=== PATIENT | female | born 1960 | race Caucasian/White ===

== ENCOUNTER → 2021-03-03 13:43 | Outpatient (CLI) | payer BC, SELFPAY ==
--- NOTE | ~2021-03-03 | MM_ITS ---
EXAMINATION: MM screening [facility] BI w saad HISTORY: Screening mammogram TECHNIQUE: Craniocaudal and mediolateral oblique 3-D tomosynthesis images were obtained and synthetic 2-D images were generated. CAD analysis was submitted and interpreted. COMPARISON: 07/05/2019, 06/05/2018, 10/20/2015 BREAST PARENCHYMAL COMPOSITION: The breasts are heterogeneously dense, which may obscure small masses . FINDINGS: There is no evidence of suspicious mass, calcification, or architectural distortion to sugg est malignancy in either breast. There has been no suspicious interval change. IMPRESSION: 1. No mammographic evidence of malignancy. 2. Recommend routine screening mammography in one year. BI-RADS Category 1: Negative Reviewed, dictated and finalized at location A.
== END ==
PROVIDERS: Visit Provider Obstetrics & Gynecology
DX: Z12.31 Encounter for screening mammogram for malignant neoplasm of breast (principal)
CPT/HCPCS: 77063; 77067

== ENCOUNTER → 2022-08-10 11:46 | Outpatient (CLI) | payer BC, SELFPAY ==
--- NOTE | ~2022-08-10 | MM_ITS ---
EXAMINATION: MM screening [facility] BI w saad HISTORY: Screening mammogram TECHNIQUE: Craniocaudal and mediolateral oblique 3-D tomosynthesis images were obtained and synthetic 2-D images were generated. CAD analysis was submitted and interpreted. COMPARISON: 03/03/2021, 07/05/2019, 06/01/2018 bilateral screening mammogram examinations BREAST PARENCHYMAL COMPOSITION: There are scattered areas of fibroglandular density. FINDINGS: Is focal asymmetry in the central medial left breast on MLO view (MLO Tomosynthesis image 4 ). Diagnostic left mammogram and ultrasound examination are recommended. Otherwise there is no evidence of suspicious mass, calcification, or architectural distortion to sugg est malignancy in either breast. There has been no other suspicious interval change. IMPRESSION: 1. Focal left breast asymmetry on MLO view 2. Diagnostic left mammogram and left breast ultrasound examination are recommended BI-RADS Category 0: Incomplete: Needs additional imaging evaluation. Reviewed, dictated and finalized at location A. IMPRESSION: 1. Focal left breast asymmetry on MLO view 2. Diagnostic left mammogram and left breast ultrasound examination are recomme nded BI-RADS Category 0: Incomplete: Needs additional imaging evaluation.
== END ==
PROVIDERS: PCP Internal Medicine; Visit Provider Obstetrics & Gynecology Gynecology
DX: Z12.31 Encounter for screening mammogram for malignant neoplasm of breast (principal); R92.8 Other abnormal and inconclusive findings on diagnostic imaging of breast
CPT/HCPCS: 77063; 77067

== ENCOUNTER → 2022-08-17 08:43 | Outpatient (CLI) | payer BC, SELFPAY ==
--- NOTE | ~2022-08-17 | MMUS_ITS ---
EXAMINATION: MM diagnostic [facility] LT w saad, US breast LT limited HISTORY: Focal asymmetry of the left breast on screening mammogram TECHNIQUE: Additional 3-D tomosynthesis images of the left breast were performed and synthetic 2-D im ages were generated. CAD analysis was submitted and interpreted. High resolution limited left breast ultrasound was performed. COMPARISON: 08/10/2022, 03/03/2021, 07/05/2019 FINDINGS: MAMMOGRAPHIC FINDINGS: A persistent asymmetry is seen in the middle third of the inner breast on the mediolateral oblique vi ew with spot compression. No suspicious correlate is identified on the craniocaudal or mediolateral v iews. ULTRASOUND: There is a 7 mm x 3 mm mass at the 9:00 location 4.5 cm from the nipple on the breast with sonographi c features consistent with an intramammary lymph node. No suspicious cystic or solid mass is identifi ed. IMPRESSION: 1. No mammographic or sonographic evidence of malignancy. 2. Recommend routine screening mammography in one year. BI-RADS Category 2: Benign finding(s). Reviewed, dictated and finalized at location A. IMPRESSION: 1. No mammographic or sonographic evidence of malignancy. 2. Recommend routine screening mammography in one year. BI-RADS Category 2: Benign finding(s).
== END ==
PROVIDERS: PCP Internal Medicine; Visit Provider Obstetrics & Gynecology Gynecology
DX: R92.8 Other abnormal and inconclusive findings on diagnostic imaging of breast (principal)
CPT/HCPCS: 76642; 77061; 77065; G0279

== ENCOUNTER 2022-11-16 12:20 | Outpatient (CLI) | payer BC, SELFPAY ==
--- NOTE | 2022-11-16 | ECHO_ITS ---
Patient Info Name: Ivett Hemphill Age: 62 years : 1960 Gender: Female Ht: 67 in Wt: 250 lbs BSA: 2.37 m2 HR: 67 bpm BP: 122 / 83 mmHg Heart Rhythm: Sinus Rhythm Technical Quality: Fair Exam Date: 11/16/2022 1:51 PM Exam Location: [facility] Patient Status: Outpatient Admit Date: 11/16/2022 Staff Ordering Physician: Tristen Medina MD Senior Lead Software Engineer: Iris Galloway RDCS Attending Provider: Tristen Medina MD Referring Physician: Kennedy UP; Exam Type: CA echo doppler color flow Study Info Indications - dyspnea Complete two-dimensional, color flow and Doppler transthoracic echocardiogram is performed. Summary 1. Complete two-dimensional, color flow and Doppler transthoracic echocardiogram is performed. 2. Left ventricular systolic function is normal, estimated at 60-65%. 3. The left ventricular diastolic function is grade I diastolic dysfunction. 4. Right ventricular systolic function is normal. 5. There is trace mitral valve regurgitation. 6. There is mild tricuspid valve regurgitation. Left Ventricle Left ventricular chamber dimension is normal. Left ventricular systolic function is normal, estimated at 60-65%. There is no increased left ventricular wall thickness. The left ventricular diastolic function is grade I diastolic dysfunction. Right Ventricle Right ventricular chamber dimension is normal. Right ventricular systolic function is normal. Left Atria Left atrial chamber dimension is normal. Right Atria Right atrial chamber dimension is normal. Atrial Septum Intact interatrial septum visualized by color flow imaging. Aortic Valve The aortic valve is probable trileaflet. There is no aortic valve stenosis. There is no aortic valve regurgitation. Pulmonic Valve The pulmonic valve is not well visualized. Mitral Valve The mitral valve has thickened leaflets. There is no mitral valve stenosis. There is trace mitral valve regurgitation. Tricuspid Valve There is mild tricuspid valve regurgitation. Pericardium/Pleural There is no pericardial effusion. Inferior Vena Cava Normal inferior vena cava with >50% collapse upon inspiration consistent with normal right atrial pressure. Aorta The aortic root size at the sinus of Valsalva is normal. Left Ventricular Outflow Tract Name Value Normal LVOT 2D LVOT Diameter 2.2 cm LVOT Doppler LVOT Peak Gradient 5 mmHg LVOT Mean Gradient 2 mmHg LVOT VTI 18 cm LVOT VTI/AV VTI Ratio 0.8 LVOT Stroke Volume 68 ml LVOT CO 5.4 l/min LVOT CI 2.3 l/min/m2 Pulmonic Valve Name Value Normal RVOT Doppler RVOT Peak Gradient
--- NOTE | ~2022-11-16 | CT_ITS ---
EXAMINATION:CT lung screening DATE: 11/16/2022 14:43 INDICATION: Nicotine dependence. Current smoker with 20 pack year history. TECHNIQUE: Computed tomography (CT) of the chest was performed without intravenous contrast. Automate d exposure control and iterative reconstruction technique were employed. The dose-length product (DLP ) was 233.58 mGy-cm. COMPARISON: None. FINDINGS: There is mild emphysema. There is mild scarring at the lung apices. There is mild atelectas is bilaterally. There is a 5 mm nodule in right lower lobe. There is a 3 mm nodule at minor fissure. Calcified left lung nodules and calcified left hilar and mediastinal lymph nodes are consistent with old granulomatous disease. No pleural effusion. There is an aberrant right subclavian artery. The hea rt size is normal. No pericardial effusion. Calcifications in the spleen are consistent with old gran ulomatous disease. There is mild thoracic spondylosis. IMPRESSION: 1. Lung-RADS category 2: Benign appearance or behavior. Continue annual screening with noncontrast lo w-dose chest CT in 12 months. Reviewed, dictated and finalized at location A. AL CERAMIST ASSISTANT IMPRESSION: 1. Lung-RADS category 2: Benign appearance or behavior. Continue annual screeni ng with noncontrast low-dose chest CT in 12 months.
--- NOTE | 2022-11-17 09:38 | WPDPFTINT ---
PFT Procedure Performed PFT Procedure Performed Plethysmography (Lung Vol) Diffusing Cap (DLCO) Flow Vol Loop Spirometry w/o Bronchodil PFT Interpretation Spirometry showed normal FVC, normal FEV1, borderline diminished mid expiratory flow rates and a diminished FEV1 to FVC ratio 65%, indicative of mild obstructive airway disease, in the form of small airway disease. No post bronchodilator study was carried out. The elevated FRC and RV could indicate air trapping but this is not supported by the near normal spirometry. Alternatively, error in measurement of lung volumes could explain the increased lung volume measurements. Lung diffusion capacity is mildly reduced at 68% predicted. The flow-volume loop is consistent with a small airway disease. Consider repeating spirometry with post bronchodilator study to confirm the mild obstructive airway defect. Impression: Probable mild obstructive airway disease in the form of small airway disease. Consider repeat spirometry with bronchodilator study.
== END 2022-11-16 12:21 | disposition home or self-care (01) ==
PROVIDERS: PCP Internal Medicine; Visit Provider Internal Medicine
DX: Z12.2 Encounter for screening for malignant neoplasm of respiratory organs (principal); F17.210 Nicotine dependence, cigarettes, uncomplicated; R06.00 Dyspnea, unspecified; R94.2 Abnormal results of pulmonary function studies; I07.1 Rheumatic tricuspid insufficiency
CPT/HCPCS: 71271; 93306; 94375; 94726; 94729

== ENCOUNTER 2022-12-02 12:17 | Outpatient (CLI) | payer BC, SELFPAY ==
--- NOTE | 2022-12-02 15:46 | P.PCNPFT_ITS ---
PFT Procedure Performed PFT Procedure Performed Spirometry with Pre/Post Bronchodilator Flow Vol Loop PFT Interpretation This is a pulmonary function test with pre and post-bronchodilator spirometry. The test was performed and results interpreted in accordance with the 2019 and 2005 ATS/ERS Task Force guidelines respectively using the Global Lung Function Initiative-2012 reference equations. Patient demonstrated good effort and cooperation. Reproducibility criteria were met. The quality of the pre bron chodilator spirometry maneuver was Grade A and post bronchodilator spirometry maneuver was Grade A. Findings: Spirometry: The contour the inspiratory and expiratory flow tracing are normal. The pre bronchodilator FVC is 3.65 L, 104% predicted. The pre bronchodilator FEV1 is 2.56 L, 93% predicted. The pre bronchodilator FEV1: FVC ratio 70%. The post bronchodilator FVC is 4.29 L, representing an 18% increase. The post bronchodilator FEV1 is 3.21 L, representing a 26% increase. The post bronchodilator FEV1: FVC ratio 75%. In comparison to previous pulmonary function testing on 11/16/2022 in which only pre bronchodilator spirometry was performed, the pre bronchodilator FVC has decreased from 4.56 L to 3.65 L. The pre bronchodilator FEV1 is unchanged from 2.95 L to 2.56 L. Impression: The spirometry is normal without evidence of an obstructive abnormality. There is a significant improvement after inhaling a single dose of albuterol. In comparison to previous pulmonary function testing on 11/16/2022 there has been a greater than anticipated time dependent decrease in the pre bronchodilator FVC with no significant change in the pre bronchodilator FEV1. Clinical correlation is recommended.
== END 2022-12-02 12:18 | disposition home or self-care (01) ==
LOC: ANHPFT 12:20
PROVIDERS: PCP Internal Medicine; Visit Provider Internal Medicine
DX: J44.0 Chronic obstructive pulmonary disease with (acute) lower respiratory infection (principal)
CPT/HCPCS: 94060

== ENCOUNTER → 2023-08-10 10:17 | Outpatient (CLI) | payer BC, SELFPAY ==
--- NOTE | ~2023-08-10 | DEXA_ITS ---
Bone Density Report Name: ARMOND DEL ROSARIO Age: 62 Sex: Female Ethnicity: White Date of : 1960 Indication: osteopenia; hysterectomy; Referring Provider: AMRITA JEAN Study: Bone densitometry was performed. Exam Date: August 10, 2023 Accession number: [id number] Bone Density: Region BMD T-score Z-score Classification AP Spine (L1-L4) 0.925 -1.1 0.4 Osteopenia Femoral Neck (Left) 0.799 -0.4 0.9 Normal Total Hip (Left) 0.913 -0.2 0.8 Normal Femoral Neck (Right) 0.759 -0.8 0.5 Normal Total Hip (Right) 0.862 -0.7 0.3 Normal Total Hip Mean 0.888 -0.5 0.6 Normal World Health Organization criteria for BMD impression classify patients as: Normal (T-score at or above -1.0), Osteopenia (T-score between -1.0 and -2.5), or Osteoporosis (T-score at or below -2.5). 10-year Fracture Risk(1): Major Osteoporotic Fracture 6.0% Hip Fracture 0.5% Reported Risk Factors: [place] (), Neck BMD=0.759, BMI=42.0, smoking (1) FRAX(R) Version 3.08. Fracture probability calculated for an untreated patient. Fracture probability may be lower if the patient has received treatment. Previous Exams: Region Exam Age BMD T-score BMD Change BMD Change Date g/cm2 vs Baseline vs Previous AP Spine(L1-L4) 08/10/2023 62 0.925 -1.1 0.017 0.063* 06/05/2018 57 0.862 -1.7 -0.046 -0.046 10/20/2015 55 0.908 -1.3 Total Hip(Left) 08/10/2023 62 0.913 -0.2 0.078 0.052* 06/05/2018 57 0.861 -0.7 0.027 0.027 10/20/2015 55 0.835 -0.9 Total Hip(Right) 08/10/2023 62 0.862 -0.7 0.003 0.022 06/05/2018 57 0.839 -0.8 -0.019 -0.019 10/20/2015 55 0.858 -0.7 *Denotes significance at 95% confidence level, LSC for AP Spine = 0.022 g/cm2, LSC for Total Hip = 0.027 g/cm2 Clinical Information Provided by Patient: Smokes Has used the following medications: Vitamin D Has the following medical conditions: Hysterectomy Patient maximum height was 67 Menopause Age: 32 No regular weight bearing exercise Onset of menses at age 15 Number of children 1 Impression: The patient has low bone mass, based on the Total Spine T-score. The patient has an estimated ten-year risk of hip fracture of 0.5% and an estimated ten-year risk of major fracture of 6%, based on the WHO FRAX algorithm. The patient has risk factors, including: smoking. No s
== END ==
PROVIDERS: PCP Obstetrics & Gynecology Gynecology; Visit Provider Obstetrics & Gynecology Gynecology
DX: Z78.0 Asymptomatic menopausal state (principal); M85.88 Other specified disorders of bone density and structure, other site
CPT/HCPCS: 77080

== ENCOUNTER → 2023-09-29 12:27 | Outpatient (CLI) | payer BC, SELFPAY ==
--- NOTE | ~2023-09-29 | MM_ITS ---
EXAMINATION: MM screening [facility] BI w saad HISTORY: Screening mammogram TECHNIQUE: Craniocaudal and mediolateral oblique 3-D tomosynthesis images were obtained and synthetic 2-D images were generated. CAD analysis was submitted and interpreted. COMPARISON: 08/17/2022, 08/10/2022, 03/03/2021, 07/05/2019 BREAST PARENCHYMAL COMPOSITION: The breasts are heterogeneously dense, which may obscure small masses . FINDINGS: No suspicious mass, calcification, or architectural distortion are identified in either vicky ast to suggest malignancy. There has been no suspicious interval change. IMPRESSION: 1. No mammographic evidence of malignancy. 2. Recommend routine screening mammography in one year. BI-RADS Category 1: Negative Reviewed, dictated and finalized at location A. NING PROGRAM ASSISTANT
== END ==
PROVIDERS: PCP Obstetrics & Gynecology Gynecology; Visit Provider Obstetrics & Gynecology Gynecology
DX: Z12.31 Encounter for screening mammogram for malignant neoplasm of breast (principal)
CPT/HCPCS: 77063; 77067

== ENCOUNTER 2023-10-11 01:03 | Day surgery (SDC) | payer BC, SELFPAY ==
[2023-10-03 14:46] VITALS: BMI 40.7
--- NOTE | 2023-10-09 10:16 | SUR.PREOP ---
Patient called regarding upcoming procedure. Reviewed preop instructions, appointment times, and procedure prep.
[2023-10-11 10:39] VITALS: BP 118/72; PULSE 97; RESP 20; TEMP 36.1; O2SAT 94
[2023-10-11] MEDS: LACTATED RINGERS 1,000 ML 150 ML IV CONT (10:42)
--- NOTE | 2023-10-11 10:57 | P.HP_ITS ---
History of Present Illness History of Present Illness Consent: Risks, benefits, and alternatives have been discussed and questions answered. Patient agrees to proceed with procedure. Chief complaint: + cologuard Narrative: Ivett Hemphill is a 63 year old female Referred for colon cancer screening. She had performed a Cologuard test which was positive Review of Systems Review of Systems: All systems reviewed & are unremarkable except as noted in HPI and below PMFSH Social History Social History Smoking packs per day: 1.25 Smoking cigarettes per day: 25.0 Years smoked: 40 Smoking pack-years: 50.00 Smoking status: Former smoker Tobacco type: cigarettes and e-cigarettes/vaping Additional smoking assessment comments: CURRENTLY VAPES Alcohol intake: never Substance use: never Substance use type: does not use Living arrangements: with family Spiritual care concerns: No Meds Home Medications and Allergies Home Medications Medication Instructions Recorded Confirmed Type Calcium 600 + D(3) 1 caplet PO BID 10/03/23 10/11/23 History ergocalciferol (vitamin D2) 1,250 50,000 unit PO WEEKLY 10/03/23 10/11/23 Histor y mcg (50,000 unit) capsule furosemide 40 mg tablet 40 mg PO DAILY 10/03/23 10/11/23 History magnesium oxide 500 mg tablet 500 mg PO HS 10/03/23 10/11/23 History metolazone 5 mg tablet 5 mg PO DAILY 10/03/23 10/11/23 History potassium chloride 20 mEq 20 meq PO TID 10/03/23 10/11/23 History tablet,extended release rivaroxaban 20 mg tablet (Xarelto) 20 mg PO DAILY 10/03/23 10/11/23 History venlafaxine 37.5 mg 37.5 mg PO DAILY 10/03/23 10/11/23 History capsule,extended release 24 hr acetaminophen 325 mg tablet 650 mg PO Q4H PRN Pain 10/11/23 10/11/23 History Allergies Allergy/AdvReac Type Severity Reaction Status Date / Time No Known Allergies Allergy Verified 10/11/23 10:37 Vital Signs Vital Signs - 24 hr 10/11/23 10:39 Temperature 36.1 C L Pulse Rate 97 Respiratory Rate 20 Blood Pressure 118/72 Pulse Oximetry 94 Oxygen Delivery Room Air Exam Const: General: alert Orientation/consciousness: patient oriented x3 Resp: Auscultation: clear to auscultation bilaterally Cardio: Rhythm: regular rhythm GI: GI Palp: Yes Soft to palpation and No Tenderness to palpation present (GI) Neuro: General: patient oriented x3 Assessment and Plan Assessment and plan (1) Positive colorectal cancer screening using Cologuard test: Code(s): R19.5 - Other fecal abnormalities Status: Acute Assessment and Plan: Colonoscopy with possible biopsy or polypectomy or cautery or injection of substances.
--- NOTE | 2023-10-11 11:16 | P.PNAN_ITS ---
Anes - Initial Pre Proc Eval Procedure: Operation Date: 10/11/23 12:30 Proposed Procedures p Colonoscopy - Philip Torres MD Date/Time: 10/11/23 11:16 Surgeon: Philip Torres MD Pre Op Diagnosis: + cologuard Patient Data Age: 63 Gender: F Height: 1.7 m Weight: 117.9 kg Last Vital Signs Temp 96.9 F L 10/11/23 10:39 Pulse 97 10/11/23 10:39 Resp 20 10/11/23 10:39 BP 118/72 10/11/23 10:39 Pulse Ox 94 10/11/23 10:39 O2 Del Method Room Air 10/11/23 10:39 Allergies Allergy/AdvReac Type Severity Reaction Status Date / Time No Known Allergies Allergy Verified 10/11/23 10:37 Home Medications Medication Instructions Recorded Confirmed Type Calcium 600 + D(3) 1 caplet PO BID 10/03/23 10/11/23 History ergocalciferol (vitamin D2) 1,250 50,000 unit PO WEEKLY 10/03/23 10/11/23 History mcg (50,000 unit) capsule furosemide 40 mg tablet 40 mg PO DAILY 10/03/23 10/11/23 History magnesium oxide 500 mg tablet 500 mg PO HS 10/03/23 10/11/23 History metolazone 5 mg tablet 5 mg PO DAILY 10/03/23 10/11/23 History potassium chloride 20 mEq 20 meq PO TID 10/03/23 10/11/23 History tablet,extended release rivaroxaban 20 mg tablet (Xarelto) 20 mg PO DAILY 10/03/23 10/11/23 History venlafaxine 37.5 mg 37.5 mg PO DAILY 10/03/23 10/11/23 History capsule,extended release 24 hr acetaminophen 325 mg tablet 650 mg PO Q4H PRN Pain 10/11/23 10/11/23 History Patient hx anesthesia problems: none Family hx anesthesia problems: none Results Review: All pre-operative results and documents have been reviewed as part of the pre- operative evaluation. [facility] Social History Social History Smoking packs per day: 1.25 Smoking cigarettes per day: 25.0 Years smoked: 40 Smoking pack-years: 50.00 Smoking status: Former smoker Tobacco type: cigarettes and e-cigarettes/vaping Additional smoking assessment comments: CURRENTLY VAPES Alcohol intake: never Substance use: never Substance use type: does not use Living arrangements: with family Spiritual care concerns: No Anes - Eval Final PreProcedure Day of Procedure 10/11/23 11:16 Patient weight: morbidly obese Heart: regular rate and rhythm Lungs: clear to auscultation Airway: Mallampati scale class III Neurological: alert and oriented Last oral intake: >/= 8 hours ASA classification: III Emergent: no Anesthetic plan: proceed Anesthesia type and monitoring: general GIVS and standard monitoring Results Review: All pre-operative results and documents have been reviewed as part of the pre- operative evaluation. Informed Consent: The patient's anesthetic plan and its attendant risks and benefits were discussed with the patient/family/POA. Questions were solicited and answers provided to the satisfaction of the patient/family/POA.
[2023-10-11 11:55] VITALS: BP 100/64; PULSE 84; RESP 18; O2SAT 96
[2023-10-11 12:05] VITALS: BP 115/74; PULSE 78; RESP 20; O2SAT 98
[2023-10-11 12:15] VITALS: BP 125/78; PULSE 77; RESP 18; O2SAT 98
== END 2023-10-11 12:22 | disposition home or self-care (01) ==
PROVIDERS: PCP Internal Medicine; Visit Provider Internal Medicine Gastroenterology
PROC: 0DJD8ZZ Inspection of Lower Intestinal Tract, Via Natural or Artificial Opening Endoscopic (ICD-10-PCS; CPT 45378; principal; 2023-10-11 12:30)
DX: R19.5 Other fecal abnormalities (principal); D37.4 Neoplasm of uncertain behavior of colon; F17.209 Nicotine dependence, unspecified, with unspecified nicotine-induced disorders; E66.01 Morbid (severe) obesity due to excess calories; Z68.41 Body mass index [BMI] 40.0-44.9, adult; Z79.01 Long term (current) use of anticoagulants
CPT/HCPCS: 45380; 45381; 88305; J2704; J7120

== ENCOUNTER 2024-10-30 01:22 | Day surgery (SDC) | payer OTHER, SELFPAY ==
[2024-10-29 13:21] VITALS: BMI 40.6
[2024-10-30 08:56] VITALS: BP 134/74; PULSE 88; RESP 20; TEMP 36.3; O2SAT 99
[2024-10-30] MEDS: LACTATED RINGERS 1,000 ML 150 ML IV CONT (09:12)
--- NOTE | 2024-10-30 09:22 | WPDANESEPPF ---
Anes - Initial Pre Proc Eval Procedure: Operation Date: 10/30/24 10:00 Proposed Procedures p Colonoscopy - Milton mSith MD Date/Time: 10/30/24 09:22 Surgeon: Milton Smith MD Pre Op Diagnosis: Malignant neoplasm of colon Patient Data Age: 64 Gender: F Height: 1.7 m Weight: 114.1 kg Last Vital Signs Temp 36.3 C L 10/30/24 08:56 Pulse 88 10/30/24 08:56 Resp 20 10/30/24 08:56 BP 134/74 10/30/24 08:56 Pulse Ox 99 10/30/24 08:56 O2 Del Method Room Air 10/30/24 08:56 Allergies Allergy/AdvReac Type Severity Reaction Status Date / Time No Known Allergies Allergy Verified 10/29/24 13:41 Home Medications ?Medication ?Instructions ?Recorded ?Confirmed ?Type Calcium 600 + D(3) 1 caplet PO BID 10/03/23 10/30/24 History ergocalciferol (vitamin D2) 1,250 50,000 unit PO WEEKLY 10/03/23 10/30/24 History mcg (50,000 unit) capsule furosemide 40 mg tablet 40 mg PO DAILY 10/03/23 10/30/24 History magnesium oxide 500 mg PO HS 10/03/23 10/30/24 History metolazone 5 mg tablet 5 mg PO DAILY 10/03/23 10/30/24 History potassium chloride 20 mEq 20 meq PO TID 10/03/23 10/30/24 History tablet,extended release rivaroxaban 20 mg tablet (Xarelto) 20 mg PO DAILY 10/03/23 10/30/24 History venlafaxine 37.5 mg 37.5 mg PO DAILY 10/03/23 10/30/24 History capsule,extended release 24 hr acetaminophen 325 mg tablet 650 mg PO Q4H PRN Pain 10/11/23 10/29/24 History metoprolol succinate 25 mg 25 mg PO HS 10/29/24 10/30/24 History tablet,extended release 24 hr Patient hx anesthesia problems: none Family hx anesthesia problems: none Results Review: All pre-operative results and documents have been reviewed as part of the pre-operative evaluation. [facility] Past Medical History Medical History Colon cancer Social History Social History Smoking packs per day: 1 Smoking cigarettes per day: 20.0 Years smoked: 20 Smoking pack-years: 20.00 Smoking status: Former smoker Tobacco type: cigarettes Additional smoking assessment comments: CURRENTLY VAPES Alcohol intake: current Substance use: never Substance use type: does not use Living arrangements: with family Spiritual care concerns: No Anes - Eval Final PreProcedure Day of Procedure 10/30/24 09:22 Patient weight: morbidly obese Heart: regular rate and rhythm Lungs: clear to auscultation Airway: Mallampati scale class II Neurological: alert and oriented Last oral intake: >/= 8 hours ASA classification: III Emergent: no Anesthetic plan: proceed Anesthesia type and monitoring: general GIVS and standard monitoring Results Review: All pre-operative results and documents have been reviewed as part of the pre-operative evaluation. Informed Consent: The patient's anesthetic plan and its attendant risks and benefits were discussed with the patient/family/POA. Questions were solicited and answers provided to the satisfaction of the patient/family/POA.
--- NOTE | 2024-10-30 09:54 | PM.HPGS ---
History of Present Illness History of Present Illness Consent: Risks, benefits, and alternatives have been discussed and questions answered. Patient agrees to proceed with procedure. Chief complaint: Malignant neoplasm of colon Narrative: Ivett Hemphill is a 64 year old female with ascending colon s/p rt hemicolectomy last year, negative LN, dMMR + and is seeing oncology. Review of Systems Review of Systems: All systems reviewed & are unremarkable except as noted in HPI and below PMFSH Past Medical History Medical History Colon cancer Social History Social History Smoking packs per day: 1 Smoking cigarettes per day: 20.0 Years smoked: 20 Smoking pack-years: 20.00 Smoking status: Former smoker Tobacco type: cigarettes Additional smoking assessment comments: CURRENTLY VAPES Alcohol intake: current Substance use: never Substance use type: does not use Living arrangements: with family Spiritual care concerns: No Meds Home Medications and Allergies Home Medications ?Medication ?Instructions ?Recorded ?Confirmed ?Type Calcium 600 + D(3) 1 caplet PO BID 10/03/23 10/30/24 History ergocalciferol (vitamin D2) 1,250 50,000 unit PO WEEKLY 10/03/23 10/30/24 History mcg (50,000 unit) capsule furosemide 40 mg tablet 40 mg PO DAILY 10/03/23 10/30/24 History magnesium oxide 500 mg PO HS 10/03/23 10/30/24 History metolazone 5 mg tablet 5 mg PO DAILY 10/03/23 10/30/24 History potassium chloride 20 mEq 20 meq PO TID 10/03/23 10/30/24 History tablet,extended release rivaroxaban 20 mg tablet (Xarelto) 20 mg PO DAILY 10/03/23 10/30/24 History venlafaxine 37.5 mg 37.5 mg PO DAILY 10/03/23 10/30/24 History capsule,extended release 24 hr acetaminophen 325 mg tablet 650 mg PO Q4H PRN Pain 10/11/23 10/29/24 History metoprolol succinate 25 mg 25 mg PO HS 10/29/24 10/30/24 History tablet,extended release 24 hr Allergies Allergy/AdvReac Type Severity Reaction Status Date / Time No Known Allergies Allergy Verified 10/29/24 13:41 Vital Signs Vital Signs - 24 hr 10/30/24 08:56 Temperature 97.4 F L Pulse Rate 88 Respiratory Rate 20 Blood Pressure 134/74 Pulse Oximetry 99 Oxygen Delivery Room Air Exam Const: General: comfortable and no acute distress HENMT: Face/Nose/Sinus: Normal nares present Eyes: General: appearance normal, both eyes and all related structures Neck: Neck: no JVD Resp: Auscultation: clear to auscultation bilaterally Cardio: Rate: regular rate Rhythm: regular rhythm GI: Inspection: non-distended GI Palp: Yes Soft to palpation Skin: General skin exam: normal color Neuro: General: gait normal Speech: normal speech Extrem: General: normal to inspection Psych: Mental Status: mental status grossly normal Assessment and Plan Assessment and plan (1) Colon cancer: Code(s): C18.9 - Malignant neoplasm of colon, unspecified Status: Acute Assessment and Plan: colonoscopy
[2024-10-30 10:11] VITALS: BP 99/47; PULSE 71; RESP 23; O2SAT 95
[2024-10-30 10:21] VITALS: BP 115/71; PULSE 75; RESP 20; O2SAT 95
[2024-10-30 10:31] VITALS: BP 121/67; PULSE 67; RESP 23; O2SAT 94
== END 2024-10-30 10:40 | disposition home or self-care (01) ==
PROVIDERS: PCP Internal Medicine; Referring Provider Nurse Practitioner Family; Visit Provider Internal Medicine Gastroenterology
PROC: 0DJD8ZZ Inspection of Lower Intestinal Tract, Via Natural or Artificial Opening Endoscopic (ICD-10-PCS; CPT 45378; principal; 2024-10-30 10:00)
DX: Z08 Encounter for follow-up examination after completed treatment for malignant neoplasm (principal); D12.3 Benign neoplasm of transverse colon; K62.1 Rectal polyp; K64.8 Other hemorrhoids; Z85.038 Personal history of other malignant neoplasm of large intestine; Z98.0 Intestinal bypass and anastomosis status; Z90.49 Acquired absence of other specified parts of digestive tract; F17.290 Nicotine dependence, other tobacco product, uncomplicated; E66.01 Morbid (severe) obesity due to excess calories; Z68.39 Body mass index [BMI] 39.0-39.9, adult
CPT/HCPCS: 45385; 45380; 88305; J2003; J2704; J7120

== ENCOUNTER 2025-05-15 11:35 | Outpatient (CLI) | payer OTHER, SELFPAY ==
--- NOTE | ~2025-05-15 | US_ITS ---
EXAMINATION: US venous doppler [facility] DATE: 05/15/2025 12:40 INDICATION: Right lower extremity erythema and swelling TECHNIQUE: Grayscale ultrasound images without and with compression and Doppler ultrasound images of the bilateral lower extremity veins were obtained. COMPARISON: None. FINDINGS: The visualized portions of right common femoral vein, profunda (deep) femoral vein and greater saphen ous vein outflow are patent and compressible. Noncompressibility and absence of flow is identified within the femoral vein, popliteal vein, peronea l veins and posterior tibial veins consistent with extensive right lower extremity deep venous thromb osis. The visualized portions of left common femoral vein, profunda femoral vein, femoral vein, popliteal v ein, peroneal veins, posterior tibial veins, and greater saphenous vein outflow are patent. IMPRESSION: Deep venous thrombosis within the right femoral vein, popliteal vein, peroneal veins and posterior ti bial veins, as detailed above. These findings were discussed directly with Dr. Benavides (patient's house furnishings supervisor) at 1:00 PM on 05/15/2025. Reviewed, dictated and finalized at location A. IMPRESSION: Deep venous thrombosis within the right femoral vein, popliteal vein, peroneal veins and posterior tibial veins, as detailed above. These findings were discussed directly with Dr. Benavides (patient's primary clini inder) at 1:00 PM on 05/15/2025.
--- OUTSIDE RECORDS SUMMARY | 2025-05-15 11:42 | XMS_ITS | Data Portability ---
Author Organization [facility], Main Office Address [address] [place] [address] Assessment No assessment recorded. Plan of Treatment Reminders Order Date Submit Date Provider Last Modified By Organization Details Last Modified Time Details Appointments Any 10 2024 10:20A Radha Benavides MD Not available Not available Not available Lab BMP, serum or plasma 2024 025 [email or web address] [facility], [address] [place], [address], 05/15/2025 11:42:00 HbA1c (hemoglo bin A1c), blood 2024 025 [facility], [address] [place], [address], 12/27/2024 14:00:29 lipid panel, serum 2024 025 [email or web address] [facility], [address] [place], [address], 12/27/2024 14:00:29 CMP, serum or plasma 2024 025 [facility], [address] [place], [address], 12/27/2024 14:00:29 T4, free, serum 2024 025 [email or web address] [facility], [address] [place], [address], 12/27/2024 14:00:29 TSH, serum or plasma 2024 025 [id number] [facility], [address] [place], [address], 12/27/2024 14:00:30 CBC w/ auto diff 2024 025 [email or web address] [facility], [address] [place], [address], 12/27/2024 14:00:30 TSH, serum or plasma 2023 024 [id number] [facility], [address] [place], [address], 06/12/2024 16:58:32 T4, free, serum 2023 024 [email or web address] [facility], [address] [place], [address], 06/12/2024 16:58:32 vitamin D, 25-hydro xy, total, serum 2023 024 [email or web address] [facility], [address] [place], [address], 06/12/2024 16:58:33 lipid panel, serum 2023 024 [email or web address] [facility], [address] [place], [address], 06/03/2024 14:58:38 CMP, serum or plasma 2023 024 [id number] L [facility], [address] [place], [address], 06/13/2024 14:22:32 CBC w/ auto diff 2023 024 [id number] [facility], [address] [place], [address], 06/12/2024 16:58:32 Referral None recorded . Procedures None recorded . Surgeries None recorded . Imaging None recorded . Medication Orders None recorded . Patient TargetsNo targets recorded. Patient Instructions Encounter Date Encounter Id Patient Instructions Last Modified By Organization Details Last Modified Time 02/05/2024 [id number] Medically stable follow-up for primary adenocarcinoma of colon, depression as well as history of DVT all clinically stable. No need for any blood work at this time. Will continue on current Rx follow-up in approximately four months. Next Appt: 4 Months Approximate Date: 06/04/2024 Portions of the record may have been created with voice recognition software. Occasional wrong-word or s ound-a-like substitutions may have occurred due to the inherent limitations of voice recognition software. Read the chart carefully and recognize, using context, where substitutions have occurred. [email or web address] Not available 02/05/2024 12:41:54 06/03/2024 [id number] Follow-up for pr imary adenocarcinoma of colon, ventral hernia as well as obesity all clinically stable. Check blood work in the form of CBC, CMP, lipid, thyroid and vitamin-D level. Will try to get records on the most recent mammogram as well as CT scan of chest abdomen and pelvis. Follow-up in six months Additional Orders and/or Directives: 1. See if there was a screening mammogram done back in July at the [facility]. 2. Check on a CT scan of the chest abdomen and pelvis that was performed [facility] several months ago by Oncology. Next Appointment: 6 Months Approximate Date: 11/30/2024 Portions of the record may have been created with voice recognition software. Occasional wrong-word or s ound-a-like substitutions may have occurred due to the inherent limitations of voice recognition software. Read the chart carefully and recognize, using context, where substitutions have occurred. [email or web address] Not available 06/03/2024 14:57:24 12/10/2024 [id number] Ventral hernia, depression, history of deep vein thrombosis and morbid obesity. The patient can not have surgery for abdominal wall hernia without losing 30-40 lb.. Suggested that we try when the GLP-1. Inhibitors. Will check some baseline blood work and check for hemoglobin A1c. Check CBC, CMP, lipid, thyroid, hemoglobin A1c. Consider starting on semaglutide or Mounjaro . Follow-up in four months Additional Orders - Directives - Recommendations 1. like to try to start the patient on either Wegovy or Follow Up: 4 Months Approximate Date: 04/09/2025 Portions of record are template driven. When necessary additional context will be provided. Additionally some portions have been created with voice recognition software. Occasional wrong-word or s ound-a-like substitutions may have occurred due to the inherent limitations of voice recognition software. Read the chart carefully and recognize, using context, where substitutions may have occurred. Created: Tristen Benavides M.D. 12.10.2024 03:09 PM [email or web address] Not available 12/10/2024 16:09:48 04/17/2025 [id number] While patient evaluation risk assessment stable. Follow-up for ventral hernia, carcinoma of the colon, depression, morbid obesity and history of DVT in the past. Is clinically stable scheduled for surgery on May 08. See no contraindications to surgery based upon recent blood work and CT scan reports from [facility]. Will follow-up in four months Follow Up: 4 Months Approximate Date: 2025 Portions of record are template driven. When necessary additional context will be provided. Additionally some portions have been created with voice recognition software. Occasional wrong-word or s ound-a-like substitutions may have occurred due to the inherent limitations of voice recognition software. Read the chart carefully and recognize, using context, where substitutions may have occurred. Created: Tristen Benavides M.D. 04.17.2025 11:29 AM [email or web address] Not available 04/17/2025 12:30:22 05/15/2025 [id number] Hypokalemia, his tory of DVT, primary carcinoma of the colon by history clinically doing well and morbid obesity. Will check a repeat potassium and two weeks. Will set up for venous Doppler. Needs a resume her Xarelto. Needs to watch closely for any increased swelling and any shortness of breath or hemoptysis. Let us know immediately. Additional Orders - Directives - Recommendations 1. Bilateral venous Doppler of lower extremities possible DVT Keep Appointment: [facility] 08 14 2025 10:20 AM [place] Portions of record are template driven. When necessary additional context will be provided. Additionally some portions have been created with voice recognition software. Occasional wrong-word or s ound-a-like substitutions may have occurred due to the inherent limitations of voice recognition software. Read the chart carefully and recognize, using context, where substitutions may have occurred. Created: Tristen Benavides M.D. 05.15.2025 10:35 AM [email or web address] Not available 05/15/2025 11:36:02 Reason for Referral None Reported. Results Created Date Observation Date Name Description Value Unit Range Abnormal Flag Note LastModifiedBy Organization Detail LastModifiedTime 01/10/20 24 01/10/2024 CBC/C OMPLE TE BLD COUNT W/DIF F white blood cells 7.7 x10'3 /uL 4.2-10 .8 Not Available [facility] (Lab) [address] [place], [address], 01/10/2024 15:05:44 01/10/20 24 01/10/2024 CBC/C OMPLE TE BLD COUNT W/DIF F red blood cells 4.93 x10'6 /uL 3.80-5 .20 Not Available [facility] (Lab) [address] [place], [address], 01/10/2024 15:05:44 01/10/20 24 01/10/2024 CBC/C OMPLE TE BLD COUNT W/DIF F hemoglobin 11.0 g/dL 12.0-1 5.6 low Not Available [facility] (Lab) [address] [place], [address], 01/10/2024 15:05:44 01/10/20 24 01/10/2024 CBC/C OMPLE TE BLD COUNT W/DIF F hematocrit 37.0 % 35.7-4 5.7 Not Available [facility] (Lab) [address] [place], [address], 01/10/2024 15:05:44 01/10/20 24 01/10/2024 CBC/C OMPLE TE BLD COUNT W/DIF F mean red cell volume 75.1 fL 82.0-9 9.0 low Not Available [facility] (Lab) [address] [place], [address], 01/10/2024 15:05:44 01/10/20 24 01/10/2024 CBC/C OMPLE TE BLD COUNT W/DIF F mean red cell hemoglobin 22.3 pg 27.0-3 3.0 low Not Available [facility] (Lab) [address] [place], [address], 01/10/2024 15:05:44 01/10/20 24 01/10/2024 CBC/C OMPLE TE BLD COUNT W/DIF F mean RBC HGB concentratio n 29.7 g/dL 31.0-3 6.0 low Not Available [facility] (Lab) [address] [place], [address], 01/10/2024 15:05:44 01/10/20 24 01/10/2024 CBC/C OMPLE TE BLD COUNT W/DIF F red cell distribution width 19.4 % 11.8-1 5.5 high Not Available [facility] (Lab) [address] [place], [address], 01/10/2024 15:05:44 01/10/20 24 01/10/2024 CBC/C OMPLE TE BLD COUNT W/DIF F platelets 655 x10'3 /uL 150-40 0 high Not Available [facility] (Lab) [address] [place], [address], 01/10/2024 15:05:44 01/10/20 24 01/10/2024 CBC/C OMPLE TE BLD COUNT W/DIF F mean platelet volume 10.1 fL 9.0-12 .4 Not Available [facility] (Lab) [address] [place], [address], 01/10/2024 15:05:44 01/10/20 24 01/10/2024 CBC/C OMPLE TE BLD COUNT W/DIF F neutrophils 64.0 % 39.0-7 2.0 Not Available [facility] (Lab) [address] [place], [address], 01/10/2024 15:05:44 01/10/20 24 01/10/2024 CBC/C OMPLE TE BLD COUNT W/DIF F lymphocytes 20.4 % 16.0-4 7.0 Not Available [facility] (Lab) [address] [place], [address], 01/10/2024 15:05:44 01/10/20 24 01/10/2024 CBC/C OMPLE TE BLD COUNT W/DIF F monocytes 14.5 % 5.0-12 .0 high Not Available [facility] (Lab) [address] [place], [address], 01/10/2024 15:05:44 01/10/20 24 01/10/2024 CBC/C OMPLE TE BLD COUNT W/DIF F eosinophils 0.3 % 1.0-7. 0 low Not Available [facility] (Lab) [address] [place], [address], 01/10/2024 15:05:44 01/10/20 24 01/10/2024 CBC/C OMPLE TE BLD COUNT W/DIF F basophils 0.4 % 0.0-2. 0 Not Available [facility] (Lab) [address] [place], [address], 01/10/2024 15:05:44 01/10/20 24 01/10/2024 CBC/C OMPLE TE BLD COUNT W/DIF F immature granulocytes 0.4 % 0.00-0 .50 Not Available [facility] (Lab) [address] [place], [address], 01/10/2024 15:05:44 01/10/20 24 01/10/2024 CBC/C OMPLE TE BLD COUNT W/DIF F neutrophils, absolute count 4.96 x10'3 /uL 1.5-8. 0 Not Available [facility] (Lab) [address] [place], [address], 01/10/2024 15:05:44 01/10/20 24 01/10/2024 CBC/C OMPLE TE BLD COUNT W/DIF F lymphocytes, absolute count 1.58 x10'3 /uL 1.07-3 .43 Not Available [facility] (Lab) [address] [place], [address], 01/10/2024 15:05:44 01/10/20 24 01/10/2024 CBC/C OMPLE TE BLD COUNT W/DIF F monocytes, absolute count 1.12 x10'3 /uL 0.29-0 .99 high Not Available [facility] (Lab) [address] [place], [address], 01/10/2024 15:05:44 01/10/20 24 01/10/2024 CBC/C OMPLE TE BLD COUNT W/DIF F eosinophils, absolute count 0.02 x10'3 /uL 0.02-0 .53 Not Available [facility] (Lab) [address] [place], [address], 01/10/2024 15:05:44 01/10/20 24 01/10/2024 CBC/C OMPLE TE BLD COUNT W/DIF F basophils, absolute count 0.03 x10'3 /uL 0.01-0 .08 Not Available [facility] (Lab) [address] [place], [address], 01/10/2024 15:05:44 01/10/20 24 01/10/2024 CBC/C OMPLE TE BLD COUNT W/DIF F immature granulocytes ,absolute 0.03 x10'3 /uL 0.00-0 .05 Not Available [facility] (Lab) [address] [place], [address], 01/10/2024 15:05:44 01/10/20 24 01/10/2024 CBC/C OMPLE TE BLD COUNT W/DIF F nucleated red blood cells 0.0 % -0 Not Available [facility] (Lab) [address] [place], [address], 01/10/2024 15:05:44 01/10/20 24 01/10/2024 CBC/C OMPLE TE BLD COUNT W/DIF F NRBC# 0.00 x10'3 /uL Not Available [facility] (Lab) [address] [place], [address], 01/10/2024 15:05:44 01/10/20 24 01/10/2024 CBC/C OMPLE TE BLD COUNT W/DIF F anisocytosis OCCASI ONAL Not Available [facility] (Lab) [address] [place], [address], 01/10/2024 15:05:44 01/10/20 24 01/10/2024 CBC/C OMPLE TE BLD COUNT W/DIF F hypochromia OCCASI ONAL Not Available [facility] (Lab) [address] [place], [address], 01/10/2024 15:05:44 01/10/20 24 01/10/2024 CBC/C OMPLE TE BLD COUNT W/DIF F polychromato philic RBCs OCCASI ONAL Not Available [facility] (Lab) [address] [place], [address], 01/10/2024 15:05:44 01/10/20 24 01/10/2024 IRON/ TIBC PANEL total iron binding capacity 358 mcg/d L 265-47 5 Not Available [facility] (Lab) [address] [place], [address], 01/10/2024 15:58:36 01/10/20 24 01/10/2024 IRON/ TIBC PANEL % transferrin saturation 10 % 20-55 low Not Available [facility] (Lab) [address] [place], [address], 01/10/2024 15:58:36 01/10/20 24 01/10/2024 IRON/ TIBC PANEL unsaturated iron bind capacity 321 mcg/d L 126-38 2 Not Available [facility] (Lab) [address] [place], [address], 01/10/2024 15:58:36 01/10/20 24 01/10/2024 IRON/ TIBC PANEL iron 37 mcg/d L 42-175 low Not Available [facility] (Lab) [address] [place], [address], 01/10/2024 15:58:36 01/10/20 24 01/10/2024 BASIC METAB OLIC PANEL sodium 134 mmol/ L 137-14 5 low Not Available [facility] (Lab) [address] [place], [address], 01/10/2024 15:56:37 01/10/20 24 01/10/2024 BASIC METAB OLIC PANEL potassium 3.1 mmol/ L 3.5-5. 1 low Not Available [facility] (Lab) [address] [place], [address], 01/10/2024 15:56:37 01/10/20 24 01/10/2024 BASIC METAB OLIC PANEL chloride 87 mmol/ L 98-107 low Not Available [facility] (Lab) [address] [place], [address], 01/10/2024 15:56:37 01/10/20 24 01/10/2024 BASIC METAB OLIC PANEL carbon dioxide 38 mmol/ L 22-30 high Not Available [facility] (Lab) [address] [place], [address], 01/10/2024 15:56:37 01/10/20 24 01/10/2024 BASIC METAB OLIC PANEL anion gap 12.1 mmol/ L 14-22 low Not Available [facility] (Lab) [address] [place], [address], 01/10/2024 15:56:37 01/10/20 24 01/10/2024 BASIC METAB OLIC PANEL glucose 108 mg/dL 70-99 high Not Available [facility] (Lab) [address] [place], [address], 01/10/2024 15:56:37 01/10/20 24 01/10/2024 BASIC METAB OLIC PANEL BUN 32 mg/dL 8-19 high Not Available [facility] (Lab) [address] [place], [address], 01/10/2024 15:56:37 01/10/20 24 01/10/2024 BASIC METAB OLIC PANEL creatinine 0.90 mg/dL 0.66-1 .25 Not Available [facility] (Lab) [address] [place], [address], 01/10/2024 15:56:37 01/10/20 24 01/10/2024 BASIC METAB OLIC PANEL GFR >60 Refer ence Range : Bath ge GFR Healt hy Adult : >60 mL/mi n/1.7 3 m2 Chron ic Kidne y Disea se: 15-60 mL/mi n/1.7 3 m2 Kidne y Failu re: <15/m L/min /1.73 m2 www.n iddk. nih.g ov The MDRD study equat ion has not been valid ated in child angelita <18 years of age; pregn ant women ; the elder ly >85 years of age; or in some racia l or ethni c subgr oups, such as Hispa nics. Outsi de the valid ated jace eters , estim ated GFR is less accur ate, requi ring clini alan judgm ent on a case- by-ca se basis . Clini alan inter preta tion for other races and ages must be made by the clini inder. The MDRD study equat ion has not been valid ated for the evalu ation of serum creat inine relat ed to nutri gaby l statu s or medic ation usage . For perso ns <18 years of age, a pedia tric GFR calcu lator is avail able on the [facility] websi te: https ://lawrence fernandes.o steven/pr ofess ional s/kdo qi/gf r_cal culat or Not Available [facility] (Lab) [address] [place], [address], 01/10/2024 15:56:37 01/10/20 24 01/10/2024 BASIC METAB OLIC PANEL calcium 10.5 mg/dL 8.4-10 .2 high Not Available [facility] (Lab) [address] [place], [address], 01/10/2024 15:56:37 01/10/20 24 01/10/2024 NICOLETTE TIN ferritin 10 NG/mL 11.1-2 64 low Not Available [facility] (Lab) [address] [place], [address], 01/10/2024 16:25:03 01/10/20 24 01/10/2024 VITAM IN B12 (TRUNG JUSTICE ) vb12 790 pg/mL 239-93 1 Not Available [facility] (Lab) [address] [place], [address], 01/10/2024 17:04:54 01/10/20 24 01/10/2024 FOLAT E, SERUM /PLAS MA folate 15.8 NG/mL 2.76-2 0.0 Not Available [facility] (Lab) [address] [place], [address], 01/10/2024 17:04:56 01/31/20 24 01/31/2024 BASIC METAB OLIC PANEL sodium 141 mmol/ L 137-14 5 Not Available [facility] (Lab) [address] [place], [address], 01/31/2024 14:40:08 01/31/20 24 01/31/2024 BASIC METAB OLIC PANEL potassium 4.0 mmol/ L 3.5-5. 1 Not Available [facility] (Lab) [address] [place], [address], 01/31/2024 14:40:08 01/31/20 24 01/31/2024 BASIC METAB OLIC PANEL chloride 103 mmol/ L 98-107 Not Available [facility] (Lab) [address] [place], [address], 01/31/2024 14:40:08 01/31/20 24 01/31/2024 BASIC METAB OLIC PANEL carbon dioxide 34 mmol/ L 22-30 high Not Available [facility] (Lab) [address] [place], [address], 01/31/2024 14:40:08 01/31/20 24 01/31/2024 BASIC METAB OLIC PANEL anion gap 8.0 mmol/ L 14-22 low Not Available [facility] (Lab) [address] [place], [address], 01/31/2024 14:40:08 01/31/20 24 01/31/2024 BASIC METAB OLIC PANEL glucose 99 mg/dL 70-99 Not Available [facility] (Lab) [address] [place], [address], 01/31/2024 14:40:08 01/31/20 24 01/31/2024 BASIC METAB OLIC PANEL BUN 12 mg/dL 8-19 Not Available [facility] (Lab) [address] [place], [address], 01/31/2024 14:40:08 01/31/20 24 01/31/2024 BASIC METAB OLIC PANEL creatinine 0.74 mg/dL 0.66-1 .25 Not Available [facility] (Lab) [address] [place], [address], 01/31/2024 14:40:08 01/31/20 24 01/31/2024 BASIC METAB OLIC PANEL GFR >60 Refer ence Range : Bath ge GFR Healt hy Adult : >60 mL/mi n/1.7 3 m2 Chron ic Kidne y Disea se: 15-60 mL/mi n/1.7 3 m2 Kidne y Failu re: <15/m L/min /1.73 m2 www.n iddk. [facility].g ov The MDRD study equat ion has not been valid ated in child angelita <18 years of age; pregn ant women ; the elder ly >85 years of age; or in some racia l or ethni c subgr oups, such as Hispa nics. Outsi de the valid ated jace eters , estim ated GFR is less accur ate, requi ring clini alan judgm ent on a case- by-ca se basis . Clini alan inter preta tion for other races and ages must be made by the clini inder. The MDRD study equat ion has not been valid ated for the evalu ation of serum creat inine relat ed to nutri gaby l statu s or medic ation usage . For perso ns <18 years of age, a pedia tric GFR calcu lator is avail able on the [facility] websi te: https ://lawrence morton.marshall fernandes.o steven/pr nancyess ional s/kdo qi/gf r_cal culat or Not Available [facility] (Lab) [address] [place], [address], 01/31/2024 14:40:08 01/31/20 24 01/31/2024 BASIC METAB OLIC PANEL calcium 9.9 mg/dL 8.4-10 .2 Not Available [facility] (Lab) [address] [place], [address], 01/31/2024 14:40:08 07/10/20 24 07/10/2024 MAGNE SIUM magnesium 1.9 mg/dL 1.6-2. 3 Not Available [facility] (Lab) [address] [place], [address], 07/10/2024 12:24:40 07/10/20 24 07/10/2024 BASIC METAB OLIC PANEL sodium 139 mmol/ L 137-14 5 Not Available [facility] (Lab) [address] [place], [address], 07/10/2024 12:24:47 07/10/20 24 07/10/2024 BASIC METAB OLIC PANEL potassium 3.5 mmol/ L 3.5-5. 1 Not Available [facility] (Lab) [address] [place], [address], 07/10/2024 12:24:47 07/10/20 24 07/10/2024 BASIC METAB OLIC PANEL chloride 103 mmol/ L 98-107 Not Available [facility] (Lab) [address] [place], [address], 07/10/2024 12:24:47 07/10/20 24 07/10/2024 BASIC METAB OLIC PANEL carbon dioxide 32 mmol/ L 22-30 high Not Available [facility] (Lab) [address] [place], [address], 07/10/2024 12:24:47 07/10/20 24 07/10/2024 BASIC METAB OLIC PANEL anion gap 7.5 mmol/ L 14-22 low Not Available [facility] (Lab) [address] [place], [address], 07/10/2024 12:24:47 07/10/20 24 07/10/2024 BASIC METAB OLIC PANEL glucose 97 mg/dL 70-99 Not Available [facility] (Lab) [address] [place], [address], 07/10/2024 12:24:47 07/10/20 24 07/10/2024 BASIC METAB OLIC PANEL BUN 19 mg/dL 8-19 Not Available [facility] (Lab) [address] [place], [address], 07/10/2024 12:24:47 07/10/2007/10/2024 BASIC METAB OLIC PANEL creatinine 0.73 mg/dL 0.66-1 .25 Not Available [facility] (Lab[facility] [address] [facility] [place], [address], 07/10/2024 12:24:47 07/10/20 24 07/10/2024 BASIC METAB OLIC PANEL GFR >60 Refer ence Range : Bath ge GFR Healt hy Adult : >60 mL/mi n/1.7 3 m2 Chron ic Kidne y Disea se: 15-60 mL/mi n/1.7 3 m2 Kidne y Failu re: <15/m L/min /1.73 m2 www.n iddk. nih.g ov The MDRD study equat ion has not been valid ated in child angelita <18 years of age; pregn ant women ; the elder ly >85 years of age; or in some racia l or ethni c subgr oups, such as Hisma nics. Outsi de the valid ated jace eters , estim ated GFR is less accur ate, requi ring clini alan judgm ent on a case- by-ca se basis . Clini alan inter preta tion for other races and ages must be made by the clini inder. The MDRD study equat ion has not been valid ated for the evalu ation of serum creat inine relat ed to nutri gaby l statu s or medic ation usage . For perso ns <18 years of age, a pedia tric GFR calcu lator is avail able on the F websi te: https ://lawrence w.marshall fernandes.o rg/pr ofess ional s/kdo qi/gf r_cal culat or Not Available [facility] (Lab) [address] [place], [address], 07/10/2024 12:24:47 07/10/2007/10/2024 BASIC METAB OLIC PANEL calcium 9.3 mg/dL 8.4-10 .2 Not Available [facility] (Lab) [address], [place], [address], 07/10/2024 12:24:47 05/13/2005/14/2025 BASIC METAB OLIC PANEL glucose 109 mg/dL 65-99 high Fasti ng refer ence inter georgina For someo ne witho ut known diabe daryn, a gluco se value betwe en 100 and 125 mg/dL is consi stent with predi abete s and shoul d be confi rmed with a follo w-up test. Not Available [facility] [address] [address] [place], [address], 05/14/2025 03:27:32 05/13/2005/14/2025 BASIC METAB OLIC PANEL urea nitrogen (BUN) 13 mg/dL 7-25 normal Not Available [facility] [place] [address] [place], [address], 05/14/2025 03:27:32 05/13/20 25 05/14/2025 BASIC METAB OLIC PANEL creatinine 0.77 mg/dL 0.50-1 .05 normal Not Available [facility] [address] [place], [address], 05/14/2025 03:27:32 05/13/20 25 05/14/2025 BASIC METAB OLIC PANEL eGFR 87 mL/mi n/1.7 3m2 > or = 60 normal Not Available [facility] [address] [address] [place], [address], 05/14/2025 03:27:32 05/13/2005/14/2025 BASIC METAB OLIC PANEL BUN/creatini ne ratio SEE NOTE: (calc ) 6-22 Not Repor jefe: BUN and Creat inine are withi n refer ence range . Not Available [facility] [address] [address] [place], [address], 05/14/2025 03:27:32 05/13/20 25 05/14/2025 BASIC METAB OLIC PANEL sodium 142 mmol/ L 135-14 6 normal Not Available [address], [address], 05/14/2025 03:27:32 05/13/20 25 05/14/2025 BASIC METAB OLIC PANEL potassium 5.0 mmol/ L 3.5-5. 3 normal Not Available [address], [address], 05/14/2025 03:27:32 05/13/20 25 05/14/2025 BASIC METAB OLIC PANEL chloride 104 mmol/ L 98-110 normal Not Available [address], [address], 05/14/2025 03:27:32 05/13/20 25 05/14/2025 BASIC METAB OLIC PANEL carbon dioxide 31 mmol/ L 20-32 normal Not Available [address], [address], 05/14/2025 03:27:32 05/13/20 25 05/14/2025 BASIC METAB OLIC PANEL calcium 9.2 mg/dL 8.6-10 .4 normal Not Available [address], [address], 05/14/2025 03:27:32 01/15/20 24 elect rocar diogr am No observ ation record ed. [email or web address] Not Available 2023 16:34:27 01/31/20 24 01/31/2024 US, carot id arter y No observ ation record ed. [email or web address] [facility] [address], [place], [address], 02/01/2024 06:40:38 02/01/20 24 01/31/2024 US, echoc ardio gram No observ ation record ed. [facility] [address], [place], [address], 02/01/2024 15:49:11 02/20/20 24 02/19/2024 pharm acolo gic nucle ar stres s test No observ ation record ed. [email or web address] [facility] [address], [place], [address], 02/20/2024 12:08:20 06/25/20 24 06/13/2024 lab* No observ ation record ed. [email or web address] Not Available 2023 12:50:01 06/25/20 24 06/15/2024 lab* No observ ation record ed. [email or web address] Not Available 2023 12:50:36 Result Notes None recorded. Problems Name Problem SNOMED Code Status Onset Date Resolution Date Notes Provider Name and Address Organization Details Recorded Time Deep venous thrombosis 115744562 Active Not Available [facility] 3 18:24:25 Morbid obesity 362234640 Active 2021 Not Available [facility] 3 18:24:25 Dyspnea 957816978 Active 2021 Not Available [facility] 3 18:24:25 Edema 114255739 Active Not Available [facility] 3 18:24:25 Screening for cardiovasc ular system disease Active 2021 Not Available [facility] 3 18:24:25 Current tear of medial cartilage AND/OR meniscus of knee Active Not Available [facility] 3 18:24:25 Enthesopat hy of hip region 07715400 Active Not Available [facility] 3 18:24:25 Screening for disorder Active 2021 Not Available [facility] 3 18:24:25 Depressive disorder 33462343 Active 2020 Not Available [facility] 3 18:24:25 Osteoarthr itis 104134614 Active Not Available [facility] 3 18:24:25 Obesity 406870197 Active 2021 Not Available [facility] 3 18:24:25 Periodic limb movement disorder 501708165 Active 2021 Not Available [facility] 3 18:24:25 Hypokalemi a 29359126 Active 2021 NARENDRA Galvez, [place] [facility] 5 13:04:33 Dyspnea on exertion 67646961 Active 2021 Not Available [facility] 3 18:24:25 Derangemen t of knee 53992295 Active Not Available [facility] 3 18:24:25 Hyperglyce jimmie 02539127 Active 2021 Not Available [facility] 3 18:24:25 Serous otitis media 06103125 Active 2022 Not Available [facility] 3 18:24:25 Vitamin D deficiency 60075657 Active 2022 Not Available [facility] 3 18:24:25 Colorectal cancer detected by DNA-based stool screening 068672651 Active 2022 NARENDRA Galvez[place] [facility] 3 12:26:29 Primary adenocarci noma of colon 4437510147830 Active 2022 Tristen Benavides MD [address], [place], [address] , [place] [facility] 3 15:32:31 Aphthous ulcer of mouth 585784763 Active 2023 Tristen Benavides MD [address], [place], [address] , [place] [facility] 4 12:09:24 Low back pain 785457018 Active 2023 Tristen Benavides MD [address], [place], [address] , [place] [facility] 4 15:27:00 Syncope 531802927 Active 2023 NARENDRA Galvez[place] [facility] 4 10:34:39 Anemia 953455020 Active 2023 NARENDRA Galvez[place] - [facility] 4 10:35:45 History of deep vein thrombosis 982469068 Active 2023 Tristen Benavides MD [address], [facility] [address], [place], [address] , [facility] 4 12:39:04 Hernia of anterior abdominal wall 889059295 Active 2023 Tristen Benavides MD [address], [facility] [address], [place], [address] , [facility] 4 14:51:53 Hypomagnes emia 216503097 Active 2023 Maura gr, [facility] 4 11:03:49 Vertigo 649773048 Active 2023 Tristen Benavides MD [address], [facility] [address], [place], [address] , [facility] [email or web address] [facility] 4 12:04:27 Edema of lower extremity 302969663 Active 2024 Bell Joseph gr, [facility] 5 11:50:20 Problem Notes None recorded. Medical Equipment None Reported. Medications Name Sig Start Date Stop Date Status Note LastModified by Organization Details LastModified Time cyclobenz aprine 10 mg tablet TAKE 1 TABLET BY MOUTH EVERY 8 HOURS FOR 12 DOSES active Not Available Not Available No t Available amoxicill in 500 mg capsule TAKE 1 CAPSULE BY MOUTH THREE TIMES A DAY FOR 10 DAYS 02/04 completed Not Available Not Available Not Available furosemid e 40 mg tablet TAKE 1 TABLET BY MOUTH EVERY DAY active Not Available Not Available No t Available clotrimaz ole 10 mg francisca TAKE 1 TABLET 5 TIMES A DAY BY ORAL ROUTE. 12/10 completed Not Available Not Available Not Available venlafaxi ne ER 37.5 mg capsule,e xtended release 24 hr TAKE 1 CAPSULE BY MOUTH EVERY DAY active Not Available Not Available No t Available ropinirol e 1 mg tablet Take 1 tablet every day by oral route at bedtime. 02/06 completed Not Available Not Available Not Available trazodone 50 mg tablet TAKE 1 TABLET BY MOUTH EVERYDAY AT BEDTIME 04/17 completed Not Available Not Available Not Available benzonata te 200 mg capsule Take 1 capsule 3 times a day by oral route. 01/10 completed Not Available Not Available Not Available metolazon e 5 mg tablet TAKE 1 TABLET BY MOUTH EVERY DAY active Not Available Not Available No t Available Zithromax Z-Shahriar 250 mg tablet Take 2 TABLET EVERY DAY by oral route for 1 day then one daily 01/10 completed Not Available Not Available Not Available metronida zole 500 mg tablet TAKE 1 TABLET BY MOUTH EVERY 8 HOURS FOR 14 DAYS. 12/10 completed Not Available Not Available Not Available ciproflox acin 500 mg tablet TAKE 1 TABLET BY MOUTH EVERY 12 HOURS FOR 14 DAYS. 12/10 completed Not Available Not Available Not Available ondansetr on 8 mg disintegr ating tablet PLEASE SEE ATTACHED FOR DETAILED DIRECTIO NS 02/04 completed Not Available Not Available Not Available Voltaren 75 mg tablet,de layed release Take 1 tablet twice a day by oral route. 05/18 completed Not Available Not Available Not Available Celexa 20 mg tablet Take 1 tablet every day by oral route. active Not Available Not Available No t Available meclizine 25 mg tablet TAKE 1 TABLET 3 TIMES A DAY BY ORAL ROUTE. FOR VERTIGO 12/10 completed Not Available Not Available Not Available baclofen 10 mg tablet TAKE 1 TABLET BY MOUTH FOUR TIMES A DAY 02/04 completed Not Available Not Available Not Available Valtrex 1 gram tablet Two tabs BID for one day 03/29 completed Not Available Not Available Not Available docusate sodium 100 mg capsule TAKE 1 CAPSULE BY MOUTH TWICE A DAY active Not Available Not Available No t Available lidocaine HCl 2 % mucosal solution TAKE 15 ML EVERY 2 HOURS BY ORAL ROUTE. 02/04 completed Not Available Not Available Not Available bisacodyl 5 mg tablet,de layed release PLEASE SEE ATTACHED FOR DETAILED DIRECTIO NS 06/03 completed Not Available Not Available Not Available metoprolo l succinate ER 25 mg tablet,ex tended release 24 hr TAKE 1 TABLET BY MOUTH EVERY DAY AT NIGHT active Not Available Not Available No t Available ergocalci ferol (vitamin D2) 1,250 mcg (50,000 unit) capsule TAKE 1 CAPSULE BY MOUTH ONCE WEEKLY 04/17 completed Not Available Not Available Not Available polyethyl lidia glycol 3350 17 gram/dose oral powder PLEASE SEE ATTACHED FOR DETAILED DIRECTIO NS 04/17 completed Not Available Not Available Not Available methylpre dnisolone 4 mg tablets in a dose pack Take by oral route as per package insert 10/16 completed Not Available Not Available Not Available neomycin 500 mg tablet TAKE TWO TABLETS BY MOUTH AT 1PM, 2PM, AND 10PM THE DAY BEFORE SURGERY 02/04 completed Not Available Not Available Not Available Paxil 10 mg tablet Take 1 tablet every day by oral route. 10/16 completed Started by CLERICAL ASSISTANT Not Available Not Available Not Available naproxen 500 mg tablet Take 1 tablet twice a day by oral route. active Not Available Not Available No t Available Estrace 1 mg tablet Take 1 tablet every day by oral route. 2014 active Not Available Not Available Not Avai lable oxycodone 5 mg tablet TAKE 1 TABLET BY MOUTH EVERY 4 HOURS NEEDED FOR PAIN active Not Available Not Available No t Available Vitamin D3 25 mcg (1,000 unit) tablet Take 1 tablet every day by oral route. 2015 active Not Available Not Available Not Avai lable Klor-Con M20 mEq tablet,ex tended release TAKE 1 TABLET BY MOUTH EVERY DAY 06/13 completed Not Available Not Available Not Available Vitamin D 03/29 completed Not Available Not Available Not Available methyltes tosterone 05/18 completed Not Available Not Available Not Available magnesium oxide 500 mg capsule Take 1 capsule every day by oral route. active Not Available Not Available No t Available Xarelto 20 mg tablet TAKE 1 TABLET BY MOUTH EVERY DAY active Not Available Not Available No t Available Os-Alan 500 + D3 500 mg-15 mcg (600 unit) tablet Take 1 tablet twice a day by oral route. active Not Available Not Available No t Available potassium chloride ER 20 mEq tablet,ex tended release TAKE 1 TABLET BY MOUTH THREE TIMES A DAY active Not Available Not Available No t Available Wegovy 0.25 mg/0.5 mL subcutane ous pen injector INJECT THE CONTENTS OF 1 PEN UNDER THE SKIN ONCE WEEKLY 04/17 completed Not Available Not Available Not Available Vitals Date Recorded Body height Body mass index (BMI) Body weight Heart rate Body temperature Oxygen saturation Oxygen saturation in Arterial blood by Pulse oximetry Systolic And Diastolic Provider Name and Address Organization Details Last Updated DateTime 5 170.18 cm 42.3 kg/m2 817747. 94 g 88 /min 97 [degF] 92 % 92 % 128/80 mm[Hg] Maura [employer] 5 15:48:26 Date Recorded Body height Body mass index (BMI) Body weight Heart rate Body temperature Oxygen saturation Oxygen saturation in Arterial blood by Pulse oximetry Systolic And Diastolic Provider Name and Address Organization Details Last Updated DateTime 4 170.18 cm 40.1 kg/m2 841912. 65 g 117 /min 97 [degF] 96 % 96 % 132/78 mm[Hg] Maura [employer] 4 12:16:31 Date Recorded Body height Body mass index (BMI) Body weight Heart rate Body temperature Oxygen saturation Oxygen saturation in Arterial blood by Pulse oximetry Systolic And Diastolic Provider Name and Address Organization Details Last Updated DateTime 5 170.18 cm 41.8 kg/m2 487193. 16 g 90 /min 97 [degF] 95 % 95 % 138/70 mm[Hg] Maura [employer] 5 12:04:34 Date Recorded Body height Body mass index (BMI) Body weight Heart rate Body temperature Oxygen saturation Oxygen saturation in Arterial blood by Pulse oximetry Systolic And Diastolic Provider Name and Address Organization Details Last Updated DateTime 5 170.18 cm 41.8 kg/m2 381116. 16 g 118 /min 97 [degF] 95 % 95 % 118/70 mm[Hg] Maura [employer] 5 11:19:12 Date Recorded Body height Body mass index (BMI) Body weight Heart rate Body temperature Oxygen saturation Oxygen saturation in Arterial blood by Pulse oximetry Systolic And Diastolic Provider Name and Address Organization Details Last Updated DateTime 4 170.18 cm 41 kg/m2 982800. 2 g 100 /min 97.2 [degF] 95 % 95 % 122/76 mm[Hg] [place] [employer] [facility] [employer] [facility] 4 14:31:31 Social History None recorded. Functional Status None recorded. Mental Status None recorded. Family History Nothing Reported Notes:Mother living 70 with hypertension Father 50 in auto accident Two sisters living and in good health one does have Type II DM Medical History Condition Response NERVE DISEASE N BLINDNESS N RHEUMATIC FEVER N KIDNEY STONES N BLADDER PROBLEMS N MRSA N OTHER # 1 N POLIO N LUNG DISEASE/DISORDER N HISTORY OF DRUG ABUSE N RADIATION / CHEMOTHERAPY N COPD N Other # 2 N BLOOD DISEASES N EAR OR HEARING PROBLEMS N MUMPS N SHINGLES N DEPRESSION (INCLUDING POST ) Y BOWEL PROBLEMS N STROKE/TIA N ULCERS N BENIGN PROSTATIC HYPERPLASIA N MEASLES N HYPOTENSION N MYOCARDIAL INFARCTION N OBESITY N GERD/NAUSEA N ANEURYSM N URINARY/BLADDER/KIDNEY PROBLEMS N CORONARY ARTERY DISEASE (CAD) N ADDICTION CONCERNS N Impotence N ENDOMETRIOSIS N USE OF BLOOD THINNERS N SKIN PROBLEMS N GASTROINTESTINAL DISORDER N PERIPHERAL VASCULAR DISEASE N MUSCLE,JOINT OR BONE PROBLEMS N GASTROINTESTINAL BLEEDING N BLOOD CLOTS N ASTHMA N CATARACTS N ERECTILE DYSFUNCTION N VARICOSITIES N GI PROBLEMS N Low Testosterone N INFERTILITY N AIDS/HIV N CHEMOTHERAPY / RADIATION N LIVER DISEASE N MALE HYPOGONADISM N HYPERTENSION N Deficiency N TOURETTE'S N ANXIETY DISORDER N BLOOD TRANSFUSION N ANEMIA/BLOOD DISORDER N CHRONIC EAR INFECTIONS N BRONCHITIS N TUBERCULOSIS N GLAUCOMA N FOOT PROBLEM N DIVERTICULITIS N SLEEP APNEA N CHICKENPOX N INFECTIOUS DISEASE N PROSTATE N HEART ARRHYTHMIA N INSOMNIA N HIGH CHOLESTEROL / HYPERLIPIDEMIA N HYPERTHYROIDISM N EYE PROBLEMS N EDEMA Y CHRONIC PAIN SYNDROME N HYPOTHYROIDISM N CONSTIPATION N CAROTID BLOCKAGE N BACK / NECK PROBLEMS N HAVE YOU BEEN HOSPITALIZED OR SEEN IN [facility] IN THE PAST YEAR ? N ATHEROSCLEROSIS N BREAST PROBLEMS N DIALYSIS N ECZEMA N OSTEOPOROSIS N ARTHRITIS N NO SIGNIFICANT PAST MEDICAL HISTORY N APPENDICITIS N DIABETES, TYPE N BAD TEETH N ENT N HEARTBURN / REFLUX N AUTISM SPECTRUM DISORDER (ASD) N HEPATITIS / LIVER DISEASE N GOUT N SLEEP DISORDER N ALZHEIMER'S DISEASE N Brain Problems N HERPES N DEMENTIA N SEIZURES/EPILEPSY N HEADACHES/MIGRAINES N VASCULAR DISEASE N PACEMAKER N Blood Disorder N DIZZINESS N KIDNEY DISEASE N HEART DISEASE/HEART PROBLEMS N MULTIPLE SCLEROSIS N CARDIAC ARRHYTHMIA N CANCER: SPECIFY N Gall Stones N ATRIAL FIBRILLATION N PULMONARY EMBOLISM N AUTOIMMUNE DISEASE N Gynecological HistoryNo gynecological history recorded. Obstetrics History GPAL:G 0 P 0 0 0 0 Immunizations Vaccine Type Date Status Note Provider Nam e and Address Organization Details Recorded Time influenza, unspecified formulation 09/01/2023 completed Nayeli Mathews CMA null, [place] [facility] 09/06/2023 15:39:37 Past Encounters Encounter ID Performer Location Encounter Start Date Encounter Closed Date Diagnosis/Indication Diagnosis SNOMED-CT Code Diagnosis ICD10 Code Diagnosis Note [id number] Tristen Benavides MD [facility] Internal Med [address] [address] 05/31/2021 00:00:00 05/31/2021 16:55:29 [id number] Tristen Benavides MD [facility] Internal Med [address] [address] 12/13/2021 00:00:00 12/13/2021 16:35:37 [id number] Tristen Benavides MD [facility] Internal Med [address] [address] 06/13/2022 00:00:00 06/13/2022 16:13:09 [id number] Tristen Benavides MD [facility] Internal Med [address] [address] 10/10/2022 00:00:00 10/10/2022 11:37:28 [id number] Tristen Benavides MD [facility] Internal Med [address] [address] 02/06/2023 11:46:33 02/06/2023 12:22:58 Edema 058001653 R60.9 Deep venou s thrombosis 771155183 I82.409 Depressive disorder 3548 9007 F32.9 Morbid obesity 995999948 E66.01 [id number] Tristen Benavides MD [facility] Internal Med [address] [address] 08/07/2023 11:41:46 08/07/2023 12:38:24 Deep venous thrombosis 598446832 I82.409 Depressive disorder 3548 9007 F32.9 Hyperglycemia 56235300 R 73.9 Obesity 703824318 E66.9 Vitamin D deficiency 347 44870 E55.9 [id number] Tristen Benavides MD [facility] Internal Med [address] [address] 01/11/2024 10:15:10 01/11/2024 10:46:48 Primary adenocarcinoma of colon 0026662606 104 C18.9 Hypokalemia 37046330 E87 .6 Dyspnea on exertion 6084 5006 R06.09 Obese class II 786643719 1 40889 E66.9 [id number] Tristen Benavides MD [facility] Internal Med [address] [address] 02/05/2024 11:47:10 02/05/2024 12:46:01 Primary adenocarcinoma of colon 7234414687 104 C18.9 Depressive disorder 3548 9007 F32.9 History of deep vein thrombosis 926401705 Z86.809 [id number] Tristen Benavides MD [facility] Internal Med [facility] [address] [address] 06/03/2024 14:26:24 06/03/2024 15:15:14 Primary adenocarcinoma of colon 2646468184 104 C18.9 Obesity 646720096 E66.9 Hernia of anterior abdominal wall 582961248 K43.9 Screening for cardiovascular system disease 186942327 Z13.6 Vitamin D deficiency 347 08937 E55.9 [id number] Tristen Benavides MD [facility] Primary Care [address] [place] [address] 12/10/2024 15:05:10 12/10/2024 16:24:33 Morbid obesity 268047494 E66.01 Hernia of anterior abdominal wall 231194753 K43.9 Depressive disorder 3548 9007 F32.9 History of deep vein thrombosis 588581319 Z86.529 [id number] Tristen Benavides MD [facility] Internal Med [facility] [address] [address] 04/17/2025 11:43:36 04/17/2025 12:33:58 Adult health examination 949793032 Z00.00 Depressive disorder 3548 9007 F32.9 Hernia of anterior abdominal wall 862937358 K43.9 Primary adenocarcinoma of colon 6879676065 104 C18.9 Morbid obesity 713637959 E66.01 Deep venou s thrombosis 530083179 I82.542 [id number] Tristen Benavides MD [facility] Internal Med [address] [place] [address] 05/15/2025 11:09:20 05/15/2025 12:00:01 Deep venous thrombosis 191687072 I82.409 Morbid obesity 824352615 E66.01 Primary adenocarcinoma of colon 5127730129 104 C18.9 Hypokalemia 36715112 E87 .6 Health Concerns Section Related Observation LastModified by Organization Detai ls LastModified Time None Recorded Concern Status LastModified by Organization Details LastModified Time None Recorded Advance Directives Directive None Recorded Payers Insurance Date Sequence Insurance Name Policy Number Policy Smith Covered Member ID Smith Member ID Guarantor Name 05/15/2025 1 [facility] [id number] Ivett Hemphill [id number] Ivett Hemphill 12/10/2024 1 [facility] [id number] Ivett Hemphill [id number] Ivett Hemphill Notes Date Note Type Note Provider Name and Address Organization Details Recorded Time 02/05/20 24 text/htm l Patient Name: Ivett Montgomery Of Service: Monday ( 02.05.2024 ): 1960 Age: 63 There has been approximately a 2 lb weight gain since 01/11/2024. This represents approximately a .8% change in weight. Weight change attributable to lifestyle changes. Vital Signs:Blood Pressure: Sitting Rt. Arm 132/78Pulse: Sitting 100 /min and RegularRespiratory Rate: 12Height 67 in or 1.7 mWeight 256 lb or 116.1 kgBMI 40.1Temperature: 97 F or 36.1 CPulse Oximetry: 96 % at rest on no oxygen Chief Complaint: Addressed in HPI Problems or conditions discussed in the HPI were the only ones reviewed during the encounter.Only social and family history addressed in the HPI were reviewed during this encounter. Attendant(s): NoneConstitutional and Systemic Symptoms:none Medication Reconciliation: from medication list. Xfsretlurkm87/04/2023: Echocardiogram demonstrated a normal ejection fraction of 60%. No other significant abnormalities were noted.11/16/2022: Low-dose CT scan of the chest demonstrated no evidence any suggestion of malignancy. Repeat in one year.11/16/2022: PFTs demonstrated very mild obstructive pulmonary disease in the form of small airway disease. No significant abnormalities are noted. Suggestion for possible bronchodilator study made 09-07-2023: Positive Cologuard needs a colonoscopy for further evaluation. 01-31-2024: Carotid Doppler shows less than 50% stenosis of both internal carotid arteries and normal antegrade flow in the vertebral arteries. 01-31-2024: echocardiogram demonstrated an estimated ejection fraction of 55%. Mild annular calcification. Moderate mitral valve regurgitation. Losses are normal across the aortic valve with no evidence of aortic insufficiency. There is moderate tricuspid regurgitation. Peak estimated pulmonary artery pressure estimated at 33 mmHg History of Present Illness #1. History of carcinoma colon status post colectomy clinically doing well no signs of findings suggestive any metastatic disease. Postoperatively several months doing well.: #2. Hx of depression currently stable. Pharmacological treatment : Venlafaxine Hydrochloride . Suicidal thoughts or ideas: None Loss of appetite: No Sleep Disturbance: No Hallucinations: No Is currently seeing no one. Discussed possibility of decreasing and weaning off medication. Feels that current regimen is working fine and wishes not to change the current treatment regimen. No contraindication to continue current therapy. #3. History of DVT in the past currently taking Xarelto tolerating well. Has been no pain, swelling, calf tenderness or any shortness a breath suggestive any recurrent DVT or pulmonary embolic phenomena.: Active Medication ListVenlafaxine Hydrochloride 37.5 MG (CAPSULE, EXTENDED RELEASE - ORAL) One DailyLasix 40 MG One Daily For EdemaTrazodone 50 MG TABLET Once Daily At BedtimeXarelto 20 MG (TABLET - ORAL) One DailyVitamin D 63279 IU WeeklyPotassium Chloride 20 MEQ (TABLET, EXTENDED RELEASE - ORAL) Three Times A Day Vaccination and Jlipzpljdolt2835-58 Influenza Surgical Npmordl2391-07 Colon Fcfzpsjpw8490-30 [facility] IBR0811-37 Rt. 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 This represents approximately a 2.3% change in weight. Weight change attributable to lifestyle changes. Vital Signs:Blood Pressure: Sitting Rt. Arm 122/76Pulse: Sitting 100 /min and RegularRespiratory Rate: 14Height 67 in or 1.7 mWeight 262 lb or 118.8 kgBMI 41.0Temperature: 97.2 F or 36.2 CPulse Oximetry: 95 % at rest on no oxygen Chief Complaint: Addressed in HPI Problems or conditions discussed in the HPI were the only ones reviewed during the encounter.Only social and family history addressed in the HPI were reviewed during this encounter. Attendant(s): NoneConstitutional and Systemic Symptoms:none Medication Reconciliation: from medication list. Ifpyzyugddo47/04/2023: Echocardiogram demonstrated a normal ejection fraction of 60%. No other significant abnormalities were noted.11/16/2022: Low-dose CT scan of the chest demonstrated no evidence any suggestion of malignancy. Repeat in one year.11/16/2022: PFTs demonstrated very mild obstructive pulmonary disease in the form of small airway disease. No significant abnormalities are noted. Suggestion for possible bronchodilator study made 09-07-2023: Positive Cologuard needs a colonoscopy for further evaluation. 01-31-2024: Carotid Doppler shows less than 50% stenosis of both internal carotid arteries and normal antegrade flow in the vertebral arteries. 01-31-2024: echocardiogram demonstrated an estimated ejection fraction of 55%. Mild annular calcification. Moderate mitral valve regurgitation. Losses are normal across the aortic valve with no evidence of aortic insufficiency. There is moderate tricuspid regurgitation. Peak estimated pulmonary artery pressure estimated at 33 mmHg 02-19-2024: Nuclear stress test showed a normal sinus rhythm with no ischemic ST or T-wave changes noted following vasodilators stress. Left ventricular ejection fraction measured at 60%. Some abnormal perfusion imaging in the basal inferior region with mild perfusion defect which is small in size and appears fixed. History of Present Illness #1. Primary adenocarcinoma of the colon, hernia of the abdominal wall as well as obesity all clinically stable. Did apparently have a CT scan of chest abdomen and pelvis recently by her oncologist. No evidence of any metastases.: #2. Hx of the ventral hernia doing well. No interval c/o of any abdominal pain or symptoms related to obstruction. Fully reducible and no signs of strangulation or incarceration. #3. Hx of obesity. Currently Class 3 Obesity [place] > 40. Has tried numerous dietary support and supplements with no benefit. Instructed on the health consequences of the obese status particularly cancer - diabetes and heart disease. Discussed other modalities of weight loss no. Potential candidate for bariatric surgery: No. Wishes to be evaluated by Dietary: No and was offered to be evaluated and instructed by optician apprentice dispensing on weight loss diet. Active Medication ListVenlafaxine Hydrochloride 37.5 MG (CAPSULE, EXTENDED RELEASE - ORAL) One DailyLasix 40 MG One Daily For EdemaTrazodone 50 MG TABLET Once Daily At BedtimeXarelto 20 MG (TABLET - ORAL) One DailyVitamin D 56820 IU WeeklyPotassium Chloride 20 MEQ (TABLET, EXTENDED RELEASE - ORAL) Three Times A Day Vaccination and Acyuyeolkzxr3052-24 Influenza Surgical [id number] Colon [id number] [facility] [id number] Rt. Inguinal [id number] Tonsillectomy Preventative Pueblak7510/11/2023 COLONOSCOPY / COLOGUARD 601/02/2023 LDCT / MAMMOGRAM /12/2021 HAIC 5.4 % OF TOTAL HGB N006/10/2022 ALBUMIN 4.4 G/DL N Social HistorySmokes one pack daily for over 20 yearsDrinks sociallyWorks as a community youth secretary Family HistoryMother living 70 with hypertensionFather 50 in auto accidentTwo sisters living and in good health one does have Type II DM Tristen Benavides MD [address] [facility], [address], [place], [address], [place] [facility] [email or web address] [facility] 06/03/2024 14:57:54 12/10/19 25 text/htm l Patient Name: Ivett Montgomery Of Service: Monday ( 12.10.2024 ): 1960 Age: 64 There has been approximately a 8 lb weight gain since 06/03/2024. This represents approximately a 3.1% change in weight. Weight change attributable to lifestyle changes. Vital Signs:Blood Pressure: Sitting Rt. Arm 128/80Pulse: Sitting 88 /min and RegularRespiratory Rate: 16Height 67 in or 1.7 mWeight 270 lb or 122.5 kgBMI 42.3Temperature: 97 F or 36.1 CPulse Oximetry: 92 % at rest on no oxygen Chief Complaint: Addressed in HPI Problems or conditions discussed in the HPI were the only ones reviewed during the encounter.Only social and family history addressed in the HPI were reviewed during this encounter. Attendant(s): NoneConstitutional and Systemic Symptoms:none Medication Reconciliation: from medication list. [id number]: Positive Cologuard needs a colonoscopy for further evaluation. 01-31-2024: Carotid Doppler shows less than 50% stenosis of both internal carotid arteries and normal antegrade flow in the vertebral arteries. 01-31-2024: echocardiogram demonstrated an estimated ejection fraction of 55%. Mild annular calcification. Moderate mitral valve regurgitation. Losses are normal across the aortic valve with no evidence of aortic insufficiency. There is moderate tricuspid regurgitation. Peak estimated pulmonary artery pressure estimated at 33 mmHg 02-19-2024: Nuclear stress test showed a normal sinus rhythm with no ischemic ST or T-wave changes noted following vasodilators stress. Left ventricular ejection fraction measured at 60%. Some abnormal perfusion imaging in the basal inferior region with mild perfusion defect which is small in size and appears fixed. History of Present Illness #1. Hx of the ventral hernia doing well. No interval c/o of any abdominal pain or symptoms related to obstruction. Fully reducible and no signs of strangulation or incarceration. #2. Hx of depression currently stable. Pharmacological treatment : Trazodone and Venlafaxine Hydrochloride . Suicidal thoughts or ideas: None Loss of appetite: No Sleep Disturbance: No Hallucinations: No Is currently seeing no one. Discussed possibility of decreasing and weaning off medication. Feels that current regimen is working fine and wishes not to change the current treatment regimen. No contraindication to continue current therapy. #3. History of deep vein thrombosis clinically stable currently taking Xarelto. No interval complaints any new problems. No history of any pain or swelling in the lower extremities. No shortness a breath or pleuritic chest pain.: #4. Hx of obesity. Currently Class 3 Obesity [place] > 40. Has tried numerous dietary support and supplements with no benefit. Instructed on the health consequences of the obese status particularly cancer - diabetes and heart disease. Discussed other modalities of weight loss GLP-1 medications that are used to treat diabetes . Potential candidate for bariatric surgery: Yes but does no wish to pursue. Wishes to be evaluated by Dietary: Yes. Active Medication ListVenlafaxine Hydrochloride 37.5 MG (CAPSULE, EXTENDED RELEASE - ORAL) One DailyLasix 40 MG One Daily For EdemaTrazodone 50 MG TABLET Once Daily At BedtimeXarelto 20 MG (TABLET - ORAL) One DailyVitamin D 93943 IU WeeklyPotassium Chloride 20 MEQ (TABLET, EXTENDED RELEASE - ORAL) 60 Meq Am , 20 Meq At Lunch , And 60 Meq At BedtimeMetoprolol Succinate 25 MG TABLET, EXTENDED RELEASE Once Daily Vaccination and Immunization(X) 2022- INFLUENZA Surgical [id number] Colon [id number] [facility] [id number] Rt. 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 This represents approximately a 1.1% change in weight. Weight change attributable to lifestyle changes. Vital Signs:Blood Pressure: Sitting Rt. Arm 138/70Pulse: Sitting 90 /min and RegularRespiratory Rate: 16Height 67 in or 1.7 mWeight 267 lb or 121.1 kgBMI 41.8Temperature: 976 F or 524.4 CPulse Oximetry: 95 % at rest on no oxygen Chief Complaint: Addressed in HPI Problems or conditions discussed in the HPI were the only ones reviewed during the encounter.Only social and family history addressed in the HPI were reviewed during this encounter. Attendant(s): NoneConstitutional and Systemic Symptoms:none Medication Reconciliation: from medication list. [id number]: Positive Cologuard needs a colonoscopy for further evaluation. 01-31-2024: Carotid Doppler shows less than 50% stenosis of both internal carotid arteries and normal antegrade flow in the vertebral arteries. 01-31-2024: echocardiogram demonstrated an estimated ejection fraction of 55%. Mild annular calcification. Moderate mitral valve regurgitation. Losses are normal across the aortic valve with no evidence of aortic insufficiency. There is moderate tricuspid regurgitation. Peak estimated pulmonary artery pressure estimated at 33 mmHg 02-19-2024: Nuclear stress test showed a normal sinus rhythm with no ischemic ST or T-wave changes noted following vasodilators stress. Left ventricular ejection fraction measured at 60%. Some abnormal perfusion imaging in the basal inferior region with mild perfusion defect which is small in size and appears fixed. History of Present Illness In for a well patient check up. Last well patient evaluation was approximately one year. No interval complaints of any major medical problems. No hx of any chest pain, shortness of breath, nausea, vomiting, diarrhea or constitutional symptoms. Also being followed for other chronically monitored problems.Has Had A Mammogram dueHas Had A Pap Smear NAImmunizations Up To Date or refuses to takeNo Significant Change In Family HxColonoscopy or Cologuard: not dueFall Risk normalHearing normalVision normalReviewed Smoking and Drug HistoryReviewed Immunization HistoryInstructed on importance of weight on diabetes, heart and other diseases aggravated by obesity. #1. Surgical Clearance: The patient presents to day for evaluation for preoperative clearance for surgery as requested by [facility] at [facility] ert name. Is scheduled to have Robotic repair of large abdominal wall hernia at [facility] [place] 05/08/2025. The surgery is intermediate risk. The patient has history of no cardiac or pulmonary problems risk for surgery. #2. History of carcinoma of the colon clinically stable. Has had a recent CT scan of the chest abdomen and pelvis negative for any metastatic disease. Rest showed the large abdominal wall hernia: #3. Hx of Ca of the colon. No hx of any change in bowel habits or bleeding. No interval complaints of any signs or symptoms of metastatic disease,, or constitutional symptoms. Last Colonoscopy: one years ago. Due for repeat colonoscopy: no #4. Hx of depression currently stable. Pharmacological treatment : Venlafaxine Hydrochloride . Suicidal thoughts or ideas: None Loss of appetite: No Sleep Disturbance: No Hallucinations: No Is currently seeing no one. Discussed possibility of decreasing and weaning off medication. Feels that current regimen is working fine and wishes not to change the current treatment regimen. No contraindication to continue current therapy. #5. Hx of obesity. Currently Class 3 Obesity [place] > 40. Has tried numerous dietary support and supplements with no benefit. Instructed on the health consequences of the obese status particularly cancer - diabetes and heart disease. Discussed other modalities of weight loss no . Potential candidate for bariatric surgery: No. Wishes to be evaluated by Dietary: No and was offered to be evaluated and instructed by optician apprentice dispensing on weight loss diet.#6. History of DVT in the past currently taking Xarelto. Has been instructed to hold this several days prior to surgery based upon the surgeon's recommendations. Currently has no symptoms of any pain, discomfort or increased swelling of lower extremities or other findings suggestive any new or ongoing deep vein thrombosis. Wellness Evaluation PHQ-2 Score Last Two Weeks Last Two Weeks: 0: Not at all 1: Several Days 2: More than half 3: Almost Every day #1. Little interest or pleasure in doing things: Not At All :Score 0#2. Feeling down, depressed, or hopeless: Not At All :Score 0Score 0FAST Stage: 1 No functional decline Basic ADLS Ambulation Normal YesEating YesBed Transfer YesWalker NoCane NoFalls NoMultiple Falls NoBathing and Showering YesDressing YesFeeding YesFunctional Mobility YesPersonal Hygiene YesToilet Hygiene YesHome Safety Yes Instrumental ADLS House Work YesTaking Medications YesShopping YesTelephone YesUsing Technology YesTransportation YesPreparing Meals Yes Additional Topics Advanced Directives Not DiscussedLiving Will Not Discussed Social and Physical Activities Drinking History: NoneExercise 20 Minutes per Week: No, do not exercise muchDifficulty Driving Car: NoOther Problems: None,Falling,Orthostatic,Trou ble Eating,Teeth Denture Problems,Problems using Telephone,Tiredness or fatigue Smoking History Quit SmokingCannabis History Does Not UseNo Living Will on File! Active Medication ListVenlafaxine Hydrochloride 37.5 MG (CAPSULE, EXTENDED RELEASE - ORAL) One DailyLasix 40 MG One Daily For EdemaXarelto 20 MG (TABLET - ORAL) One DailyVitamin D 19782 IU WeeklyPotassium Chloride 20 MEQ (TABLET, EXTENDED RELEASE - ORAL) 60 Meq Am , 20 Meq At Lunch , And 60 Meq At BedtimeMetoprolol Succinate 25 MG TABLET, EXTENDED RELEASE Once DailyOs-alan D One Twice A DayMagnesium Oxide 500 MG Once Daily Vaccination and ImmunizationImmunizations and Vaccinations Discussed and Implemented if feasible In the Office. Else referred to pharmacies. (X) 2023-08 INFLUENZA Surgical [id number] Colon [id number] GABRIEL [id number] Rt. Inguinal [id number] Tonsillectomy Preventative TestingPreventative Testing Discussed and Scheduled if Acceptable to Patient ( ) 10/30/2024 Colonoscopy ( 3 Years ) 10/30/2027(X) 11/16/2022 LDCT 11/16/2023(X) 08/10/2022 Mammogram 08/10/2023( ) 07/15/2022 HAIC 5.4 % OF TOTAL HGB N( ) 06/10/2022 Albumin 4.4 G/DL N Social HistorySmokes one pack daily for over 20 yearsDrinks sociallyWorks as a community youth secretary Family HistoryMother living 70 with hypertensionFather 50 in auto accidentTwo sisters living and in good health one does have Type II DM Tristen Benavides MD [address] [facility], [facility] [address], [place], [address], [facility] 04/17/2025 12:30:39 05/15/20 25 text/htm l Patient Name: Ivett Montgomery Of Service: May ( 05.15.2025 ): 1960 Age: 64 Vital Signs:Blood Pressure: Sitting Rt. Arm 118/70Pulse: Sitting 100 /min and RegularRespiratory Rate: 16Height 67 in or 1.7 mWeight 267 lb or 121.1 kgBMI 41.8Temperature: 97 F or 36.1 CPulse Oximetry: 95 % at rest on no oxygen Chief Complaint: Addressed in HPI Problems or conditions discussed in the HPI were the only ones reviewed during the encounter.Only social and family history addressed in the HPI were reviewed during this encounter. Attendants(s) + NoneConstitutional and Systemic Symptoms:none Medication Reconciliation: from medication list. [id number]: Positive Cologuard needs a colonoscopy for further evaluation. 01-31-2024: Carotid Doppler shows less than 50% stenosis of both internal carotid arteries and normal antegrade flow in the vertebral arteries. 01-31-2024: echocardiogram demonstrated an estimated ejection fraction of 55%. Mild annular calcification. Moderate mitral valve regurgitation. Losses are normal across the aortic valve with no evidence of aortic insufficiency. There is moderate tricuspid regurgitation. Peak estimated pulmonary artery pressure estimated at 33 mmHg 02-19-2024: Nuclear stress test showed a normal sinus rhythm with no ischemic ST or T-wave changes noted following vasodilators stress. Left ventricular ejection fraction measured at 60%. Some abnormal perfusion imaging in the basal inferior region with mild perfusion defect which is small in size and appears fixed. History of Present Illness #1. History of hypokalemia postoperatively. Apparently had a potassium in the 2+ range. Etiology most likely from diuretics. Apparently did not do a potassium on prior to surgery. No interval complaints of any problems regarding any type of potential potassium deficiency. Has had no evidence of any cardiac dysrhythmias or generalized muscular weakness. Had a spasm performed just on 05/13/2025 and was 5.0. Will reduce her potassium from 80 mEq twice daily to 40 mEq t.i.d.. Check the potassium and one week.: #2. History of deep vein thrombosis in the past. Has noticed increased swelling since the surgery. Denies any history of any shortness of breath more so than usual. Has had some pain and discomfort in the calf muscles. Negative Homans' signs are noted. Will check a venous Doppler for further evaluation postoperatively. He is scheduled to be back on her Xarelto starting today with a concern as she was off it for a week. If she has development of DVT may need further evaluation and consideration for possible the caval umbrella.: #3. Hx of Ca of the colon. No hx of any change in bowel habits or bleeding. No interval complaints of any signs or symptoms of metastatic disease,, or constitutional symptoms. Last Colonoscopy: one years ago. Due for repeat colonoscopy: no #4. Hx of obesity. Currently Class 3 Obesity [place] > 40. Has tried numerous dietary support and supplements with no benefit. Instructed on the health consequences of the obese status particularly cancer - diabetes and heart disease. Discussed other modalities of weight loss no . Potential candidate for bariatric surgery: Yes but does no wish to pursue. Wishes to be evaluated by Dietary: No and was offered to be evaluated and instructed by optician apprentice dispensing on weight loss diet. Active Medication ListVenlafaxine Hydrochloride 37.5 MG (CAPSULE, EXTENDED RELEASE - ORAL) One DailyLasix 40 MG One Daily For EdemaXarelto 20 MG (TABLET - ORAL) One DailyVitamin D 56285 IU WeeklyPotassium Chloride 20 MEQ (TABLET, EXTENDED RELEASE - ORAL) 40 Meq Am, 40 Meq Lunch, 40 Meq DinnerMetoprolol Succinate 25 MG TABLET, EXTENDED RELEASE Once DailyOs-alan D One Twice A DayMagnesium Oxide 500 MG Once Daily Adverse Drug Reactions ReviewedNo Known Adverse Drug Reactions! Vaccination and Immunization (X) 2022- INFLUENZAImmunizations and Vaccinations Discussed and Implemented if feasible In the Office. Else referred to pharmacies. Surgical History 2025-04 Ventral [id number] Colon [id number] [facility] [id number] Rt. Inguinal [id number] Tonsillectomy Preventative Testing ( ) 10/30/2024 Colonoscopy ( 3 Years ) 10/30/2027(X) 11/16/2022 LDCT 11/16/2023(X) 08/10/2022 Mammogram 08/10/2023( ) 07/15/2022 HAIC 5.4 % OF TOTAL HGB N( ) 06/10/2022 Albumin 4.4 G/DL NPreventative Testing Discussed and Scheduled if Acceptable to Patient Social HistorySmokes one pack daily for over 20 yearsDrinks sociallyWorks as a community youth secretary Family HistoryMother living 70 with hypertensionFather 50 in auto accidentTwo sisters living and in good health one does have Type II DM TEST RESULT RANGE UNITSBASIC METABOLIC PANEL Date: 05/13/2025GLUCOSE 109 65-99 MG/DLUREA NITROGEN (BUN) 13 7-25 MG/DLCREATININE 0.77 0.50-1.05 MG/DLEGFR 87 > OR = 60 ML/MIN/1.41V3KEAJDM 142 135-146 MMOL/LPOTASSIUM 5.0 3.5-5.3 MMOL/LCALCIUM 9.2 8.6-10.4 MG/DL Tristen Benavides MD [address] [facility], [facility] [address], [place], [address], [place] [facility] [employer] [facility] 05/15/2025 11:36:19 OBGyn Episode No OBEpisode recorded.
--- OUTSIDE RECORDS SUMMARY | 2025-05-15 11:42 | XMS_ITS | Encounter Summary ---
Author Organization [facility] Address [address] [place] [address] Phone Care Team Providers Care Asbestos Cloth Inspector Name Role Phone Tristen Benavides MD Primary Care Provider Philip Torres MD Unavailable [phone] Tru Sanchez MD Unavailable [phone] Nolan Ch MD PhD Unavailable [phone] Luba Rodgers MD Unavailable [phone] Encounter Details Date Type Department Care Team (Latest Contact Info) Description 10/16/2024 Orders Only [facility] Scanning, Provider Social History Tobacco Use Types Packs/Day Years Used Date Smoking Tobacco: Former Cigarettes 1 40 1 976 - 2016 Passive Smoke Exposure: Past Smokeless Tobacco: Never AUDIT-C Answer Date Recorded Q1: How often do you have a drink containing alcohol? Never 12/12/2023 Q2: How many drinks containi ng alcohol do you have on a typical day when you are drinking? Patient does not drink Q3: How often do you have si x or more drinks on one occasion? Never 12/12/2023 Personal Safety Answer Date Recorded Have you ever been in or are you currently in a harmful physical or emotional relationship or is someone making you feel afraid or unsafe? Denies 12/12/2023 Comments No Sex and Gender Information Value Date Recorded Sex Assigned at Not on file Legal Sex Female 8:54 AM CDT Gender Identity Not on file Sexual Orientation Not on file documented as of this encounter Plan of Treatment Scheduled Procedures Name Priority Associated Diagnoses Date/Ti me COLONOSCOPY Open Access Colon cancer, ascending (HCC) documented as of this encounter Procedures Procedure Name Priority Date/Time Associated Diagnosis Comments SCAN - PATHOLOGY 10/16/2024 documented in this encounter Results * SCAN - PATHOLOGY (10/16/2024) Provider Scanning Final Result documented in this encounter Visit Diagnoses Not on filedocumented in this encounter Care Teams Asbestos Cloth Inspector Relationship Specialty Start Date End Date Tristen Benavides MD PCP - General 02/14/17 Philip Torres MD [address] [place] [address] Mold Sprayer Gastroenterology 10/24/23 Tru Sanchez MD [address] [facility] [id number] [place] [address] Surgeon Colon and Rectal Surgery 10/26/23 Nolan Ch MD PhD [address] [place] [address] Medical Oncologist Medical Oncology 12/27/23 03/26/25 Luba Rodgers MD [address] [facility] IM MEDICAL ONCOLOGY, [facility] [address] [place] [address] Consulting Physician Medical Oncology 03/27/25 documented as of this encounter
--- OUTSIDE RECORDS SUMMARY | 2025-05-15 11:42 | XMS_ITS | Clinical Summary ---
Author Organization [facility] [employer] Address [address] [place] [address] Care Team Providers Care Regional Wildlife Agent Name Role Phone Tristen Benavides MD Primary Care Provider [phone] Source Comments [facility] [employer],non-owned Affiliates and Associated Physician Practices is amultiple site organization consisting of ambulatory clinics and hospital sitesin [place], [place], [place] and [place]. This disclosure is being madepursuant to the Care Everywhere program and may not contain all information available regarding this patient. Last updated 18.[facility] [employer] Allergies No known active allergies Medications * Be aware that medications may not be up to date on this document. Alwaysverify current medications with the patient. rivaroxaban (XARELTO) 20 MG tablet Take 20 mg by mouth daily with food Active vitamin D, ergocalciferol, (DRISDOL) 60550 UNITS capsule Take 50,000 Units by mouth every 7 days Active furosemide (LASIX) 40 MG tablet Take 40 mg by mouth once daily Active Social History Tobacco Use Types Packs/Day Years Used Date Smoking Tobacco: Former Smokeless Tobacco: Former Quit: 10/23/2016 Tobacco Cessation:Counseling Given: Yes Comments Unknown Sex and Gender Information Value Date Recorded Sex Assigned at Not on file Legal Sex Female 8:31 AM CDT Gender Identity Not on file Sexual Orientation Not on file Last Filed Vital Signs Vital Sign Reading Time Taken Comments Blood Pressure 99/60 02/22/2017 7:42 AM CDT Pulse 75 02/22/2017 7:42 AM CDT Temperature 36.7 C (98 F) 02/22/2017 7:42 AM CDT Respiratory Rate 18 02/22/2017 7:42 AM CDT Oxygen Saturation 95% 02/22/2017 7:42 AM CDT Inhaled Oxygen Concentration - - Weight 97.5 kg (215 lb) 02/21/2017 11:42 AM CDT Height 170.2 cm (5' 7) 02/21/2017 11:42 AM CDT Body Mass Index 33.67 02/21/2017 11:42 AM CDT Plan of Treatment Health Maintenance Due Date Last Done Comments COLOGUARD (AGES 45-75) - COL ON CA SCREENING 1962 COLON MONITORING 1962 COLONOSCOPY - COLON CA SCREENING 1962 CT COLONOGRAPHY - COLON CA SCREENING 1962 Colorectal Cancer Screening 1962 FIT - COLON CA SCREENING 1962 FLEX SIG - COLON CA SCREENING 1962 LIPID TESTING 1962 MAMMOGRAM 1962 HIV SCREENING 1977 HEPATITIS C SCREENING 08/10/1980 DTAP/TDAP/TD VACCINES (1 - Tdap) 1981 PAP SMEAR 1983 PNEUMOCOCCAL VACCINE 50+ (1 of 1 - PCV) 2012 ZOSTER VACCINE (1 of 2) 2012 COVID-19 VACCINE (1 - 2023-2 5 season) 2024 DEPRESSION SCREENING 11/13/2024 INFLUENZA VACCINE (Season Ended) 2025 Respiratory Syncytial Virus (RSV) Vaccine Pt: or over 60 yrs (1 - 1-dose 75+ series) 2037 HEPATITIS B VACCINE Aged Out No longe r eligible based on patient's age to complete this topic HIB VACCINE Aged Out No longer eligi ble based on patient's age to complete this topic HPV VACCINE Aged Out No longer eligi ble based on patient's age to complete this topic MENINGOCOCCAL (Group B) VACC INE SHARED DECISION-MAKING Aged Out No longer eligibl e based on patient's age to complete this topic MENINGOCOCCAL GROUPS A/C/Y/W VACCINE Aged Out No longer eligible b ased on patient's age to complete this topic Insurance [facility] SELF PAY NO INSURANCE Member Subscriber Plan / Payer (Ef fective for All Dates) Name:Ivett Del Rosario Member ID:Not on file Relation to Subscriber:Not on file Name:IVETT DEL ROSARIO Subscriber ID:Not on file (Home) Address: [address] [place] [address] Payer ID:Not on file Group ID:Not on file Type:Self Pay Address: [place], [place] SELF PAY NO INSURANCE Member Subscriber Plan / Payer (Ef fective for All Dates) Name:Ivett Del Rosario Member ID:Not on file Relation to Subscriber:Not on file Name:IVETT DEL ROSARIO Subscriber ID:Not on file (Home) Address: [address] [address] Payer ID:Not on file Group ID:Not on file Type:Self Pay Address: [place], [place] * Guarantor: CARINIVETT Account Type Relation to Patient Date of Phone Billing Address Personal/Family Spouse Advance Directives Documents on File Type Date Recorded Patient Master Dyer Expl anation Adv Directive/Living Will/POA 02/14/2017 * Full Code (Latest Code Status on File) Date Activated Date Inactivated Comments 02/21/2017 5:31 PM 02/22/2017 1:39 PM Care Teams Regional Wildlife Agent Relationship Specialty Start Date End Date Tristen Benavides MD [address] [place] [address] PCP - General Internal Medicine 02/21/17
--- OUTSIDE RECORDS SUMMARY | 2025-05-15 11:42 | XMS_ITS | Encounter Summary ---
Author Organization [facility] Address [address] [place] [address] Phone Care Team Providers Care Warehouse Forklift Operator Name Role Phone Tristen Benavides MD Primary Care Provider Philip Torres MD Unavailable [phone] Tru Sanchez MD Unavailable [phone] Nolan Ch MD PhD Unavailable [phone] Luba Rodgers MD Unavailable [phone] Encounter Details Date Type Department Care Team (Latest Contact Info) Description 09/29/2017 Orders Only [facility] CONVERSION Scanning, Provider Social History Tobacco Use Types Packs/Day Years Used Date Smoking Tobacco: Never Assessed Comments Unknown Sex and Gender Information Value [...] Procedure Name Priority Date/Time Associated Diagnosis Comments VASCULAR LABORATORY REPORT 09/29/2017 1:01 PM DIRECTIONAL DRILL OPERATOR documented in this encounter Results * VASCULAR LABORATORY REPORT (09/29/2017 1:01 PM DIRECTIONAL DRILL OPERATOR) Anatomical Region Laterality Modality Ultrasound us Provider Scanning CV VASCULAR PROCEDURES Final R esult documented in this encounter Visit Diagnoses Not on filedocumented in this encounter Care Teams Warehouse Forklift Operator Relationship Specialty Start Date End Date Tristen Benavides MD PCP - General 02/14/17 Philip Torres MD [address] [place] [address] Coil Tester Gastroenterology 10/24/23 Tru Sanchez MD [address] [facility] [phone] [place] [address] Surgeon Colon and Rectal Surgery 10/26/23 Nolan Ch MD PhD [address] [place] [address] Medical Oncologist Medical Oncology 12/27/23 03/26/25 Luba Rodgers MD [address] [facility] MEDICAL ONCOLOGY, [facility] [address] [place] [address] Consulting Physician Medical Oncology 03/27/25 documented as of this encounter
--- OUTSIDE RECORDS SUMMARY | 2025-05-15 11:42 | XMS_ITS ---
Author Organization [facility] Address [address] [place] [address] Care Team Providers Care Home Day Care Provider Name Role Phone Tristen Benavides MD Primary Care Provider Philip Torres MD Unavailable [phone] Tru Sanchez MD Unavailable [phone] Luba Rodgers Unavailable [phone] Active Problems Problem Noted Date Diagnosed Date Incarcerated incisional hernia 03/25/2025 Ventral incisional hernia 09/13/2024 Morbid obesity 09/13/2024 History of colectomy 12/10/2023 History of colon cancer 12/07/2023 Colonic mass 11/08/2023 Acute postoperative abdominal pain 11/08/2023 Malignant neoplasm of ascending colon 10/26/2023 Colon cancer, ascending 10/26/2023 Current Treatment and Therapy Plans No current plan information found. Past Treatment and Therapy Plans No past plan information found. Lifetime Dose Tracking * Chemical Lifetime Dose Automatic Entry Manual Entr y Fluoro Time 1.2 minutes 1.2 minutes 0 minutes Air kerma at the reference point (Ka,r) 10 mGy 1 0 mGy 0 mGy DLP 8,909 mGycm 8,909 mGycm 0 mGycm
--- OUTSIDE RECORDS SUMMARY | 2025-05-15 11:42 | XMS_ITS | Encounter Summary ---
Author Organization [facility] Address [address] [place] [address] Phone Care Team Providers Care Cardiopulmonary Technologist Chief Name Role Phone Tristen Benavides MD Primary Care Provider Philip Torres MD Unavailable [phone] Tru Sanchez MD Unavailable [phone] Nolan Ch MD PhD Unavailable [phone] Luba Rodgers MD Unavailable [phone] Encounter Details Date Type Department Care Team (Latest Contact Info) Description 07/18/2024 Orders Only [facility] Scanning, Provider [...] Date/Time Associated Diagnosis Comments SCAN - PATHOLOGY 07/18/2024 12:00 AM CDT documented in this encounter Results * SCAN - PATHOLOGY (07/18/2024 12:00 AM CDT) us Provider Scanning Edited Result - Final documented in this encounter Visit Diagnoses Not on filedocumented in this encounter Care Teams Cardiopulmonary Technologist Chief Relationship Specialty Start Date End Date Tristen Benavides MD PCP - General 02/14/17 Philip Torres MD [address] [place] [address] Threshing Department Supervisor Gastroenterology 10/24/23 Tru Sanchez MD [address] [facility] [phone] [place] [address] Surgeon Colon and Rectal Surgery 10/26/23 Nolan Ch MD PhD [address] [place] [address] Medical Oncologist Medical Oncology 12/27/23 03/26/25 Luba Rodgers MD [address] [facility], [facility] [address] [place] [address] Consulting Physician Medical Oncology 03/27/25 documented as of this encounter
--- OUTSIDE RECORDS SUMMARY | 2025-05-15 11:42 | XMS_ITS | Continuity of Care Document ---
Author Organization [place] [facility], [facility] Internal Med [facility] [address] Address [address] [facility] [address] [place] [address] Assessment No assessment recorded. Plan of Treatment Reminders Order Date Submit Date Provider Last Modified By Organization Details Last Modified Time Details Appointments Any 10 2024 10:20A Radha Benavides MD Not available Not available Not available Lab BMP, serum or plasma 2024 025 [email or web address] [facility], [address] [place], [address], 05/15/2025 11:42:00 Referral None recorded . Procedures None recorded . Surgeries None recorded . Imaging None recorded . Medication Orders None recorded . Patient TargetsNo targets recorded. Patient Instructions Encounter Date Encounter Id Patient Instructions Last Modified By Organization Details Last Modified Time 05/15/2025 [id number] Hypokalemia, history of DVT, primary carcinoma of the colon [...] of lower extremities possible DVT Keep Appointment: Chetna 08 14 2025 10:20 AM Kyra Portions of record are template driven. When necessary additional context will be provided. Additionally some portions have been created with voice recognition software. Occasional wrong-word or [id number] substitutions may have occurred due to the inherent limitations of voice recognition software. Read the chart carefully and recognize, using context, where substitutions may have occurred. Created: Tristen Benavides M.D. 05.15.2025 10:35 AM [email or web address] Not available 05/15/2025 11:36:02 Reason for Referral None Reported. Problems Name Problem SNOMED Code Status Onset Date Resolution Date Notes Provider Name and Address Organization Details Recorded Time Deep venous thrombosis 278356183 Active Not Available [facility] 3 18:24:25 Morbid obesity 159652973 Active 2021 Not Available [facility] 3 18:24:25 Dyspnea 630148555 Active 2021 Not Available [facility] 3 18:24:25 Edema 449337990 Active Not Available [facility] 3 18:24:25 Screening for cardiovasc ular system disease Active 2021 Not Available [facility] 3 18:24:25 Current tear of medial cartilage AND/OR meniscus of knee Active Not Available [facility] 3 18:24:25 Enthesopat hy of hip region 40721684 Active Not Available [facility] 3 18:24:25 Screening for disorder Active 2021 Not Available [facility] 3 18:24:25 Depressive disorder 05912268 Active 2020 Not Available [facility] 3 18:24:25 Osteoarthr itis 653517683 Active Not Available [facility] 3 18:24:25 Obesity 284306155 Active 2021 Not Available [facility] 3 18:24:25 Periodic limb movement disorder 736450103 Active 2021 Not Available [facility] 3 18:24:25 Hypokalemi a 02440467 Active 2021 Nayeli Mathews CMA null, [place] [facility] 5 13:04:33 Dyspnea on exertion 59242554 Active 2021 Not Available [facility] 3 18:24:25 Derangemen t of knee 57814456 Active Not Available [facility] 3 18:24:25 Hyperglyce jimmie 83496165 Active 2021 Not Available [facility] 3 18:24:25 Serous otitis media 82894978 Active 2022 Not Available [facility] 3 18:24:25 Vitamin D deficiency 84632279 Active 2022 Not Available [facility] 3 18:24:25 Colorectal cancer detected by DNA-based stool screening 273996875 Active 2022 NARENDRA Galvez, [place] [facility] [place] [facility] 3 12:26:29 Primary adenocarci noma of colon 9899839982719 Active 2022 Tristen Benavides MD [address], [place], [address] , [place] [facility] 3 15:32:31 Aphthous ulcer of mouth 564036744 Active 2023 Tristen Benavides MD [address], [address], [place], [address] , [place] [facility] 4 12:09:24 Low back pain 950518386 Active 2023 Tristen Benavides MD [address], [place], [address] , [place] [facility] 4 15:27:00 Syncope 560695637 Active 2023 NARENDRA Galvez[place] [facility] [place] [facility] 4 10:34:39 Anemia 001102707 Active 2023 Nayeli Mathews CMA null, [place] [facility] 4 10:35:45 History of deep vein thrombosis 447479625 Active 2023 Tristen Benavides MD [address], [place], [address] , [place] [facility] 4 12:39:04 Hernia of anterior abdominal wall 514221524 Active 2023 Tristen Benavides MD [address], [place], [address] , [place] [facility] [place] [facility] 4 14:51:53 Hypomagnes emia 693278503 Active 2023 Maura Razo null, [facility] 4 11:03:49 Vertigo 035260869 Active 2023 Tristen Benavides MD [address] [facility], [facility] [address], [place], [address] , [facility] 4 12:04:27 Edema of lower extremity 681306014 Active 2024 Bell Baileypaulino gr, [facility] 5 11:50:20 Problem Notes None recorded. Medical [...] by oral route. 10/16 completed Started by SEWING MACHINE REPAIRER HELPER Not Available Not Available Not Available naproxen [...] Updated DateTime 5 170.18 cm 41.8 kg/m2 378281. 16 g 118 /min 97 [degF] 95 % 95 % 118/70 mm[Hg] Maura WARREN [facility] 5 11:19:12 Social History None recorded. Functional Status None [...] INSOMNIA N HIGH CHOLESTEROL / HYPERLIPIDEMIA N EYE PROBLEMS N HYPERTHYROIDISM N EDEMA Y CHRONIC PAIN SYNDROME N HYPOTHYROIDISM N CAROTID BLOCKAGE N CONSTIPATION N BACK / NECK PROBLEMS N HAVE YOU BEEN HOSPITALIZED OR SEEN IN [facility] ER IN THE PAST YEAR ? N ATHEROSCLEROSIS N BREAST PROBLEMS N DIALYSIS N ECZEMA N OSTEOPOROSIS N ARTHRITIS N NO SIGNIFICANT PAST MEDICAL HISTORY N APPENDICITIS N DIABETES, TYPE N BAD TEETH N ENT N HEARTBURN / REFLUX N AUTISM SPECTRUM DISORDER (ASD) N HEPATITIS / LIVER DISEASE N GOUT N SLEEP DISORDER N ALZHEIMER'S DISEASE N Brain Problems N DEMENTIA N HERPES N SEIZURES/EPILEPSY N HEADACHES/MIGRAINES N VASCULAR DISEASE N PACEMAKER N Blood Disorder N DIZZINESS N HEART DISEASE/HEART PROBLEMS N KIDNEY DISEASE N MULTIPLE SCLEROSIS N CANCER: SPECIFY N CARDIAC ARRHYTHMIA N ATRIAL FIBRILLATION N Gall Stones N PULMONARY EMBOLISM N AUTOIMMUNE DISEASE N Gynecological HistoryNo gynecological history recorded. Obstetrics History GPAL:G 0 P 0 0 0 0 Immunizations Vaccine Type Date Status Note Provider Nam e and Address Organization Details Recorded Time influenza, unspecified formulation 09/01/2023 NARENDRA Burnette [place] [facility] [place] [email or web address] [facility] 09/06/2023 15:39:37 Past Encounters Encounter ID Performer Location Encounter Start Date Encounter Closed Date Diagnosis/Indication Diagnosis SNOMED-CT Code Diagnosis ICD10 Code Diagnosis Note [id number] Tristen Benavides MD [facility] Internal Med [address] [facility] [place] [address] 04/17/2025 11:43:36 04/17/2025 12:33:58 Adult health examination 797663264 Z00.00 Depressive disorder 3548 9007 F32.9 Hernia of anterior abdominal wall 608190648 K43.9 Primary adenocarcinoma of colon 2410376112 104 C18.9 Morbid obesity 168934977 E66.01 Deep venou s thrombosis 629769568 I82.638 [id number] Tristen Benavides MD [facility] Internal Med [facility] [address] [facility], [facility] [address] [place] [address] 05/15/2025 11:09:20 05/15/2025 12:00:01 Deep venous thrombosis 843969292 I82.409 Morbid obesity 841129366 E66.01 Primary adenocarcinoma of colon 3745458131 104 C18.9 Hypokalemia 61046434 E87 .6 Health Concerns Section Related Observation LastModified by Organization Detai ls LastModified Time None Recorded Concern Status LastModified by Organization Details LastModified Time None Recorded Payers Encounter Date Sequence Insurance Name Policy Number Policy Smith Covered Member ID Smith Member ID Guarantor Name 05/15/2025 1 [facility] [id number] Ivett Hemphill [id number] Ivett M Elliotbenjamin Notes Date Note Type Note Provider Name and Address Organization Details Recorded Time text/html Patient Name: Ivett Montgomery Of Service: May [...] Systemic Symptoms:none Medication Reconciliation: from medication list. [id number]: Positive Cologuard needs a colonoscopy for further [...] Hx of obesity. Currently Class 3 Obesity [place] > 40. Has tried numerous dietary support [...] offered to be evaluated and instructed by cert occupational therapy asst on weight loss diet. Active Medication ListVenlafaxine Hydrochloride 37.5 MG (CAPSULE, EXTENDED RELEASE - ORAL) One DailyLasix 40 MG One Daily For EdemaXarelto 20 MG (TABLET - ORAL) One DailyVitamin D 01248 IU WeeklyPotassium Chloride 20 MEQ (TABLET, EXTENDED [...] referred to pharmacies. Surgical History 2025-04 Ventral [id number] Colon [id number] [facility] [id number] Rt. 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 Family HistoryMother living 70 with hypertensionFather 50 in auto accidentTwo sisters living and in good health one does have Type II DM TEST RESULT RANGE UNITSBASIC METABOLIC PANEL Date: 05/13/2025GLUCOSE 109 65-99 MG/DLUREA NITROGEN (BUN) 13 7-25 MG/DLCREATININE 0.77 0.50-1.05 MG/DLEGFR 87 > OR = 60 ML/MIN/1.22B7LWLHLN 142 135-146 MMOL/LPOTASSIUM 5.0 3.5-5.3 MMOL/LCALCIUM 9.2 8.6-10.4 MG/DL Tristen Benavides MD [address] [facility], [facility] [address], [place], [address], [place] [facility] [employer] 05/15/2025 11:36:19 OBGyn Episode No OBEpisode recorded.
--- OUTSIDE RECORDS SUMMARY | 2025-05-15 11:42 | XMS_ITS | Clinical Summary ---
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 Name Role Phone Tristen Benavides MD Primary Care Provider Philip Torres MD Unavailable [phone] Tru Sanchez MD Unavailable [phone] Luba Rodgers [facility] Unavailable [phone] Allergies No known active allergies Medications furosemide (LASIX) 40 mg tabletIndicati ons:Edema Take 1 tablet (40 mg total) by mouth label folder before breakfast Active potassium chloride ER 20 mEq CR tabletIndicati ons:supplement Take 1 tablet (20 mEq total) by mouth 3 (three) times a day 3 Active Xarelto 20 mg tabletIndicati ons:Venous Thrombosis Take 1 tablet (20 mg total) by mouth label folder before breakfast Active venlafaxine XR (EFFEXOR-XR) 37.5 mg 24 hr capsuleIndicat ions:Anxiety with Depression Take 1 capsule (37.5 mg total) by mouth label folder before breakfast 3 Active calcium carbonate (CALCIUM 500 ORAL)Indicatio ns:supplement Take 600 mg by mouth 2 (two) times a day With Vitamin D3 Active magnesium oxide 500 mg capsuleIndicat ions:supplemen t Take 1 tablet by mouth nightly Active metoprolol XL (TOPROL-XL) 25 mg extended release tabletIndicati ons:hypertensi on Take 1 tablet (25 mg total) by mouth nightly 4 Active Wegovy 0.25 mg/0.5 mL auto-injectorI ndications:Francisco ght Loss Management for Obese Patient (BMI >= 30) Inject 0.25 mg under the skin every 7 days Fridays 5 Active calcium carbonate-sharon min D3 (Os-Nay 500 + D3) 1,250 mg (500 mg elemental)-600 unit tablet Take 1 tablet twice a day by oral route. Active acetaminophen 500 mg capsuleIndicat ions:Pain Take 2 capsules (1,000 mg total) by mouth every 6 (six) hours as needed for pain Use first for management of pain 5 Active cyclobenzaprin e (FLEXERIL) 10 mg tablet Take 1 tablet (10 mg total) by mouth every 8 (eight) hours for 12 doses 12 tablet 5 Active docusate sodium (COLACE) 100 mg capsuleIndicat ions:constipat ion Take 1 capsule (100 mg total) by mouth 2 (two) times a day 30 capsule 5 Active oxyCODONE (ROXICODONE) 5 mg immediate release tabletIndicati ons:Pain Take 1 tablet (5 mg total) by mouth every 4 (four) hours as needed for pain 10 tablet 5 Active acetaminophen (TYLENOL) 500 mg tabletIndicati ons:Pain Take 3 tablets (1,500 mg total) by mouth as needed for pain 05/09/20 25 Discontinu ed(Stop Taking at Discharge) Active Problems Problem Noted Date Diagnosed Date Incarcerated incisional hernia 03/25/2025 Ventral incisional hernia 09/13/2024 Morbid obesity 09/13/2024 History of colectomy 12/10/2023 History of colon cancer 12/07/2023 Colonic mass 11/08/2023 Acute postoperative abdominal pain 11/08/2023 Malignant neoplasm of ascending colon 10/26/2023 Colon cancer, ascending 10/26/2023 Encounters Date Type Department Care Team Description 05/08/2025 7:30 AM CDT - 05/08/2025 11:40 AM CDT Surgery [facility] Operating Room [address] [place] [address] Mazin Esposito MD XI REPAIR INCISIONAL HERNIA - LAPAROSCOPIC ROBOTIC ASSISTED RETRO-RECTUS APPROACH 05/08/2025 7:27 AM CDT Anesthesia Event [facility] Operating Room [address] [place] [address] Luca Mohr MD Petranek, Jennifer T., EMT 05/08/2025 5:17 AM CDT - 05/09/2025 3:34 PM CDT Hospital Encounter [facility] 1 [place] [address] Mazin Esposito MD Incarcerated incisional hernia (Primary Dx) Discharge Disposition: Discharge to home or self care 05/05/2025 Telephone [facility] [address] [facility] [address] [place] [phone] Marivel Cifuentes CMA Xarelto/Form 04/29/2025 9:00 AM CDT Office Visit [facility] Floor 5 [place] [address] Luba Rodgers MD Colon cancer, ascending (HCC) (Primary Dx); Malignant neoplasm of ascending colon (HCC) 04/29/2025 8:30 AM CDT Lab [facility] - Lab Collection [address] [facility] [address] 5 [place] [address] Colon cancer, ascending (HCC) 04/29/2025 8:15 AM CDT Lab [facility] Lab [facility] Floor 5 [place] [address] Malignant neoplasm of ascending colon (HCC) 04/29/2025 Orders Only [facility] Scanning, Provider 04/29/2025 Telephone [facility] Specialty Services [address] [place] [address] Nilda Posada RN GI Preprocedure 04/15/2025 10:16 AM CDT - 04/15/2025 11:59 PM CDT Hospital Encounter [facility] - [place] [address] [facility] [address] 8 [place] [address] Malignant neoplasm of ascending colon (HCC) Discharge Disposition: Discharge to home or self care 04/15/2025 8:30 AM CDT Pre-Admission Testing [facility] for [facility]operative [facility] ([facility]) [address] [place] [phone] Preoperative testing (Primary Dx) 03/27/2025 Telephone [facility] [address] [facility] Floor 6 [place] [address] Sofía Glez RN 03/27/2025 Telephone [facility] [address] [place] [address] [address] [place] [phone] Sofía Glez, KELLY 03/18/2025 Telephone [facility] ([facility]) [facility] Minimally Invasive Surgery [address] [place] [address] [facility] 12th Floor, [place] [phone] Genet Villalba RN surgery scheduling 03/14/2025 10:53 AM CDT - 03/14/2025 11:59 PM CDT Hospital Encounter [facility] Radiology [facility] ([facility]) [address] [place] [address] Mazin Esposito MD Ventral incisional hernia Discharge Disposition: Discharge to home or self care 03/14/2025 9:45 AM CDT Office Visit [facility] ([facility]) [facility] Minimally Invasive Surgery [address] [place] [address] [facility] 12th Floor, [place] [address] Mazin Esposito MD Incarcerated incisional hernia (Primary Dx) 03/06/2025 Telephone [facility] [address] [place] [address] [address] [place] [address] Sofía Glez, KELLY from Last 3 Months Immunizations Immunization Administration Dates Next Due Influenza, Quadrivalent, Cristy l Culture-based MDCK, Preservative Free, Antibiotic Free, Intramuscular 09/01/2023 Influenza, Trivalent, IM (MDV) 11/22/2015 Influenza, Unspecified 09/01/2023,08/13/2023 Tdap 11/22/2015 Surgical History Surgery Date Site/Laterality Comments HERNIA REPAIR 11/13/1971 - 11/12/1972 HYSTERECTOMY 11/13/1992 - 11/12/1993 LAPAROSCOPIC RIGHT COLON RESECTION 11/08/2023 ASPIRATION OF ABSCESS HEMATOMA CYST 12/12/2023 N/A COLONOSCOPY KNEE SURGERY Right INCISIONAL HERNIA REPAIR 05/08/2025 Robotic eTEP with open fascial closure Medical History Medical History Date Comments Colon cancer (HCC) Family History Medical History Relation Name Comments Cancer Mother's Brother Anesthesia problems Neg Hx Relation Name Status Comments Mother's Brother Social History Tobacco Use Types Packs/Day Years Used Date Smoking Tobacco: Former Cigarettes 1 40 1 976 - 2016 Passive Smoke Exposure: Past Smokeless Tobacco: Never Tobacco Cessation:Counseling Given: Not Answered AUDIT-C Answer Date Recorded Q1: How often do you have a drink containing alcohol? Never 05/08/2025 Q2: How many drinks containi ng alcohol do you have on a typical day when you are drinking? Patient does not drink Q3: How often do you have si x or more drinks on one occasion? Never 05/08/2025 Personal Safety Answer Date Recorded Have you ever been in or are you currently in a harmful physical or emotional relationship or is someone making you feel afraid or unsafe? Denies 05/08/2025 Comments No Sex and Gender Information Value Date Recorded Sex Assigned at Not on file Legal Sex Female 8:54 AM CDT Gender Identity Not on file Sexual Orientation Not on file Obstetrics History Last Filed Vital Signs Vital Sign Reading Time Taken Comments Blood Pressure 117/76 05/09/2025 3:00 PM CDT Pulse 87 05/09/2025 3:00 PM CDT Temperature 36.7 C (98.1 F) 05/09/2025 3:00 PM CDT Respiratory Rate 15 05/09/2025 3:00 PM CDT Oxygen Saturation 93% 05/09/2025 3:00 PM CDT Inhaled Oxygen Concentration - - Weight 117.9 kg (260 lb) 05/08/2025 2:25 PM CDT Height 170.2 cm (5' 7) 05/08/2025 2:25 PM CDT Body Mass Index 40.72 05/08/2025 2:25 PM CDT Plan of Treatment Scheduled Procedures Name Priority Associated Diagnoses Date/Ti me COLONOSCOPY Open Access Colon cancer, ascending (HCC) Health Maintenance Due Date Last Done Comments Breast Cancer Screening-Mammogram 1962 Colon Cancer Screening-Colonoscopy 1962 Depression Screening 1962 Hepatitis C Screening 1962 Hepatitis B Screening 1980 Regular Well Visit/Exam 18-64 1980 Lung Cancer Screening 2012 Zoster Vaccine (1 of 2) 2012 Influenza Vaccine (#1) 2025 3, 09/01/2023, 08/13/2023, Additional history exists DTaP/Tdap/Td Vaccine (2 - Td or Tdap) 11/22/2025 11/22/2015 Pneumococcal vaccine <65 Aged Out No longer eligible based on patient's age to complete this topic Medical Devices Implanted Type Area Sign Installer Device Identifier Shelf Expiration Date Model / Serial / Lot [employer]/C R Bard Mesh Surgical Hernia Synthetic Patch [id number] Polypropylene [id number] - Sn/A - [id number] Implanted:Qty: 1 on 05/08/2025 by Mazin Esposito MD at [facility] Mesh N/A: Abdomen [employer] Bard [id number] 02/07/2029 [id number] / N/A / [id number] Procedures Procedure Name Priority Date/Time Associated Diagnosis Comments EGFR Timed 05/09/2025 1:08 PM CDT BASIC METABOLIC PANEL Timed 05/09/2025 1:08 PM CDT PHOSPHORUS Routine 05/08/2025 9:38 PM CDT EGFR Routine 05/08/2025 9:38 PM CDT MAGNESIUM Routine 05/08/2025 9:38 PM CDT BASIC METABOLIC PANEL Routine 05/08/2025 9:38 PM CDT CBC WITHOUT DIFFERENTIAL Routine 05/08/2025 9:38 PM CDT ANESTHESIA INTUBATION Routine 05/08/2025 7:57 AM CDT XI REPAIR INCISIONAL HERNIA - LAPAROSCOPIC ROBOTIC ASSISTED RETRO-RECTUS APPROACH 05/08/2025 7:26 AM CDT Incarcerated incisional hernia Special Needs Mesh EGFR Routine 04/29/2025 8:20 AM CDT Colon cancer, ascending (HCC) DIFFERENTIAL AUTO Routine 04/29/2025 8:2 0 AM CDT Colon cancer, ascending (HCC) CBC WITH AUTO DIFFERENTIAL Routine 04/29/2025 8:20 AM CDT Colon cancer, ascending (HCC) CEA Routine 04/29/2025 8:20 AM CDT Colon cancer, ascending (HCC) COMPREHENSIVE METABOLIC PANEL Routine 04/29/2025 8:20 AM CDT Colon cancer, ascending (HCC) SIGNATERA ONLY Routine 04/29/2025 7:56 AM CDT Colon cancer, ascending (HCC) SCAN - PATHOLOGY 04/29/2025 CT CHEST ABDOMEN PELVIS W CONTRAST Schedule Routine, Read Routine (OP Routine) 04/15/2025 10:37 AM CDT Malignant neoplasm of ascending colon (HCC) EGFR Routine 04/15/2025 9:58 AM CDT Preoperative testing DIFFERENTIAL AUTO Routine 04/15/2025 9:5 8 AM CDT Preoperative testing COMPREHENSIVE METABOLIC PANEL Routine 04/15/2025 9:58 AM CDT Preoperative testing CBC WITH AUTO DIFFERENTIAL Routine 04/15/2025 9:58 AM CDT Preoperative testing CT ABDOMEN PELVIS WO CONTRAST Schedule Routine, Read Routine (OP Routine) 03/14/2025 11:19 AM CDT Ventral incisional hernia from Last 3 Months Results * eGFR (05/09/2025 1:08 PM CDT) eGFR 90 >=60 mL/min/1. 73 m2 Comment: Interpretive Data Reference Interval Normal >/= 90 mL/min/1.73m2 Mildly decreased* 60 - 89 mL/min/1.73m2 Mildly to moderately decreased 45 - 59 mL/min/1.73m2 Moderately to severely decreased 30 - 44 mL/min/1.73m2 Severely decreased 15 - 29 mL/min/1.73m2 Kidney Failure < 15 mL/min/1.73m2 *Relative to young adult level Estimated glomerular filtration rate is determined by the 2020 CKD-EPI equation recommended by the National Kidney Foundation (A Unifying Approach to GFR Estimation: Recommendations of the NKF-ASK Task Force on Reassessing the Inclusion of Race in Diagnosing Kidney Disease, JASN 2020). The CKD-EPI equation should not be used for patients with unstable renal function and has not been validated in children and those over 70. Current interpretive data was last reviewed 2021. Blood 05/09/2025 1:08 PM CDT 05/09/2025 2:01 PM CDT Therese Oconnor DOWEL STICKER OPERATOR LAB BLOOD ORDERABLES Fin al Result [facility] Department [place] [address] * Basic metabolic panel (05/09/2025 1:08 PM CDT) Sodium 140 135 - 145 mmol/L Potassium, pl 3.4 3.3 - 4.9 mmol/L [facility] Chloride 99 97 - 110 mmol/L [facility] CO2 32 22 - 32 mmol/L [facility] Anion gap 9 2 - 15 mmol/L [facility] BUN 15 6 - 25 mg/dL [facility] Creatinine 0.75 0.60 - 1.10 mg/dL [facility] Glucose 153 70 - 199 mg/dL [facility] Comment: Interpretive Data Fasting glucose >/= 126 mg/dl is diagnostic for diabetes. Fasting is defined as no caloric intake for at least 8 hours. Fasting glucose between 100 mg/dl to 125 mg/dl is diagnostic of prediabetes. In a patient with classic symptoms of hyperglycemia or hyperglycemic crisis, a random glucose >/= 200 mg/dl is diagnostic for diabetes. In the absence of unequivocal hyperglycemia, results should be confirmed by repeat testing. The classification and Diagnosis of Diabetes Diabetes Care 202; 46: S19-S40. Current interpretive data was last revised 2022. Calcium 8.6 8.5 - 10.3 mg/dL [facility] Blood 05/09/2025 1:08 PM CDT 05/09/2025 2:01 PM CDT Therese Oconnor NP LAB BLOOD ORDERABLES Fin al Result Performing Organization Address City/Va Hospital/ZIP Co de Phone Number [facility] Department [place] [address] * eGFR (05/08/2025 9:38 PM CDT) eGFR >90 >=60 mL/min/1. 73 m2 Comment: Interpretive Data Reference Interval Normal >/= 90 mL/min/1.73m2 Mildly decreased* 60 - 89 mL/min/1.73m2 Mildly to moderately decreased 45 - 59 mL/min/1.73m2 Moderately to severely decreased 30 - 44 mL/min/1.73m2 Severely decreased 15 - 29 mL/min/1.73m2 Kidney Failure < 15 mL/min/1.73m2 *Relative to young adult level Estimated glomerular filtration rate is determined by the 2020 CKD-EPI equation recommended by the National Kidney Foundation (A Unifying Approach to GFR Estimation: Recommendations of the NKF-ASK Task Force on Reassessing the Inclusion of Race in Diagnosing Kidney Disease, JASN 2020). The CKD-EPI equation should not be used for patients with unstable renal function and has not been validated in children and those over 70. Current interpretive data was last reviewed 2021. Blood 05/08/2025 9:38 PM CDT 05/08/2025 10:49 PM CDT Karlo Akins MD LAB BLOOD ORDERABLES Fin al Result [facility] Department [place] [address] * CBC without differential (05/08/2025 9:38 PM CDT) [facility] WBC 8.86 3.80 - 9.90 K/cumm Hgb 14.4 11.9 - 15.5 g/dL [facility] Hct 42.9 35.6 - 45.5 % [facility] Plt 254 150 - 400 K/cumm [facility] MPV 11.0 9.1 - 12.3 fL [facility] RBC 4.82 3.90 - 5.20 M/cumm [facility] MCV 89.0 81.3 - 96.4 fL [facility] MCH 29.9 27.1 - 33.3 pg [facility] MCHC 33.6 32.3 - 35.7 g/dL [facility] RDW CV 13.9 11.1 - 14.9 % [facility] RDW SD 45.4 35.7 - 48.1 fL [facility] NRBC abs 0.00 0.00 - 0.01 K/cumm [facility] Blood 05/08/2025 9:38 PM CDT 05/08/2025 10:47 PM CDT us Karlo Akins MD LAB BLOOD ORDERABLES Fin al Result [facility] Department [place] [address] * Phosphorus (05/08/2025 9:38 PM CDT) [facility] Phosphorus, pl 3.3 2.3 - 4.5 mg/dL Blood 05/08/2025 9:38 PM CDT 05/08/2025 10:49 PM CDT Therese Oconnor NP LAB BLOOD ORDERABLES Fin al [facility] [place] [address] * Magnesium (05/08/2025 9:38 PM CDT) [facility] Magnesium 2.4 1.4 - 2.5 mg/dL Blood 05/08/2025 9:38 PM CDT 05/08/2025 10:49 PM CDT Karlo Akins MD LAB BLOOD ORDERABLES Fin al Result [facility] [place] [address] * (ABNORMAL) Basic metabolic panel (05/08/2025 9:38 PM CDT) [facility] Sodium 141 135 - 145 mmol/L Potassium, pl 2.7(L) 3.3 - 4.9 mmol/L [facility] Chloride 99 97 - 110 mmol/L [facility] CO2 33(H) 22 - 32 mmol/L [facility] Anion gap 9 2 - 15 mmol/L [facility] BUN 12 6 - 25 mg/dL [facility] Creatinine 0.72 0.60 - 1.10 mg/dL [facility] Glucose 103 70 - 199 mg/dL [facility] Comment: Interpretive Data Fasting glucose >/= 126 mg/dl is diagnostic for diabetes. Fasting is defined as no caloric intake for at least 8 hours. Fasting glucose between 100 mg/dl to 125 mg/dl is diagnostic of prediabetes. In a patient with classic symptoms of hyperglycemia or hyperglycemic crisis, a random glucose >/= 200 mg/dl is diagnostic for diabetes. In the absence of unequivocal hyperglycemia, results should be confirmed by repeat testing. The classification and Diagnosis of Diabetes Diabetes Care 2021; 46: S19-S40. Current interpretive data was last revised 2022. Calcium 8.6 8.5 - 10.3 mg/dL [facility] Comment:Repeated and Verifie d Blood 05/08/2025 9:38 PM CDT 05/08/2025 10:49 PM CDT us Karlo Akins MD LAB BLOOD ORDERABLES Fin al Result [facility] Department [place] [address] * Airway (05/08/2025 7:57 AM CDT) Narrative Tamia Amor MD - 05/08/2025 7:57 AM CDT Tamia Amor MD 05/08/2025 7:58 AM Airway Patient location: OR Urgency: elective Date/time: 05/08/2025 7:38 AM Indications for airway management: airway protection and anesthesia Difficult airway: no Staff: Supervising provider: Luca Mohr MD Placed by: Resident: Tamia Amor MD Emergent airway documentation: Risks and benefits discussed: yes Consent obtained: yes Consent given by: patient Airway prep: Preoxygenated: yes Patient position: sniffing Mask difficulty assessment: 2 - vent by mask + OA or adjuvant Spontaneous ventilation during airway: absent Sedation level during airway: GA Final airway details: Final airway type: endotracheal airway Tube type: ETT ETT size: 7.0 mm Technique used for successful ETT placement: video laryngoscopy Devices/Methods used in placement: stylet Insertion site: oral Blade type: Aquilino Video blade type: Meredith Blade size: 3 Cormack-Lehane (video): grade I - full view of glottis ETT to teeth: 22 cm Placement verified by: auscultation and CO2 detection Airway secured with: silk tape Number of attempts: 1 us Luca Mohr MD ANESTHESIA ORDERABLES Margaret l Result * eGFR (04/29/2025 8:20 AM CDT) eGFR 72 >=60 mL/min/1. 73 m2 Comment: Interpretive Data Reference Interval Normal >/= 90 mL/min/1.73m2 Mildly decreased* 60 - 89 mL/min/1.73m2 Mildly to moderately decreased 45 - 59 mL/min/1.73m2 Moderately to severely decreased 30 - 44 mL/min/1.73m2 Severely decreased 15 - 29 mL/min/1.73m2 Kidney Failure < 15 mL/min/1.73m2 *Relative to young adult level Estimated glomerular filtration rate is determined by the 2020 CKD-EPI equation recommended by the National Kidney Foundation (A Unifying Approach to GFR Estimation: Recommendations of the NKF-ASK Task Force on Reassessing the Inclusion of Race in Diagnosing Kidney Disease, JASN 2020). The CKD-EPI equation should not be used for patients with unstable renal function and has not been validated in children and those over 70. Current interpretive data was last reviewed 2021. Blood 04/29/2025 8:20 AM CDT 04/29/2025 8:25 AM CDT [facility] MD LAB BLOOD ORDERABLES Margaret gil Result [facility] Department [place] [address] * Differential, auto (04/29/2025 8:20 AM CDT) Neutrophil abs 6.22 1.50 - 6.50 K/cumm Comment:Testing performed by : [facility], [address] [place] [address] Lymphocyte abs 1.15 0.80 - 3.30 K/cumm [facility] Comment:Testing performed by : [facility], [address] [place] [phone] Monocyte abs 0.72 0.20 - 0.80 K/cumm [facility] Comment:Testing performed by : [facility], [address] [place] [phone] Eosinophil abs 0.11 0.00 - 0.50 K/cumm [facility] Comment:Testing performed by : [facility], [address] [place] [phone] Basophil abs 0.06 0.00 - 0.10 K/cumm [facility] Comment:Testing performed by : [facility], [address] [place] [phone] Neutrophil pct 75.3 % [facility] Comment: Interpretive Data Percent cell count reference ranges are not reported, since discordance with absolute values may lead to misinterpretation of CBC data. Current Interpretive Data was last revised on 2018. Testing performed by: [facility], [address] [place] [phone] Lymphocyte pct 13.9 % [facility] Comment: Interpretive Data Percent cell count reference ranges are not reported, since discordance with absolute values may lead to misinterpretation of CBC data. Current Interpretive Data was last revised on 2018. Testing performed by: [facility], [address] [place] [phone] Monocyte pct 8.7 % [facility] Comment: Interpretive Data Percent cell count reference ranges are not reported, since discordance with absolute values may lead to misinterpretation of CBC data. Current Interpretive Data was last revised on 2018. Testing performed by: [facility], [address] [place] [phone] Eosinophil pct 1.3 % [facility] Comment: Interpretive Data Percent cell count reference ranges are not reported, since discordance with absolute values may lead to misinterpretation of CBC data. Current Interpretive Data was last revised on 2018. Testing performed by: [facility], [address] [place] [phone] Basophil pct 0.8 % [facility] Comment: Interpretive Data Percent cell count reference ranges are not reported, since discordance with absolute values may lead to misinterpretation of CBC data. Current Interpretive Data was last revised on 2018. Testing performed by: [facility], [address] [place] [phone] Blood 04/29/2025 8:20 AM CDT 04/29/2025 8:28 AM CDT us Moh'D M Th Ana Maria LE LAB BLOOD ORDERABLES Margaret l Result [facility] Department [place] [address] * (ABNORMAL) CBC with auto differential (04/29/2025 8:20 AM CDT) WBC 8.26 3.80 - 9.90 K/cumm Comment:Testing performed by : [facility], [address] [place] [address] Hgb 16.6(H) 11.9 - 15.5 g/dL [facility] Comment:Testing performed by : [facility], [address] [place] [address] Hct 48.6(H) 35.6 - 45.5 % [facility] Comment:Testing performed by : [facility], [address] [place] [address] Plt 343 150 - 400 K/cumm [facility] Comment:Testing performed by : [facility], [address] [place] [address] MPV 8.5 6.8 - 10.4 fL [facility] Comment:Testing performed by : [facility], [address] [place] [address] RBC 5.49(H) 3.90 - 5.20 M/cumm [facility] Comment:Testing performed by : [facility], [address] [place] [address] MCV 88.5 81.3 - 96.4 fL CERNER BJ Comment:Testing performed by : [facility], [address] [place] [address] MCH 30.2 27.1 - 33.3 pg CERNER BJ Comment:Testing performed by : [facility], [address] [place] [address] MCHC 34.1 32.3 - 35.7 g/dL CERNER BJ Comment:Testing performed by : [facility], [address] [place] [address] RDW CV 14.9 11.1 - 14.9 % CERNER BJ Comment:Testing performed by : [facility], [address] [place] [phone] NRBC abs 0.00 0.00 - 0.01 K/cumm [facility] Comment:Testing performed by : [facility], [address] [place] [phone] Blood 04/29/2025 8:20 AM CDT 04/29/2025 8:28 AM CDT [facility] LAB BLOOD ORDERABLES Margaret l Result Performing Organization Address [facility] de Phone Number [facility] [place] [address] * CEA (04/29/2025 8:20 AM CDT) [facility] CEA 2.9 <=5.0 ng/mL Comment: Interpretive Data: Reference Range: Non-Smokers: 0.0 5.0 ng/mL Smokers: 0.0 6.5 ng/mL The Genie CEA assay procedure was used. Results from different manufacturers or methods may not be comparable. Serial testing should be performed using the same method. Current interpretive data was last revised 2022. Blood 04/29/2025 8:20 AM CDT 04/29/2025 9:28 AM CDT [facility] MD LAB BLOOD ORDERABLES Margaret l Result Performing Organization Address [facility] Co de Phone Number [facility] Department [place] [address] * (ABNORMAL) Comprehensive metabolic panel (04/29/2025 8:20 AM CDT) Pathologist [facility] Sodium 140 135 - 145 mmol/L Potassium, pl 3.4 3.3 - 4.9 mmol/L [facility] Chloride 97 97 - 110 mmol/L [facility] CO2 27 22 - 32 mmol/L [facility] Anion gap 16(H) 2 - 15 mmol/L [facility] BUN 16 6 - 25 mg/dL [facility] Creatinine 0.90 0.60 - 1.10 mg/dL [facility] Glucose 122 70 - 199 mg/dL [facility] Comment: Interpretive Data Fasting glucose >/= 126 mg/dl is diagnostic for diabetes. Fasting is defined as no caloric intake for at least 8 hours. Fasting glucose between 100 mg/dl to 125 mg/dl is diagnostic of prediabetes. In a patient with classic symptoms of hyperglycemia or hyperglycemic crisis, a random glucose >/= 200 mg/dl is diagnostic for diabetes. In the absence of unequivocal hyperglycemia, results should be confirmed by repeat testing. The classification and Diagnosis of Diabetes Diabetes Care 2021; 46: S19-S40. Current interpretive data was last revised 2022. Calcium 10.3 8.5 - 10.3 mg/dL [facility] Bilirubin, total 0.4 0.1 - 1.2 mg/dL [facility] Protein, pl 8.2 6.5 - 8.5 g/dL [facility] Albumin 4.7 3.5 - 5.0 g/dL [facility] Alk phos 120 40 - 130 Units/L [facility] ALT 15 7 - 45 Units/L [facility] AST 22 10 - 45 Units/L [facility] Blood 04/29/2025 8:20 AM CDT 04/29/2025 8:25 AM CDT Moh'Harry M Brian Rodgers MD LAB BLOOD ORDERABLES Margaret l Result [facility] Department [place] [address] * Signatera Only Initial Draw (04/29/2025 7:56 AM CDT) SIGNATERA TEST RESULT NEGATIVE 9:55 AM CDT [facility] SIGNATERA MTM READOUT 0 MTM/ml 9:55 AM CDT [facility] Comment: Limitations Signatera is a personalized, tumor-informed test for the longitudinal detection of circulating tumor DNA (ctDNA). Interval testing is recommended for all patients. Studies have demonstrated that when ctDNA is detected (Signatera Positive) following surgery or definitive treatment, the risk for disease relapse is high without further treatment. Conversely, when ctDNA is not detected, the patient may be considered at lower risk for relapse. For those with multiple timepoints, upward trending ctDNA levels are suggestive of increasing tumor burden (1,2). For a single time point in isolation, the absolute MTM/mL value has no known clinical significance and should not be compared across patients. Test results should be interpreted in context of other clinicopathological features. ctDNA detection sensitivity may be limited due to blood collection within two weeks of surgery and while the patient is on therapy. Signatera is a quantitative test and reports in units of mean tumor molecules per ml (MTM/mL), which is comprised of three measured components (plasma volume, cell free DNA (cfDNA) concentration, and Variant Allele Frequency (VAF)). The MTM/mL number will be qualified if any measured component falls outside the analytical measurement range for that component. The analytical sensitivity is 95% at the limit of detection (0.3 MTM/mL). Results obtained are specific to the assessed time point. A negative test result does not definitively indicate the absence of cancer. This test is not designed to detect or report germline variation, nor does it infer hereditary cancer risk for the patient. Each Signatera assay is designed to a single tumor for a given patient. At this time, multiple personalized Signatera assays cannot be developed for the same patient. This test is designed to detect ctDNA from the assayed tumor only; new primary tumors will not be detected. There is a low risk that a new primary may share a variant that could interfere with the Signatera test. Testing cannot be performed in patients who are , have a history of bone marrow transplant, or history of blood transfusion within three months. This test is expected to have limited sensitivity in cancer types such as GIST, renal cell carcinomas, primary brain tumors, and lymphoma due to limited ctDNA shed. 1 Arash RIVERA, Kushal LLANOSC, Vickie HONEYCUTT, et al. Personalized circulating tumor DNA analysis as a predictive biomarker in solid tumor patients treated with pembrolizumab. Nature Cancer. 2020;1(9):873-881. 2 Anastasia WALTON, Renetta Moreno, et al., Circulating Tumor DNA in Stage III Colorectal Cancer, beyond Minimal Residual Disease Detection, toward Assessment of Adjuvant Therapy Efficacy and Clinical Behavior of Recurrences. Clin Cancer Res. 202; 28(3):507-517. Methodology FFPE samples are reviewed by a pathologist to assess tumor content and percent tumor nuclei. Tumor DNA is extracted using [employer] Mag-Bind FFPE DNA/RNA kit. Whole genomic DNA is isolated from peripheral blood using Q[employer]amp DNA Blood MiniKit to provide DNA for germline sequencing. Circulating tumor DNA (ctDNA) is extracted from plasma derived from whole blood samples collected in cell-free DNA blood tubes ([employer]) using the [employer] automated or manual extraction method (Qiagen). Whole-exome sequencing is performed on tumor and peripheral blood DNA using the [employer] whole-exome sequencing assay. Using a proprietary algorithm, putative, clonal variants present in the tumor but absent in the germline DNA are identified to design the customized multiplex PCR assay. The customized PCR assays are run to detect presence or absence of these variants within circulating plasma. A patient's plasma sample is considered ctDNA positive when at least two individual-specific tumor variants are detected. When fewer than two individual-specific tumor variants are observed, a negative result is issued. Pathology services and whole exome sequencing is performed at [facility] (CLIA ID# [id number]), [facility] [employer]. [address] [place] [address]. Disclaimer The extraction, library preparation, and sequencing for this test were performed by [facility] [address] [place] [address] (CLIA ID [id number]). The data analysis and reporting for this test were performed by [facility] [address], [place] [address] (CLIA ID [id number]). This test was developed and its performance characteristics determined by [facility]. The test has not been cleared or approved by the U.S. Food and Drug Administration (FDA). CAP accredited, ISO 76728 certified, and CLIA certified. Pathology services and whole exome sequencing for this test were performed by [facility] [address], [place] [address] (CLIA ID [id number]). 2020 [employer]. All Rights Reserved. Blood specimen (specimen) Venous blood specimen / Unknown 04/29/2025 7:56 AM CDT 05/07/2025 9:54 AM CDT Luba Rodgers MD LAB GENETIC TESTING Final Result [facility] [address] [place] [address], [facility] * SCAN - PATHOLOGY (04/29/2025) Provider Scanning Final Result * CT chest abdomen pelvis with contrast (04/15/2025 10:37 AM CDT) Anatomical Region Laterality Modality Body N/A Computed Tomogra phy 04/15/2025 10:5 0 AM CDT Impressions 04/15/2025 10:50 AM CDT No evidence of metastatic disease in the chest, abdomen, or pelvis Electronically signed by: Edgar Thomas M.D. Narrative 04/15/2025 10:50 AM CDT EXAMINATION: Computed tomography of the chest, abdomen and pelvis with intravenous contrast HISTORY: Recurrent colon cancer TECHNIQUE: Transaxial computed tomographic images of the chest, abdomen and pelvis were obtained with intravenous contrast according to the standard protocol after the uneventful administration of 94 mL Opti-Ray 350 intravenous contrast. COMPARISON: 03/14/2025 FINDINGS: Chest: Normal thyroid. Aberrant right subclavian artery coursing posterior to the esophagus. Calcified lower left paratracheal lymph nodes, likely sequela of prior granulomatous infection. No pathologically enlarged axillary, supraclavicular, mediastinal, or hilar lymph nodes. Small hiatal hernia. No pericardial effusion. Mild apical predominant centrilobular emphysema. Calcifications in the medial left upper lobe, likely sequela of prior granulomatous infection. No pleural effusion or pneumothorax. Abdomen/Pelvis: Evidence of prior granulomatous disease is seen in the liver and spleen. Gallbladder is normal. Portal vein is patent. Pancreas is normal. The bilateral adrenal glands are normal. No hydronephrosis. Subcentimeter left renal cyst. There is a fat-containing ventral abdominal wall hernia. Urinary bladder is normal. There are no dilated loops of large or small bowel. Colonic diverticulosis without evidence of acute diverticulitis. Status post partial right colectomy. There are no pathologically enlarged abdominal or pelvic lymph nodes. No aggressive bone lesion. Procedure Note Edgar Thomas MD - 04/15/2025 EXAMINATION: Computed tomography of the chest, abdomen and pelvis with intravenous contrast HISTORY: Recurrent colon cancer TECHNIQUE: Transaxial computed tomographic images of the chest, abdomen and pelvis were obtained with intravenous contrast according to the standard protocol after the uneventful administration of 94 mL Opti-Ray 350 intravenous contrast. COMPARISON: 03/14/2025 FINDINGS: Chest: Normal thyroid. Aberrant right subclavian artery coursing posterior to the esophagus. Calcified lower left paratracheal lymph nodes, likely sequela of prior granulomatous infection. No pathologically enlarged axillary, supraclavicular, mediastinal, or hilar lymph nodes. Small hiatal hernia. No pericardial effusion. Mild apical predominant centrilobular emphysema. Calcifications in the medial left upper lobe, likely sequela of prior granulomatous infection. No pleural effusion or pneumothorax. Abdomen/Pelvis: Evidence of prior granulomatous disease is seen in the liver and spleen. Gallbladder is normal. Portal vein is patent. Pancreas is normal. The bilateral adrenal glands are normal. No hydronephrosis. Subcentimeter left renal cyst. There is a fat-containing ventral abdominal wall hernia. Urinary bladder is normal. There are no dilated loops of large or small bowel. Colonic diverticulosis without evidence of acute diverticulitis. Status post partial right colectomy. There are no pathologically enlarged abdominal or pelvic lymph nodes. No aggressive bone lesion. IMPRESSION: No evidence of metastatic disease in the chest, abdomen, or pelvis Electronically signed by: Edgar Thomas M.D. Nolan Martin MD PhD IMG CT PROCEDURES Fi nal Result * eGFR (04/15/2025 9:58 AM CDT) eGFR 61 >=60 mL/min/1. 73 m2 Comment: Interpretive Data Reference Interval Normal >/= 90 mL/min/1.73m2 Mildly decreased* 60 - 89 mL/min/1.73m2 Mildly to moderately decreased 45 - 59 mL/min/1.73m2 Moderately to severely decreased 30 - 44 mL/min/1.73m2 Severely decreased 15 - 29 mL/min/1.73m2 Kidney Failure < 15 mL/min/1.73m2 *Relative to young adult level Estimated glomerular filtration rate is determined by the 2020 CKD-EPI equation recommended by the National Kidney Foundation (A Unifying Approach to GFR Estimation: Recommendations of the NKF-ASK Task Force on Reassessing the Inclusion of Race in Diagnosing Kidney Disease, JASN 202). The CKD-EPI equation should not be used for patients with unstable renal function and has not been validated in children and those over 70. Current interpretive data was last reviewed 2021. Blood 04/15/2025 9:58 AM CDT 04/15/2025 10:18 AM CDT us Claire Kaye DOWEL STICKER OPERATOR LAB BLOOD ORDERABLES Fi nal Result [facility] Department [place] [address] * (ABNORMAL) Differential, auto (04/15/2025 9:58 AM CDT) Pathologist [facility] Neutrophil abs 5.71 1.50 - 6.50 K/cumm Imm gran abs 0.03 0.00 - 0.10 K/cumm [facility] Lymphocyte abs 1.58 0.80 - 3.30 K/cumm [facility] Monocyte abs 0.95(H) 0.20 - 0.80 K/cumm [facility] Eosinophil abs 0.12 0.00 - 0.50 K/cumm [facility] Basophil abs 0.07 0.00 - 0.10 K/cumm [facility] Neutrophil pct 67.5 % [facility] Comment: Interpretive Data Percent cell count reference ranges are not reported, since discordance with absolute values may lead to misinterpretation of CBC data. Current Interpretive Data was last revised on 2018. Imm gran pct 0.4 % [facility] Comment: Interpretive Data Percent cell count reference ranges are not reported, since discordance with absolute values may lead to misinterpretation of CBC data. Current Interpretive Data was last revised on 2018. Lymphocyte pct 18.7 % [facility] Comment: Interpretive Data Percent cell count reference ranges are not reported, since discordance with absolute values may lead to misinterpretation of CBC data. Current Interpretive Data was last revised on 2018. Monocyte pct 11.2 % [facility] Comment: Interpretive Data Percent cell count reference ranges are not reported, since discordance with absolute values may lead to misinterpretation of CBC data. Current Interpretive Data was last revised on 2018. Eosinophil pct 1.4 % [facility] Comment: Interpretive Data Percent cell count reference ranges are not reported, since discordance with absolute values may lead to misinterpretation of CBC data. Current Interpretive Data was last revised on 2018. Basophil pct 0.8 % [facility] Comment: Interpretive Data Percent cell count reference ranges are not reported, since discordance with absolute values may lead to misinterpretation of CBC data. Current Interpretive Data was last revised on 2018. Blood 04/15/2025 9:58 AM CDT 04/15/2025 10:18 AM CDT us Claire Kaye DOWEL STICKER OPERATOR LAB BLOOD ORDERABLES Fi nal Result [facility] Department [place] [address] * (ABNORMAL) CBC with auto differential (04/15/2025 9:58 AM CDT) WBC 8.46 3.80 - 9.90 K/cumm Hgb 16.7(H) 11.9 - 15.5 g/dL [facility] Hct 50.1(H) 35.6 - 45.5 % [facility] Plt 333 150 - 400 K/cumm [facility] MPV 10.6 9.1 - 12.3 fL [facility] RBC 5.67(H) 3.90 - 5.20 M/cumm [facility] MCV 88.4 81.3 - 96.4 fL [facility] MCH 29.5 27.1 - 33.3 pg [facility] MCHC 33.3 32.3 - 35.7 g/dL [facility] RDW CV 14.4 11.1 - 14.9 % [facility] RDW SD 46.2 35.7 - 48.1 fL [facility] NRBC abs 0.00 0.00 - 0.01 K/cumm [facility] Blood 04/15/2025 9:58 AM CDT 04/15/2025 10:18 AM CDT us Claire Kaye NP LAB BLOOD ORDERABLES Fi nal Result [facility] Department [place] [address] * (ABNORMAL) Comprehensive metabolic panel (04/15/2025 9:58 AM CDT) Sodium 135 135 - 145 mmol/L Potassium, pl 4.2 3.3 - 4.9 mmol/L [facility] Comment:Hemolyzed; Potassium value may be falsely elevated by as much as 0.6-1.0 mmol/L. Suggest redraw and reanalysis. Chloride 94(L) 97 - 110 mmol/L [facility] CO2 30 22 - 32 mmol/L [facility] Anion gap 11 2 - 15 mmol/L [facility] BUN 21 6 - 25 mg/dL [facility] Creatinine 1.04 0.60 - 1.10 mg/dL [facility] Glucose 113 70 - 199 mg/dL [facility] Comment: Interpretive Data Fasting glucose >/= 126 mg/dl is diagnostic for diabetes. Fasting is defined as no caloric intake for at least 8 hours. Fasting glucose between 100 mg/dl to 125 mg/dl is diagnostic of prediabetes. In a patient with classic symptoms of hyperglycemia or hyperglycemic crisis, a random glucose >/= 200 mg/dl is diagnostic for diabetes. In the absence of unequivocal hyperglycemia, results should be confirmed by repeat testing. The classification and Diagnosis of Diabetes Diabetes Care 2021; 46: S19-S40. Current interpretive data was last revised 2022. Calcium 10.8(H) 8.5 - 10.3 mg/dL [facility] Bilirubin, total 0.5 0.1 - 1.2 mg/dL [facility] Protein, pl 8.0 6.5 - 8.5 g/dL [facility] Albumin 4.3 3.5 - 5.0 g/dL [facility] Alk phos 121 40 - 130 Units/L [facility] ALT 18 7 - 45 Units/L [facility] AST 36 10 - 45 Units/L [facility] Comment:Hemolyzed; result ma y be falsely elevated Blood 04/15/2025 9:58 AM CDT 04/15/2025 10:18 AM CDT us Claire Kaye DOWEL STICKER OPERATOR LAB BLOOD ORDERABLES Fi nal Result [facility] Department [place] [address] * CT Abdomen Pelvis WO Contrast (03/14/2025 11:19 AM CDT) Anatomical Region Laterality Modality Body N/A Computed Tomogra phy 03/14/2025 11:2 6 AM CDT Impressions 03/14/2025 11:26 AM CDT 1. Broad-based ventral hernia with measurements as described above that is predominantly fat containing and partially contains a loop of transverse colon without evidence of bowel obstruction. 2. No evidence of metastatic disease in the abdomen and pelvis. Electronically signed by: Radha Crisostomo M.D. Narrative 03/14/2025 11:26 AM CDT EXAMINATION: CT ABDOMEN PELVIS WO CONTRAST HISTORY: Ventral hernia. History of right hemicolectomy for colon adenocarcinoma on 11/08/2023. TECHNIQUE: Transaxial computed tomographic images of the abdomen and pelvis were obtained without intravenous contrast according to the standard protocol. COMPARISON: CT 06/11/2024 FINDINGS: Clear lung bases. Heart size normal without pericardial effusion. Mitral annular calcifications. Small hiatal hernia. No suspicious liver lesion noncontrast examination. Calcified hepatic granulomas. Gallbladder normal. No biliary duct dilation. Pancreas normal. Calcified splenic granulomas. Normal adrenals. Normal kidneys without hydronephrosis or nephrolithiasis. No mesenteric or retroperitoneal lymphadenopathy. The abdominal aorta is normal caliber. Urinary bladder partially decompressed. Patient status post hysterectomy. No pelvic lymphadenopathy free fluid. The colon is normal caliber. Postsurgical changes of right hemicolectomy. The small bowel is normal in caliber. The stomach and duodenal sweep are unremarkable. No peritoneal or omental nodularity. There is a broad-based ventral hernia which partially contains a loop of transverse colon. The hernia neck measures approximately 8.6 cm. The hernia sac measures a maximum of 11.6 x 5.6 cm in the transaxial dimension and 6.1 cm in the craniocaudal dimension. There is no evidence of bowel obstruction. No acute fracture or suspicious osseous lesion. Procedure Note Radha Crisostomo MD - 03/14/2025 EXAMINATION: CT ABDOMEN PELVIS WO CONTRAST HISTORY: Ventral hernia. History of right hemicolectomy for colon adenocarcinoma on 11/08/2023. TECHNIQUE: Transaxial computed tomographic images of the abdomen and pelvis were obtained without intravenous contrast according to the standard protocol. COMPARISON: CT 06/11/2024 FINDINGS: Clear lung bases. Heart size normal without pericardial effusion. Mitral annular calcifications. Small hiatal hernia. No suspicious liver lesion noncontrast examination. Calcified hepatic granulomas. Gallbladder normal. No biliary duct dilation. Pancreas normal. Calcified splenic granulomas. Normal adrenals. Normal kidneys without hydronephrosis or nephrolithiasis. No mesenteric or retroperitoneal lymphadenopathy. The abdominal aorta is normal caliber. Urinary bladder partially decompressed. Patient status post hysterectomy. No pelvic lymphadenopathy free fluid. The colon is normal caliber. Postsurgical changes of right hemicolectomy. The small bowel is normal in caliber. The stomach and duodenal sweep are unremarkable. No peritoneal or omental nodularity. There is a broad-based ventral hernia which partially contains a loop of transverse colon. The hernia neck measures approximately 8.6 cm. The hernia sac measures a maximum of 11.6 x 5.6 cm in the transaxial dimension and 6.1 cm in the craniocaudal dimension. There is no evidence of bowel obstruction. No acute fracture or suspicious osseous lesion. IMPRESSION: 1. Broad-based ventral hernia with measurements as described above that is predominantly fat containing and partially contains a loop of transverse colon without evidence of bowel obstruction. 2. No evidence of metastatic disease in the abdomen and pelvis. Electronically signed by: Radha Crisostomo M.D. 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 DIRECTIVE 11/07/2023 2:36 PM Renita r of Director Of Nursing-Medical * Full Code (Latest Code Status on File) Date Activated Date Inactivated Comments 05/08/2025 1:46 PM 05/09/2025 7:34 PM * Full Code Date Activated Date Inactivated Comments 12/10/2023 4:16 PM 12/12/2023 8:51 PM * Full Code Date Activated Date Inactivated Comments 11/08/2023 6:26 PM 11/15/2023 10:11 PM 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
--- OUTSIDE RECORDS SUMMARY | 2025-05-15 11:42 | XMS_ITS | Referral Summary ---
Author Organization [facility] Address [address] [place] [address] Care Team Providers Care Marketing Administrative Assistant Name Role Phone Tristen Benavides MD Primary Care Provider Pihlip Torres MD Unavailable [phone] Tru Sanchez MD Unavailable [phone] Luba Rodgers MD Unavailable [phone] Encounters Date Type Department Care Team Description 05/08/2025 5:17 AM CDT - 05/09/2025 3:34 PM CDT Hospital Encounter [address] [phone] Mazin Esposito MD Incarcerated incisional hernia (Primary Dx) Discharge Disposition: Discharge to home or self care 05/08/2025 7:30 AM CDT - 05/08/2025 11:40 AM CDT Surgery [facility] Operating Room [address] [place] [address] Mazin Esposito MD XI REPAIR INCISIONAL HERNIA - LAPAROSCOPIC ROBOTIC ASSISTED RETRO-RECTUS APPROACH 05/08/2025 7:27 AM CDT Anesthesia Event [facility] Operating Room [address] [place] [address] Luca Mohr MD Petranek, Jennifer T., EMT 05/05/2025 Telephone [facility] Oncology [address] [place] [phone] Marivel Cifuentes CMA Xarelto/Form 04/29/2025 Orders Only [facility] Scanning, Provider 04/29/2025 Telephone [facility] Services [address] [place] [address] Nilda Posada RN GI Preprocedure 04/29/2025 8:30 AM CDT Lab [facility] - Lab Collection [address] [facility] Floor [address] [place] [address] Colon cancer, ascending (HCC) 04/29/2025 8:15 AM CDT Lab [facility] Oncology Lab [facility] Floor 5 [place] [address] Malignant neoplasm of ascending colon (HCC) 04/29/2025 9:00 AM CDT Office Visit [facility] Oncology [facility] Floor 5 [place] [phone] Luba Rodgers MD Colon cancer, ascending (HCC) (Primary Dx); Malignant neoplasm of ascending colon (HCC) 04/15/2025 8:30 AM CDT Pre-Admission Testing [facility]) [address] [place] [address] Preoperative testing (Primary Dx) 04/15/2025 10:16 AM CDT - 04/15/2025 11:59 PM CDT Hospital Encounter [facility] - [place] [address] [facility] Floor 8 [place] [address] Malignant neoplasm of ascending colon (HCC) Discharge Disposition: Discharge to home or self care 03/27/2025 Telephone [facility] Oncology [facility] Floor 6 [place] [phone] Sofía Glez RN 03/27/2025 Telephone [facility] Oncology [address] CAR[place] Garcia [phone] Sofía Glez, KELLY 03/18/2025 Telephone [facility] Advanced Medicine ([facility]) - [facility] Minimally Invasive Surgery [address] [place] [address] Advanced Medicine 12th Floor, [place] [address] Genet Villalba RN surgery scheduling 03/14/2025 10:53 AM CDT - 03/14/2025 11:59 PM CDT Hospital Encounter [facility] [address] [place] [address] Mazin Esposito MD Ventral incisional hernia Discharge Disposition: Discharge to home or self care 03/14/2025 9:45 AM CDT Office [facility] [address] [facility] 12th Floor, [place] [address] Mazin Esposito MD Incarcerated incisional hernia (Primary Dx) 03/06/2025 Telephone [facility] Oncology [address] [place] [phone] Sofía Glez RN from Last 3 Months Allergies No known active allergies Medications furosemide (LASIX) 40 mg tabletIndicati ons:Edema Take 1 tablet (40 mg total) by mouth network intelligence analyst before breakfast Active potassium chloride ER 20 mEq CR tabletIndicati ons:supplement Take 1 tablet (20 mEq total) by mouth 3 (three) times a day 3 Active Xarelto 20 mg tabletIndicati ons:Venous Thrombosis Take 1 tablet (20 mg total) by mouth network intelligence analyst before breakfast Active venlafaxine XR (EFFEXOR-XR) 37.5 mg 24 hr capsuleIndicat ions:Anxiety with Depression Take 1 capsule (37.5 mg total) by mouth network intelligence analyst before breakfast 3 Active calcium carbonate (CALCIUM [...] ascending colon 10/26/2023 Colon cancer, ascending 10/26/2023 Immunizations Immunization Administration Dates Next Due Influenza, Quadrivalent, Cristy l Culture-based MDCK, Preservative Free, Antibiotic Free, Intramuscular 09/01/2023 Influenza, Trivalent, IM (MDV) 11/22/2015 Influenza, Unspecified 09/01/2023,08/13/2023 Tdap 11/22/2015 Social History Tobacco Use Types Packs/Day Years [...] Scheduled Procedures Name Priority Associated Diagnoses Date/Ti mn COLONOSCOPY Open Access Colon cancer, ascending (HCC) Medical Devices Implanted Type Area Statistical Developer Device Identifier Shelf Expiration Date Model / Serial / Lot [employer]/C R Bard Mesh Surgical Hernia Synthetic Patch [id number] Polypropylene [id number] - Sn/A - [id number] Implanted:Qty: 1 on 05/08/2025 by Mazin Esposito MD at [facility] Mesh N/A: Abdomen [employer]/C R Bard [id number] 02/07/2029 [id number] / N/A / [id number] Procedures Procedure Name Priority Date/Time Associated Diagnosis [...] 1:08 PM CDT 05/09/2025 2:01 PM CDT us Therese Oconnor NP LAB BLOOD ORDERABLES Fin al Result [facility] One [facility] [place] [address] * Basic metabolic panel (05/09/2025 1:08 PM CDT) Pathologist [facility] Sodium 140 135 - 145 mmol/L Potassium, pl 3.4 3.3 - 4.9 mmol/L [facility] Chloride 99 97 - 110 mmol/L [facility] CO2 32 22 - 32 mmol/L [facility] Anion gap 9 2 - 15 mmol/L [facility] BUN 15 6 - 25 mg/dL [facility] Creatinine 0.75 0.60 - 1.10 mg/dL [facility] Glucose 153 70 - 199 mg/dL [facility] Comment: Interpretive Data Fasting glucose >/= [...] 2022. Calcium 8.6 8.5 - 10.3 mg/dL [facility] Blood 05/09/2025 1:08 PM CDT 05/09/2025 2:01 PM CDT Therese Oconnor NP LAB BLOOD ORDERABLES Fin al Result [facility] One [facility] [place] [address] * eGFR (05/08/2025 9:38 PM CDT) [facility] eGFR >90 >=60 mL/min/1. 73 m2 Comment: [...] MD LAB BLOOD ORDERABLES Fin al Result [facility] [place] [address] * CBC without differential (05/08/2025 9:38 PM CDT) WBC 8.86 3.80 - 9.90 K/cumm Hgb 14.4 11.9 - 15.5 g/dL [facility] Hct 42.9 35.6 - 45.5 % [facility] Plt 254 150 - 400 K/cumm [facility] MPV 11.0 9.1 - 12.3 fL [facility] RBC 4.82 3.90 - 5.20 M/cumm [facility] MCV 89.0 81.3 - 96.4 fL [facility] MCH 29.9 27.1 - 33.3 pg [facility] MCHC 33.6 32.3 - 35.7 g/dL [facility] RDW CV 13.9 11.1 - 14.9 % [facility] RDW SD 45.4 35.7 - 48.1 fL [facility] NRBC abs 0.00 0.00 - 0.01 K/cumm [facility] Blood 05/08/2025 9:38 PM CDT 05/08/2025 10:47 PM CDT Karlo Akins MD LAB BLOOD ORDERABLES Fin al Result Performing Organization Address [facility] de Phone Number [facility] [place] [address] * Phosphorus (05/08/2025 9:38 PM CDT) Pathologist [facility] Phosphorus, pl 3.3 2.3 - 4.5 mg/dL Blood 05/08/2025 9:38 PM CDT 05/08/2025 10:49 PM CDT Therese Oconnor NP LAB BLOOD ORDERABLES Fin al Result Performing Organization Address [facility] de Phone Number [facility] [place] [address] * Magnesium (05/08/2025 9:38 PM CDT) [facility] Magnesium 2.4 1.4 - 2.5 mg/dL Blood 05/08/2025 9:38 PM CDT 05/08/2025 10:49 PM CDT Karlo Akins MD LAB BLOOD ORDERABLES Fin al Result Performing Organization Address [facility] de Phone Number [facility] [place] [address] * (ABNORMAL) Basic metabolic panel (05/08/2025 9:38 PM CDT) Pathologist [facility] Sodium 141 135 - 145 mmol/L Potassium, pl 2.7(L) 3.3 - 4.9 mmol/L [facility] Chloride 99 97 - 110 mmol/L [facility] CO2 33(H) 22 - 32 mmol/L [facility] Anion gap 9 2 - 15 mmol/L [facility] BUN 12 6 - 25 mg/dL [facility] Creatinine 0.72 0.60 - 1.10 mg/dL [facility] Glucose 103 70 - 199 mg/dL [facility] Comment: Interpretive Data Fasting glucose >/= [...] 2022. Calcium 8.6 8.5 - 10.3 mg/dL [facility] Comment:Repeated and Verifie d Blood 05/08/2025 9:38 PM CDT 05/08/2025 10:49 PM CDT Karlo Akins MD LAB BLOOD ORDERABLES Fin al Result [facility] [place] [address] * Airway (05/08/2025 7:57 AM CDT) Narrative [...] 8:20 AM CDT 04/29/2025 8:25 AM CDT us Luba Rodgers MD LAB BLOOD ORDERABLES Margaret l Result [facility] Department [place] [address] * Differential, auto (04/29/2025 8:20 AM CDT) Neutrophil abs 6.22 1.50 - 6.50 K/cumm Comment:Testing performed by : [facility], [address] [place] [phone] Lymphocyte abs 1.15 0.80 - 3.30 K/cumm [facility] Comment:Testing performed by : [facility], [address] [place] [phone] Monocyte abs 0.72 0.20 - 0.80 K/cumm [facility] Comment:Testing performed by : [facility], [address] [place] [phone] Eosinophil abs 0.11 0.00 - 0.50 K/cumm [facility] Comment:Testing performed by : [facility], [address] [place] [phone] Basophil abs 0.06 0.00 - 0.10 K/cumm [facility] Comment:Testing performed by : [facility], [address] [place] [phone] Neutrophil pct 75.3 % [facility] Comment: Interpretive Data Percent cell count reference ranges are not reported, since discordance with absolute values may lead to misinterpretation of CBC data. Current Interpretive Data was last revised on 2018. Testing performed by: [facility], [address] [place] [phone] Lymphocyte pct 13.9 % [facility] Comment: Interpretive Data Percent cell count reference ranges are not reported, since discordance with absolute values may lead to misinterpretation of CBC data. Current Interpretive Data was last revised on 2018. Testing performed by: [facility], [address] [place] [phone] Monocyte pct 8.7 % [facility] Comment: Interpretive Data Percent cell count reference ranges are not reported, since discordance with absolute values may lead to misinterpretation of CBC data. Current Interpretive Data was last revised on 2018. Testing performed by: [facility], [address] [place] [phone] Eosinophil pct 1.3 % [facility] Comment: Interpretive Data Percent cell count reference ranges are not reported, since discordance with absolute values may lead to misinterpretation of CBC data. Current Interpretive Data was last revised on 2018. Testing performed by: [facility], [address] [place] [address] Basophil pct 0.8 % [facility] Comment: Interpretive Data Percent cell count reference ranges are not reported, since discordance with absolute values may lead to misinterpretation of CBC data. Current Interpretive Data was last revised on 2018. Testing performed by: [facility], [address] [place] [address] Blood 04/29/2025 8:20 AM CDT 04/29/2025 8:[address] [facility] MD LAB BLOOD ORDERABLES Margaret louise Result [facility] Department [place] [address] * (ABNORMAL) CBC with auto differential (04/29/2025 8:20 AM CDT) WBC 8.26 3.80 - 9.90 K/cumm Comment:Testing performed by : [facility], [address] [place] [address] Hgb 16.6(H) 11.9 - 15.5 g/dL [facility] Comment:Testing performed by : [facility], [address] [place] [address] Hct 48.6(H) 35.6 - 45.5 % [facility] Comment:Testing performed by : [facility], [address] [place] [address] Plt 343 150 - 400 K/cumm [facility] Comment:Testing performed by : [facility], [address] [place] [address] MPV 8.5 6.8 - 10.4 fL [facility] Comment:Testing performed by : [facility], [address] [place] [address] RBC 5.49(H) 3.90 - 5.20 M/cumm [facility] Comment:Testing performed by : [facility], [address] [place], [place] [phone] MCV 88.5 81.3 - 96.4 fL [facility] Comment:Testing performed by : [facility], [address] [place], [place] [phone] MCH 30.2 27.1 - 33.3 pg [facility] Comment:Testing performed by : [facility], [address] [place], [place] [phone] MCHC 34.1 32.3 - 35.7 g/dL [facility] Comment:Testing performed by : [facility], [address] [place], [place] [phone] RDW CV 14.9 11.1 - 14.9 % [facility] Comment:Testing performed by : [facility], [address] [place], [place] [phone] NRBC abs 0.00 0.00 - 0.01 K/cumm [facility] Comment:Testing performed by : [facility], [address] [place], [place] [phone] Blood 04/29/2025 8:20 AM CDT 04/29/2025 8:[address] [facility] Rodgers MD LAB BLOOD ORDERABLES Margaret l Result [facility] [place] [address] * CEA (04/29/2025 8:20 AM CDT) CEA 2.9 <=5.0 ng/mL Comment: Interpretive Data: Reference Range: Non-Smokers: 0.0 5.0 ng/mL Smokers: 0.0 6.5 ng/mL The Genie CEA assay procedure was used. Results from different manufacturers or methods may not be comparable. Serial testing should be performed using the same method. Current interpretive data was last revised 2022. Blood 04/29/2025 8:20 AM CDT 04/29/2025 9:28 AM CDT Luba Rodgers MD LAB BLOOD ORDERABLES Margaret gil Result [facility] [place] [address] * (ABNORMAL) Comprehensive metabolic panel (04/29/2025 8:20 AM CDT) Sodium 140 135 - 145 mmol/L Potassium, pl 3.4 3.3 - 4.9 mmol/L [facility] Chloride 97 97 - 110 mmol/L [facility] CO2 27 22 - 32 mmol/L [facility] Anion gap 16(H) 2 - 15 mmol/L [facility] BUN 16 6 - 25 mg/dL [facility] Creatinine 0.90 0.60 - 1.10 mg/dL [facility] Glucose 122 70 - 199 mg/dL [facility] Comment: Interpretive Data Fasting glucose >/= [...] 2022. Calcium 10.3 8.5 - 10.3 mg/dL [facility] Bilirubin, total 0.4 0.1 - 1.2 mg/dL [facility] Protein, pl 8.2 6.5 - 8.5 g/dL [facility] Albumin 4.7 3.5 - 5.0 g/dL [facility] Alk phos 120 40 - 130 Units/L [facility] ALT 15 7 - 45 Units/L [facility] AST 22 10 - 45 Units/L [facility] Blood 04/29/2025 8:20 AM CDT 04/29/2025 8:[address] [facility] MD LAB BLOOD ORDERABLES Margaret gil Result [facility] [place] [address] * Signatera Only Initial Draw (04/29/2025 7:56 [...] due to limited ctDNA shed. 1 Arash SV, Kushal LLANOSC, Vickie HONEYCUTT, et al. Personalized circulating tumor DNA analysis as a predictive biomarker in solid tumor patients treated with pembrolizumab. Nature Cancer. 2020;1(9):873-881. 2 Anastasia WALTON, Renetta Moreno, et al., Circulating Tumor DNA in Stage III Colorectal Cancer, beyond Minimal Residual Disease Detection, toward Assessment of Adjuvant Therapy Efficacy and Clinical Behavior of Recurrences. Clin Cancer Res. 2020; 28(3):507-517. Methodology FFPE samples are reviewed by a pathologist to assess tumor content and percent tumor nuclei. Tumor DNA is extracted using [place] [employer] Mag-Bind FFPE DNA/RNA kit. Whole genomic DNA is isolated from peripheral blood using QIAamp DNA Blood MiniKit to provide DNA for germline sequencing. Circulating tumor DNA (ctDNA) is extracted from plasma derived from whole blood samples collected in cell-free DNA blood tubes (OMG) using the QIAsymphony automated or manual extraction method (Qiagen). Whole-exome sequencing is performed on tumor and peripheral blood DNA using the exsulin whole-exome sequencing assay. Using a proprietary algorithm, [...] and whole exome sequencing is performed at [facility]. (CLIA ID# [id number]), [address] [place] [id number] [place] [address]. Disclaimer The extraction, library preparation, and sequencing for this test were performed by [employer] [address] [facility] [address], [place] [address] (CLIA ID [id number]). The data analysis and reporting for this test were performed by [facility] [address], [place] [address] (CLIA ID [id number]). This test was developed and its performance characteristics determined by [facility]. The test has not been cleared or approved by the U.S. Food and Drug Administration (FDA). CAP accredited, ISO 23224 certified, and CLIA certified. Pathology services and whole exome sequencing for this test were performed by [facility] [address], [place] [address] (CLIA ID [id number]). 2020 [employer]. All Rights Reserved. Blood specimen (specimen) Venous blood specimen / Unknown 04/29/2025 7:56 AM CDT 05/07/2025 9:54 AM CDT Luba Rodgers MD LAB GENETIC TESTING Final Result Performing Organization Address City/State/[facility] Co de Phone Number [facility] [address] [place] [address], [place] * SCAN - PATHOLOGY (04/29/2025) Provider Scanning [...] nodes. No aggressive bone lesion. Procedure Note Short, Edgar Carter MD - 04/15/2025 EXAMINATION: Computed tomography of [...] pelvis Electronically signed by: Edgar Thomas M.D. us Nolan Martin MD PhD IMG CT PROCEDURES [...] 04/15/2025 10:18 AM CDT us Claire Kaye ENVIRONMENTAL SERVICES ASSOCIATE LAB BLOOD ORDERABLES Fi nal Result [facility] Department [place] [address] * (ABNORMAL) Differential, auto (04/15/2025 9:58 AM CDT) Neutrophil abs 5.71 1.50 - 6.50 K/cumm Imm gran abs 0.03 0.00 - 0.10 K/cumm [facility] Lymphocyte abs 1.58 0.80 - 3.30 K/cumm [facility] Monocyte abs 0.95(H) 0.20 - 0.80 K/cumm [facility] Eosinophil abs 0.12 0.00 - 0.50 K/cumm [facility] Basophil abs 0.07 0.00 - 0.10 K/cumm [facility] Neutrophil pct 67.5 % [facility] Comment: Interpretive Data Percent cell count reference ranges are not reported, since discordance with absolute values may lead to misinterpretation of CBC data. Current Interpretive Data was last revised on 2018. Imm gran pct 0.4 % [facility] Comment: Interpretive Data Percent cell count reference ranges are not reported, since discordance with absolute values may lead to misinterpretation of CBC data. Current Interpretive Data was last revised on 2018. Lymphocyte pct 18.7 % [facility] Comment: Interpretive Data Percent cell count reference ranges are not reported, since discordance with absolute values may lead to misinterpretation of CBC data. Current Interpretive Data was last revised on 2018. Monocyte pct 11.2 % [facility] Comment: Interpretive Data Percent cell count reference ranges are not reported, since discordance with absolute values may lead to misinterpretation of CBC data. Current Interpretive Data was last revised on 2018. Eosinophil pct 1.4 % [facility] Comment: Interpretive Data Percent cell count reference ranges are not reported, since discordance with absolute values may lead to misinterpretation of CBC data. Current Interpretive Data was last revised on 2018. Basophil pct 0.8 % [facility] Comment: Interpretive Data Percent cell count reference ranges are not reported, since discordance with absolute values may lead to misinterpretation of CBC data. Current Interpretive Data was last revised on 2018. Blood 04/15/2025 9:58 AM CDT 04/15/2025 10:18 AM CDT us Claire Kaye ENVIRONMENTAL SERVICES ASSOCIATE LAB BLOOD ORDERABLES Fi nal Result [facility] [place] [address] * (ABNORMAL) CBC with auto differential (04/15/2025 9:58 AM CDT) [facility] WBC 8.46 3.80 - 9.90 K/cumm Hgb 16.7(H) 11.9 - 15.5 g/dL [facility] Hct 50.1(H) 35.6 - 45.5 % [facility] Plt 333 150 - 400 K/cumm [facility] MPV 10.6 9.1 - 12.3 fL [facility] RBC 5.67(H) 3.90 - 5.20 M/cumm [facility] MCV 88.4 81.3 - 96.4 fL [facility] MCH 29.5 27.1 - 33.3 pg [facility] MCHC 33.3 32.3 - 35.7 g/dL [facility] RDW CV 14.4 11.1 - 14.9 % [facility] RDW SD 46.2 35.7 - 48.1 fL [facility] NRBC abs 0.00 0.00 - 0.01 K/cumm [facility] Blood 04/15/2025 9:58 AM CDT 04/15/2025 10:18 AM CDT Claire Kaye ENVIRONMENTAL SERVICES ASSOCIATE LAB BLOOD ORDERABLES Fi nal Result Performing Organization Address [facility] Co de Phone Number [facility] Department [place] [address] * (ABNORMAL) Comprehensive metabolic panel (04/15/2025 9:58 AM CDT) [facility] Sodium 135 135 - 145 mmol/L Potassium, pl 4.2 3.3 - 4.9 mmol/L [facility] Comment:Hemolyzed; Potassium value may be falsely elevated by as much as 0.6-1.0 mmol/L. Suggest redraw and reanalysis. Chloride 94(L) 97 - 110 mmol/L [facility] CO2 30 22 - 32 mmol/L [facility] Anion gap 11 2 - 15 mmol/L [facility] [facility] BUN 21 6 - 25 mg/dL [facility] Creatinine 1.04 0.60 - 1.10 mg/dL [facility] Glucose 113 70 - 199 mg/dL [facility] Comment: Interpretive Data Fasting glucose >/= [...] 2022. Calcium 10.8(H) 8.5 - 10.3 mg/dL [facility] Bilirubin, total 0.5 0.1 - 1.2 mg/dL [facility] Protein, pl 8.0 6.5 - 8.5 g/dL [facility] Albumin 4.3 3.5 - 5.0 g/dL [facility] Alk phos 121 40 - 130 Units/L [facility] ALT 18 7 - 45 Units/L [facility] AST 36 10 - 45 Units/L [facility] Comment:Hemolyzed; result ma y be falsely elevated Blood 04/15/2025 9:58 AM CDT 04/15/2025 10:18 AM CDT us Claire Kaye [employer] LAB BLOOD ORDERABLES Fi nal Result [facility] Department [place] [address] * CT Abdomen Pelvis WO Contrast (03/14/2025 [...] the abdomen and pelvis. Electronically signed by: Tonny Abad 03/14/2025 11:26 AM CDT EXAMINATION: CT ABDOMEN [...] Final Result from Last 3 Months Insurance [place] [employer] [facility] Advance Directives For more information, please contact: [phone] Documents on File Type Date Recorded Patient Mental Health Worker Expl anation ADVANCE DIRECTIVE 11/07/2023 2:36 PM Renita r of Agent Based Modeler-Medical * Full Code (Latest Code Status on File) Date Activated Date Inactivated Comments 05/08/2025 1:46 PM 05/09/2025 7:34 PM * Full Code Date Activated Date Inactivated Comments 12/10/2023 4:16 PM 12/12/2023 8:51 PM * Full Code Date Activated Date Inactivated Comments 11/08/2023 6:26 PM 11/15/2023 10:11 PM Care Teams Marketing Administrative Assistant Relationship Specialty Start Date End Date Tristen Benavides MD PCP - General 02/14/17 Philip Torres MD [address] [place] [address] Leather Grainer Gastroenterology 10/24/23 Tru Sanchez MD [address] [phone] [place] [address] Surgeon Colon and Rectal Surgery 10/26/23 [place] [address] [place] [address] MEDICAL ONCOLOGY, [address], [address] [place] [address] Consulting Physician Medical Oncology 03/27/25
--- OUTSIDE RECORDS SUMMARY | 2025-05-15 11:42 | XMS_ITS | Encounter Summary ---
Author Organization [facility] Address [address] [place] [address] Phone Care Team Providers Care Bonbon Cream Warmer Name Role Phone Tristen Benavides MD Primary Care Provider Philip Torres MD Unavailable [phone] Tru Sanchez MD Unavailable [phone] Nolan Ch MD PhD Unavailable [phone] Luba Rodgers MD Unavailable [phone] Encounter Details Date Type Department Care Team (Latest Contact Info) Description 06/26/2017 Orders Only [facility] CONVERSION Scanning, Provider Social [...] Date/Time Associated Diagnosis Comments VASCULAR LABORATORY REPORT 06/26/2017 11:54 AM CDT documented in this encounter Results * VASCULAR LABORATORY REPORT (06/26/2017 11:54 AM CDT) Anatomical Region Laterality Modality Ultrasound us Provider Scanning CV VASCULAR PROCEDURES Final R esult documented in this encounter Visit Diagnoses Not on filedocumented in this encounter Care Teams Bonbon Cream Warmer Relationship Specialty Start Date End Date Tristen Benavides MD PCP - General 02/14/17 Philip Torres MD [address] [place] [address] Insurance Writer Gastroenterology 10/24/23 Tru Sanchez MD [address] [facility] [phone] [place] [address] Surgeon Colon and Rectal Surgery 10/26/23 Nolan Ch MD PhD [address] [place] [address] Medical Oncologist Medical Oncology 12/27/23 03/26/25 Luba Rodgers MD [address] [facility] MEDICAL ONCOLOGY, [facility] [address]A, [address]B, [address] [place] [address] Consulting Physician Medical Oncology 03/27/25 documented as of this encounter
[2025-05-15 13:25] LABS: Anion Gap 7 mmol/L (4-12); Blood Urea Nitrogen 12 mg/dL (7-17); Calcium 9.6 mg/dL (8.4-10.2); Carbon Dioxide 29 mmol/L (22-30); Chloride 102 mmol/L (98-107); Estimated Glomerular Filt Rate > 60; Glucose 101 mg/dL (65-110); Potassium 4.3 mmol/L (3.4-5.0); Sodium 138 mmol/L (137-145)
== END 2025-05-15 11:36 | disposition home or self-care (01) ==
PROVIDERS: PCP Internal Medicine; Visit Provider Internal Medicine
DX: I82.411 Acute embolism and thrombosis of right femoral vein (principal); I82.431 Acute embolism and thrombosis of right popliteal vein; I82.451 Acute embolism and thrombosis of right peroneal vein; I82.441 Acute embolism and thrombosis of right tibial vein; E87.6 Hypokalemia
CPT/HCPCS: 36415; 80048; 93970

== ENCOUNTER 2025-05-15 13:55 | Inpatient (IN) | payer OTHER, SELFPAY ==
[2025-05-15] VITALS (10 sets, daily range): BP systolic 123–141; BP diastolic 65–92; PULSE 90–119; RESP 16–24; TEMP 36.6–36.9; O2SAT 91–96; BMI 44.7
--- NOTE | ~2025-05-15 | CT_ITS ---
CTA chest PE protocol Ordering provider: Rosa Isela Ford History: 64 years Female with . R/O PE . Comparison: November 16, 2022 Technique: CT angiogram chest was performed following timed intravenous injection of contrast. Thin s lice axial images and reformatted coronal images were obtained. Three dimensional reformatted images of the chest were also obtained using a [employer] workstation. . Automated exposure control and iterati ve reconstruction technique were employed. The dose-length product was 768.45 mGy-cm. 100 mL Omnipaqu e 350 was given IV. Findings: PULMONARY ARTERIES: Pulmonary embolism is seen bilaterally with thrombi seen in the main, segmental a nd subsegmental branches. Right ventricular strain is noted. VISUALIZED THORACIC INLET: Normal. MEDIASTINUM: Aorta/coronary arteries: The thoracic aorta is normal. Aberrant right subclavian artery is noted. Heart/other: The heart is slightly enlarged. Lymph nodes: No mediastinal or hilar adenopathy. LUNGS: No pulmonary nodules or masses. No infiltrates or effusions. No pneumothorax. Dependent atelectatic c hanges. VISUALIZED UPPER ABDOMEN: Tiny cyst in the left kidney. Slightly prominent left adrenal gland medial limb. Otherwise, the visualized upper abdomen is normal. MUSCULOSKELETAL: Soft tissues: The superficial soft tissues are normal. Bones: Age appropriate degenerative changes of the spine. IMPRESSION: 1. Pulmonary embolism involving both main arteries, segmental and subsegmental branches. Right ventr icular strain is noted. 2. Aberrant right subclavian artery. 3. No acute lung lesion seen. Dr. Ford was notified with the result of the patient's 5:55 PM on May 15, 2025. Reviewed, dictated and finalized at location A. IMPRESSION: 1. Pulmonary embolism involving both main arteries, segmental and subsegmental branches. Right ventricular strain is noted. 2. Aberrant right subclavian artery. 3. No acute lung lesion seen. Dr. Ford was notified with the result of the patient's 5:55 PM on May 15, 2025 .
--- OUTSIDE RECORDS SUMMARY | 2025-05-15 13:58 | XMS_ITS | Encounter Summary ---
Author Organization [facility] Address [address] [place] [address] Phone Care Team Providers Care Snath Handle Assembler Name Role Phone Tristen Benavides MD Primary Care Provider Philip Torres MD Unavailable [phone] Tru Sanchez MD Unavailable [phone] Nolan Ch MD PhD Unavailable [phone] Luba Rodgers MD Unavailable [phone] Encounter Details Date Type Department Care Team [...] on filedocumented in this encounter Care Teams Snath Handle Assembler Relationship Specialty Start Date End Date Tristen Benavides MD PCP - General 02/14/17 Philip Torres MD [address] [place] [address] Chemical Research Engineer Gastroenterology 10/24/23 Tru Sanchez MD [address] [facility] [phone] [place] [address] Surgeon Colon and Rectal Surgery 10/26/23 Nolan Ch MD PhD [address] [place] [address] Medical Oncologist Medical Oncology 12/27/23 03/26/25 Luba Rodgers MD [address] [facility] MEDICAL ONCOLOGY, [facility] [address]A, [address]B, [address] [place] [address] Consulting Physician Medical Oncology 03/27/25 documented as of this encounter
--- OUTSIDE RECORDS SUMMARY | 2025-05-15 13:58 | XMS_ITS | Clinical Summary ---
Author Organization [facility] Address [address] [place] [address] Care Team Providers Care Solid Waste Technician Name Role Phone Tristen Benavides MD Primary Care Provider [phone] Source Comments [facility],non-owned Affiliates and Associated Physician Practices is amultiple site organization consisting of ambulatory clinics and hospital sitesin [place], [place], [place]. This disclosure is being madepursuant to the Care Everywhere program and may not contain all information available regarding this patient. Last updated 18.[facility] Allergies No known active allergies Medications * Be aware that medications may not be up to date on this document. Alwaysverify current medications with the patient. rivaroxaban (XARELTO) 20 MG tablet Take 20 mg by mouth daily with food Active vitamin D, ergocalciferol, (DRISDOL) 71349 UNITS capsule Take 50,000 Units by mouth [...] patient's age to complete this topic Insurance [employer] SELF PAY NO INSURANCE Member Subscriber Plan / Payer (Ef fective for All Dates) Name:Ivett Del Rosario Member ID:Not on file Relation to Subscriber:Not on file Name:IVETT DEL ROSARIO Subscriber ID:Not on file (Home) Address: [address] [place] [address] Payer ID:Not on file Group ID:Not on file Type:Self Pay Address: [place], [place] SELF PAY NO INSURANCE Member Subscriber Plan / Payer (Ef fective for All Dates) Name:Ivett Del Rosario Member ID:Not on file Relation to Subscriber:Not on file Name:IVETT DEL ROSARIO Subscriber ID:Not on file (Home) Address: [address] [address] Payer ID:Not on file Group ID:Not on file Type:Self Pay Address: [place], [place] * Guarantor: CARINIVETT Account Type Relation to Patient Date of Phone Billing Address Personal/Family Spouse Advance Directives Documents on File Type Date Recorded Patient Research Physicist Expl anation Adv Directive/Living Will/POA 02/14/2017 * Full Code (Latest Code Status on File) Date Activated Date Inactivated Comments 02/21/2017 5:31 PM 02/22/2017 1:39 PM Care Teams Solid Waste Technician Relationship Specialty Start Date End Date Tristen Benavides MD [address] [place] [address] PCP - General Internal Medicine 02/21/17
--- OUTSIDE RECORDS SUMMARY | 2025-05-15 13:58 | XMS_ITS | Encounter Summary ---
Author Organization [facility] Address [address] [place] [address] Phone Care Team Providers Care Bundles Hanger Name Role Phone Tristen Benavides MD Primary Care Provider Philip Torres MD Unavailable [phone] Tru Sanchez MD Unavailable [phone] Nolan Ch MD PhD Unavailable [phone] Luba Rodgers MD Unavailable [phone] Encounter Details Date Type Department Care Team [...] on filedocumented in this encounter Care Teams Bundles Hanger Relationship Specialty Start Date End Date Tristen Benavides MD PCP - General 02/14/17 Philip Torres MD [address] [place] [address] Product Design Manager Gastroenterology 10/24/23 Tru Sanchez MD [address] [facility] [phone] [place] [address] Surgeon Colon and Rectal Surgery 10/26/23 Nolan Ch MD PhD [address] [place] [address] Medical Oncologist Medical Oncology 12/27/23 03/26/25 Luba Rodgers MD [address] [facility] MEDICAL ONCOLOGY, [facility] [address] [place] [address] Consulting Physician Medical Oncology 03/27/25 documented as of this encounter
--- OUTSIDE RECORDS SUMMARY | 2025-05-15 13:58 | XMS_ITS | Clinical Summary ---
Author Organization [facility] Address [address] [place] [address] Care Team Providers Care Organ Fixer Name Role Phone Tristen Benavides MD Primary Care Provider Philip Torres MD Unavailable [phone] Tru Sanchez MD Unavailable [phone] Luba Rodgers [facility] Unavailable [phone] Allergies No known active allergies Medications furosemide (LASIX) 40 mg tabletIndicati ons:Edema Take 1 tablet (40 mg total) by mouth pattern chain maker supervisor before breakfast Active potassium chloride ER 20 mEq CR tabletIndicati ons:supplement Take 1 tablet (20 mEq total) by mouth 3 (three) times a day 3 Active Xarelto 20 mg tabletIndicati ons:Venous Thrombosis Take 1 tablet (20 mg total) by mouth pattern chain maker supervisor before breakfast Active venlafaxine XR (EFFEXOR-XR) 37.5 mg 24 hr capsuleIndicat ions:Anxiety with Depression Take 1 capsule (37.5 mg total) by mouth pattern chain maker supervisor before breakfast 3 Active calcium carbonate (CALCIUM [...] CDT - 05/08/2025 11:40 AM CDT Surgery [facility] Operating Room [address] [place] [address] Mazin Esposito MD XI REPAIR INCISIONAL HERNIA - LAPAROSCOPIC ROBOTIC ASSISTED RETRO-RECTUS APPROACH 05/08/2025 7:27 AM CDT Anesthesia Event [facility] Operating Room [address] [place] [address] Luca Mohr MD Petranek, Jennifer T., EMT 05/08/2025 5:17 AM CDT - 05/09/2025 3:34 PM CDT Hospital Encounter [facility] 1 [place] [address] Mazin Esposito MD Incarcerated incisional hernia (Primary Dx) Discharge Disposition: Discharge to home or self care 05/05/2025 Telephone [facility] [address] [facility] [address] [place] [phone] Marivel Cifuentes CMA Xarelto/Form 04/29/2025 9:00 AM CDT Office Visit [facility] Floor 5 [place] [address] Luba Rodgers MD Colon cancer, ascending (HCC) (Primary Dx); Malignant neoplasm of ascending colon (HCC) 04/29/2025 8:30 AM CDT Lab [facility] - Lab Collection [address] [facility] Floor [address] [place] [address] Colon cancer, ascending (HCC) 04/29/2025 8:15 AM CDT Lab [facility] Lab [facility] Floor [address] [place] [address] Malignant neoplasm of ascending colon (HCC) 04/29/2025 Orders Only [facility] Scanning, Provider 04/29/2025 Telephone [facility] Specialty Services [address] [place] [address] Nilda Posada RN GI Preprocedure 04/15/2025 10:16 AM CDT - 04/15/2025 11:59 PM CDT Hospital Encounter [facility] - [place] [address] [facility] Floor [address] [place] [address] Malignant neoplasm of ascending colon (HCC) Discharge Disposition: Discharge to home or self care 04/15/2025 8:30 AM CDT Pre-Admission Testing [facility] ([facility]) [address] [place] [address] Preoperative testing (Primary Dx) 03/27/2025 Telephone [facility] [address] [facility] Floor 6 [place] [address] Sofía Glez RN 03/27/2025 Telephone [facility] [address] [place] [address] [address] [place] [phone] Sofía Glez, KELLY 03/18/2025 Telephone [facility] ([facility]) [facility] Minimally Invasive Surgery [address] [place] [address] [facility] 12th Floor, [place] [phone] Genet Villalba RN surgery scheduling 03/14/2025 10:53 AM CDT - 03/14/2025 11:59 PM CDT Hospital Encounter [facility] Radiology [facility] ([facility]) [address] [place] [address] Mazin Esposito MD Ventral incisional hernia Discharge Disposition: Discharge to home or self care 03/14/2025 9:45 AM CDT Office Visit [facility] ([facility]) [facility] Minimally Invasive Surgery [address] [place] [address] [facility] 12th Floor, [place] [address] Mazin Esposito MD Incarcerated incisional hernia (Primary Dx) 03/06/2025 Telephone [facility] [address] [place] [address] [address] [place] [address] Sofía Glez, KELLY from Last 3 Months [...] this topic Medical Devices Implanted Type Area Deck Supervisor Device Identifier Shelf Expiration Date Model / Serial / Lot [employer]/C R Bard Mesh Surgical Hernia Synthetic Patch [id number] [id number] - Sn/A - [id number] Implanted:Qty: 1 on 05/08/2025 by Mazin Esposito MD at [facility] Mesh N/A: Abdomen [employer]/C R Bard [id number] 02/07/2029 [id number] / N/A / [id number] Procedures Procedure Name Priority Date/Time Associated Diagnosis [...] CDT 05/09/2025 2:01 PM CDT Therese Oconnor STUDENT SUPPORT COUNSELOR LAB BLOOD ORDERABLES Fin al Result [facility] Department [place] [address] * Basic metabolic panel (05/09/2025 1:08 PM CDT) Sodium 140 135 - 145 mmol/L Potassium, pl 3.4 3.3 - 4.9 mmol/L [facility] Chloride 99 97 - 110 mmol/L [facility] CO2 32 22 - 32 mmol/L [facility] Anion gap 9 2 - 15 mmol/L [facility] BUN 15 6 - 25 mg/dL [facility] Creatinine 0.75 0.60 - 1.10 mg/dL [facility] Glucose 153 70 - 199 mg/dL [facility] Comment: Interpretive Data Fasting glucose [...] Calcium 8.6 8.5 - 10.3 mg/dL SHARONDA [facility] Blood 05/09/2025 1:08 PM CDT 05/09/2025 2:01 PM CDT Therese Oconnor NP LAB BLOOD ORDERABLES Fin al Result Performing Organization Address City/[facility]/ZIP Co de Phone Number [facility] One [facility] Department [place] [address] * eGFR (05/08/2025 9:38 PM CDT) eGFR [...] MD LAB BLOOD ORDERABLES Fin al Result [facility] [place] [address] * CBC without differential (05/08/2025 9:38 PM CDT) [facility] WBC 8.86 3.80 - 9.90 K/cumm Hgb 14.4 11.9 - 15.5 g/dL [facility] Hct 42.9 35.6 - 45.5 % [facility] Plt 254 150 - 400 K/cumm [facility] MPV 11.0 9.1 - 12.3 fL [facility] RBC 4.82 3.90 - 5.20 M/cumm [facility] MCV 89.0 81.3 - 96.4 fL [facility] MCH 29.9 27.1 - 33.3 pg [facility] MCHC 33.6 32.3 - 35.7 g/dL [facility] RDW CV 13.9 11.1 - 14.9 % [facility] RDW SD 45.4 35.7 - 48.1 fL [facility] NRBC abs 0.00 0.00 - 0.01 K/cumm [facility] Blood 05/08/2025 9:38 PM CDT 05/08/2025 10:47 PM CDT us Karlo Akins MD LAB BLOOD ORDERABLES Fin al Result [facility] Department [place] [address] * Phosphorus (05/08/2025 9:38 PM CDT) [facility] Phosphorus, pl 3.3 2.3 - 4.5 mg/dL Blood 05/08/2025 9:38 PM CDT 05/08/2025 10:49 PM CDT Therese Oconnor NP LAB BLOOD ORDERABLES Fin al Result [facility] [place] [address] * Magnesium (05/08/2025 9:38 PM CDT) [facility] Magnesium 2.4 1.4 - 2.5 mg/dL Blood 05/08/2025 9:38 PM CDT 05/08/2025 10:49 PM CDT Karlo Akins MD LAB BLOOD ORDERABLES Fin al Result [facility] [place] [address] * (ABNORMAL) Basic metabolic panel (05/08/2025 9:38 PM CDT) [facility] Sodium 141 135 - 145 mmol/L Potassium, pl 2.7(L) 3.3 - 4.9 mmol/L [facility] Chloride 99 97 - 110 mmol/L [facility] CO2 33(H) 22 - 32 mmol/L [facility] Anion gap 9 2 - 15 mmol/L [facility] BUN 12 6 - 25 mg/dL [facility] Creatinine 0.72 0.60 - 1.10 mg/dL [facility] Glucose 103 70 - 199 mg/dL [facility] Comment: Interpretive Data Fasting glucose [...] 2022. Calcium 8.6 8.5 - 10.3 mg/dL [facility] Comment:Repeated and Verifie d Blood 05/08/2025 9:38 PM CDT 05/08/2025 10:49 PM CDT us Karlo Akins MD LAB BLOOD ORDERABLES Fin al Result SHARONDA R[facility]os [facility] Department [place] [address] * Airway (05/08/2025 7:57 AM CDT) Narrative [...] 8:20 AM CDT 04/29/2025 8:25 AM CDT [facility] LAB BLOOD ORDERABLES Margaret gil Result [facility] Department [place] [address] * Differential, auto (04/29/2025 8:20 AM CDT) Neutrophil abs 6.22 1.50 - 6.50 K/cumm Comment:Testing performed by : [facility], [address] [place] [address] Lymphocyte abs 1.15 0.80 - 3.30 K/cumm CERNER [facility] Comment:Testing performed by : [facility], [address] [place] [phone] Monocyte abs 0.72 0.20 - 0.80 K/cumm CERCOLUMBA BJ Comment:Testing performed by : [facility], [address] [place] [phone] Eosinophil abs 0.11 0.00 - 0.50 K/cumm CERCOLUMBA BJ Comment:Testing performed by : [facility], [address] [place] [phone] Basophil abs 0.06 0.00 - 0.10 K/cumm CERCOLUMBA [facility] Comment:Testing performed by : [facility], [address] [place] [phone] Neutrophil pct 75.3 % CERNER BJ Comment: Interpretive Data Percent cell count reference ranges are not reported, since discordance with absolute values may lead to misinterpretation of CBC data. Current Interpretive Data was last revised on 2018. Testing performed by: [facility], [address] [place] [phone] Lymphocyte pct 13.9 % C[facility]ER BJ Comment: Interpretive Data Percent cell count reference ranges are not reported, since discordance with absolute values may lead to misinterpretation of CBC data. Current Interpretive Data was last revised on 2018. Testing performed by: [facility], [address] [place] [phone] Monocyte pct 8.7 % [facility] Comment: Interpretive Data Percent cell count reference ranges are not reported, since discordance with absolute values may lead to misinterpretation of CBC data. Current Interpretive Data was last revised on 2018. Testing performed by: [facility], [address] [place] [phone] Eosinophil pct 1.3 % C[facility] BJ Comment: Interpretive Data Percent cell count reference ranges are not reported, since discordance with absolute values may lead to misinterpretation of CBC data. Current Interpretive Data was last revised on 2018. Testing performed by: [facility], [address] [place] [phone] Basophil pct 0.8 % C[facility]ER [facility] Comment: Interpretive Data Percent cell count reference ranges are not reported, since discordance with absolute values may lead to misinterpretation of CBC data. Current Interpretive Data was last revised on 2018. Testing performed by: [facility], [address] [place] [phone] Blood 04/29/2025 8:20 AM CDT 04/29/2025 8:28 AM CDT us Moh'D M Th Ana Maria LE LAB BLOOD ORDERABLES Margaret l Result SHARONDA CADENA [facility] Department [place] [address] * (ABNORMAL) CBC with auto differential (04/29/2025 8:20 AM CDT) WBC 8.26 3.80 - 9.90 K/cumm Comment:Testing performed by : [facility], [address] [place] [address] Hgb 16.6(H) 11.9 - 15.5 g/dL CERNER BJ Comment:Testing performed by : [facility], [address] [place] [address] Hct 48.6(H) 35.6 - 45.5 % CERNER BJ Comment:Testing performed by : [facility], [address] [place] [address] Plt 343 150 - 400 K/cumm CERNER BJ Comment:Testing performed by : [facility], [address] [place] [address] MPV 8.5 6.8 - 10.4 fL CERNER BJ Comment:Testing performed by : [facility], [address] [place] [address] RBC 5.49(H) 3.90 - 5.20 M/cumm CERNER BJ Comment:Testing performed by : [facility], [address] [place] [address] MCV 88.5 81.3 - 96.4 fL CERNER BJ Comment:Testing performed by : [facility], [address] [place] [address] MCH 30.2 27.1 - 33.3 pg CERNER BJ Comment:Testing performed by : [facility], [address] [place] [address] MCHC 34.1 32.3 - 35.7 g/dL CERNER BJ Comment:Testing performed by : [facility], [address] [place] [address] RDW CV 14.9 11.1 - 14.9 % CERNER BJ Comment:Testing performed by : [facility], [address] [place] [phone] NRBC abs 0.00 0.00 - 0.01 K/cumm [facility] Comment:Testing performed by : [facility], [address] [place] [phone] Blood 04/29/2025 8:20 AM CDT 04/29/2025 8:28 AM CDT [facility] MD LAB BLOOD ORDERABLES Margaret l Result Performing Organization Address [facility] de Phone Number [facility] [employer] [place] [address] * CEA (04/29/2025 8:20 AM CDT) [facility] CEA 2.9 <=5.0 ng/mL Comment: Interpretive Data: Reference Range: Non-Smokers: 0.0 5.0 ng/mL Smokers: 0.0 6.5 ng/mL The Genie CEA assay procedure was used. Results from different manufacturers or methods may not be comparable. Serial testing should be performed using the same method. Current interpretive data was last revised 2022. Blood 04/29/2025 8:20 AM CDT 04/29/2025 9:28 AM CDT [facility] MD LAB BLOOD ORDERABLES Margaret l Result Performing Organization Address City/[facility] Co de Phone Number [facility] Department of [employer] [place] [address] * (ABNORMAL) Comprehensive metabolic panel (04/29/2025 8:20 AM CDT) Pathologist [facility] Sodium 140 135 - 145 mmol/L Potassium, pl 3.4 3.3 - 4.9 mmol/L [facility] Chloride 97 97 - 110 mmol/L [facility] CO2 27 22 - 32 mmol/L [facility] Anion gap 16(H) 2 - 15 mmol/L [facility] BUN 16 6 - 25 mg/dL [facility] Creatinine 0.90 0.60 - 1.10 mg/dL [facility] Glucose 122 70 - 199 mg/dL [facility] Comment: Interpretive Data Fasting glucose [...] 2022. Calcium 10.3 8.5 - 10.3 mg/dL [facility] Bilirubin, total 0.4 0.1 - 1.2 mg/dL [facility] Protein, pl 8.2 6.5 - 8.5 g/dL [facility] Albumin 4.7 3.5 - 5.0 g/dL [facility] Alk phos 120 40 - 130 Units/L [facility] ALT 15 7 - 45 Units/L [facility] AST 22 10 - 45 Units/L [facility] Blood 04/29/2025 8:20 AM CDT 04/29/2025 8:25 AM CDT Moh'Harry M Brian Rodgers MD LAB BLOOD ORDERABLES Margaret l Result [facility] Department [place] [address] * Signatera Only Initial Draw (04/29/2025 7:56 [...] tumor nuclei. Tumor DNA is extracted using [employer] Mag-Bind FFPE DNA/RNA kit. Whole genomic DNA is isolated from peripheral blood using QIAamp DNA Blood MiniKit to provide DNA for germline sequencing. Circulating tumor DNA (ctDNA) is extracted from plasma derived from whole blood samples collected in cell-free DNA blood tubes ([employer]) using the QIAFarehelpermphony automated or manual extraction method (Qiagen). Whole-exome sequencing is performed on tumor and peripheral blood DNA using the [employer] whole-exome sequencing assay. Using a proprietary algorithm, [...] and whole exome sequencing is performed at [employer]. (CLIA ID# [id number]), [facility] [employer]. [address] [place] [address]. Disclaimer The extraction, library preparation, and sequencing for this test were performed by [employer] [address] [place] [address] (CLIA ID [id number]). The data analysis and reporting for this test were performed by [employer] [address] [address] (CLIA ID [id number]). This test was developed and its performance characteristics determined by [employer]. The test has not been cleared or approved by the U.S. Food and Drug Administration (FDA). CAP accredited, ISO 19415 certified, and CLIA certified. Pathology services and whole exome sequencing for this test were performed by [employer] [address], [place] [address] (CLIA ID [id number]). 2020 [employer]. All Rights Reserved. Blood specimen (specimen) Venous blood specimen / Unknown 04/29/2025 7:56 AM CDT 05/07/2025 9:54 AM CDT Luba Rodgers MD LAB GENETIC TESTING Final Result JOANNE DARNELL [address] [place] [address], [facility] * SCAN - PATHOLOGY (04/29/2025) Provider Scanning [...] 04/15/2025 10:18 AM CDT us Claire Kaye STUDENT SUPPORT COUNSELOR LAB BLOOD ORDERABLES Fi nal Result [facility] Department [place] [address] * (ABNORMAL) Differential, auto (04/15/2025 9:58 AM CDT) Pathologist [facility] Neutrophil abs 5.71 1.50 - 6.50 K/cumm Imm gran abs 0.03 0.00 - 0.10 K/cumm [facility] Lymphocyte abs 1.58 0.80 - 3.30 K/cumm [facility] Monocyte abs 0.95(H) 0.20 - 0.80 K/cumm [facility] Eosinophil abs 0.12 0.00 - 0.50 K/cumm [facility] Basophil abs 0.07 0.00 - 0.10 K/cumm [facility] Neutrophil pct 67.5 % [facility] Comment: Interpretive Data Percent cell count reference ranges are not reported, since discordance with absolute values may lead to misinterpretation of CBC data. Current Interpretive Data was last revised on 2018. Imm gran pct 0.4 % [facility] Comment: Interpretive Data Percent cell count reference ranges are not reported, since discordance with absolute values may lead to misinterpretation of CBC data. Current Interpretive Data was last revised on 2018. Lymphocyte pct 18.7 % [facility] Comment: Interpretive Data Percent cell count reference ranges are not reported, since discordance with absolute values may lead to misinterpretation of CBC data. Current Interpretive Data was last revised on 2018. Monocyte pct 11.2 % [facility] Comment: Interpretive Data Percent cell count reference ranges are not reported, since discordance with absolute values may lead to misinterpretation of CBC data. Current Interpretive Data was last revised on 2018. Eosinophil pct 1.4 % [facility] Comment: Interpretive Data Percent cell count reference ranges are not reported, since discordance with absolute values may lead to misinterpretation of CBC data. Current Interpretive Data was last revised on 2018. Basophil pct 0.8 % [facility] Comment: Interpretive Data Percent cell count reference ranges are not reported, since discordance with absolute values may lead to misinterpretation of CBC data. Current Interpretive Data was last revised on 2018. Blood 04/15/2025 9:58 AM CDT 04/15/2025 10:18 AM CDT us Claire Kaye STUDENT SUPPORT COUNSELOR LAB BLOOD ORDERABLES Fi nal Result [facility] [place] [address] * (ABNORMAL) CBC with auto differential (04/15/2025 9:58 AM CDT) WBC 8.46 3.80 - 9.90 K/cumm Hgb 16.7(H) 11.9 - 15.5 g/dL [facility] Hct 50.1(H) 35.6 - 45.5 % [facility] Plt 333 150 - 400 K/cumm [facility] MPV 10.6 9.1 - 12.3 fL [facility] RBC 5.67(H) 3.90 - 5.20 M/cumm [facility] MCV 88.4 81.3 - 96.4 fL [facility] MCH 29.5 27.1 - 33.3 pg [facility] MCHC 33.3 32.3 - 35.7 g/dL [facility] RDW CV 14.4 11.1 - 14.9 % [facility] RDW SD 46.2 35.7 - 48.1 fL [facility] NRBC abs 0.00 0.00 - 0.01 K/cumm [facility] Blood 04/15/2025 9:58 AM CDT 04/15/2025 10:18 AM CDT us Claire Kaye NP LAB BLOOD ORDERABLES Fi nal Result [facility] [place] [address] * (ABNORMAL) Comprehensive metabolic panel (04/15/2025 9:58 AM CDT) Sodium 135 135 - 145 mmol/L Potassium, pl 4.2 3.3 - 4.9 mmol/L [facility] Comment:Hemolyzed; Potassium value may be falsely elevated by as much as 0.6-1.0 mmol/L. Suggest redraw and reanalysis. Chloride 94(L) 97 - 110 mmol/L [facility] CO2 30 22 - 32 mmol/L [facility] Anion gap 11 2 - 15 mmol/L [facility] BUN 21 6 - 25 mg/dL [facility] Creatinine 1.04 0.60 - 1.10 mg/dL [facility] Glucose 113 70 - 199 mg/dL [facility] Comment: Interpretive Data Fasting glucose [...] 2022. Calcium 10.8(H) 8.5 - 10.3 mg/dL [facility] Bilirubin, total 0.5 0.1 - 1.2 mg/dL [facility] Protein, pl 8.0 6.5 - 8.5 g/dL [facility] Albumin 4.3 3.5 - 5.0 g/dL [facility] Alk phos 121 40 - 130 Units/L [facility] ALT 18 7 - 45 Units/L [facility] AST 36 10 - 45 Units/L [facility] Comment:Hemolyzed; result ma y be falsely elevated Blood 04/15/2025 9:58 AM CDT 04/15/2025 10:18 AM CDT us Claire Kaye STUDENT SUPPORT COUNSELOR LAB BLOOD ORDERABLES Fi nal Result [facility] [place] [address] * CT Abdomen Pelvis WO Contrast (03/14/2025 [...] Final Result from Last 3 Months Insurance [facility] [employer] Member Subscriber Plan / Payer (Ef fective 2023-) Name:Ivett Hemphill Relation to Subscriber:Self Name:Ivett Hemphill Payer ID:[id number] (NAIC) Type:[facility] H[employer]/PPO Address: [address] [place] [id number] [facility] [employer] Advance Directives For more information, please contact: [phone] Documents on File Type Date Recorded Patient Non Destructive Testing Inspector Expl anation ADVANCE DIRECTIVE 11/07/2023 2:36 PM Renita r of [employer] * Full Code (Latest Code Status on File) Date Activated Date Inactivated Comments 05/08/2025 1:46 PM 05/09/2025 7:34 PM * Full Code Date Activated Date Inactivated Comments 12/10/2023 4:16 PM 12/12/2023 8:51 PM * Full Code Date Activated Date Inactivated Comments 11/08/2023 6:26 PM 11/15/2023 10:11 PM Care Teams Organ Fixer Relationship Specialty Start Date End Date Tristen Benavides MD PCP - General 02/14/17 Philip Torres MD [address] [place] [address] [employer] Gastro[facility]ology 10/24/23 Tru Sanchez MD [address] [id number] [place] [address] Surgeon Colon and Rectal Surgery 10/26/23 Luba Rodgers MD [address] [facility] DIV IM MEDICAL ONCOLOGY, [address] [place] [address] Consulting Physician Medical Oncology 03/27/25
--- OUTSIDE RECORDS SUMMARY | 2025-05-15 13:58 | XMS_ITS | Referral Summary ---
Author Organization [facility] Address [address] [place] [address] Care Team Providers Care Stripper Soft Plastic Name Role Phone Tristen Benavides MD Primary Care Provider Philip Torres MD Unavailable [phone] Tru Sanchez MD Unavailable [phone] Luba Rodgers MD Unavailable [phone] Encounters Date Type Department Care Team Description 05/08/2025 5:17 AM CDT - 05/09/2025 3:34 PM CDT Hospital Encounter [address] [phone] Mazin Esposito MD Incarcerated incisional hernia (Primary Dx) Discharge Disposition: Discharge to home or self care 05/08/2025 7:30 AM CDT - 05/08/2025 11:40 AM CDT Surgery [facility] Operating Room [address] [place] [address] Mazin Esposito MD XI REPAIR INCISIONAL HERNIA - LAPAROSCOPIC ROBOTIC ASSISTED RETRO-RECTUS APPROACH 05/08/2025 7:27 AM CDT Anesthesia Event [facility] Operating Room [address] [place] [address] Luca Mohr MD Petranek, Jennifer T., EMT 05/05/2025 Telephone [facility] [address] [facility] [address] [place] [phone] Marivel Cifuentes CMA Xarelto/Form 04/29/2025 Orders Only [facility] Scanning, Provider 04/29/2025 Telephone [facility] Specialty Services [address] [place] [address] Nilda Posada RN GI Preprocedure 04/29/2025 8:[address] [facility] - Lab Collection [address] [facility] 5 [place] [address] Colon cancer, ascending (HCC) 04/29/2025 8:15 AM CDT Lab [facility] Lab [facility]0 [facility] Floor 5 [place] [address] Malignant neoplasm of ascending colon (HCC) 04/29/2025 9:00 AM CDT Office Visit [facility] Floor 5 [place] [phone] Luba Rodgers MD Colon cancer, ascending (HCC) (Primary Dx); Malignant neoplasm of ascending colon (HCC) 04/15/2025 8:30 AM CDT Pre-Admission Testing [facility] for Preoperative Assessment and Planning [facility] ([facility]) [address] [place] [id number] Preoperative testing (Primary Dx) 04/15/2025 10:16 AM CDT - 04/15/2025 11:59 PM CDT Hospital Encounter [facility] [place] [address] [facility] 8 [place] [address] Malignant neoplasm of ascending colon (HCC) Discharge Disposition: Discharge to home or self care 03/27/2025 Telephone [facility] Floor 6 [place] [phone] Sofía Glez RN 03/27/2025 Telephone [facility] [address] [facility] [address] [place] [phone] Sofía Glez, KELLY 03/18/2025 Telephone [facility] ([facility] - [facility] Minimally Invasive Surgery [address] [place] [address] Advanced Medicine 12th Floor, [place] [address] Genet Villalba RN surgery scheduling 03/14/2025 10:53 AM CDT - 03/14/2025 11:59 PM CDT Hospital Encounter [facility] [address] [place] [address] Mazin Esposito MD Ventral incisional hernia Discharge Disposition: Discharge to home or self care 03/14/2025 9:45 AM CDT [facility] [address] [facility] 12th Floor, [place] [address] Mazin Esposito MD Incarcerated incisional hernia (Primary Dx) 03/06/2025 Telephone [facility] 10 [facility] [address] [place] [phone] Sofía Glez RN from Last 3 Months Allergies No known active allergies Medications furosemide (LASIX) 40 mg tabletIndicati ons:Edema Take 1 tablet (40 mg total) by mouth filter press supervisor before breakfast Active potassium chloride ER 20 mEq CR tabletIndicati ons:supplement Take 1 tablet (20 mEq total) by mouth 3 (three) times a day 3 Active Xarelto 20 mg tabletIndicati ons:Venous Thrombosis Take 1 tablet (20 mg total) by mouth filter press supervisor before breakfast Active venlafaxine XR (EFFEXOR-XR) 37.5 mg 24 hr capsuleIndicat ions:Anxiety with Depression Take 1 capsule (37.5 mg total) by mouth filter press supervisor before breakfast 3 Active calcium carbonate [...] Scheduled Procedures Name Priority Associated Diagnoses Date/Ti al COLONOSCOPY Open Access Colon cancer, ascending (HCC) Medical Devices Implanted Type Area Science Writer Device Identifier Shelf Expiration Date Model / Serial / Lot [employer]/C R Bard Mesh Surgical Hernia Synthetic Patch [id number] Polypropylene [id number] - Sn/A - [id number] Implanted:Qty: 1 on 05/08/2025 by Mazin Esposito MD at [facility] Mesh N/A: Abdomen [employer]/C R Bard [id number] 02/07/2029 [id number] / N/A / [id number] Procedures Procedure Name Priority Date/Time Associated Diagnosis [...] LAB BLOOD ORDERABLES Fin al Result [facility] One [facility] Department [place] [address] * Basic metabolic panel (05/09/2025 1:08 PM CDT) Pathologist [facility] Sodium 140 135 - 145 mmol/L Potassium, pl 3.4 3.3 - 4.9 mmol/L [facility] Chloride 99 97 - 110 mmol/L [facility] CO2 32 22 - 32 mmol/L [facility] Anion gap 9 2 - 15 mmol/L [facility] BUN 15 6 - 25 mg/dL [facility] Creatinine 0.75 0.60 - 1.10 mg/dL [facility] Glucose 153 70 - 199 mg/dL [facility] Comment: Interpretive Data Fasting glucose [...] 2022. Calcium 8.6 8.5 - 10.3 mg/dL [facility] Blood 05/09/2025 1:08 PM CDT 05/09/2025 2:01 PM CDT Therese Oconnor NP LAB BLOOD ORDERABLES Fin al Result [facility] One [facility] Department [place] [address] * eGFR (05/08/2025 9:38 PM CDT) [facility] eGFR >90 >=60 mL/min/1. 73 m2 Comment: [...] MD LAB BLOOD ORDERABLES Fin al Result [facility] One [facility] Department [place] [address] * CBC without differential (05/08/2025 9:38 PM CDT) WBC 8.86 3.80 - 9.90 K/cumm Hgb 14.4 11.9 - 15.5 g/dL [facility] Hct 42.9 35.6 - 45.5 % [facility] Plt 254 150 - 400 K/cumm [facility] MPV 11.0 9.1 - 12.3 fL [facility] RBC 4.82 3.90 - 5.20 M/cumm [facility] MCV 89.0 81.3 - 96.4 fL [facility] MCH 29.9 27.1 - 33.3 pg [facility] MCHC 33.6 32.3 - 35.7 g/dL [facility] RDW CV 13.9 11.1 - 14.9 % [facility] RDW SD 45.4 35.7 - 48.1 fL [facility] NRBC abs 0.00 0.00 - 0.01 K/cumm [facility] Blood 05/08/2025 9:38 PM CDT 05/08/2025 10:47 PM CDT Karlo Akins MD LAB BLOOD ORDERABLES Fin al Result Performing Organization Address [facility] de Phone Number [facility] [place] [address] * Phosphorus (05/08/2025 9:38 PM CDT) Pathologist [facility] Phosphorus, pl 3.3 2.3 - 4.5 mg/dL Blood 05/08/2025 9:38 PM CDT 05/08/2025 10:49 PM CDT Therese Oconnor NP LAB BLOOD ORDERABLES Fin al Result Performing Organization Address [facility] de Phone Number [facility] [place] [address] * Magnesium (05/08/2025 9:38 PM CDT) [facility] Magnesium 2.4 1.4 - 2.5 mg/dL Blood 05/08/2025 9:38 PM CDT 05/08/2025 10:49 PM CDT Karlo Akins MD LAB BLOOD ORDERABLES Fin al Result Performing Organization Address [facility] de Phone Number [facility] [place] [address] * (ABNORMAL) Basic metabolic panel (05/08/2025 9:38 PM CDT) Pathologist [facility] Sodium 141 135 - 145 mmol/L Potassium, pl 2.7(L) 3.3 - 4.9 mmol/L [facility] Chloride 99 97 - 110 mmol/L [facility] CO2 33(H) 22 - 32 mmol/L [facility] Anion gap 9 2 - 15 mmol/L [facility] BUN 12 6 - 25 mg/dL [facility] Creatinine 0.72 0.60 - 1.10 mg/dL [facility] Glucose 103 70 - 199 mg/dL [facility] Comment: Interpretive Data Fasting glucose [...] 2022. Calcium 8.6 8.5 - 10.3 mg/dL [facility] Comment:Repeated and Verifie d Blood 05/08/2025 9:38 PM CDT 05/08/2025 10:49 PM CDT Karlo Akins MD LAB BLOOD ORDERABLES Fin al Result [facility] One [facility] Department [place] [address] * Airway (05/08/2025 7:57 AM CDT) Narrative [...] ORDERABLES Margaret l Result [facility]DA [facility] One [facility] Department [place] [address] * Differential, auto (04/29/2025 8:20 AM CDT) Neutrophil abs 6.22 1.50 - 6.50 K/cumm Comment:Testing performed by : [facility], [address] [place] [phone] Lymphocyte abs 1.15 0.80 - 3.30 K/cumm [facility] Comment:Testing performed by : [facility], [address] [place] [phone] Monocyte abs 0.72 0.20 - 0.80 K/cumm [facility] Comment:Testing performed by : [facility], [address] [place] [phone] Eosinophil abs 0.11 0.00 - 0.50 K/cumm [facility] Comment:Testing performed by : [facility], [address] [place] [phone] Basophil abs 0.06 0.00 - 0.10 K/cumm [facility] Comment:Testing performed by : [facility], [address] [place] [phone] Neutrophil pct 75.3 % [facility] Comment: Interpretive Data Percent cell count reference ranges are not reported, since discordance with absolute values may lead to misinterpretation of CBC data. Current Interpretive Data was last revised on 2018. Testing performed by: [facility], [address] [place] [phone] Lymphocyte pct 13.9 % [facility] Comment: Interpretive Data Percent cell count reference ranges are not reported, since discordance with absolute values may lead to misinterpretation of CBC data. Current Interpretive Data was last revised on 2018. Testing performed by: [facility], [address] [place] [phone] Monocyte pct 8.7 % [facility] Comment: Interpretive Data Percent cell count reference ranges are not reported, since discordance with absolute values may lead to misinterpretation of CBC data. Current Interpretive Data was last revised on 2018. Testing performed by: [facility], [address] [place] [phone] Eosinophil pct 1.3 % [facility] Comment: Interpretive Data Percent cell count reference ranges are not reported, since discordance with absolute values may lead to misinterpretation of CBC data. Current Interpretive Data was last revised on 2018. Testing performed by: [facility], [address] [place] [address] Basophil pct 0.8 % [facility] Comment: Interpretive Data Percent cell count reference ranges are not reported, since discordance with absolute values may lead to misinterpretation of CBC data. Current Interpretive Data was last revised on 2018. Testing performed by: [facility], [address] [place] [address] Blood 04/29/2025 8:20 AM CDT 04/29/2025 8:28 AM CDT [facility]Harry Rodgers MD LAB BLOOD ORDERABLES Margaret louise Result [facility]DA [facility] One [facility] Department [place] [address] * (ABNORMAL) CBC with auto differential (04/29/2025 8:20 AM CDT) WBC 8.26 3.80 - 9.90 K/cumm Comment:Testing performed by : [facility], [address] [place] [address] Hgb 16.6(H) 11.9 - 15.5 g/dL [facility]DA [facility] Comment:Testing performed by : [facility], [address] [place] [address] Hct 48.6(H) 35.6 - 45.5 % [facility] Comment:Testing performed by : [facility], [address] [place] [address] Plt 343 150 - 400 K/cumm [facility] Comment:Testing performed by : [facility], [address] [place] [address] MPV 8.5 6.8 - 10.4 fL [facility] Comment:Testing performed by : [facility], [address] [place] [address] RBC 5.49(H) 3.90 - 5.20 M/cumm [facility] Comment:Testing performed by : [facility], [address] [place], [place] [phone] MCV 88.5 81.3 - 96.4 fL [facility] Comment:Testing performed by : [facility], [address] [place], [place] [phone] MCH 30.2 27.1 - 33.3 pg [facility] Comment:Testing performed by : [facility], [address] [place], [place] [phone] MCHC 34.1 32.3 - 35.7 g/dL [facility] Comment:Testing performed by : [facility], [address] [place], [place] [phone] RDW CV 14.9 11.1 - 14.9 % [facility] Comment:Testing performed by : [facility], [address] [place], [place] [phone] NRBC abs 0.00 0.00 - 0.01 K/cumm [facility] Comment:Testing performed by : [facility], [address] [place], [place] [phone] Blood 04/29/2025 8:20 AM CDT 04/29/2025 8:28 AM CDT [facility]'Harry Rodgers MD LAB BLOOD ORDERABLES Margaret l Result [facility] One [facility] Department [place] [address] * CEA (04/29/2025 8:20 AM CDT) CEA [...] MD LAB BLOOD ORDERABLES Margaret gil Result [facility] One [facility] Department [place] [address] * (ABNORMAL) Comprehensive metabolic panel (04/29/2025 8:20 AM CDT) Sodium 140 135 - 145 mmol/L Potassium, pl 3.4 3.3 - 4.9 mmol/L [facility] Chloride 97 97 - 110 mmol/L [facility] CO2 27 22 - 32 mmol/L [facility] Anion gap 16(H) 2 - 15 mmol/L [facility] BUN 16 6 - 25 mg/dL [facility] Creatinine 0.90 0.60 - 1.10 mg/dL [facility] Glucose 122 70 - 199 mg/dL [facility] Comment: Interpretive Data Fasting glucose [...] Calcium 10.3 8.5 - 10.3 mg/dL [facility] Bilirubin, total 0.4 0.1 - 1.2 mg/dL [facility] Protein, pl 8.2 6.5 - 8.5 g/dL [facility] Albumin 4.7 3.5 - 5.0 g/dL [facility] Alk phos 120 40 - 130 Units/L [facility] ALT 15 7 - 45 Units/L [facility] AST 22 10 - 45 Units/L [facility] Blood 04/29/2025 8:20 AM CDT 04/29/2025 8:25 AM CDT [facility] MD LAB BLOOD ORDERABLES Margaret gil Result [facility] One [facility] Department [place] [address] * Signatera Only Initial Draw (04/29/2025 7:56 [...] tumor nuclei. Tumor DNA is extracted using [employer] Mag-Bind FFPE DNA/RNA kit. Whole genomic DNA is isolated from peripheral blood using QIAamp DNA Blood MiniKit to provide DNA for germline sequencing. Circulating tumor DNA (ctDNA) is extracted from plasma derived from whole blood samples collected in cell-free DNA blood tubes ([employer]) using the QIAsymphony automated or manual extraction method (Qiagen). Whole-exome sequencing is performed on tumor and peripheral blood DNA using the Hakia whole-exome sequencing assay. Using a proprietary algorithm, [...] and whole exome sequencing is performed at [employer] (CLIA ID# [id number]), [address] [place] [id number] [place] [address]. Disclaimer The extraction, library preparation, and sequencing for this test were performed by [employer] [address] [address], [place] [address] (CLIA ID [id number]). The data analysis and reporting for this test were performed by [employer], [address], [place] [address] (CLIA ID [id number]). This test was developed and its performance characteristics determined by [employer] The test has not been cleared or approved by the U.S. Food and Drug Administration (FDA). CAP accredited, ISO 92710 certified, and CLIA certified. Pathology services and whole exome sequencing for this test were performed by [employer], [address], [place] [address] (CLIA ID [id number]). 2020 [employer]. All Rights Reserved. Blood specimen (specimen) Venous blood specimen / Unknown 04/29/2025 7:56 AM CDT 05/07/2025 9:54 AM CDT Luba Rodgers MD LAB GENETIC TESTING Final Result Performing Organization Address City/State/[facility] Co de Phone Number [facility] [address] [place] [address], [facility] * SCAN - PATHOLOGY (04/29/2025) [...] 04/15/2025 10:18 AM CDT us Claire Kaye METAL PICKLING EQUIPMENT OPERATOR LAB BLOOD ORDERABLES Fi nal Result [facility] One [facility] Department [place] [address] * (ABNORMAL) Differential, auto (04/15/2025 9:58 AM CDT) Neutrophil abs 5.71 1.50 - 6.50 K/cumm Imm gran abs 0.03 0.00 - 0.10 K/cumm [facility] Lymphocyte abs 1.58 0.80 - 3.30 K/cumm [facility] Monocyte abs 0.95(H) 0.20 - 0.80 K/cumm [facility] Eosinophil abs 0.12 0.00 - 0.50 K/cumm [facility] Basophil abs 0.07 0.00 - 0.10 K/cumm [facility] Neutrophil pct 67.5 % [facility] Comment: Interpretive Data Percent cell count reference ranges are not reported, since discordance with absolute values may lead to misinterpretation of CBC data. Current Interpretive Data was last revised on 2018. Imm gran pct 0.4 % [facility] Comment: Interpretive Data Percent cell count reference ranges are not reported, since discordance with absolute values may lead to misinterpretation of CBC data. Current Interpretive Data was last revised on 2018. Lymphocyte pct 18.7 % [facility] Comment: Interpretive Data Percent cell count reference ranges are not reported, since discordance with absolute values may lead to misinterpretation of CBC data. Current Interpretive Data was last revised on 2018. Monocyte pct 11.2 % [facility] Comment: Interpretive Data Percent cell count reference ranges are not reported, since discordance with absolute values may lead to misinterpretation of CBC data. Current Interpretive Data was last revised on 2018. Eosinophil pct 1.4 % [facility] Comment: Interpretive Data Percent cell count reference ranges are not reported, since discordance with absolute values may lead to misinterpretation of CBC data. Current Interpretive Data was last revised on 2018. Basophil pct 0.8 % [facility] Comment: Interpretive Data Percent cell count reference ranges are not reported, since discordance with absolute values may lead to misinterpretation of CBC data. Current Interpretive Data was last revised on 2018. Blood 04/15/2025 9:58 AM CDT 04/15/2025 10:18 AM CDT us Claire Kaye METAL PICKLING EQUIPMENT OPERATOR LAB BLOOD ORDERABLES Fi nal Result [facility] Department [place] [address] * (ABNORMAL) CBC with auto differential (04/15/2025 9:58 AM CDT) [facility] WBC 8.46 3.80 - 9.90 K/cumm Hgb 16.7(H) 11.9 - 15.5 g/dL [facility] Hct 50.1(H) 35.6 - 45.5 % [facility] Plt 333 150 - 400 K/cumm [facility] MPV 10.6 9.1 - 12.3 fL [facility] RBC 5.67(H) 3.90 - 5.20 M/cumm [facility] MCV 88.4 81.3 - 96.4 fL [facility] MCH 29.5 27.1 - 33.3 pg [facility] MCHC 33.3 32.3 - 35.7 g/dL [facility] RDW CV 14.4 11.1 - 14.9 % [facility] RDW SD 46.2 35.7 - 48.1 fL [facility] NRBC abs 0.00 0.00 - 0.01 K/cumm [facility] Blood 04/15/2025 9:58 AM CDT 04/15/2025 10:18 AM CDT Claire Kaye METAL PICKLING EQUIPMENT OPERATOR LAB BLOOD ORDERABLES Fi nal Result Performing Organization Address [facility] Co de Phone Number [facility] Department [place] [address] * (ABNORMAL) Comprehensive metabolic panel (04/15/2025 9:58 AM CDT) [facility] Sodium 135 135 - 145 mmol/L Potassium, pl 4.2 3.3 - 4.9 mmol/L [facility] Comment:Hemolyzed; Potassium value may be falsely elevated by as much as 0.6-1.0 mmol/L. Suggest redraw and reanalysis. Chloride 94(L) 97 - 110 mmol/L [facility] CO2 30 22 - 32 mmol/L [facility] Anion gap 11 2 - 15 mmol/L [facility] BUN 21 6 - 25 mg/dL [facility] Creatinine 1.04 0.60 - 1.10 mg/dL [facility] Glucose 113 70 - 199 mg/dL [facility] Comment: Interpretive Data Fasting glucose [...] 2022. Calcium 10.8(H) 8.5 - 10.3 mg/dL [facility] Bilirubin, total 0.5 0.1 - 1.2 mg/dL [facility] Protein, pl 8.0 6.5 - 8.5 g/dL [facility] Albumin 4.3 3.5 - 5.0 g/dL [facility] Alk phos 121 40 - 130 Units/L [facility] ALT 18 7 - 45 Units/L [facility] AST 36 10 - 45 Units/L [facility] Comment:Hemolyzed; result ma y be falsely elevated Blood 04/15/2025 9:58 AM CDT 04/15/2025 10:18 AM CDT us Claire Kaye METAL PICKLING EQUIPMENT OPERATOR LAB BLOOD ORDERABLES Fi nal Result [facility] Department [place] [address] * CT Abdomen Pelvis WO [...] Final Result from Last 3 Months Insurance [employer] [facility] HMO/PPO Address: [address] [place] [address] [facility] HMO/PPO Address: [address] [place] [address] Advance Directives For more information, please contact: [phone] Documents on File Type Date Recorded Patient Motion Study Engineer Expl anation ADVANCE DIRECTIVE 11/07/2023 2:36 PM [facility]ita [facility] [employer] Supervisor-Medical * Full Code (Latest Code Status on File) Date Activated Date Inactivated Comments 05/08/2025 1:46 PM 05/09/2025 7:34 PM * Full Code Date Activated Date Inactivated Comments 12/10/2023 4:16 PM 12/12/2023 8:51 PM * Full Code Date Activated Date Inactivated Comments 11/08/2023 6:26 PM 11/15/2023 10:11 PM Care Teams Stripper Soft Plastic Relationship Specialty Start Date End Date Tristen Benavides MD PCP - General 02/14/17 Philip Torres MD [address] [place] [address] Finishing Department Supervisor Gastroenterology 10/24/23 Tru Sanchez MD [address] [phone] [place] [address] Surgeon Colon and Rectal Surgery 10/26/23 [place] [address] [place] [address] MEDICAL ONCOLOGY, [address], [address] [place] [address] Consulting Physician Medical Oncology 03/27/25
--- OUTSIDE RECORDS SUMMARY | 2025-05-15 13:58 | XMS_ITS ---
Author Organization [facility] Address [address] [place] [address] Care Team Providers Care Special Machine Stitcher Name Role Phone Tristen Benavides MD Primary Care Provider Philip Torres MD Unavailable [phone] Tru Sanchez MD Unavailable [phone] Luba Rodgers Unavailable [phone] Active Problems Problem Noted Date Diagnosed Date [...]
--- OUTSIDE RECORDS SUMMARY | 2025-05-15 13:58 | XMS_ITS | Encounter Summary ---
Author Organization [facility] Address [address] [place] [address] Phone Care Team Providers Care Editor Managing Newspaper Name Role Phone Tristen Benavides MD Primary Care Provider Philip Torres MD Unavailable [phone] Tru Sanchez MD Unavailable [phone] Nolan Ch MD PhD Unavailable [phone] Luba Rodgers MD Unavailable [phone] Encounter Details Date Type Department Care Team [...] Comments VASCULAR LABORATORY REPORT 09/29/2017 1:01 PM COAL SAMPLE TESTER documented in this encounter Results * VASCULAR LABORATORY REPORT (09/29/2017 1:01 PM COAL SAMPLE TESTER) Anatomical Region Laterality Modality Ultrasound us Provider Scanning CV VASCULAR PROCEDURES Final R esult documented in this encounter Visit Diagnoses Not on filedocumented in this encounter Care Teams Editor Managing Newspaper Relationship Specialty Start Date End Date Tristen Benavides MD PCP - General 02/14/17 Philip Torres MD [address] [place] [address] Contact Lens Blocker Gastroenterology 10/24/23 Tru Sanchez MD [address] [facility] [phone] [place] [address] Surgeon Colon and Rectal Surgery 10/26/23 Nolan Ch MD PhD [address] [place] [address] Medical Oncologist Medical Oncology 12/27/23 03/26/25 Luba Rodgers MD [address] [facility] MEDICAL ONCOLOGY, [facility] [address]A, [address]B, [address] [place] [address] Consulting Physician Medical Oncology 03/27/25 documented as of this encounter
--- OUTSIDE RECORDS SUMMARY | 2025-05-15 13:59 | XMS_ITS | Encounter Summary ---
Author Organization [facility] Address [address] [place] [address] Phone Care Team Providers Care Assembler Fitter Name Role Phone Tristen Benavides MD Primary Care Provider Philip Torres MD Unavailable [phone] Tru Sanchez MD Unavailable [phone] Nolan Ch MD PhD Unavailable [phone] Luba Rodgers MD Unavailable [phone] Encounter Details Date Type Department Care Team [...] on filedocumented in this encounter Care Teams Assembler Fitter Relationship Specialty Start Date End Date Tristen Benavides MD PCP - General 02/14/17 Philip Torres MD [address] [place] [address] Lock And Dam Equipment Repairer Gastroenterology 10/24/23 Tru Sanchez MD [address] [facility] [phone] [place] [address] Surgeon Colon and Rectal Surgery 10/26/23 Nolan Ch MD PhD [address] [place] [address] Medical Oncologist Medical Oncology 12/27/23 03/26/25 Luba Rodgers MD [address] [facility] MEDICAL ONCOLOGY, [facility] [address]A, [address]B, [address] [place] [address] Consulting Physician Medical Oncology 03/27/25 documented as of this encounter
--- NOTE | 2025-05-15 15:59 | ED.GENADULT ---
HPI - General Adult General Chief complaint: Recheck/Abnormal Lab/Rx Stated complaint: has DVT? doppler this morning Time Seen by Provider: 05/15/25 15:57 Source: patient Mode of arrival: ambulatory Limitations: no limitations History of Present Illness HPI narrative: HISTORY OF RIGHT LOWER EXTREMITY DEEP VEIN THROMBOSIS, USED TO BE ON XARELTO WHICH WAS STOPPED STATUS POST VENTRAL HERNIA REPAIR ON MAY 08, 2025 PATIENT RESUMED XARELTO TODAY THEN REFERRED TO OUR EMERGENCY ROOM BECAUSE OF ABNORMAL VENOUS DOPPLER OF THE RIGHT LOWER EXTREMITY. PATIENT DENIES ANY FEVER, CHILLS, NAUSEA, VOMITING, SHORTNESS OF BREATH OR CHEST PAIN. PATIENT IS VERY ANXIOUS AND RESTLESS Related Data Home Medications ?Medication ?Instructions ?Recorded ?Confirmed ?Last Taken ?Type Calcium 600 + D(3) 1 caplet PO BID 10/03/23 10/30/24 10/29/24 History ergocalciferol (vitamin D2) 1,250 50,000 unit PO WEEKLY 10/03/23 10/30/24 10/29/24 History mcg (50,000 unit) capsule furosemide 40 mg tablet 40 mg PO DAILY 10/03/23 10/30/24 10/29/24 History magnesium oxide 500 mg PO HS 10/03/23 10/30/24 10/29/24 History metolazone 5 mg tablet 5 mg PO DAILY 10/03/23 10/30/24 10/29/24 History potassium chloride 20 mEq 20 meq PO TID 10/03/23 10/30/24 10/29/24 History tablet,extended release rivaroxaban 20 mg tablet (Xarelto) 20 mg PO DAILY 10/03/23 10/30/24 10/29/24 History venlafaxine 37.5 mg 37.5 mg PO DAILY 10/03/23 10/30/24 10/29/24 History capsule,extended release 24 hr acetaminophen 325 mg tablet 650 mg PO Q4H PRN Pain 10/11/23 10/29/24 10/11/23 History metoprolol succinate 25 mg 25 mg PO HS 10/29/24 10/30/24 10/29/24 History tablet,extended release 24 hr Allergies Allergy/AdvReac Type Severity Reaction Status Date / Time No Known Allergies Allergy Verified 05/15/25 18:19 Review of Systems Review of Systems: All systems reviewed & are unremarkable except as noted in HPI and below PMFSH Past Medical History Medical History Colon cancer Social History Social History Smoking packs per day: 1 Smoking cigarettes per day: 20.0 Years smoked: 20 Smoking pack-years: 20.00 Smoking status: Former smoker Tobacco type: cigarettes Additional smoking assessment comments: CURRENTLY VAPES Alcohol intake: current Substance use: never Substance use type: does not use Living arrangements: with family Spiritual care concerns: No Exam Narrative: GENERAL APPEARANCE: WELL-DEVELOPED, WELL-NOURISHED SKIN: NORMAL COLOR HEAD: NORMOCEPHALIC, NONTRAUMATIC EYES: CLEAR CONJUNCTIVA ENT: OROPHARYNX NORMAL, EARS NORMAL, NOSE NORMAL NECK: SUPPLE, NONTENDER CHEST AND RESPIRATORY: AIRWAY PATENT, NO RESPIRATORY DISTRESS, NO ACCESSORY MUSCLE USE HEART: REGULAR RATE/RHYTHM ABDOMEN: SOFT, NONTENDER, NO ORGANOMEGALY, QUIET BOWEL SOUNDS VASCULAR: NORMAL PERIPHERAL PULSES, NORMAL CAPILLARY REFILL. MUSCULOSKELETAL: RIGHT LOWER EXTREMITY SHOWED DIFFUSE SWELLING, DIFFUSE TENDERNESS UP TO THE GROIN AREA NEUROLOGIC: ALERT AND ORIENTED ?3, REPRODUCTION PRODUCTION MANAGER IS NORMAL TESTED, NO GROSS MOTOR DEFICIT Course Consultations Consultation #1: DR. MAREK PATINO Date: 05/15/25 Time: 18:17 Vital Signs Vital signs: Vital Signs Temperature 36.6 C 05/15/25 14:05 Pulse Rate 119 H 05/15/25 14:05 Respiratory Rate 20 05/15/25 14:05 Blood Pressure 123/73 05/15/25 14:05 Pulse Oximetry 92 05/15/25 14:05 Temperature 36.6 C 05/15/25 14:05 Pulse Rate 100 05/15/25 15:01 Respiratory Rate 16 05/15/25 15:01 Blood Pressure 136/69 05/15/25 15:01 Pulse Oximetry 94 05/15/25 15:01 Medical Decision Making [facility] Narrative Medical decision making narrative: PATIENT PRESENTS WITH SWELLING AND PAIN RIGHT LOWER EXTREMITY, HISTORY OF DEEP VEIN THROMBOSIS AT THAT LEG, PATIENT STOP HIS ORAL TO MAY 08 AND STARTED BACK ON XARELTO TODAY. VENOUS DOPPLER TODAY ORDER BY HIS FAMILY PHYSICIAN SHOWED WITH OASIS WITHIN THE RIGHT FEMORAL VEIN POPLITEAL VEIN PERONEAL VEIN AND POSTERIOR TIBIAL VEINS. I DO NOT HAVE OLD VENOUS DOPPLER OF THE RIGHT LOWER EXTREMITY IN MY FACILITY. ASSUMING THE NEW FINDINGS IS EXTENSIVE AND HEPARIN BOLUS/DRIP STARTED. CTA PULMONARY ORDERED TO RULE OUT THE POSSIBILITY OF PE. PATIENT DENIES ANY CHEST PAIN OR SHORTNESS OF BREATH. Differential Diagnosis Differential Diagnosis: WORSENING DEEP VEIN THROMBOSIS SECONDARY TO DISCONTINUATION OF XARELTO Vital Signs Vital Signs: Vital Signs Temperature 36.6 C 05/15/25 14:05 Pulse Rate 119 H 05/15/25 14:05 Respiratory Rate 20 05/15/25 14:05 Blood Pressure 123/73 05/15/25 14:05 Pulse Oximetry 92 05/15/25 14:05 Temperature 36.6 C 05/15/25 14:05 Pulse Rate 100 05/15/25 15:01 Respiratory Rate 16 05/15/25 15:01 Blood Pressure 136/69 05/15/25 15:01 Pulse Oximetry 94 05/15/25 15:01 Lab Data 05/15/25 16:23 05/15/25 16:23 Labs: Lab Results 05/15/25 Range/Units 16:23 WBC 8.6 (4.5-10.0) K/mm3 RBC 4.72 (4.2-5.4) M/mm3 Hgb 14.0 (12.0-15.0) g/dL Hct 44.2 (37.0-47.0) % MCV 93.6 (80-100) fl MCH 29.7 (26-34) pg MCHC 31.7 L (32-36) g/dl RDW 14.6 H (11.5-14.5) % Plt Count 221 (150-375) k/mm3 MPV 10.6 H (7.4-10.4) fl Immature Gran % (Auto) 0.3 (0-0.5) % Neut % (Auto) 71.8 (45.5-73.1) % Lymph % (Auto) 15.5 L (18.3-44.2) % Mcclain % (Auto) 10.4 H (2.6-8.5) % Eos % (Auto) 1.5 (0-4.4) % Baso % (Auto) 0.5 (0.2-1.2) % Lymph # (Auto) 1.33 (0.9-3.2) K/mm3 [place]clain # (Auto) 0.9 H (0.1-0.6) K/mm3 Eos # (Auto) 0.1 (0-0.3) K/mm3 Baso # (Auto) 0.0 (0.0-0.1) K/mm3 Abs Immat Gran (auto) 0.03 (0.00-0.031) K/mm3 Absolute Neuts (auto) 6.2 (1.3-6.7) K/mm3 Absolute Nucleated RBC 0.000 (0.0-0.012) K/mm3 Nucleated RBC % 0.0 (0.0-0.2) % PT Pending INR Pending APTT Pending Sodium Pending Potassium Pending Chloride Pending Carbon Dioxide Pending Anion Gap Pending BUN Pending Creatinine Pending Estim Creat Clear Calc Pending Estimated GFR Pending Glucose Pending Calcium Pending Total Bilirubin Pending AST Pending ALT Pending Alkaline Phosphatase Pending Total Protein Pending Albumin Pending Imaging Data Radiologist's impression: VENOUS DOPPLER RIGHT LOWER EXTREMITY TODAY SHOWED DEEP VEIN THROMBOSIS WITHIN THE RIGHT FEMORAL VEIN, POPLITEAL VEIN, PERONEAL VEIN AND POSTERIOR TIBIAL VEINS CTA RULE OUT PULMONARY EMBOLISM SHOWED PULMONARY EMBOLISM INVOLVING BOTH MAIN ARTERIES, SEGMENTAL AND SUBSEGMENTAL BRANCHES. RIGHT VENTRICULAR STRAIN IS NOTED APPARENT RIGHT SUBCLAVIAN ARTERY NO ACUTE LUNG LESION SEEN. ECG Data EKG #1: Attestation: I personally reviewed and interpreted this ECG as follows: ECG completion date: 05/15/25 Interpretation: NORMAL SINUS RHYTHM AT 74 BEATS PER MINUTE, NORMAL EKG Critical Care Time Critical Care Time Critical Care Time: Yes Total Critical Care Time: 30 Discharge Plan Discharge Clinical Impression: Acute deep vein thrombosis (DVT) of right lower extremity, Anxiety, Pulmonary embolism Patient Disposition: Still a Patient Condition: Stable
--- NOTE | 2025-05-15 16:14 | ECG_ITS ---
Test Date: 2025-05-15 17:44:19 Measurements Intervals [place] Rate: 90 P: 75 SD: 185 QRS: 47 QRSD: 97 T: 53 QT: 370 QTc: 455 Interpretive Statements SINUS RHYTHM MODERATE ST DEPRESSION [0.05+ mV ST DEPRESSION] No previous ECG available for comparison Electronically Signed On 05-16-2025 12:43:25 CDT by Miah Kim M.D.
--- OUTSIDE RECORDS SUMMARY | 2025-05-15 16:15 | XMS_ITS | Encounter Summary ---
Author Organization [facility] Address [address] [place] [address] Phone Care Team Providers Care Felt Coverer Name Role Phone Tristen Benavides MD Primary Care Provider Philip Torres MD Unavailable [phone] Tru Sanchez MD Unavailable [phone] Nolan Ch MD PhD Unavailable [phone] Luba Rodgers MD Unavailable [phone] Encounter Details Date Type Department Care Team [...] Comments VASCULAR LABORATORY REPORT 09/29/2017 1:01 PM PAPER FEEDER documented in this encounter Results * VASCULAR LABORATORY REPORT (09/29/2017 1:01 PM PAPER FEEDER) Anatomical Region Laterality Modality Ultrasound us Provider Scanning CV VASCULAR PROCEDURES Final R esult documented in this encounter Visit Diagnoses Not on filedocumented in this encounter Care Teams Felt Coverer Relationship Specialty Start Date End Date Tristen Benavides MD PCP - General 02/14/17 Philip Torres MD [address] [place] [address] Cloud Solutions Architect Gastroenterology 10/24/23 Tru Sanchez MD [address] [facility] [phone] [place] [address] Surgeon Colon and Rectal Surgery 10/26/23 Nolan Ch MD PhD [address] [place] [address] Medical Oncologist Medical Oncology 12/27/23 03/26/25 Luba Rodgers MD [address] [facility] MEDICAL ONCOLOGY, [facility] [address], [address] [place] [address] Consulting Physician Medical Oncology 03/27/25 documented as of this encounter
--- OUTSIDE RECORDS SUMMARY | 2025-05-15 16:15 | XMS_ITS | Encounter Summary ---
Author Organization [facility] Address [address] [place] [address] Phone Care Team Providers Care Financial Services Intern Name Role Phone Tristen Benavides MD Primary Care Provider Philip Torres MD Unavailable [phone] Tru Sanchez MD Unavailable [phone] Nolan Ch MD PhD Unavailable [phone] Luba Rodgers MD Unavailable [phone] Encounter Details Date Type Department Care Team [...] on filedocumented in this encounter Care Teams Financial Services Intern Relationship Specialty Start Date End Date Tristen Benavides MD PCP - General 02/14/17 Philip Torres MD [address] [place] [address] Vegetable Buncher Gastroenterology 10/24/23 Tru Sanchez MD [address] [facility] [phone] [place] [address] Surgeon Colon and Rectal Surgery 10/26/23 Nolan Ch MD PhD [address] [place] [address] Medical Oncologist Medical Oncology 12/27/23 03/26/25 Luba Rodgers MD [address] [facility] [place] [place] MEDICAL ONCOLOGY, [facility] [address], [address], [address] [place] [address] Consulting Physician Medical Oncology 03/27/25 documented as of this encounter
--- OUTSIDE RECORDS SUMMARY | 2025-05-15 16:15 | XMS_ITS | Clinical Summary ---
Author Organization [facility] Address [address] [place] [address] Care Team Providers Care Small Business Banking Officer Name Role Phone Tristen Benavides MD Primary Care Provider Philip Torres MD Unavailable [phone] Tru Sanchez MD Unavailable [phone] Luba Rodgers [facility] Unavailable [phone] Allergies No known active allergies Medications furosemide (LASIX) 40 mg tabletIndicati ons:Edema Take 1 tablet (40 mg total) by mouth oracle application architect before breakfast Active potassium chloride ER 20 mEq CR tabletIndicati ons:supplement Take 1 tablet (20 mEq total) by mouth 3 (three) times a day 3 Active Xarelto 20 mg tabletIndicati ons:Venous Thrombosis Take 1 tablet (20 mg total) by mouth oracle application architect before breakfast Active venlafaxine XR (EFFEXOR-XR) 37.5 mg 24 hr capsuleIndicat ions:Anxiety with Depression Take 1 capsule (37.5 mg total) by mouth oracle application architect before breakfast 3 Active calcium carbonate (CALCIUM [...] CDT - 05/08/2025 11:40 AM CDT Surgery [facility] Operating Room 1 [place] [address] Mazin Esposito MD XI REPAIR INCISIONAL HERNIA - LAPAROSCOPIC ROBOTIC ASSISTED RETRO-RECTUS APPROACH 05/08/2025 7:27 AM CDT Anesthesia Event [facility] Operating Room 1 [place] [address] Luca Mohr MD Petranek, Jennifer T., EMT 05/08/2025 5:17 AM CDT - 05/09/2025 3:34 PM CDT Hospital Encounter [facility] 1 [place] [address] Mazin Esposito MD Incarcerated incisional hernia (Primary Dx) Discharge Disposition: Discharge to home or self care 05/05/[address] [facility] Oncology [address] [facility] [address] [place] [phone] Marivel Cifuentes CMA Xarelto/Form 04/29/2025 9:00 AM CDT Office Visit [facility] Oncology [facility] Floor 5 [place] [address] Luba Rodgers MD Colon cancer, ascending (HCC) (Primary Dx); Malignant neoplasm of ascending colon (HCC) 04/29/2025 8:30 AM CDT Lab [facility] - Lab Collection [address] [facility] Floor 5 [place] [address] Colon cancer, ascending (HCC) 04/29/2025 8:15 AM CDT Lab [facility] Oncology Lab [facility] Floor 5 [place] [address] Malignant neoplasm of ascending colon (HCC) 04/29/2025 Orders Only [facility] Scanning, Provider 04/29/2025 Telephone [facility] Specialty Services [address] [place] [address] Nilda Posada RN GI Preprocedure 04/15/2025 10:16 AM CDT - 04/15/2025 11:59 PM CDT Hospital Encounter [facility] - [place] [address] [facility] Floor 8 [place] [address] Malignant neoplasm of ascending colon (HCC) Discharge Disposition: Discharge to home or self care 04/15/2025 8:30 AM CDT Pre-Admission Testing [facility] ([facility]) [address] [place] [phone] Preoperative testing (Primary Dx) 03/27/[address] [facility] Oncology [address] [facility] Floor 6 [place] [address] Sofía Glez RN 03/27/[address] [facility] Oncology [address] [place] [address] [address] [place] [phone] Sofía Glez, KELLY 03/18/2025 Telephone [facility] ([facility]) [facility] Minimally Invasive Surgery [address] [place] [address] Advanced [facility] 12th Floor, [place] [phone] Genet Villalba RN surgery scheduling 03/14/2025 10:53 AM CDT - 03/14/2025 11:59 PM CDT Hospital Encounter [facility] Radiology [facility] ([facility]) [address] [place] [phone] Mazin Esposito MD Ventral incisional hernia Discharge Disposition: Discharge to home or self care 03/14/2025 9:45 AM CDT Office Visit [facility] ([facility]) [facility] Minimally Invasive Surgery [address] [place] [address] Advanced [facility] 12th Floor, [place] [address] Mazin Esposito MD Incarcerated incisional hernia (Primary Dx) 03/06/[address] [facility] On[facility] [address] [place] [address] [address] [place] [address] Sofía Glez, KELLY from Last 3 Months [...] this topic Medical Devices Implanted Type Area Plan Manager Device Identifier Shelf Expiration Date Model / Serial / Lot [employer]/C R Bard Mesh Surgical Hernia Synthetic Patch [id number] [id number] - Sn/A - [id number] Implanted:Qty: 1 on 05/08/2025 by Mazin Esposito MD at [facility] Mesh N/A: Abdomen [employer]/C R Bard [id number] 02/07/2029 [id number] / N/A / [id number] Procedures Procedure Name Priority Date/Time Associated Diagnosis [...] CDT 05/09/2025 2:01 PM CDT Therese Oconnor CEMENT BASED MATERIALS PUMP TENDER LAB BLOOD ORDERABLES Fin al Result [facility] One [facility] Department [place] [address] * Basic metabolic panel (05/09/2025 1:08 PM CDT) Sodium 140 135 - 145 mmol/L Potassium, pl 3.4 3.3 - 4.9 mmol/L [facility] Chloride 99 97 - 110 mmol/L [facility] CO2 32 22 - 32 mmol/L [facility] Anion gap 9 2 - 15 mmol/L [facility] BUN 15 6 - 25 mg/dL [facility] Creatinine 0.75 0.60 - 1.10 mg/dL [facility] Glucose 153 70 - 199 mg/dL [facility] Comment: Interpretive Data Fasting glucose >/= 126 [...] Calcium 8.6 8.5 - 10.3 mg/dL [facility] Blood 05/09/2025 1:08 PM CDT 05/09/2025 2:01 PM CDT Therese Oconnor NP LAB BLOOD ORDERABLES Fin al Result Performing Organization Address City/[facility]/ZIP Co de Phone Number [facility] Department [place] [address] * eGFR (05/08/2025 9:38 PM CDT) eGFR [...] MD LAB BLOOD ORDERABLES Fin al Result [facility] [place] [address] * CBC without differential (05/08/2025 9:38 PM CDT) [facility] WBC 8.86 3.80 - 9.90 K/cumm Hgb 14.4 11.9 - 15.5 g/dL [facility] Hct 42.9 35.6 - 45.5 % [facility] Plt 254 150 - 400 K/cumm [facility] MPV 11.0 9.1 - 12.3 fL [facility] RBC 4.82 3.90 - 5.20 M/cumm [facility] MCV 89.0 81.3 - 96.4 fL [facility] MCH 29.9 27.1 - 33.3 pg [facility] MCHC 33.6 32.3 - 35.7 g/dL [facility] RDW CV 13.9 11.1 - 14.9 % [facility] RDW SD 45.4 35.7 - 48.1 fL [facility] NRBC abs 0.00 0.00 - 0.01 K/cumm [facility] Blood 05/08/2025 9:38 PM CDT 05/08/2025 10:47 PM CDT us Karlo Akins MD LAB BLOOD ORDERABLES Fin al Result [facility] Department [place] [address] * Phosphorus (05/08/2025 9:38 PM CDT) [facility] Phosphorus, pl 3.3 2.3 - 4.5 mg/dL Blood 05/08/2025 9:38 PM CDT 05/08/2025 10:49 PM CDT Therese Oconnor NP LAB BLOOD ORDERABLES Fin al [facility] [place] [address] * Magnesium (05/08/2025 9:38 PM CDT) [facility] Magnesium 2.4 1.4 - 2.5 mg/dL Blood 05/08/2025 9:38 PM CDT 05/08/2025 10:49 PM CDT Karlo Akins MD LAB BLOOD ORDERABLES Fin al Result [facility] [place] [address] * (ABNORMAL) Basic metabolic panel (05/08/2025 9:38 PM CDT) [facility] Sodium 141 135 - 145 mmol/L Potassium, pl 2.7(L) 3.3 - 4.9 mmol/L [facility] Chloride 99 97 - 110 mmol/L [facility] CO2 33(H) 22 - 32 mmol/L [facility] Anion gap 9 2 - 15 mmol/L [facility] BUN 12 6 - 25 mg/dL [facility] Creatinine 0.72 0.60 - 1.10 mg/dL [facility] Glucose 103 70 - 199 mg/dL [facility] Comment: Interpretive Data Fasting glucose >/= 126 [...] 2022. Calcium 8.6 8.5 - 10.3 mg/dL [facility] Comment:Repeated and Verifie d Blood 05/08/2025 9:38 PM CDT 05/08/2025 10:49 PM CDT us Karlo Akins MD LAB BLOOD ORDERABLES Fin al Result SHARONDA R[facility]os [facility] Department [place] [address] * Airway (05/08/2025 7:57 AM CDT) Narrative [...] 8:20 AM CDT 04/29/2025 8:25 AM CDT [facility] MD LAB BLOOD ORDERABLES Margaret gil Result [facility] Department [place] [address] * Differential, auto (04/29/2025 8:20 AM CDT) Neutrophil abs 6.22 1.50 - 6.50 K/cumm Comment:Testing performed by : [facility], [address] [place] [address] Lymphocyte abs 1.15 0.80 - 3.30 K/cumm CERNER [facility] Comment:Testing performed by : [facility], [address] [place] [phone] Monocyte abs 0.72 0.20 - 0.80 K/cumm CERCOLUMBA BJ Comment:Testing performed by : [facility], [address] [place] [phone] Eosinophil abs 0.11 0.00 - 0.50 K/cumm CERCOLUMBA BJ Comment:Testing performed by : [facility], [address] [place] [phone] Basophil abs 0.06 0.00 - 0.10 K/cumm CERCOLUMBA [facility] Comment:Testing performed by : [facility], [address] [place] [phone] Neutrophil pct 75.3 % CERNER BJ Comment: Interpretive Data Percent cell count reference ranges are not reported, since discordance with absolute values may lead to misinterpretation of CBC data. Current Interpretive Data was last revised on 2018. Testing performed by: [facility], [address] [place] [phone] Lymphocyte pct 13.9 % CERNER BJ Comment: Interpretive Data Percent cell count reference ranges are not reported, since discordance with absolute values may lead to misinterpretation of CBC data. Current Interpretive Data was last revised on 2018. Testing performed by: [facility], [address] [place] [phone] Monocyte pct 8.7 % CERNER BJ Comment: Interpretive Data Percent cell count reference ranges are not reported, since discordance with absolute values may lead to misinterpretation of CBC data. Current Interpretive Data was last revised on 2018. Testing performed by: [facility], [address] [place] [phone] Eosinophil pct 1.3 % CERNER BJ Comment: Interpretive Data Percent cell count reference ranges are not reported, since discordance with absolute values may lead to misinterpretation of CBC data. Current Interpretive Data was last revised on 2018. Testing performed by: [facility], [address] [place] [phone] Basophil pct 0.8 % CERNER BJ Comment: Interpretive Data Percent cell count reference ranges are not reported, since discordance with absolute values may lead to misinterpretation of CBC data. Current Interpretive Data was last revised on 2018. Testing performed by: [facility], [address] [place] [phone] Blood 04/29/2025 8:20 AM CDT 04/29/2025 8:28 AM CDT us Moh'D M Th Ana Maria LE LAB BLOOD ORDERABLES Margaret l Result SHARONDA CADENA [facility] Department [place] [address] * (ABNORMAL) CBC with auto differential (04/29/2025 8:20 AM CDT) WBC 8.26 3.80 - 9.90 K/cumm Comment:Testing performed by : [facility], [address] [place] [address] Hgb 16.6(H) 11.9 - 15.5 g/dL CERNER BJ Comment:Testing performed by : [facility], [address] [place] [address] Hct 48.6(H) 35.6 - 45.5 % CERNER BJ Comment:Testing performed by : [facility], [address] [place] [address] Plt 343 150 - 400 K/cumm CERNER BJ Comment:Testing performed by : [facility], [address] [place] [address] MPV 8.5 6.8 - 10.4 fL CERNER BJ Comment:Testing performed by : [facility], [address] [place] [address] RBC 5.49(H) 3.90 - 5.20 M/cumm CERNER BJ Comment:Testing performed by : [facility], [address] [place] [address] MCV 88.5 81.3 - 96.4 fL CERNER BJ Comment:Testing performed by : [facility], [address] [place] [address] MCH 30.2 27.1 - 33.3 pg CERNER BJ Comment:Testing performed by : [facility], [address] [place] [address] MCHC 34.1 32.3 - 35.7 g/dL CERNER BJ Comment:Testing performed by : [facility], [address] [place] [address] RDW CV 14.9 11.1 - 14.9 % CERNER BJ Comment:Testing performed by : [facility], [address] [place] [phone] NRBC abs 0.00 0.00 - 0.01 K/cumm [facility] Comment:Testing performed by : [facility], [address] [place] [phone] Blood 04/29/2025 8:20 AM CDT 04/29/2025 8:28 AM CDT [facility] MD LAB BLOOD ORDERABLES Margaret l Result Performing Organization Address [facility] de Phone Number [facility] [place] [address] * CEA (04/29/2025 8:20 AM CDT) [facility] CEA 2.9 <=5.0 ng/mL Comment: Interpretive Data: Reference Range: Non-Smokers: 0.0 5.0 ng/mL Smokers: 0.0 6.5 ng/mL The Genie CEA assay procedure was used. Results from different manufacturers or methods may not be comparable. Serial testing should be performed using the same method. Current interpretive data was last revised 2022. Blood 04/29/2025 8:20 AM CDT 04/29/2025 9:28 AM CDT [facility] MD LAB BLOOD ORDERABLES Margaret l Result Performing Organization Address City/[facility] Co de Phone Number [facility] [place] [employer] [place] [address] * (ABNORMAL) Comprehensive metabolic panel (04/29/2025 8:20 AM CDT) Pathologist [facility] Sodium 140 135 - 145 mmol/L Potassium, pl 3.4 3.3 - 4.9 mmol/L [facility] Chloride 97 97 - 110 mmol/L [facility] CO2 27 22 - 32 mmol/L [facility] Anion gap 16(H) 2 - 15 mmol/L [facility] BUN 16 6 - 25 mg/dL [facility] Creatinine 0.90 0.60 - 1.10 mg/dL [facility] Glucose 122 70 - 199 mg/dL [facility] Comment: Interpretive Data Fasting glucose >/= 126 [...] 2022. Calcium 10.3 8.5 - 10.3 mg/dL [facility] Bilirubin, total 0.4 0.1 - 1.2 mg/dL [facility] Protein, pl 8.2 6.5 - 8.5 g/dL [facility] Albumin 4.7 3.5 - 5.0 g/dL [facility] Alk phos 120 40 - 130 Units/L [facility] ALT 15 7 - 45 Units/L [facility] AST 22 10 - 45 Units/L [facility] Blood 04/29/2025 8:20 AM CDT 04/29/2025 8:25 AM CDT Moh'Harry M Brian Rodgers MD LAB BLOOD ORDERABLES Margaret l Result [facility] Department [place] [address] * Signatera Only Initial Draw (04/29/2025 7:56 [...] tumor nuclei. Tumor DNA is extracted using [employer]-juan antonio Mag-Bind FFPE DNA/RNA kit. Whole genomic DNA is isolated from peripheral blood using QIAamp DNA Blood MiniKit to provide DNA for germline sequencing. Circulating tumor DNA (ctDNA) is extracted from plasma derived from whole blood samples collected in cell-free DNA blood tubes (Microstrip Planar [employer]nas) using the QIAVaccine Technologies Internationalmphony automated or manual extraction method (Qiagen). Whole-exome sequencing is performed on tumor and peripheral blood DNA using the [employer] whole-exome sequencing assay. Using a proprietary algorithm, [...] and whole exome sequencing is performed at [employer]. (CLIA ID# [id number]), [facility] [employer]. [address] [place] [address]. Disclaimer The extraction, library preparation, and sequencing for this test were performed by [employer] [address] [place] [address] (CLIA ID [id number]). The data analysis and reporting for this test were performed by [employer] [address] [address] (CLIA ID [id number]). This test was developed and its performance characteristics determined by [employer]. The test has not been cleared or approved by the U.S. Food and Drug Administration (FDA). CAP accredited, ISO 01562 certified, and CLIA certified. Pathology services and whole exome sequencing for this test were performed by [employer] [address], [place] [address] (CLIA ID [id number]). 2020 [employer] All Rights Reserved. Blood specimen (specimen) Venous blood specimen / Unknown 04/29/2025 7:56 AM CDT 05/07/2025 9:54 AM CDT Luba Rodgers MD LAB GENETIC TESTING Final Result JOANNE DARNELL [address] [place] [address], [facility] * SCAN - PATHOLOGY (04/29/2025) Provider [...] 04/15/2025 10:18 AM CDT us Claire Kaye CEMENT BASED MATERIALS PUMP TENDER LAB BLOOD ORDERABLES Fi nal Result [facility] Department [place] [address] * (ABNORMAL) Differential, auto (04/15/2025 9:58 AM CDT) Pathologist [facility] Neutrophil abs 5.71 1.50 - 6.50 K/cumm Imm gran abs 0.03 0.00 - 0.10 K/cumm [facility] Lymphocyte abs 1.58 0.80 - 3.30 K/cumm [facility] Monocyte abs 0.95(H) 0.20 - 0.80 K/cumm [facility] Eosinophil abs 0.12 0.00 - 0.50 K/cumm [facility] Basophil abs 0.07 0.00 - 0.10 K/cumm [facility] Neutrophil pct 67.5 % [facility] Comment: Interpretive Data Percent cell count reference ranges are not reported, since discordance with absolute values may lead to misinterpretation of CBC data. Current Interpretive Data was last revised on 2018. Imm gran pct 0.4 % [facility] Comment: Interpretive Data Percent cell count reference ranges are not reported, since discordance with absolute values may lead to misinterpretation of CBC data. Current Interpretive Data was last revised on 2018. Lymphocyte pct 18.7 % [facility] Comment: Interpretive Data Percent cell count reference ranges are not reported, since discordance with absolute values may lead to misinterpretation of CBC data. Current Interpretive Data was last revised on 2018. Monocyte pct 11.2 % [facility] Comment: Interpretive Data Percent cell count reference ranges are not reported, since discordance with absolute values may lead to misinterpretation of CBC data. Current Interpretive Data was last revised on 2018. Eosinophil pct 1.4 % [facility] Comment: Interpretive Data Percent cell count reference ranges are not reported, since discordance with absolute values may lead to misinterpretation of CBC data. Current Interpretive Data was last revised on 2018. Basophil pct 0.8 % [facility] Comment: Interpretive Data Percent cell count reference ranges are not reported, since discordance with absolute values may lead to misinterpretation of CBC data. Current Interpretive Data was last revised on 2018. Blood 04/15/2025 9:58 AM CDT 04/15/2025 10:18 AM CDT us Claire Kaye CEMENT BASED MATERIALS PUMP TENDER LAB BLOOD ORDERABLES Fi nal Result [facility] [place] [address] * (ABNORMAL) CBC with auto differential (04/15/2025 9:58 AM CDT) WBC 8.46 3.80 - 9.90 K/cumm Hgb 16.7(H) 11.9 - 15.5 g/dL [facility] Hct 50.1(H) 35.6 - 45.5 % [facility] Plt 333 150 - 400 K/cumm [facility] MPV 10.6 9.1 - 12.3 fL [facility] RBC 5.67(H) 3.90 - 5.20 M/cumm [facility] MCV 88.4 81.3 - 96.4 fL [facility] MCH 29.5 27.1 - 33.3 pg [facility] MCHC 33.3 32.3 - 35.7 g/dL [facility] RDW CV 14.4 11.1 - 14.9 % [facility] RDW SD 46.2 35.7 - 48.1 fL [facility] NRBC abs 0.00 0.00 - 0.01 K/cumm [facility] Blood 04/15/2025 9:58 AM CDT 04/15/2025 10:18 AM CDT us Claire Kaye NP LAB BLOOD ORDERABLES Fi nal Result [facility] [place] [address] * (ABNORMAL) Comprehensive metabolic panel (04/15/2025 9:58 AM CDT) Sodium 135 135 - 145 mmol/L Potassium, pl 4.2 3.3 - 4.9 mmol/L [facility] Comment:Hemolyzed; Potassium value may be falsely elevated by as much as 0.6-1.0 mmol/L. Suggest redraw and reanalysis. Chloride 94(L) 97 - 110 mmol/L [facility] CO2 30 22 - 32 mmol/L [facility] Anion gap 11 2 - 15 mmol/L [facility] BUN 21 6 - 25 mg/dL [facility] Creatinine 1.04 0.60 - 1.10 mg/dL [facility] Glucose 113 70 - 199 mg/dL [facility] Comment: Interpretive Data Fasting glucose >/= 126 [...] 2022. Calcium 10.8(H) 8.5 - 10.3 mg/dL [facility] Bilirubin, total 0.5 0.1 - 1.2 mg/dL [facility] Protein, pl 8.0 6.5 - 8.5 g/dL [facility] Albumin 4.3 3.5 - 5.0 g/dL [facility] Alk phos 121 40 - 130 Units/L [facility] ALT 18 7 - 45 Units/L [facility] AST 36 10 - 45 Units/L [facility] Comment:Hemolyzed; result ma y be falsely elevated Blood 04/15/2025 9:58 AM CDT 04/15/2025 10:18 AM CDT us Claire Kaye CEMENT BASED MATERIALS PUMP TENDER LAB BLOOD ORDERABLES Fi nal Result [facility] Department [place] [address] * CT Abdomen Pelvis WO Contrast (03/14/2025 [...] Final Result from Last 3 Months Insurance [employer] [facility] Member Subscriber Plan / Payer (Ef fective 2023-) Name:Ivett Hemphill Relation to Subscriber:Self Name:Ivett Hemphill Payer ID:[id number] (NAIC) Type:[employer] Address: [address] [place] [id number] [facility] Advance Directives For more information, please contact: [phone] Documents on File Type Date Recorded Patient Collet Gluer Expl anation ADVANCE DIRECTIVE 11/07/2023 2:36 PM Renita r of [employer] Farmer-Medical * Full Code (Latest Code Status on File) Date Activated Date Inactivated Comments 05/08/2025 1:46 PM 05/09/2025 7:34 PM * Full Code Date Activated Date Inactivated Comments 12/10/2023 4:16 PM 12/12/2023 8:51 PM * Full Code Date Activated Date Inactivated Comments 11/08/2023 6:26 PM 11/15/2023 10:11 PM Care Teams Small Business Banking Officer Relationship Specialty Start Date End Date Tristen Benavides MD PCP - General 02/14/17 Philip Torres MD [address] [place] [address] News Anchor Gastroenterology 10/24/23 Tru Sanchez MD [address] [phone] [place] [address] Surgeon Colon and Rectal Surgery 10/26/23 Luba Rodgers MD [address] [facility] DIV IM MEDICAL ONCOLOGY, [address] [place] [address] Consulting Physician Medical Oncology 03/27/25
--- OUTSIDE RECORDS SUMMARY | 2025-05-15 16:15 | XMS_ITS | Encounter Summary ---
Author Organization [facility] Address [address] [place] [address] Phone Care Team Providers Care Interior Decorator Name Role Phone Tristen Benavides MD Primary Care Provider Philip Torres MD Unavailable [phone] Tru Sanchez MD Unavailable [phone] Nolan Ch MD PhD Unavailable [phone] Luba Rodgers MD Unavailable [phone] Encounter Details Date Type Department Care Team [...] on filedocumented in this encounter Care Teams Interior Decorator Relationship Specialty Start Date End Date Tristen Benavides MD PCP - General 02/14/17 Philip Torres MD [address] [place] [address] Client Services Analyst Gastroenterology 10/24/23 Tru Sanchez MD [address] [facility] [phone] [place] [address] Surgeon Colon and Rectal Surgery 10/26/23 Nolan Ch MD PhD [address] [place] [address] Medical Oncologist Medical Oncology 12/27/23 03/26/25 Luba Rodgers MD [address] [facility] MEDICAL ONCOLOGY, [facility] [address] [place] [address] Consulting Physician Medical Oncology 03/27/25 documented as of this encounter
--- OUTSIDE RECORDS SUMMARY | 2025-05-15 16:15 | XMS_ITS | Encounter Summary ---
Author Organization [facility] Address [address] [place] [address] Phone Care Team Providers Care Drill Punch Operator Name Role Phone Tristen Benavides MD Primary Care Provider Philip Torres MD Unavailable [phone] Tru Sanchez MD Unavailable [phone] Nolan Ch MD PhD Unavailable [phone] Luba Rodgers MD Unavailable [phone] Encounter Details Date Type Department Care Team [...] on filedocumented in this encounter Care Teams Drill Punch Operator Relationship Specialty Start Date End Date Tristen Benavides MD PCP - General 02/14/17 Philip Torres MD [address] [place] [address] Calenderer Gastroenterology 10/24/23 Tru Sanchez MD [address] [facility] [phone] [place] [address] Surgeon Colon and Rectal Surgery 10/26/23 Nolna Ch MD PhD [address] [place] [address] Medical Oncologist Medical Oncology 12/27/23 03/26/25 Luba Rodgers MD [address] [facility] DIV IM MEDICAL ONCOLOGY, [facility] [address] [place] [address] Consulting Physician Medical Oncology 03/27/25 documented as of this encounter
--- OUTSIDE RECORDS SUMMARY | 2025-05-15 16:15 | XMS_ITS | Referral Summary ---
Author Organization [facility] Address [address] [place] [address] Care Team Providers Care Glass Deposition Tender Name Role Phone Tristen Benavides MD Primary Care Provider Philip Torres MD Unavailable [phone] Tru Sanchez MD Unavailable [phone] Luba Rodgers MD Unavailable [phone] Encounters Date Type Department Care Team Description 05/08/2025 5:17 AM CDT - 05/09/2025 3:34 PM CDT Hospital Encounter [address] [phone] Mazin Esposito MD Incarcerated incisional hernia (Primary Dx) Discharge Disposition: Discharge to home or self care 05/08/2025 7:30 AM CDT - 05/08/2025 11:40 AM CDT Surgery [facility] Operating Room [address] [place] [address] Mazin Esposito MD XI REPAIR INCISIONAL HERNIA - LAPAROSCOPIC ROBOTIC ASSISTED RETRO-RECTUS APPROACH 05/08/2025 7:27 AM CDT Anesthesia Event [facility] Operating [facility] [address] [place] [address] Luca Mohr MD Petranek, Jennifer T., EMT 05/05/2025 Telephone [facility] [address] [facility] [address] [place] [phone] Marivel Cifuentes CMA Xarelto/Form 04/29/2025 Orders Only [facility] Scanning, Provider 04/29/2025 Telephone [facility] Specialty Services [address] [place] [address] Nilda Posada RN GI Preprocedure 04/29/2025 8:30 AM CDT Lab [facility] - Lab Collection [address] [facility] Floor 5 [place] [address] Colon cancer, ascending (HCC) 04/29/2025 8:15 AM CDT Lab [facility] Lab [facility] Floor 5 [place] [address] Malignant neoplasm of ascending colon (HCC) 04/29/2025 9:00 AM CDT Office Visit [facility] Floor 5 [place] [phone] Luba Rodgers MD Colon cancer, ascending (HCC) (Primary Dx); Malignant neoplasm of ascending colon (HCC) 04/15/2025 8:30 AM CDT Pre-Admission Testing [facility] for Preoperative Assessment and Planning [place] [facility] ([facility]) [address] [place] [id number] Preoperative testing (Primary Dx) 04/15/2025 10:16 AM CDT - 04/15/2025 11:59 PM CDT Hospital Encounter [facility] - [place] [address] [facility] Floor 8 [place] [address] Malignant neoplasm of ascending colon (HCC) Discharge Disposition: Discharge to home or self care 03/27/2025 Telephone [facility] Floor [address] [place] [phone] Sofía Glez RN 03/27/2025 Telephone [facility] [address] [facility] [address] [place] [phone] Sofía Glez, KELLY 03/18/[address] [facility] Advanced Medicine ([facility]) [facility] Minimally Invasive Surgery [address] [place] [address] Advanced Medicine 12th Floor, [place] [address] Genet Villalba RN surgery scheduling 03/14/2025 10:53 AM CDT - 03/14/2025 11:59 PM CDT Hospital Encounter [facility] [address] [place] [address] Mazin Esposito MD Ventral incisional hernia Discharge Disposition: Discharge to home or self care 03/14/2025 9:45 AM CDT Office Visit [facility] Advanced Medicine ([facility]) - [facility] Minimally Invasive Surgery [address] [facility] 12th Floor, [place] [address] Mazin Esposito MD Incarcerated incisional hernia (Primary Dx) 03/06/2025 Telephone [facility] [address] [facility] [address] [place] [phone] Sofía Glez RN from Last 3 Months Allergies No known active allergies Medications furosemide (LASIX) 40 mg tabletIndicati ons:Edema Take 1 tablet (40 mg total) by mouth curing press operator before breakfast Active potassium chloride ER 20 mEq CR tabletIndicati ons:supplement Take 1 tablet (20 mEq total) by mouth 3 (three) times a day 3 Active Xarelto 20 mg tabletIndicati ons:Venous Thrombosis Take 1 tablet (20 mg total) by mouth curing press operator before breakfast Active venlafaxine XR (EFFEXOR-XR) 37.5 mg 24 hr capsuleIndicat ions:Anxiety with Depression Take 1 capsule (37.5 mg total) by mouth curing press operator before breakfast 3 Active calcium carbonate (CALCIUM [...] Scheduled Procedures Name Priority Associated Diagnoses Date/Ti az COLONOSCOPY Open Access Colon cancer, ascending (HCC) Medical Devices Implanted Type Area Campground Manager Device Identifier Shelf Expiration Date Model / Serial / Lot [employer]/C R Bard Mesh Surgical Hernia Synthetic Patch [id number] Polypropylene [id number] - Sn/A - [id number] Implanted:Qty: 1 on 05/08/2025 by Mazin Esposito MD at [facility] Mesh N/A: Abdomen [employer]/C R Bard [id number] 02/07/2029 [id number] / N/A / [id number] Procedures Procedure Name Priority Date/Time Associated Diagnosis [...] LAB BLOOD ORDERABLES Fin al Result SHARONDA [facility] [place] [address] * Basic metabolic panel (05/09/2025 1:08 PM CDT) Pathologist [facility] Sodium 140 135 - 145 mmol/L Potassium, pl 3.4 3.3 - 4.9 mmol/L [facility] Chloride 99 97 - 110 mmol/L [facility] CO2 32 22 - 32 mmol/L [facility] Anion gap 9 2 - 15 mmol/L [facility] BUN 15 6 - 25 mg/dL [facility] Creatinine 0.75 0.60 - 1.10 mg/dL [facility] Glucose 153 70 - 199 mg/dL [facility] Comment: Interpretive Data Fasting glucose >/= 126 [...] 2022. Calcium 8.6 8.5 - 10.3 mg/dL [facility] Blood 05/09/2025 1:08 PM CDT 05/09/2025 2:01 PM CDT Therese Oconnor NP LAB BLOOD ORDERABLES Fin al Result [facility] One [facility] [place] [address] * eGFR (05/08/2025 9:38 PM CDT) [facility] eGFR >90 >=60 mL/min/1. 73 m2 Comment: [...] MD LAB BLOOD ORDERABLES Fin al Result [facility] [address] [facility] [place] [address] * CBC without differential (05/08/2025 9:38 PM CDT) WBC 8.86 3.80 - 9.90 K/cumm Hgb 14.4 11.9 - 15.5 g/dL [facility] Hct 42.9 35.6 - 45.5 % [facility] Plt 254 150 - 400 K/cumm [facility] MPV 11.0 9.1 - 12.3 fL [facility] RBC 4.82 3.90 - 5.20 M/cumm [facility] MCV 89.0 81.3 - 96.4 fL [facility] MCH 29.9 27.1 - 33.3 pg [facility] MCHC 33.6 32.3 - 35.7 g/dL [facility] RDW CV 13.9 11.1 - 14.9 % [facility] RDW SD 45.4 35.7 - 48.1 fL [facility] NRBC abs 0.00 0.00 - 0.01 K/cumm [facility] Blood 05/08/2025 9:38 PM CDT 05/08/2025 10:47 PM CDT Karlo Akins MD LAB BLOOD ORDERABLES Fin al Result Performing Organization Address [facility] de Phone Number [facility] [address] * Phosphorus (05/08/2025 9:38 PM CDT) Pathologist [facility] Phosphorus, pl 3.3 2.3 - 4.5 mg/dL Blood 05/08/2025 9:38 PM CDT 05/08/2025 10:49 PM CDT Therese Oconnor NP LAB BLOOD ORDERABLES Fin al Result Performing Organization Address [facility] de Phone Number [facility] [place] [address] * Magnesium (05/08/2025 9:38 PM CDT) [facility] Magnesium 2.4 1.4 - 2.5 mg/dL Blood 05/08/2025 9:38 PM CDT 05/08/2025 10:49 PM CDT Karlo Akins MD LAB BLOOD ORDERABLES Fin al Result Performing Organization Address [facility] de Phone Number [facility] [place] [address] * (ABNORMAL) Basic metabolic panel (05/08/2025 9:38 PM CDT) Pathologist [facility] Sodium 141 135 - 145 mmol/L Potassium, pl 2.7(L) 3.3 - 4.9 mmol/L [facility] Chloride 99 97 - 110 mmol/L [facility] CO2 33(H) 22 - 32 mmol/L [facility] Anion gap 9 2 - 15 mmol/L [facility] BUN 12 6 - 25 mg/dL [facility] Creatinine 0.72 0.60 - 1.10 mg/dL [facility] Glucose 103 70 - 199 mg/dL [facility] Comment: Interpretive Data Fasting glucose >/= 126 [...] 2022. Calcium 8.6 8.5 - 10.3 mg/dL [facility] Comment:Repeated and Verifie d Blood 05/08/2025 9:38 PM CDT 05/08/2025 10:49 PM CDT Karlo Akins MD LAB BLOOD ORDERABLES Fin al Result [facility] [place] [address] * Airway (05/08/2025 7:57 AM CDT) Narrative [...] ORDERABLES Margaret l Result SHARONDA [place] [facility] Department [place] [address] * Differential, auto (04/29/2025 8:20 AM CDT) Neutrophil abs 6.22 1.50 - 6.50 K/cumm Comment:Testing performed by : [facility], [address] [place] [phone] Lymphocyte abs 1.15 0.80 - 3.30 K/cumm [facility] Comment:Testing performed by : [facility], [address] [place] [phone] Monocyte abs 0.72 0.20 - 0.80 K/cumm [facility] Comment:Testing performed by : [facility], [address] [place] [phone] Eosinophil abs 0.11 0.00 - 0.50 K/cumm [facility] Comment:Testing performed by : [facility], [address] [place] [phone] Basophil abs 0.06 0.00 - 0.10 K/cumm [facility] Comment:Testing performed by : [facility], [address] [place] [phone] Neutrophil pct 75.3 % [facility] Comment: Interpretive Data Percent cell count reference ranges are not reported, since discordance with absolute values may lead to misinterpretation of CBC data. Current Interpretive Data was last revised on 2018. Testing performed by: [facility], [address] [place] [phone] Lymphocyte pct 13.9 % [facility] Comment: Interpretive Data Percent cell count reference ranges are not reported, since discordance with absolute values may lead to misinterpretation of CBC data. Current Interpretive Data was last revised on 2018. Testing performed by: [facility], [address] [place] [phone] Monocyte pct 8.7 % [facility] Comment: Interpretive Data Percent cell count reference ranges are not reported, since discordance with absolute values may lead to misinterpretation of CBC data. Current Interpretive Data was last revised on 2018. Testing performed by: [facility], [address] [place] [phone] Eosinophil pct 1.3 % [facility] Comment: Interpretive Data Percent cell count reference ranges are not reported, since discordance with absolute values may lead to misinterpretation of CBC data. Current Interpretive Data was last revised on 2018. Testing performed by: [facility], [address] [place] [address] Basophil pct 0.8 % [facility] Comment: Interpretive Data Percent cell count reference ranges are not reported, since discordance with absolute values may lead to misinterpretation of CBC data. Current Interpretive Data was last revised on 2018. Testing performed by: [facility], [address] [place] [address] Blood 04/29/2025 8:20 AM CDT 04/29/2025 8:[address] [facility]Harry Rodgers MD LAB BLOOD ORDERABLES Margaret louise Result SHARONDA [place] [facility] [place] [address] * (ABNORMAL) CBC with auto differential (04/29/2025 8:20 AM CDT) WBC 8.26 3.80 - 9.90 K/cumm Comment:Testing performed by : [facility], [address] [place] [address] Hgb 16.6(H) 11.9 - 15.5 g/dL SHARONDA [facility] Comment:Testing performed by : [facility], [address] [place] [address] Hct 48.6(H) 35.6 - 45.5 % SHARONDA [facility] Comment:Testing performed by : [facility], [address] [place] [address] Plt 343 150 - 400 K/cumm SHARONDA [facility] Comment:Testing performed by : [facility], [address] [place] [address] MPV 8.5 6.8 - 10.4 fL SHARONDA [place] Comment:Testing performed by : [facility], [address] [place] [address] RBC 5.49(H) 3.90 - 5.20 M/cumm SHARONDA [facility] Comment:Testing performed by : [facility], [address] [place], [place] [phone] MCV 88.5 81.3 - 96.4 fL [facility] Comment:Testing performed by : [facility], [address] [place], [place] [phone] MCH 30.2 27.1 - 33.3 pg [facility] Comment:Testing performed by : [facility], [address] [place], [place] [phone] MCHC 34.1 32.3 - 35.7 g/dL SHARONDA [facility] Comment:Testing performed by : [facility], [address] [place], [place] [phone] RDW CV 14.9 11.1 - 14.9 % [facility] Comment:Testing performed by : [facility], [address] [place], [place] [phone] NRBC abs 0.00 0.00 - 0.01 K/cumm [facility] Comment:Testing performed by : [facility], [address] [place], [place] [phone] Blood 04/29/2025 8:20 AM CDT 04/29/2025 8:[address] [facility]'Harry Rodgers MD LAB BLOOD ORDERABLES Margaret l Result [facility] [place] [address] * CEA (04/29/2025 8:20 AM CDT) CEA [...] MD LAB BLOOD ORDERABLES Margaret gil Result [facility] [place] [address] * (ABNORMAL) Comprehensive metabolic panel (04/29/2025 8:20 AM CDT) Sodium 140 135 - 145 mmol/L Potassium, pl 3.4 3.3 - 4.9 mmol/L [facility] Chloride 97 97 - 110 mmol/L [facility] CO2 27 22 - 32 mmol/L [facility] Anion gap 16(H) 2 - 15 mmol/L [facility] BUN 16 6 - 25 mg/dL [facility] Creatinine 0.90 0.60 - 1.10 mg/dL [facility] Glucose 122 70 - 199 mg/dL [facility] Comment: Interpretive Data Fasting glucose >/= 126 [...] Calcium 10.3 8.5 - 10.3 mg/dL [facility] Bilirubin, total 0.4 0.1 - 1.2 mg/dL [facility] Protein, pl 8.2 6.5 - 8.5 g/dL [facility] Albumin 4.7 3.5 - 5.0 g/dL [facility] Alk phos 120 40 - 130 Units/L [facility] ALT 15 7 - 45 Units/L [facility] AST 22 10 - 45 Units/L [facility] Blood 04/29/2025 8:20 AM CDT 04/29/2025 8:[address] [facility] MD LAB BLOOD ORDERABLES Margaret gil Result SHARONDA [facility] [place] [address] * Signatera Only Initial Draw (04/29/2025 7:56 [...] tumor nuclei. Tumor DNA is extracted using [employer]juan an[employer]io Mag-Bind FFPE DNA/RNA kit. Whole genomic DNA is isolated from peripheral blood using QIAamp DNA Blood MiniKit to provide DNA for germline sequencing. Circulating tumor DNA (ctDNA) is extracted from plasma derived from whole blood samples collected in cell-free DNA blood tubes ([employer]) using the QIAsymphony automated or manual extraction method (Qiagen). Whole-exome sequencing is performed on tumor and peripheral blood DNA using the [employer] whole-exome sequencing assay. Using a proprietary algorithm, [...] and whole exome sequencing is performed at [facility] (CLIA ID# [id number]), [address] [place] [id number] [place] [address]. Disclaimer The extraction, library preparation, and sequencing for this test were performed by [facility] [address] [place], [facility] [address], [place] [address] (CLIA ID [id number]). The data analysis and reporting for this test were performed by [facility] [address], [place] [address] (CLIA ID [id number]). This test was developed and its performance characteristics determined by [facility]. The test has not been cleared or approved by the U.S. Food and Drug Administration (FDA). CAP accredited, ISO 75964 certified, and CLIA certified. Pathology services and whole exome sequencing for this test were performed by [facility] [address], [place] [address] (CLIA ID [id number]). 2020 [employer]. All Rights Reserved. Blood specimen (specimen) Venous blood specimen / Unknown 04/29/2025 7:56 AM CDT 05/07/2025 9:54 AM CDT Luba Rodgers MD LAB GENETIC TESTING Final Result Performing Organization Address City/State/[facility] Co de Phone Number [facility] [address] [place] [address], [facility] * SCAN - PATHOLOGY (04/29/2025) Provider Scanning [...] 04/15/2025 10:18 AM CDT us Claire Kaye SHAPER SETTER LAB BLOOD ORDERABLES Fi nal Result SHARONDA [place] [facility] Department [place] [address] * (ABNORMAL) Differential, auto (04/15/2025 9:58 AM CDT) Neutrophil abs 5.71 1.50 - 6.50 K/cumm Imm gran abs 0.03 0.00 - 0.10 K/cumm [facility] Lymphocyte abs 1.58 0.80 - 3.30 K/cumm [facility] Monocyte abs 0.95(H) 0.20 - 0.80 K/cumm [facility] Eosinophil abs 0.12 0.00 - 0.50 K/cumm [facility] Basophil abs 0.07 0.00 - 0.10 K/cumm [facility] Neutrophil pct 67.5 % [facility] Comment: Interpretive Data Percent cell count reference ranges are not reported, since discordance with absolute values may lead to misinterpretation of CBC data. Current Interpretive Data was last revised on 2018. Imm gran pct 0.4 % [facility] Comment: Interpretive Data Percent cell count reference ranges are not reported, since discordance with absolute values may lead to misinterpretation of CBC data. Current Interpretive Data was last revised on 2018. Lymphocyte pct 18.7 % [facility] Comment: Interpretive Data Percent cell count reference ranges are not reported, since discordance with absolute values may lead to misinterpretation of CBC data. Current Interpretive Data was last revised on 2018. Monocyte pct 11.2 % [facility] Comment: Interpretive Data Percent cell count reference ranges are not reported, since discordance with absolute values may lead to misinterpretation of CBC data. Current Interpretive Data was last revised on 2018. Eosinophil pct 1.4 % [facility] Comment: Interpretive Data Percent cell count reference ranges are not reported, since discordance with absolute values may lead to misinterpretation of CBC data. Current Interpretive Data was last revised on 2018. Basophil pct 0.8 % [facility] Comment: Interpretive Data Percent cell count reference ranges are not reported, since discordance with absolute values may lead to misinterpretation of CBC data. Current Interpretive Data was last revised on 2018. Blood 04/15/2025 9:58 AM CDT 04/15/2025 10:18 AM CDT us Claire Kaye SHAPER SETTER LAB BLOOD ORDERABLES Fi nal Result [facility] [place] [address] * (ABNORMAL) CBC with auto differential (04/15/2025 9:58 AM CDT) [facility] WBC 8.46 3.80 - 9.90 K/cumm Hgb 16.7(H) 11.9 - 15.5 g/dL [facility] Hct 50.1(H) 35.6 - 45.5 % [facility] Plt 333 150 - 400 K/cumm [facility] MPV 10.6 9.1 - 12.3 fL [facility] RBC 5.67(H) 3.90 - 5.20 M/cumm [facility] MCV 88.4 81.3 - 96.4 fL [facility] MCH 29.5 27.1 - 33.3 pg [facility] MCHC 33.3 32.3 - 35.7 g/dL [facility] RDW CV 14.4 11.1 - 14.9 % [facility] RDW SD 46.2 35.7 - 48.1 fL [facility] NRBC abs 0.00 0.00 - 0.01 K/cumm [facility] Blood 04/15/2025 9:58 AM CDT 04/15/2025 10:18 AM CDT Claire Kaye SHAPER SETTER LAB BLOOD ORDERABLES Fi nal Result Performing Organization Address [facility] Co de Phone Number [facility] [place] [address] * (ABNORMAL) Comprehensive metabolic panel (04/15/2025 9:58 AM CDT) [facility] Sodium 135 135 - 145 mmol/L Potassium, pl 4.2 3.3 - 4.9 mmol/L [facility] Comment:Hemolyzed; Potassium value may be falsely elevated by as much as 0.6-1.0 mmol/L. Suggest redraw and reanalysis. Chloride 94(L) 97 - 110 mmol/L [facility] CO2 30 22 - 32 mmol/L [facility] Anion gap 11 2 - 15 mmol/L [facility] BUN 21 6 - 25 mg/dL [facility] Creatinine 1.04 0.60 - 1.10 mg/dL [facility] Glucose 113 70 - 199 mg/dL [facility] Comment: Interpretive Data Fasting glucose >/= 126 [...] 2022. Calcium 10.8(H) 8.5 - 10.3 mg/dL [facility] Bilirubin, total 0.5 0.1 - 1.2 mg/dL [facility] Protein, pl 8.0 6.5 - 8.5 g/dL [facility] Albumin 4.3 3.5 - 5.0 g/dL [facility] Alk phos 121 40 - 130 Units/L [facility] ALT 18 7 - 45 Units/L [facility] AST 36 10 - 45 Units/L [facility] Comment:Hemolyzed; result ma y be falsely elevated Blood 04/15/2025 9:58 AM CDT 04/15/2025 10:18 AM CDT us Claire Kaye SHAPER SETTER LAB BLOOD ORDERABLES Fi nal Result [facility] [place] [address] * CT Abdomen Pelvis WO [...] Final Result from Last 3 Months Insurance [place] [employer] [facility] HMO/PPO Address[facility] [address] [place] [address] [facility] HMO/PPO Address: [address] [place] [address] Advance Directives For more information, please contact: [phone] Documents on File Type Date Recorded 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 ADVANCE DIRECTIVE 11/07/2023 2:36 PM Renita r of Petrologist-Medical * Full Code (Latest Code Status on File) Date Activated Date Inactivated Comments 05/08/2025 1:46 PM 05/09/2025 7:34 PM * Full Code Date Activated Date Inactivated Comments 12/10/2023 4:16 PM 12/12/2023 8:51 PM * Full Code Date Activated Date Inactivated Comments 11/08/2023 6:26 PM 11/15/2023 10:11 PM Care Teams Glass Deposition Tender Relationship Specialty Start Date End Date Tristen Benavides MD PCP - General 02/14/17 Philip Torres MD [address] [place] [address] Ring Striker Gastroenterology 10/24/23 Tru Sanchez MD [address] [phone] [place] [address] Surgeon Colon and Rectal Surgery 10/26/23 [place] [address] [place] [address] MEDICAL ONCOLOGY, [address], [address] [place] [address] Consulting Physician Medical Oncology 03/27/25
--- OUTSIDE RECORDS SUMMARY | 2025-05-15 16:15 | XMS_ITS ---
Author Organization [facility] Address [address] [place] [address] Care Team Providers Care Explosive Expert Name Role Phone Tristen Benavides MD Primary Care Provider Philip Torres MD Unavailable [phone] Tru Sanchez MD Unavailable [phone] Luba Rodgers Unavailable [phone] Active Problems Problem Noted Date Diagnosed Date [...]
--- OUTSIDE RECORDS SUMMARY | 2025-05-15 16:15 | XMS_ITS | Clinical Summary ---
Author Organization [facility] Address [address] [place] [address] Care Team Providers Care Ware Dresser Name Role Phone Tristen Benavides MD Primary Care Provider [phone] Source Comments [facility],non-owned Affiliates and Associated Physician Practices is amultiple site organization consisting of ambulatory clinics and hospital sitesin [place], [place], [place] and [place]. This disclosure is being madepursuant to the Care Everywhere program and may not contain all information available regarding this patient. Last updated 18.[facility] Allergies No known active allergies Medications * Be aware that medications may not be up to date on this document. Alwaysverify current medications with the patient. rivaroxaban (XARELTO) 20 MG tablet Take 20 mg by mouth daily with food Active vitamin D, ergocalciferol, (DRISDOL) 52098 UNITS capsule Take 50,000 Units by mouth [...] patient's age to complete this topic Insurance [facility] SELF PAY NO INSURANCE Member Subscriber Plan / Payer (Ef fective for All Dates) Name:Ivett Del Rosario Member ID:Not on file Relation to Subscriber:Not on file Name:IVETT DEL ROSARIO Subscriber ID:Not on file (Home) Address: [address] [place] [address] Payer ID:Not on file Group ID:Not on file Type:Self Pay Address: [place], [place] SELF PAY NO INSURANCE Member Subscriber Plan / Payer (Ef fective for All Dates) Name:Ivett Del Rosario Member ID:Not on file Relation to Subscriber:Not on file Name:IVETT DEL ROSARIO Subscriber ID:Not on file (Home) Address: [address] [address] Payer ID:Not on file Group ID:Not on file Type:Self Pay Address: [place], [place] * Guarantor: CARINIVETT Account Type Relation to Patient Date of Phone Billing Address Personal/Family Spouse Advance Directives Documents on File Type Date Recorded Patient Print Operator Expl anation Adv Directive/Living Will/POA 02/14/2017 * Full Code (Latest Code Status on File) Date Activated Date Inactivated Comments 02/21/2017 5:31 PM 02/22/2017 1:39 PM Care Teams Ware Dresser Relationship Specialty Start Date End Date Tristen Benavides MD [address] [place] [address] PCP - General Internal Medicine 02/21/17
[2025-05-15] MEDS: LORazepam INJ (*CRX) 2 MG/ML VIAL 1 MG IV PUSH (16:19)
[2025-05-15 16:31] LABS: Hematocrit 44.2 % (37.0-47.0); Hemoglobin 14.0 g/dL (12.0-15.0); Immature Granulocyte Percent A 0.3 % (0-0.5); Lymphocytes Absolute Auto 1.33 K/mm3 (0.9-3.2); Mean Corpuscular HGB Conc 31.7 g/dl (32-36); Mean Corpuscular Hemoglobin 29.7 pg (26-34); Mean Corpuscular Volume 93.6 fl (80-100); Nucleated Red Blood Cells Absolute Auto 0.000 K/mm3 (0.0-0.012); Nucleated Red Blood Cells Perc 0.0 % (0.0-0.2); Platelet Count Result 221 k/mm3 (150-375); Red Blood Count 4.72 M/mm3 (4.2-5.4); White Blood Count 8.6 K/mm3 (4.5-10.0)
[2025-05-15 16:52] LABS: Alanine Aminotransferase 20 U/L (6-35); Albumin Level 4.2 g/dL (3.5-5.1); Alkaline Phosphatase 103 U/L (38-126); Anion Gap 7 mmol/L (4-12); Aspartate Amino Transferase 28 U/L (14-36); Bilirubin,Total 0.5 mg/dL (0.2-1.3); Blood Urea Nitrogen 12 mg/dL (7-17); Calcium 9.5 mg/dL (8.4-10.2); Carbon Dioxide 29 mmol/L (22-30); Chloride 103 mmol/L (98-107); Estimated CRCL calculation 87 ml/min; Estimated Glomerular Filt Rate > 60; Glucose 99 mg/dL (65-110); Potassium 3.8 mmol/L (3.4-5.0); Sodium 139 mmol/L (137-145); Total Protein 7.5 g/dL (6.3-8.2)
[2025-05-15] MEDS: HEPARIN SOD/D5W 100 UNITS/ML 25,000 UNITS/250 ML BAG 15 UNITS IV CONT ×2 (17:00→23:41)
--- OUTSIDE RECORDS SUMMARY | 2025-05-15 17:28 | XMS_ITS | Encounter Summary ---
Author Organization [facility] Address [address] [place] [address] Phone Care Team Providers Care Hot Dog Vender Name Role Phone Tristen Benavides MD Primary Care Provider Philip Torres MD Unavailable Tru Sanchez MD Unavailable [phone] Nolan Ch MD PhD Unavailable [phone] Luba Rodgers MD Unavailable [phone] Encounter Details Date Type Department Care Team [...] on filedocumented in this encounter Care Teams Hot Dog Vender Relationship Specialty Start Date End Date Tristen Benavides MD PCP - General 02/14/17 Philip Torres MD [address] [place] [address] Shoe Shanker Gastroenterology 10/24/23 Tru Sanchez MD [address] [facility] [place] [phone] [place] [address] Surgeon Colon and Rectal Surgery 10/26/23 Nolan hC MD PhD [address] [place] [address] Medical Oncologist Medical Oncology 12/27/23 03/26/25 Luba Rodgers MD [address] [facility] MEDICAL ONCOLOGY, [facility] [address]A, 7B, [address] [place] [address] Consulting Physician Medical Oncology 03/27/25 documented as of this encounter
--- OUTSIDE RECORDS SUMMARY | 2025-05-15 17:28 | XMS_ITS | Encounter Summary ---
Author Organization [facility] Address [address] [place] [address] Phone Care Team Providers Care Forensic Manager Name Role Phone Tristen Benavides MD Primary Care Provider Philip Torres MD Unavailable [phone] Tru Sanchez MD Unavailable [phone] Nolan Ch MD PhD Unavailable [phone] Luba Rodgers MD Unavailable Encounter Details Date Type Department Care Team [...] on filedocumented in this encounter Care Teams Forensic Manager Relationship Specialty Start Date End Date Tristen Benavides MD PCP - General 02/14/17 Philip Torres MD [address] [place] [address] Dining Service Supervisor Gastroenterology 10/24/23 Tru Sanchez MD [address] [facility] [place] [phone] [place] [address] Surgeon Colon and Rectal Surgery 10/26/23 Nolan Ch MD PhD [address] [place] [address] Medical Oncologist Medical Oncology 12/27/23 03/26/25 Luba Rodgers MD [address] [facility] MEDICAL ONCOLOGY, [facility] [address]A, [address] [place] [address] Consulting Physician Medical Oncology 03/27/25 documented as of this encounter
--- OUTSIDE RECORDS SUMMARY | 2025-05-15 17:28 | XMS_ITS ---
Author Organization [facility] Address [address] [place] [address] Care Team Providers Care Branch Sales Manager Name Role Phone Tristen Benavides MD Primary Care Provider Philip Torres MD Unavailable [phone] Tru Sanchez MD Unavailable [phone] Luba Rodgers Unavailable [phone] Active Problems Problem Noted Date Diagnosed Date [...]
--- OUTSIDE RECORDS SUMMARY | 2025-05-15 17:28 | XMS_ITS | Encounter Summary ---
Author Organization [facility] Address [address] [place] [address] Phone Care Team Providers Care Crimping Machine Operator Name Role Phone Tristen Benavides MD Primary Care Provider Philip Torres MD Unavailable [phone] Tru Sanchez MD Unavailable [phone] Nolan Ch MD PhD Unavailable [phone] Luba Rodgers MD Unavailable [phone] Encounter Details Date Type Department Care Team [...] on filedocumented in this encounter Care Teams Crimping Machine Operator Relationship Specialty Start Date End Date Tristen Benavides MD PCP - General 02/14/17 Philip Torres MD [address] [place] [address] Elastic Attacher Chainstitch Gastroenterology 10/24/23 Tru Sanchez MD [address] [facility] [place] [place] [phone] [place] [address] Surgeon Colon and Rectal Surgery 10/26/23 Nolan Ch MD PhD [address] [place] [address] Medical Oncologist Medical Oncology 12/27/23 03/26/25 Luba Rodgers MD [address] [facility] MEDICAL ONCOLOGY, [facility] [address]A, 7B, [address] [place] [address] Consulting Physician Medical Oncology 03/27/25 documented as of this encounter
--- OUTSIDE RECORDS SUMMARY | 2025-05-15 17:28 | XMS_ITS | Encounter Summary ---
Author Organization [facility] Address [address] [place] [address] Phone Care Team Providers Care Civil Engineer In Training Name Role Phone Tristen Benavides MD Primary Care Provider Philip Torres MD Unavailable [phone] Tru Sanchez MD Unavailable [phone] Nolan Ch MD PhD Unavailable [phone] Luba Rodgers MD Unavailable [phone] Encounter Details Date Type Department Care Team [...] Comments VASCULAR LABORATORY REPORT 09/29/2017 1:01 PM SLEEVE SEPARATOR documented in this encounter Results * VASCULAR LABORATORY REPORT (09/29/2017 1:01 PM SLEEVE SEPARATOR) Anatomical Region Laterality Modality Ultrasound us Provider Scanning CV VASCULAR PROCEDURES Final R esult documented in this encounter Visit Diagnoses Not on filedocumented in this encounter Care Teams Civil Engineer In Training Relationship Specialty Start Date End Date Tristen Benavides MD PCP - General 02/14/17 Philip Torres MD [address] [place] [address] Chicken Raiser Gastroenterology 10/24/23 Tru Sanchez MD [address] [facility] [phone] [place] [address] Surgeon Colon and Rectal Surgery 10/26/23 Nolan Ch MD PhD [address] [place] [address] Medical Oncologist Medical Oncology 12/27/23 03/26/25 Luba Rodgers MD [address] [facility] MEDICAL ONCOLOGY, [facility] [address]A, [address] [place] [address] Consulting Physician Medical Oncology 03/27/25 documented as of this encounter
--- OUTSIDE RECORDS SUMMARY | 2025-05-15 17:28 | XMS_ITS | Clinical Summary ---
Author Organization [facility] Address [address] [place] [address] Care Team Providers Care Sweatband Perforator Name Role Phone Tristen Benavides MD Primary Care Provider Philip Torres MD Unavailable [phone] Tru Sanchez MD Unavailable [phone] Luba Rodgers [facility] Unavailable Allergies No known active allergies Medications furosemide (LASIX) 40 mg tabletIndicati ons:Edema Take 1 tablet (40 mg total) by mouth pt skilled before breakfast Active potassium chloride ER 20 mEq CR tabletIndicati ons:supplement Take 1 tablet (20 mEq total) by mouth 3 (three) times a day 3 Active Xarelto 20 mg tabletIndicati ons:Venous Thrombosis Take 1 tablet (20 mg total) by mouth pt skilled before breakfast Active venlafaxine XR (EFFEXOR-XR) 37.5 mg 24 hr capsuleIndicat ions:Anxiety with Depression Take 1 capsule (37.5 mg total) by mouth pt skilled before breakfast 3 Active calcium carbonate (CALCIUM [...] [facility] Medicine Operating Room [address] [place] [address] Mazin Esposito MD XI REPAIR INCISIONAL HERNIA - LAPAROSCOPIC ROBOTIC ASSISTED RETRO-RECTUS APPROACH 05/08/2025 7:27 AM CDT Anesthesia Event [facility] Operating Room [address] [place] [address] Luca Mohr MD Petranek, Jennifer T., EMT 05/08/2025 5:17 AM CDT - 05/09/2025 3:34 PM CDT Hospital Encounter [facility] [address] [place] [address] Mazin Esposito MD Incarcerated incisional hernia (Primary Dx) Discharge Disposition: Discharge to home or self care 05/05/2025 Telephone [facility] Oncology [address] [facility] [address] [place] [phone] Marivel Cifuentes CMA Xarelto/Form 04/29/2025 9:00 AM CDT Office Visit [facility] Oncology [facility] Floor 5 [place] [address] Luba Rodgers MD Colon cancer, ascending (HCC) (Primary Dx); Malignant neoplasm of ascending colon (HCC) 04/29/2025 8:30 AM CDT Lab [facility] - Lab Collection [address] [facility] Floor 5 [place] [address] Colon cancer, ascending (HCC) 04/29/2025 8:15 AM CDT Lab [facility] Oncology Lab [facility] Floor 5 [place] [address] Malignant neoplasm of ascending colon (HCC) 04/29/2025 Orders Only [facility] Scanning, Provider 04/29/2025 Telephone [facility] Specialty Services [address] [place] [address] Nilda Posada RN GI Preprocedure 04/15/2025 10:16 AM CDT - 04/15/2025 11:59 PM CDT Hospital Encounter [facility] - CT [address] [facility] Floor 8 [place] [address] Malignant neoplasm of ascending colon (HCC) Discharge Disposition: Discharge to home or self care 04/15/2025 8:30 AM CDT Pre-Admission Testing [facility] for [facility]operative [facility] ([facility]) [address] [place] [address] Preoperative testing (Primary Dx) 03/27/2025 Telephone [facility] Oncology [address] [facility] Floor 6 [place] [address] Sofía Glez RN 03/27/2025 Telephone [facility] Oncology [address] [place] [address] [address] [place] [phone] Sofía Glez, KELLY 03/18/2025 Telephone [facility] ([facility] Minimally Invasive Surgery [address] [place] [address] [facility] 12th Floor, [place] [phone] Genet Villalba RN surgery scheduling 03/14/2025 10:53 AM CDT - 03/14/2025 11:59 PM CDT Hospital Encounter [facility] Radiology [facility] ([facility]) [address] [place] [address] Mazin Esposito MD Ventral incisional hernia Discharge Disposition: Discharge to home or self care 03/14/2025 9:45 AM CDT Office Visit [facility] ([facility] Minimally Invasive Surgery [address] [place] [address] [facility] 12th Floor, [place] [address] Mzain Esposito MD Incarcerated incisional hernia (Primary Dx) 03/06/2025 Telephone [facility] Oncology [address] [place] [address] [address] [place] [address] Sofía Glez, KELLY from Last 3 Months [...] this topic Medical Devices Implanted Type Area Nuclear Unit Operator Device Identifier Shelf Expiration Date Model / Serial / Lot [employer]/C R Bard Mesh Surgical Hernia Synthetic Patch [id number] Polypropylene [id number] - Sn/A - [id number] Implanted:Qty: 1 on 05/08/2025 by Mazin Esposito MD at [facility] Mesh N/A: Abdomen [employer]/C R Bard [id number] 02/07/2029 [id number] / N/A / [id number] Procedures Procedure Name Priority Date/Time Associated Diagnosis [...] CDT 05/09/2025 2:01 PM CDT Therese Oconnor MEDICARE BILLER LAB BLOOD ORDERABLES Fin al Result [facility] Department [place] [address] * Basic metabolic panel (05/09/2025 1:08 PM CDT) Sodium 140 135 - 145 mmol/L Potassium, pl 3.4 3.3 - 4.9 mmol/L [facility] Chloride 99 97 - 110 mmol/L [facility] CO2 32 22 - 32 mmol/L [facility] Anion gap 9 2 - 15 mmol/L [facility] BUN 15 6 - 25 mg/dL [facility] Creatinine 0.75 0.60 - 1.10 mg/dL [facility] Glucose 153 70 - 199 mg/dL [facility] Comment: Interpretive Data Fasting glucose >/= 126 [...] Calcium 8.6 8.5 - 10.3 mg/dL [facility] Blood 05/09/2025 1:08 PM CDT 05/09/2025 2:01 PM CDT Therese Oconnor NP LAB BLOOD ORDERABLES Fin al Result Performing Organization Address City/[facility]/ZIP Co de Phone Number [facility] Department [place] [address] * eGFR (05/08/2025 9:38 PM CDT) eGFR [...] LAB BLOOD ORDERABLES Fin al Result [facility] Department [place] [address] * CBC without differential (05/08/2025 9:38 PM CDT) [facility] WBC 8.86 3.80 - 9.90 K/cumm Hgb 14.4 11.9 - 15.5 g/dL [facility] Hct 42.9 35.6 - 45.5 % [facility] Plt 254 150 - 400 K/cumm [facility] MPV 11.0 9.1 - 12.3 fL [facility] RBC 4.82 3.90 - 5.20 M/cumm [facility] MCV 89.0 81.3 - 96.4 fL [facility] MCH 29.9 27.1 - 33.3 pg [facility] MCHC 33.6 32.3 - 35.7 g/dL [facility] RDW CV 13.9 11.1 - 14.9 % [facility] RDW SD 45.4 35.7 - 48.1 fL [facility] NRBC abs 0.00 0.00 - 0.01 K/cumm [facility] Blood 05/08/2025 9:38 PM CDT 05/08/2025 10:47 PM CDT us Karlo Akins MD LAB BLOOD ORDERABLES Fin al Result [facility] Department [place] [address] * Phosphorus (05/08/2025 9:38 PM CDT) [facility] Phosphorus, pl 3.3 2.3 - 4.5 mg/dL Blood 05/08/2025 9:38 PM CDT 05/08/2025 10:49 PM CDT Therese Oconnor NP LAB BLOOD ORDERABLES Fin al Result [facility] Department [place] [address] * Magnesium (05/08/2025 9:38 PM CDT) [facility] Magnesium 2.4 1.4 - 2.5 mg/dL Blood 05/08/2025 9:38 PM CDT 05/08/2025 10:49 PM CDT Karlo Akins MD LAB BLOOD ORDERABLES Fin al Result [facility] [place] [address] * (ABNORMAL) Basic metabolic panel (05/08/2025 9:38 PM CDT) [facility] Sodium 141 135 - 145 mmol/L Potassium, pl 2.7(L) 3.3 - 4.9 mmol/L [facility] Chloride 99 97 - 110 mmol/L [facility] CO2 33(H) 22 - 32 mmol/L [facility] Anion gap 9 2 - 15 mmol/L [facility] BUN 12 6 - 25 mg/dL [facility] Creatinine 0.72 0.60 - 1.10 mg/dL [facility] Glucose 103 70 - 199 mg/dL [facility] Comment: Interpretive Data Fasting glucose >/= 126 [...] 2022. Calcium 8.6 8.5 - 10.3 mg/dL [facility] Comment:Repeated and Verifie d Blood 05/08/2025 9:38 PM CDT 05/08/2025 10:49 PM CDT us Karlo Akins MD LAB BLOOD ORDERABLES Fin al Result [facility] Department [place] [address] * Airway (05/08/2025 7:57 AM CDT) Narrative [...] 8:20 AM CDT 04/29/2025 8:25 AM CDT [facility] MD LAB BLOOD ORDERABLES Margaret gil Result [facility] Department [place] [address] * Differential, auto (04/29/2025 8:20 AM CDT) Neutrophil abs 6.22 1.50 - 6.50 K/cumm Comment:Testing performed by : [facility], [address] [place] [address] Lymphocyte abs 1.15 0.80 - 3.30 K/cumm [facility] Comment:Testing performed by : [facility], [address] [place] [phone] Monocyte abs 0.72 0.20 - 0.80 K/cumm [facility] Comment:Testing performed by : [facility], [address] [place] [phone] Eosinophil abs 0.11 0.00 - 0.50 K/cumm [facility] Comment:Testing performed by : [facility], [address] [place] [phone] Basophil abs 0.06 0.00 - 0.10 K/cumm [facility] Comment:Testing performed by : [facility], [address] [place] [phone] Neutrophil pct 75.3 % [facility] Comment: Interpretive Data Percent cell count reference ranges are not reported, since discordance with absolute values may lead to misinterpretation of CBC data. Current Interpretive Data was last revised on 2018. Testing performed by: [facility], [address] [place] [phone] Lymphocyte pct 13.9 % [facility] Comment: Interpretive Data Percent cell count reference ranges are not reported, since discordance with absolute values may lead to misinterpretation of CBC data. Current Interpretive Data was last revised on 2018. Testing performed by: [facility], [address] [place] [phone] Monocyte pct 8.7 % [facility] Comment: Interpretive Data Percent cell count reference ranges are not reported, since discordance with absolute values may lead to misinterpretation of CBC data. Current Interpretive Data was last revised on 2018. Testing performed by: [facility], [address] [place] [phone] Eosinophil pct 1.3 % [facility] Comment: Interpretive Data Percent cell count reference ranges are not reported, since discordance with absolute values may lead to misinterpretation of CBC data. Current Interpretive Data was last revised on 2018. Testing performed by: [facility], [address] [place] [phone] Basophil pct 0.8 % [facility] Comment: Interpretive Data Percent cell count reference ranges are not reported, since discordance with absolute values may lead to misinterpretation of CBC data. Current Interpretive Data was last revised on 2018. Testing performed by: [facility], [address] [place] [phone] Blood 04/29/2025 8:20 AM CDT 04/29/2025 8:28 AM CDT us Moh'D M Th Ana Maria LE LAB BLOOD ORDERABLES Margaret l Result [facility] Department [place] [address] * (ABNORMAL) CBC with auto differential (04/29/2025 8:20 AM CDT) WBC 8.26 3.80 - 9.90 K/cumm Comment:Testing performed by : [facility], [address] [place] [address] Hgb 16.6(H) 11.9 - 15.5 g/dL [facility] Comment:Testing performed by : [facility], [address] [place] [address] Hct 48.6(H) 35.6 - 45.5 % [facility] Comment:Testing performed by : [facility], [address] [place] [address] Plt 343 150 - 400 K/cumm [facility] Comment:Testing performed by : [facility], [address] [place] [address] MPV 8.5 6.8 - 10.4 fL [facility] Comment:Testing performed by : [facility], [address] [place] [address] RBC 5.49(H) 3.90 - 5.20 M/cumm [facility] Comment:Testing performed by : [facility], [address] [place] [address] MCV 88.5 81.3 - 96.4 fL [facility] Comment:Testing performed by : [facility], [address] [place] [address] MCH 30.2 27.1 - 33.3 pg [facility] Comment:Testing performed by : [facility], [address] [place] [address] MCHC 34.1 32.3 - 35.7 g/dL [facility] Comment:Testing performed by : [facility], [address] [place] [address] RDW CV 14.9 11.1 - 14.9 % [facility] Comment:Testing performed by : [facility], [address] [place] [phone] NRBC abs 0.00 0.00 - 0.01 K/cumm [facility] Comment:Testing performed by : [facility], [address] [place] [phone] Blood 04/29/2025 8:20 AM CDT 04/29/2025 8:28 AM CDT [facility] MD LAB BLOOD ORDERABLES Margaret l Result Performing Organization Address [facility] de Phone Number [facility] [place] [address] * CEA (04/29/2025 8:20 AM CDT) [facility] CEA 2.9 <=5.0 ng/mL Comment: Interpretive Data: Reference Range: Non-Smokers: 0.0 5.0 ng/mL Smokers: 0.0 6.5 ng/mL The Genie CEA assay procedure was used. Results from different manufacturers or methods may not be comparable. Serial testing should be performed using the same method. Current interpretive data was last revised 2022. Blood 04/29/2025 8:20 AM CDT 04/29/2025 9:28 AM CDT [facility] MD LAB BLOOD ORDERABLES Margaret l Result Performing Organization Address City/[facility] Co de Phone Number [facility] Department [place] [address] * (ABNORMAL) Comprehensive metabolic panel (04/29/2025 8:20 AM CDT) Pathologist [facility] Sodium 140 135 - 145 mmol/L Potassium, pl 3.4 3.3 - 4.9 mmol/L [facility] Chloride 97 97 - 110 mmol/L [facility] CO2 27 22 - 32 mmol/L [facility] Anion gap 16(H) 2 - 15 mmol/L [facility] BUN 16 6 - 25 mg/dL [facility] Creatinine 0.90 0.60 - 1.10 mg/dL [facility] Glucose 122 70 - 199 mg/dL [facility] Comment: Interpretive Data Fasting glucose >/= 126 [...] 2022. Calcium 10.3 8.5 - 10.3 mg/dL [facility] Bilirubin, total 0.4 0.1 - 1.2 mg/dL [facility] Protein, pl 8.2 6.5 - 8.5 g/dL [facility] Albumin 4.7 3.5 - 5.0 g/dL [facility] Alk phos 120 40 - 130 Units/L [facility] ALT 15 7 - 45 Units/L [facility] AST 22 10 - 45 Units/L [facility] Blood 04/29/2025 8:20 AM CDT 04/29/2025 8:25 AM CDT Moh'Harry M Brian Rodgers MD LAB BLOOD ORDERABLES Margaret l Result [facility] [place] [address] * Signatera Only Initial Draw (04/29/2025 7:56 [...] tumor nuclei. Tumor DNA is extracted using [employer]an an[employer] Mag-Bind FFPE DNA/RNA kit. Whole genomic DNA is isolated from peripheral blood using QIAamp DNA Blood MiniKit to provide DNA for germline sequencing. Circulating tumor DNA (ctDNA) is extracted from plasma derived from whole blood samples collected in cell-free DNA blood tubes (Marvel) using the QIAbookletmobilemphony automated or manual extraction method (Qiagen). Whole-exome sequencing is performed on tumor and peripheral blood DNA using the Mintigo whole-exome sequencing assay. Using a proprietary algorithm, [...] and whole exome sequencing is performed at [facility]. (CLIA ID# [id number]), [facility] [address]. [address] [place] [address]. Disclaimer The extraction, library preparation, and sequencing for this test were performed by [facility] [address] [place] [address] (CLIA ID [id number]). The data analysis and reporting for this test were performed by [facility] [address], [place] [address] (CLIA ID [id number]). This test was developed and its performance characteristics determined by [facility]. The test has not been cleared or approved by the U.S. Food and Drug Administration (FDA). CAP accredited, ISO 70278 certified, and CLIA certified. Pathology services and whole exome sequencing for this test were performed by [facility] [address], [place] [address] (CLIA ID [id number]). 2020 [employer]. All Rights Reserved. Blood specimen (specimen) Venous blood specimen / Unknown 04/29/2025 7:56 AM CDT 05/07/2025 9:54 AM CDT Luba Rodgers MD LAB GENETIC TESTING Final Result JOANNE DARNELL [address] [place] [address], [facility] * SCAN - PATHOLOGY (04/29/2025) Provider [...] 04/15/2025 10:18 AM CDT us Claire Kaye MEDICARE BILLER LAB BLOOD ORDERABLES Fi nal Result [facility] Department [place] [address] * (ABNORMAL) Differential, auto (04/15/2025 9:58 AM CDT) Pathologist [facility] Neutrophil abs 5.71 1.50 - 6.50 K/cumm Imm gran abs 0.03 0.00 - 0.10 K/cumm [facility] Lymphocyte abs 1.58 0.80 - 3.30 K/cumm [facility] Monocyte abs 0.95(H) 0.20 - 0.80 K/cumm [facility] Eosinophil abs 0.12 0.00 - 0.50 K/cumm [facility] Basophil abs 0.07 0.00 - 0.10 K/cumm [facility] Neutrophil pct 67.5 % [facility] Comment: Interpretive Data Percent cell count reference ranges are not reported, since discordance with absolute values may lead to misinterpretation of CBC data. Current Interpretive Data was last revised on 2018. Imm gran pct 0.4 % [facility] Comment: Interpretive Data Percent cell count reference ranges are not reported, since discordance with absolute values may lead to misinterpretation of CBC data. Current Interpretive Data was last revised on 2018. Lymphocyte pct 18.7 % [facility] Comment: Interpretive Data Percent cell count reference ranges are not reported, since discordance with absolute values may lead to misinterpretation of CBC data. Current Interpretive Data was last revised on 2018. Monocyte pct 11.2 % [facility] Comment: Interpretive Data Percent cell count reference ranges are not reported, since discordance with absolute values may lead to misinterpretation of CBC data. Current Interpretive Data was last revised on 2018. Eosinophil pct 1.4 % [facility] Comment: Interpretive Data Percent cell count reference ranges are not reported, since discordance with absolute values may lead to misinterpretation of CBC data. Current Interpretive Data was last revised on 2018. Basophil pct 0.8 % [facility] Comment: Interpretive Data Percent cell count reference ranges are not reported, since discordance with absolute values may lead to misinterpretation of CBC data. Current Interpretive Data was last revised on 2018. Blood 04/15/2025 9:58 AM CDT 04/15/2025 10:18 AM CDT us Claire Kaye MEDICARE BILLER LAB BLOOD ORDERABLES Fi nal Result [facility] Department [place] [address] * (ABNORMAL) CBC with auto differential (04/15/2025 9:58 AM CDT) WBC 8.46 3.80 - 9.90 K/cumm Hgb 16.7(H) 11.9 - 15.5 g/dL [facility] Hct 50.1(H) 35.6 - 45.5 % [facility] Plt 333 150 - 400 K/cumm [facility] MPV 10.6 9.1 - 12.3 fL [facility] RBC 5.67(H) 3.90 - 5.20 M/cumm [facility] MCV 88.4 81.3 - 96.4 fL [facility] MCH 29.5 27.1 - 33.3 pg [facility] MCHC 33.3 32.3 - 35.7 g/dL [facility] RDW CV 14.4 11.1 - 14.9 % [facility] RDW SD 46.2 35.7 - 48.1 fL [facility] NRBC abs 0.00 0.00 - 0.01 K/cumm [facility] Blood 04/15/2025 9:58 AM CDT 04/15/2025 10:18 AM CDT us Claire Kaye NP LAB BLOOD ORDERABLES Fi nal Result [facility] Department [place] [address] * (ABNORMAL) Comprehensive metabolic panel (04/15/2025 9:58 AM CDT) Sodium 135 135 - 145 mmol/L Potassium, pl 4.2 3.3 - 4.9 mmol/L [facility] Comment:Hemolyzed; Potassium value may be falsely elevated by as much as 0.6-1.0 mmol/L. Suggest redraw and reanalysis. Chloride 94(L) 97 - 110 mmol/L [facility] CO2 30 22 - 32 mmol/L [facility] Anion gap 11 2 - 15 mmol/L [facility] BUN 21 6 - 25 mg/dL [facility] Creatinine 1.04 0.60 - 1.10 mg/dL [facility] Glucose 113 70 - 199 mg/dL [facility] Comment: Interpretive Data Fasting glucose >/= 126 [...] 2022. Calcium 10.8(H) 8.5 - 10.3 mg/dL [facility] Bilirubin, total 0.5 0.1 - 1.2 mg/dL [facility] Protein, pl 8.0 6.5 - 8.5 g/dL [facility] Albumin 4.3 3.5 - 5.0 g/dL [facility] Alk phos 121 40 - 130 Units/L [facility] ALT 18 7 - 45 Units/L [facility] AST 36 10 - 45 Units/L [facility] Comment:Hemolyzed; result ma y be falsely elevated Blood 04/15/2025 9:58 AM CDT 04/15/2025 10:18 AM CDT us Claire Kaye MEDICARE BILLER LAB BLOOD ORDERABLES Fi nal Result [facility] Department [place] [address] * CT Abdomen Pelvis WO Contrast (03/14/2025 [...] Final Result from Last 3 Months Insurance [employer]OS [facility] HMO/PPO Address: [address] [place] [phone] [facility] HMO/PPO Address: [facility] [address] [place] [address] Advance Directives For more information, please contact: [phone] Documents on File Type Date Recorded 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 ADVANCE DIRECTIVE 11/07/2023 2:36 PM Renita r of [employer] * Full Code (Latest Code Status on File) Date Activated Date Inactivated Comments 05/08/2025 1:46 PM 05/09/2025 7:34 PM * Full Code Date Activated Date Inactivated Comments 12/10/2023 4:16 PM 12/12/2023 8:51 PM * Full Code Date Activated Date Inactivated Comments 11/08/2023 6:26 PM 11/15/2023 10:11 PM Care Teams Sweatband Perforator Relationship Specialty Start Date End Date Tristen Benavides MD PCP - General 02/14/17 Philip Torres MD [address] [place] [address] Waste Disposal Leakage Tester Gastroenterology 10/24/23 Tru Sanchez MD [phone] [place] [address] Surgeon Colon and Rectal Surgery 10/26/23 Luba Rodgers MD [address] [facility] MEDICAL ONCOLOGY, [address] [place] [address] Consulting Physician Medical Oncology 03/27/25
--- OUTSIDE RECORDS SUMMARY | 2025-05-15 17:28 | XMS_ITS | Clinical Summary ---
Author Organization [facility] [employer] Address [address] [place] [address] Care Team Providers Care Lapping Machine Operator Name Role Phone Tristen Benavides MD Primary Care Provider [phone] Source Comments [facility] [employer],non-owned Affiliates and Associated Physician Practices is amultiple site organization consisting of ambulatory clinics and hospital sitesin [place], [place], [place] and [place]. This disclosure is being madepursuant to the Care Everywhere program and may not contain all information available regarding this patient. Last updated 18.[facility] [employer] Allergies No known active allergies Medications * Be aware that medications may not be up to date on this document. Alwaysverify current medications with the patient. rivaroxaban (XARELTO) 20 MG tablet Take 20 mg by mouth daily with food Active vitamin D, ergocalciferol, (DRISDOL) 50474 UNITS capsule Take 50,000 Units by mouth [...] patient's age to complete this topic Insurance [facility] SELF PAY NO INSURANCE Member Subscriber Plan / Payer (Ef fective for All Dates) Name:Ivett Del Rosario Member ID:Not on file Relation to Subscriber:Not on file Name:IVETT DEL ROSARIO Subscriber ID:Not on file (Home) Address: [address] [place] [address] Payer ID:Not on file Group ID:Not on file Type:Self Pay Address: [place], [place] SELF PAY NO INSURANCE Member Subscriber Plan / Payer (Ef fective for All Dates) Name:Ivett Del Rosario Member ID:Not on file Relation to Subscriber:Not on file Name:IVETT DEL ROSARIO Subscriber ID:Not on file (Home) Address: [address] [address] Payer ID:Not on file Group ID:Not on file Type:Self Pay Address: [place], [place] * Guarantor: CARINIVETT Account Type Relation to Patient Date of Phone Billing Address Personal/Family Spouse Advance Directives Documents on File Type Date Recorded 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
--- OUTSIDE RECORDS SUMMARY | 2025-05-15 17:28 | XMS_ITS | Referral Summary ---
Author Organization [facility] Address [address] [place] [address] Care Team Providers Care Neon Tube Pumper Name Role Phone Tristen Benavides MD Primary Care Provider Philip Torres MD Unavailable [phone] Tru Sanchez MD Unavailable [phone] Luba Rodgers MD Unavailable [phone] Encounters Date Type Department Care Team Description 05/08/2025 5:17 AM CDT - 05/09/2025 3:34 PM CDT Hospital Encounter [address] [phone] Mazin Esposito MD Incarcerated incisional hernia (Primary Dx) Discharge Disposition: Discharge to home or self care 05/08/2025 7:30 AM CDT - 05/08/2025 11:40 AM CDT Surgery [facility] Operating Room [address] [place] [address] Mazin Esposito MD XI REPAIR INCISIONAL HERNIA - LAPAROSCOPIC ROBOTIC ASSISTED RETRO-RECTUS APPROACH 05/08/2025 7:27 AM CDT Anesthesia Event [facility] Operating Room [address] [place] [address] Luca Mohr MD Petranek, Jennifer T., EMT 05/05/2025 Telephone [facility] [address] [facility] [address] [place] [phone] Marivel Cifuentes CMA Xarelto/Form 04/29/2025 Orders Only [facility] Scanning, Provider 04/29/2025 Telephone [facility] Special[facility] Services [address] [place] [address] Nilda Posada RN GI Preprocedure 04/29/2025 8:30 AM CDT Lab [facility] - Lab Collection [address] [facility] Floor 5 [place] [address] Colon cancer, ascending (HCC) 04/29/2025 8:15 AM CDT Lab [facility] Lab [facility] Floor 5 [place] [address] Malignant neoplasm of ascending colon (HCC) 04/29/2025 9:00 AM CDT Office Visit [facility] Floor 5 [place] [phone] Luba Rodgers MD Colon cancer, ascending (HCC) (Primary Dx); Malignant neoplasm of ascending colon (HCC) 04/15/2025 8:30 AM CDT Pre-Admission Testing [facility] for Preoperative Assessment and Planning [facility] ([facility]) [address] [place] [address] Preoperative testing (Primary Dx) 04/15/2025 10:16 AM CDT - 04/15/2025 11:59 PM CDT Hospital Encounter [facility] - [place] [address] [facility] Floor 8 [place] [address] Malignant neoplasm of ascending colon (HCC) Discharge Disposition: Discharge to home or self care 03/27/2025 Telephone [facility] Floor 6 [place] [phone] Sofía Glez RN 03/27/2025 Telephone [facility] [address] [facility] [address] [place] [phone] Sofía Glez, KELLY 03/18/2025 Telephone [facility] Advanced [facility] ([facility]) - [facility] Minimally Invasive Surgery [address] [place] [address] Advanced Medicine 12th Floor, [place] [address] Genet Villalba RN surgery scheduling 03/14/2025 10:53 AM CDT - 03/14/2025 11:59 PM CDT Hospital Encounter [facility] ([facility]) [address] [place] [address] Mazin Esposito MD Ventral incisional hernia Discharge Disposition: Discharge to home or self care 03/14/2025 9:45 AM CDT Office Visit [facility] [address] [facility] 12th Floor, [place] [address] Mazin Esposito MD Incarcerated incisional hernia (Primary Dx) 03/06/2025 Telephone [facility] [address] [facility] [address] [place] [phone] Sofía Glez RN from Last 3 Months Allergies No known active allergies Medications furosemide (LASIX) 40 mg tabletIndicati ons:Edema Take 1 tablet (40 mg total) by mouth compressor assembler before breakfast Active potassium chloride ER 20 mEq CR tabletIndicati ons:supplement Take 1 tablet (20 mEq total) by mouth 3 (three) times a day 3 Active Xarelto 20 mg tabletIndicati ons:Venous Thrombosis Take 1 tablet (20 mg total) by mouth compressor assembler before breakfast Active venlafaxine XR (EFFEXOR-XR) 37.5 mg 24 hr capsuleIndicat ions:Anxiety with Depression Take 1 capsule (37.5 mg total) by mouth compressor assembler before breakfast 3 Active calcium carbonate (CALCIUM [...] ascending (HCC) Medical Devices Implanted Type Area Lye Machine Operator Device Identifier Shelf Expiration Date Model / Serial / Lot [employer]/C R Bard Mesh Surgical Hernia Synthetic Patch [id number] Polypropylene [id number] - Sn/A - [id number] Implanted:Qty: 1 on 05/08/2025 by Mazin Esposito MD at [facility] Mesh N/A: Abdomen [employer]/C R Bard [id number] 02/07/2029 [id number] / N/A / [id number] Procedures Procedure Name Priority Date/Time Associated Diagnosis [...] LAB BLOOD ORDERABLES Fin al Result [facility] Department [place] [address] * Basic metabolic panel (05/09/2025 1:08 PM [...] 8.6 8.5 - 10.3 mg/dL [facility] Blood 05/09/2025 1:08 PM CDT 05/09/2025 2:01 PM CDT Therese Oconnor NP LAB BLOOD ORDERABLES Fin al Result [facility] Department [place] [address] * eGFR (05/08/2025 9:38 PM CDT) [facility] eGFR >90 >=60 mL/min/1. 73 m2 Comment: [...] MD LAB BLOOD ORDERABLES Fin al Result [facility] Department [place] [address] * CBC without differential (05/08/2025 9:38 PM [...] ORDERABLES Fin al Result Performing Organization Address [facility] de Phone Number [facility] [place] [address] * Phosphorus (05/08/2025 9:38 PM CDT) Pathologist [facility] Phosphorus, pl 3.3 2.3 - 4.5 mg/dL Blood 05/08/2025 9:38 PM CDT 05/08/2025 10:49 PM CDT Therese Oconnor NP LAB BLOOD ORDERABLES Fin al Result Performing Organization Address [facility] de Phone Number [facility] [place] [address] * Magnesium (05/08/2025 9:38 PM CDT) [facility] Magnesium 2.4 1.4 - 2.5 mg/dL Blood 05/08/2025 9:38 PM CDT 05/08/2025 10:49 PM CDT Karlo Akins MD LAB BLOOD ORDERABLES Fin al Result Performing Organization Address [facility] de Phone Number [facility] [place] [address] * (ABNORMAL) Basic metabolic panel (05/08/2025 9:38 [...] MD LAB BLOOD ORDERABLES Fin al Result [facility] Department [place] [address] * Airway (05/08/2025 7:57 AM CDT) Narrative [...] ORDERABLES Margaret l Result [facility] [place] [address] * Differential, auto (04/29/2025 8:20 AM CDT) Neutrophil abs 6.22 1.50 - 6.50 K/cumm Comment:Testing performed by : [facility], [address] [place] [phone] Lymphocyte abs 1.15 0.80 - 3.30 K/cumm [facility] Comment:Testing performed by : [facility], [address] [place] [phone] Monocyte abs 0.72 0.20 - 0.80 K/cumm [facility] Comment:Testing performed by : [facility], [address] [place] [phone] Eosinophil abs 0.11 0.00 - 0.50 K/cumm [facility] Comment:Testing performed by : [facility], [address] [place] [phone] Basophil abs 0.06 0.00 - 0.10 K/cumm [facility] Comment:Testing performed by : [facility], [address] [place] [phone] Neutrophil pct 75.3 % [facility] Comment: Interpretive Data Percent cell count reference ranges are not reported, since discordance with absolute values may lead to misinterpretation of CBC data. Current Interpretive Data was last revised on 2018. Testing performed by: [facility], [address] [place] [phone] Lymphocyte pct 13.9 % [facility] Comment: Interpretive Data Percent cell count reference ranges are not reported, since discordance with absolute values may lead to misinterpretation of CBC data. Current Interpretive Data was last revised on 2018. Testing performed by: [facility], [address] [place] [phone] Monocyte pct 8.7 % [facility] Comment: Interpretive Data Percent cell count reference ranges are not reported, since discordance with absolute values may lead to misinterpretation of CBC data. Current Interpretive Data was last revised on 2018. Testing performed by: [facility], [address] [place] [phone] Eosinophil pct 1.3 % [facility] Comment: Interpretive Data Percent cell count reference ranges are not reported, since discordance with absolute values may lead to misinterpretation of CBC data. Current Interpretive Data was last revised on 2018. Testing performed by: [facility], [address] [place] [address] Basophil pct 0.8 % [facility] Comment: Interpretive Data Percent cell count reference ranges are not reported, since discordance with absolute values may lead to misinterpretation of CBC data. Current Interpretive Data was last revised on 2018. Testing performed by: [facility], [address] [place] [address] Blood 04/29/2025 8:20 AM CDT 04/29/2025 8:28 AM CDT [facility] Rodgers MD LAB BLOOD ORDERABLES Margaret louise Result [facility] Department [place] [address] * (ABNORMAL) CBC with auto differential (04/29/2025 8:20 AM CDT) WBC 8.26 3.80 - 9.90 K/cumm Comment:Testing performed by : [facility], [address] [place] [address] Hgb 16.6(H) 11.9 - 15.5 g/dL [facility] Comment:Testing performed by : [facility], [address] [place] [address] Hct 48.6(H) 35.6 - 45.5 % [facility] Comment:Testing performed by : [facility], [address] [place] [address] Plt 343 150 - 400 K/cumm [facility] Comment:Testing performed by : [facility], [address] [place] [address] MPV 8.5 6.8 - 10.4 fL [facility] Comment:Testing performed by : [facility], [address] [place] [address] RBC 5.49(H) 3.90 - 5.20 M/cumm [facility] Comment:Testing performed by : [facility], [address] [place], [place] [phone] MCV 88.5 81.3 - 96.4 fL [facility] Comment:Testing performed by : [facility], [address] [place], [place] [phone] MCH 30.2 27.1 - 33.3 pg [facility] Comment:Testing performed by : [facility], [address] [place], [place] [phone] MCHC 34.1 32.3 - 35.7 g/dL [facility] Comment:Testing performed by : [facility], [address] [place], [place] [phone] RDW CV 14.9 11.1 - 14.9 % [facility] Comment:Testing performed by : [facility], [address] [place], [place] [phone] NRBC abs 0.00 0.00 - 0.01 K/cumm [facility] Comment:Testing performed by : [facility], [address] [place], [place] [phone] Blood 04/29/2025 8:20 AM CDT 04/29/2025 8:28 AM CDT [facility] Rodgers MD LAB BLOOD ORDERABLES Margaret l Result [facility] Department [place] [address] * CEA (04/29/2025 8:20 AM CDT) CEA [...] ORDERABLES Margaret gil Result [facility] Department [place] [address] * (ABNORMAL) Comprehensive metabolic panel (04/29/2025 8:20 AM CDT) Sodium 140 135 - 145 mmol/L Potassium, pl 3.4 3.3 - 4.9 mmol/L [facility] Chloride 97 97 - 110 mmol/L [facility] [...] Calcium 10.3 8.5 - 10.3 mg/dL [facility] Bilirubin, total 0.4 0.1 - 1.2 mg/dL [facility] Protein, pl 8.2 6.5 - 8.5 g/dL [facility] Albumin 4.7 3.5 - 5.0 g/dL [facility] Alk phos 120 40 - 130 Units/L [facility] ALT 15 7 - 45 Units/L [facility] AST 22 10 - 45 Units/L [facility] Blood 04/29/2025 8:20 AM CDT 04/29/2025 8:25 AM CDT [facility] LAB BLOOD ORDERABLES Margaret gil Result [facility] Department [place] [address] * Signatera Only Initial Draw (04/29/2025 7:56 [...] tumor nuclei. Tumor DNA is extracted using [employer] Mag-Bind FFPE DNA/RNA kit. Whole genomic DNA is isolated from peripheral blood using QIAamp DNA Blood MiniKit to provide DNA for germline sequencing. Circulating tumor DNA (ctDNA) is extracted from plasma derived from whole blood samples collected in cell-free DNA blood tubes (Boxcar) using the QIAsymphony automated or manual extraction method (Qiagen). Whole-exome sequencing is performed on tumor and peripheral blood DNA using the HZO whole-exome sequencing assay. Using a proprietary algorithm, [...] and whole exome sequencing is performed at [facility]. (CLIA ID# [id number]), [address] [place] [id number] [place] [address]. Disclaimer The extraction, library preparation, and sequencing for this test were performed by [facility] [address] [facility] [address], [place] [address] (CLIA ID [id number]). The data analysis and reporting for this test were performed by [facility] [address] [address] (CLIA ID [id number]). This test was developed and its performance characteristics determined by [facility]. The test has not been cleared or approved by the U.S. Food and Drug Administration (FDA). CAP accredited, ISO 54746 certified, and CLIA certified. Pathology services and whole exome sequencing for this test were performed by [facility] [address] [address] (CLIA ID [id number]). 2020 [employer]. All Rights Reserved. Blood specimen (specimen) Venous blood specimen / Unknown 04/29/2025 7:56 AM CDT 05/07/2025 9:54 AM CDT Luba Rodgers MD LAB GENETIC TESTING Final Result Performing Organization Address City/State/RUST Co de Phone Number [facility] [address] [place] [address], [facility] * SCAN - PATHOLOGY (04/29/2025) Provider [...] 04/15/2025 10:18 AM CDT us Claire Kaye RESPIRATORY TECH LAB BLOOD ORDERABLES Fi nal Result [facility] [place] [address] * (ABNORMAL) Differential, auto (04/15/2025 9:58 [...] K/cumm [facility] Neutrophil pct 67.5 % [facility] Comment: Interpretive Data Percent cell count reference [...] 04/15/2025 10:18 AM CDT us Claire Kaye RESPIRATORY TECH LAB BLOOD ORDERABLES Fi nal Result [facility] Department [place] [address] * (ABNORMAL) CBC with auto differential (04/15/2025 9:58 AM CDT) [facility] WBC 8.46 3.80 - 9.90 K/cumm Hgb [...] CDT 04/15/2025 10:18 AM CDT Claire Kaye RESPIRATORY TECH LAB BLOOD ORDERABLES Fi nal Result Performing Organization Address [facility] de Phone Number [facility] Department [place] [address] * (ABNORMAL) Comprehensive metabolic panel (04/15/2025 9:58 AM CDT) [facility] Sodium 135 135 - 145 mmol/L Potassium, [...] 04/15/2025 10:18 AM CDT us Claire Kaye RESPIRATORY TECH LAB BLOOD ORDERABLES Fi nal Result [facility] Department [place] [address] * CT Abdomen Pelvis WO [...] Final Result from Last 3 Months Insurance [employer] [facility] Address: [address] [place] [address] [facility] Address: [address] [place] [address] Advance Directives For more information, please contact: [phone] Documents on File Type Date Recorded Patient Correspondence Specialist Expl anation ADVANCE DIRECTIVE 11/07/2023 2:36 PM Renita r of [employer] Machine Operator-Medical * Full Code (Latest Code Status on File) Date Activated Date Inactivated Comments 05/08/2025 1:46 PM 05/09/2025 7:34 PM * Full Code Date Activated Date Inactivated Comments 12/10/2023 4:16 PM 12/12/2023 8:51 PM * Full Code Date Activated Date Inactivated Comments 11/08/2023 6:26 PM 11/15/2023 10:11 PM Care Teams Neon Tube Pumper Relationship Specialty Start Date End Date Tristen Benavides MD PCP - General 02/14/17 Philip Torres MD [address] [place] [address] Safety Consultant Gastroenterology 10/24/23 Tru Sanchez MD [phone] [place] [address] Surgeon Colon and Rectal Surgery 10/26/23 [place] [address] [place] [address] MEDICAL ONCOLOGY, [address], [address], [address] [place] [address] Consulting Physician Medical Oncology 03/27/25
[2025-05-15 17:38] LABS: INR 2.0; Prothrombin Time 22.3 Seconds (11.1-14.7)
[2025-05-15 17:39] LABS: Partial Thromboplastin Time 40.2 Seconds (22.3-36.8)
--- NOTE | 2025-05-15 18:30 | ADMGEN ---
This patient, Ivett Hemphill, was admitted to 2 Medical Room 244-. Patient/family oriented to hospital policies and general routines including ID bracelet, bed and alarms, visiting hours, pain management, procedures, bathroom and other care routines, personal items, smoking policy, room service/diet, and visiting hours. Information on how to activate the Rapid Response Team has been discussed. Patient/Family are encouraged to report perceived risks to care and to ask questions if they do not understand what they are told or what they should do.
--- NOTE | 2025-05-15 19:49 | P.HP_ITS ---
H&P: HPI History of Present Illness Date/Time: 05/15/25 19:49 Chief Complaint: DVT Narrative: This is a very pleasant 8-year-old patient with history colon cancer anxiety and he recently had hernia repair surgery in May [address] Esposito at [facility] comes to the emergency room after being notified she had a large DVT. Patient had been advised to hold her Xarelto which she takes for history of previous DVTs and had held it for 10 days. She just restarted it today. Due to swelling, warmth, redness and pain in the right lower extremity outpatient Dopplers were ordered that returned with findings of extensive right femoral, right popliteal, right peroneal and right posterior tibial DVT. Patient came to the emergency room and there further workup was performed. She denies any chest pain, dyspnea but is anxious. In the emergency room CBC and metabolic panel are unremarkable, coags are normal, EKG showing normal sinus rhythm with some ST depression present in V4 and V5. Vital signs significant for a pulse of 100. CTA of the chest was performed as patient does have extensive DVT with findings of pulmonary emboli in the bilateral main arteries with segmental and subsegmental emboli as well. There was evidence of right heart strain. The ER physician discussed with Cardiology and Cardiology was comfortable with keeping the patient here as she does not currently have an oxygen requirement and is asymptomatic. She was initiated on a heparin drip and is being admitted in the current situation. Review of Systems Review of Systems: All systems reviewed & are unremarkable except as noted in HPI and below PMFSH Past Medical History Medical History Colon cancer Surgical History Surgical History (Updated 05/15/25 @ 19:53 by JEAN PAUL Knapp) Status post hernia repair Family History Family History Mother COPD (chronic obstructive pulmonary disease) Heart problem Social History Social History Smoking packs per day: 1 Smoking cigarettes per day: 20.0 Years smoked: 36 Smoking pack-years: 36.00 Smoking status: Former smoker Tobacco type: cigarettes Additional smoking assessment comments: CURRENTLY VAPES Alcohol intake: never Substance use: never Substance use type: other Other substance usage details: THC gummies Do You Feel Safe in your Home?: Yes Lack of Transportation: No Lack of Food: Never True Current Housing: I Have Housing Concerned About Future Housing: No Difficulty Paying Gas/Electric Bills: No Difficulty Paying for Meds: No Currently Unemployed: No Education: High School Diploma/GED Difficulty w/ Childcare or Family Care: No Living arrangements: with family Spiritual care concerns: No Meds Home Medications and Allergies Home Medications ?Medication ?Instructions ?Recorded ?Confirmed ?Type Calcium 600 + D(3) 1 caplet PO BID 10/03/23 05/15/25 History ergocalciferol (vitamin D2) 1,250 50,000 unit PO WEEKLY 10/03/23 05/15/25 History mcg (50,000 unit) capsule furosemide 40 mg tablet 40 mg PO DAILY 10/03/23 05/15/25 History magnesium oxide 500 mg PO HS 10/03/23 05/15/25 History metolazone 5 mg tablet 5 mg PO DAILY 10/03/23 05/15/25 History potassium chloride 20 mEq 20 meq PO TID 10/03/23 05/15/25 History tablet,extended release rivaroxaban 20 mg tablet (Xarelto) 20 mg PO DAILY 10/03/23 05/15/25 History venlafaxine 37.5 mg 37.5 mg PO DAILY 10/03/23 05/15/25 History capsule,extended release 24 hr acetaminophen 325 mg tablet 650 mg PO Q4H PRN Pain 10/11/23 05/15/25 History metoprolol succinate 25 mg 25 mg PO HS 10/29/24 05/15/25 History tablet,extended release 24 hr Allergies Allergy/AdvReac Type Severity Reaction Status Date / Time No Known Allergies Allergy Verified 05/15/25 18:19 Vital Signs Vital Signs - 24 hr 05/15/25 14:05 05/15/25 15:01 05/15/25 16:15 Temperature 97.8 F Pulse Rate 119 H 100 100 Respiratory Rate 20 16 16 Blood Pressure 123/73 136/69 136/92 H Pulse Oximetry 92 94 95 05/15/25 16:34 05/15/25 16:49 05/15/25 17:45 Temperature Pulse Rate 98 90 92 Respiratory Rate 24 H 19 20 Blood Pressure 130/90 Pulse Oximetry 94 96 95 05/15/25 19:25 Temperature 98.4 F Pulse Rate 91 Respiratory Rate 24 H Blood Pressure 141/65 H Pulse Oximetry 91 Exam Const: General: no acute distress and uncomfortable Other: Morbidly obese female patient sitting up in bed at this time in no acute distress. She does appear uncomfortable as she reports pain in the right lower extremity. She does not report any dyspnea. HENMT: Face/Nose/Sinus: Normal nares present Eyes: General: appearance normal, both eyes and all related structures Sclera: sclerae normal Pupils: Equal, round and reactive pupils present EOM: EOMs intact bilaterally Neck: Neck: supple and no JVD Lymphatic: lymphadenopathy not noted Chest: Other: Nontender to palpation Resp: Effort & Inspection: normal respiratory effort Auscultation: diminished lung sounds (Throughout) Cardio: Rate: tachycardic Rhythm: regular rhythm Heart sounds: no gallops, no murmurs and no rubs GI: Inspection: non-distended GI Palp: Yes Soft to palpation and No Tenderness to palpation present (GI) Auscultation: normal bowel sounds Other: Abdominal binder in place. Midline abdominal incision superior of the umbilicus region well approximated, no redness, no swelling, no dehiscence or drainage. Skin: Lesions: no lesions noted Rashes: no rashes noted Wounds: no wounds Other: Right lower extremity posteriorly warm to the touch, red and edematous. Distal neurovascular status is intact. Neuro: General: gait normal Speech: normal speech Motor exam (neuro): 5/5 motor strength present throughout and Normal motor muscle tone present throughout Sensory Exam: normal sensation Extrem: General: normal exam except as noted, edema and pedal edema Other: Right lower extremity greater than left Psych: Mental Status: mental status grossly normal Affect: Anxious affect present H&P: Results Labs Labs: Short CBC 05/15/25 Range/Units 16:23 WBC 8.6 (4.5-10.0) K/mm3 Hgb 14.0 (12.0-15.0) g/dL Hct 44.2 (37.0-47.0) % Plt Count 221 (150-375) k/mm3 [facility] 05/15/25 16:23 Sodium 139 Potassium 3.8 Chloride 103 Carbon Dioxide 29 BUN 12 Creatinine 0.80 Glucose 99 Calcium 9.5 Liver Function 05/15/25 Range/Units 16:23 Total Bilirubin 0.5 (0.2-1.3) mg/dL AST 28 (14-36) U/L ALT 20 (6-35) U/L Alkaline Phosphatase 103 (38-126) U/L Albumin 4.2 (3.5-5.1) g/dL Assessment and Plan Assessment and plan (1) Acute deep vein thrombosis (DVT) of right lower extremity: Code(s): I82.401 - Acute embolism and thrombosis of unspecified deep veins of right lower extremity Status: Acute Assessment and Plan: * Continue heparin drip and protocol * P.r.n. analgesia with morphine 4 mg q.4 hours p.r.n. IV push for severe pain, [place] 5/325 p.o. q.4 hours p.r.n. moderate pain and Tylenol 1000 mg q.6 hours p.r.n. mild pain * Fall Precautions (2) Pulmonary embolism: Code(s): I26.99 - Other pulmonary embolism without acute cor pulmonale Status: Acute Assessment and Plan: * Continue heparin drip * Supportive care with oxygen * If any EKG changes more acute dyspnea, low threshold for transfer for thrombectomy. * Cardiology has been consulted. * Telemetry * Monitoring trend labs and vitals (3) Anxiety: Code(s): F41.9 - Anxiety disorder, unspecified Status: Acute Assessment and Plan: * Acute on chronic as patient is currently very anxious regarding current health status given her new VTE diagnoses. * Ativan 0.5 mg p.o. t.i.d. p.r.n. ordered for situational anxiety. * Continue home dose of Venlafaxine. (4) Status post hernia repair: Code(s): Z98.890 - Other specified postprocedural states; Z87.19 - Personal history of other diseases of the digestive system Status: Acute Assessment and Plan: * Surgeon is Dr. Esposito at [facility]. * No s/s of acute infection or dehiscence of surgical wound. * Abdominal binder in place per surgeons orders. Quality VTE Prophylaxis VTE prophylaxis: pharmacologic ordered Hospitalist MIPS Advance Care Plan I have confirmed that the patient's Advanced Care Plan is present, code status is documented, or surrogate decision maker is listed in patient medical record.: Yes Medication Reconciliation I have utilized all available resources to obtain, update and review the patients current medications (includes all prescriptions, OTC, herbals, cannabis, and nutritional supplements).: Yes
[2025-05-15] MEDS: METOPROLOL SUCCINATE EXT REL 25 MG TABCR PO (22:05)
[2025-05-15] MEDS: MAGNESIUM OXIDE 400 MG TABLET PO (22:05)
[2025-05-15] MEDS: CYCLOBENZAPRINE HCL 10 MG TABLET PO (22:05)
[2025-05-15 23:27] LABS: Partial Thromboplastin Time 134.0 Seconds (22.3-36.8)
[2025-05-16] VITALS (10 sets, daily range): BP systolic 114–126; BP diastolic 58–63; PULSE 80–99; RESP 20–24; TEMP 36.4–36.7; O2SAT 93–96
[2025-05-16] MEDS: HYDROcodone/acetaminophen (*CRX) 5-325 MG TABLET 1 TAB PO (00:11)
[2025-05-16] MEDS: HEPARIN SOD/D5W 100 UNITS/ML 25,000 UNITS/250 ML BAG 12 UNITS IV CONT (00:43)
[2025-05-16 06:54] LABS: Hematocrit 44.5 % (37.0-47.0); Hemoglobin 14.0 g/dL (12.0-15.0); Immature Granulocyte Percent A 0.4 % (0-0.5); Lymphocytes Absolute Auto 1.35 K/mm3 (0.9-3.2); Mean Corpuscular HGB Conc 31.5 g/dl (32-36); Mean Corpuscular Hemoglobin 29.7 pg (26-34); Mean Corpuscular Volume 94.5 fl (80-100); Nucleated Red Blood Cells Absolute Auto 0.000 K/mm3 (0.0-0.012); Nucleated Red Blood Cells Perc 0.0 % (0.0-0.2); Platelet Count Result 218 k/mm3 (150-375); Red Blood Count 4.71 M/mm3 (4.2-5.4); White Blood Count 5.5 K/mm3 (4.5-10.0)
[2025-05-16 07:11] LABS: Alanine Aminotransferase 19 U/L (6-35); Albumin Level 4.0 g/dL (3.5-5.1); Alkaline Phosphatase 97 U/L (38-126); Anion Gap 8 mmol/L (4-12); Aspartate Amino Transferase 27 U/L (14-36); Bilirubin,Total 0.6 mg/dL (0.2-1.3); Blood Urea Nitrogen 7 mg/dL (7-17); Calcium 9.5 mg/dL (8.4-10.2); Carbon Dioxide 26 mmol/L (22-30); Chloride 104 mmol/L (98-107); Estimated CRCL calculation 96 ml/min; Estimated Glomerular Filt Rate > 60; Glucose 106 mg/dL (65-110); Magnesium 2.1 mg/dL (1.6-2.3); Potassium 4.2 mmol/L (3.4-5.0); Sodium 138 mmol/L (137-145); Total Protein 7.1 g/dL (6.3-8.2)
[2025-05-16 07:13] LABS: Partial Thromboplastin Time 59.2 Seconds (22.3-36.8)
[2025-05-16] MEDS: HEPARIN SOD/D5W 100 UNITS/ML 25,000 UNITS/250 ML BAG 14 UNITS IV CONT ×2 (07:28→13:17)
[2025-05-16] MEDS: VENLAFAXINE HCL XR 37.5 MG CAP PO (09:23)
[2025-05-16] MEDS: CALCIUM/VITAMIN D 500 MG/5 MCG (200 I.U.) TABLET PO ×2 (09:23→17:19)
[2025-05-16] MEDS: FUROSEMIDE 40 MG TABLET PO (09:23)
[2025-05-16] MEDS: POTASSIUM CHLORIDE 20 MEQ ER TABLET 40 MEQ PO ×2 (09:23→17:19)
[2025-05-16] MEDS: ACETAMINOPHEN 500 MG TABLET 1000 MG PO ×2 (09:34→20:44)
--- NOTE | 2025-05-16 10:54 | P.PNIM_ITS ---
Progress Note: A&P Assessment and Plan (1) Acute deep vein thrombosis (DVT) of right lower extremity: Code(s): I82.401 - Acute embolism and thrombosis of unspecified deep veins of right lower extremity Status: Acute Assessment and Plan: * Continue heparin drip and protocol * P.r.n. analgesia with morphine 4 mg q.4 hours p.r.n. IV push for severe pain, Carrie 5/325 p.o. q.4 hours p.r.n. moderate pain and Tylenol 1000 mg q.6 hours p.r.n. mild pain * Continue on bedrest (2) Pulmonary embolism: Code(s): I26.99 - Other pulmonary embolism without acute cor pulmonale Status: Acute Assessment and Plan: * Continue heparin drip * Supportive care with oxygen * If any EKG changes more acute dyspnea, low threshold for transfer for thrombectomy. * Cardiology consulted. * Telemetry (3) Anxiety: Code(s): F41.9 - Anxiety disorder, unspecified Status: Acute Assessment and Plan: * Acute on chronic as patient is currently very anxious regarding current health status given her new VTE diagnoses. * Ativan 0.5 mg p.o. t.i.d. p.r.n. ordered for situational anxiety. * Continue home dose of Venlafaxine. (4) Status post hernia repair: Code(s): Z98.890 - Other specified postprocedural states; Z87.19 - Personal history of other diseases of the digestive system Status: Acute Assessment and Plan: * Surgeon is Dr. Esposito at [facility]. * No s/s of acute infection or dehiscence of surgical wound. * Abdominal binder in place per surgeons orders. Subjective Date/time seen: 05/16/25 10:54 Interval history: 64-year-old female with history of colon cancer had recent abdominal hernia repair on May 08. Developed leg swelling and saw her primary physician who ordered a venous Doppler that was abnormal with DVT right leg to thigh. Multiple pulmonary emboli with right heart strain. No oxygen requirement or chest pain or palpitations. No syncope or presyncope. No abnormal bleeding. 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 Had held Xarelto preoperatively and postoperatively for her May 08 surgery. She denied GI or issues. Denied abnormal bleeding. Denied weakness or numbness. Review of Systems Review of Systems: All systems reviewed & are unremarkable except as noted in HPI and below Exam Narrative: HEENT: PERRL, sclerae nonicteric, pharyngeal mucosa pink and intact NECK: No JVD CHEST: Clear to auscultation. Normal effort. HEART: NL S1/S2, regular, no murmur ABDOMEN: BS+, soft, nontender, no mass, no bruits EXTREMITIES: No edema, erythema and nodularity and tenderness posteromedial right leg NEUROLOGIC: CN intact and symmetric to inspection MUSCULOSKELETAL: Tone and strength symmetric PSYCH: Alert. Oriented to person, place, and time Objective Data Vital Signs Vital Signs: Vital Signs - 24 hr 05/15/25 14:05 05/15/25 15:01 05/15/25 16:15 Temperature 97.8 F Pulse Rate 119 H 100 100 Respiratory Rate 20 16 16 Blood Pressure 123/73 136/69 136/92 H Pulse Oximetry 92 94 95 Oxygen Delivery Fraction of Inspired Oxygen 05/15/25 16:34 05/15/25 16:49 05/15/25 17:45 Temperature Pulse Rate 98 90 92 Respiratory Rate 24 H 19 20 Blood Pressure 130/90 Pulse Oximetry 94 96 95 Oxygen Delivery Fraction of Inspired Oxygen 05/15/25 19:25 05/15/25 20:00 05/15/25 20:36 Temperature 98.4 F Pulse Rate 91 96 94 Respiratory Rate 24 H 20 Blood Pressure 141/65 H Pulse Oximetry 91 94 Oxygen Delivery Room Air Fraction of Inspired Oxygen 21 05/15/25 22:05 05/16/25 00:00 05/16/25 00:00 Temperature 97.9 F Pulse Rate 94 90 99 Respiratory Rate 24 H Blood Pressure 126/63 Pulse Oximetry 93 Oxygen Delivery Fraction of Inspired Oxygen 05/16/25 04:00 05/16/25 04:48 05/16/25 08:00 Temperature 98.1 F Pulse Rate 99 81 85 Respiratory Rate 20 Blood Pressure 114/58 L Pulse Oximetry 93 Oxygen Delivery Fraction of Inspired Oxygen Intake/Output Intake/Output: Intake & Output 05/13/25 05/14/25 05/15/25 05/16/25 23:59 23:59 23:59 23:59 Intake Total 100.2 966.5 Balance 100.2 966.5 Meds/Results Medications: Active Medications Generic Name Dose Route Start Last Admin Trade Name Freq PRN Reason Stop Dose Admin Acetaminophen 1,000 mg 05/15/25 19:57 05/16/25 09:34 Acetaminophen 500 Mg Tablet PO 1,000 mg Q6H PRN Administration Mild Pain (1-3) or Fever Hydrocodone Bitart/Acetaminophen 1 tab 05/15/25 19:57 05/16/25 00:11 Hydrocodone/Acetaminophen (*Crx) 5-325 Mg Tablet PO 1 tab Q4H PRN Administration Pain Rated 4-6 Calcium Carbonate 500 mg 05/16/25 09:00 05/16/25 09:23 Calcium/Vitamin D 500 Mg/5 Mcg (200 I.U.) Tablet PO 500 mg BID JAY Administration Cyclobenzaprine HCl 10 mg 05/15/25 20:27 05/15/25 22:05 Cyclobenzaprine Hcl 10 Mg Tablet PO 10 mg TID PRN Administration Muscle Spasm Ergocalciferol mcg 05/22/25 09:00 Ergocalciferol (Vitamin D2) 1,250 Mcg (50,000 Units) Capsule PO WEEKLY JAY Furosemide 40 mg 05/16/25 09:00 05/16/25 09:23 Furosemide 40 Mg Tablet PO 40 mg DAILY JAY Administration Heparin Sodium (Porcine) 7,000 units 05/15/25 16:26 Heparin Sodium 5,000 Units/Ml Vial IV PUSH PRN PRN aPTT less than 55 seconds Heparin Sodium (Porcine) 3,500 units 05/15/25 16:26 Heparin Sodium 5,000 Units/Ml Vial IV PUSH PRN PRN aPTT 55 - 70 seconds Heparin Sodium/Dextrose 25,000 units in 250 mls @ 14 mls/hr 05/15/25 16:30 05/16/25 07:28 Heparin Sodium/D5w 100 Units/Ml IV CONT 1,400 units/hr .[id number] JAY 14 mls/hr Administration Protocol 1,400 UNITS/HR Lorazepam 0.5 mg 05/15/25 19:58 Lorazepam (*Crx) 0.5 Mg Tablet PO TID PRN Anxiety Magnesium Oxide 400 mg 05/15/25 21:00 05/15/25 22:05 Magnesium Oxide 400 Mg Tablet PO 400 mg HS JAY Administration Metolazone 5 mg 05/16/25 09:00 05/16/25 09:23 Metolazone 5 Mg Tablet PO 5 mg DAILY JAY Administration Metoprolol Succinate 25 mg 05/15/25 21:00 05/15/25 22:05 Metoprolol Succinate Ext Rel 25 Mg Tabcr PO 25 mg HS JAY Administration Miscellaneous Information 1 each 05/16/25 00:01 05/16/25 09:23 Med Rec. States Pt Doesn'T Take Ergocalciferol Anymore. Ok To D/C? XX 06/15/25 00:00 Not Given [facility] Morphine Sulfate 4 mg 05/15/25 19:57 Morphine Sulfate (*Crx) 4 Mg/Ml Inj IV PUSH Q4H PRN Pain Rated 7-10 Potassium Chloride 40 meq 05/16/25 09:00 05/16/25 09:23 Potassium Chloride 20 Meq Er Tablet PO 40 meq BID JAY Administration Potassium Chloride 20 meq 05/16/25 12:00 Potassium Chloride 20 Meq Er Tablet PO 1200 JAY Venlafaxine HCl 37.5 mg 05/16/25 09:00 05/16/25 09:23 Venlafaxine Hcl Xr 37.5 Mg Cap PO 37.5 mg DAILY JAY Administration Radiology Results: ITS Impressions Chest CTA 05/15/25 17:45 IMPRESSION: 1. Pulmonary embolism involving both main arteries, segmental and subsegmental branches. Right ventricular strain is noted. 2. Aberrant right subclavian artery. 3. No acute lung lesion seen. Dr. Ford was notified with the result of the patient's 5:55 PM on May 15, 2025. Labs Labs: Laboratory Results - last 24 hr 05/15/25 05/15/25 05/16/25 16:23 23:03 06:47 WBC 8.6 5.5 RBC 4.72 4.71 Hgb 14.0 14.0 Hct 44.2 44.5 MCV 93.6 94.5 MCH 29.7 29.7 MCHC 31.7 L 31.5 L RDW 14.6 H 14.5 Plt Count 221 218 MPV 10.6 H 10.2 Immature Gran % (Auto) 0.3 0.4 Neut % (Auto) 71.8 61.1 Lymph % (Auto) 15.5 L 24.4 Isabella % (Auto) 10.4 H 11.4 H Eos % (Auto) 1.5 2.0 Baso % (Auto) 0.5 0.7 Lymph # (Auto) 1.33 1.35 Isabella # (Auto) 0.9 H 0.6 Eos # (Auto) 0.1 0.1 Baso # (Auto) 0.0 0.0 Abs Immat Gran (auto) 0.03 0.02 Absolute Neuts (auto) 6.2 3.4 Absolute Nucleated RBC 0.000 0.000 Nucleated RBC % 0.0 0.0 PT 22.3 H INR 2.0 APTT 40.2 H 134.0 H 59.2 H Sodium 139 138 Potassium 3.8 4.2 Chloride 103 104 Carbon Dioxide 29 26 Anion Gap 7 8 BUN 12 7 D Creatinine 0.80 0.71 Estim Creat Clear Calc 87 96 Estimated GFR > 60 > 60 Glucose 99 106 Calcium 9.5 9.5 Magnesium 2.1 Total Bilirubin 0.5 0.6 AST 28 27 ALT 20 19 Alkaline Phosphatase 103 97 Total Protein 7.5 7.1 Albumin 4.2 4.0
--- NOTE | 2025-05-16 11:29 | PM.CNCAR ---
Assessment and Plan Assessment and plan (1) Acute deep vein thrombosis (DVT) of right lower extremity: Code(s): I82.401 - Acute embolism and thrombosis of unspecified deep veins of right lower extremity Status: Acute Plan Right lower extremity DVT in a patient with history of recurrent DVT in the setting of temporary discontinuation for anticoagulation for hernia repair Pulmonary embolism segmental and subsegmental branches bilateral Heparin infusion Serial troponin Transthoracic echocardiogram History of Present Illness History of Present Illness Consult date/time: 05/16/25 11:29 Reason For Visit: Right Leg Deep Vein Thrombosis/Anxiety Narrative: 64-year-old female patient presents to the hospital was lower extremity swelling. Extremities was bilateral started several days ago. This started following hernia repair in May 08. Her lower extremity swelling has been worse on the right side associated with redness in the lower part of the leg. She had mild shortness of breath but no chest pain she visited primary care physician order venous duplex showed DVT. CT scan revealed PE. Today she has no shortness of breath. Lower extremity swelling is persistent. Patient has history of recurrent DVT in the past has been on anticoagulation Xarelto that was held for 3 days before surgery and 5 days afterward. Review of Systems Review of Systems: All systems reviewed & are unremarkable except as noted in HPI and below PMFSH Past Medical History Medical History Colon cancer Surgical History Surgical History (Updated 05/15/25 @ 19:53 by JEAN PAUL Knapp) Status post hernia repair Family History Family History Mother COPD (chronic obstructive pulmonary disease) Heart problem Social History Social History Smoking packs per day: 1 Smoking cigarettes per day: 20.0 Years smoked: 36 Smoking pack-years: 36.00 Smoking status: Former smoker Tobacco type: cigarettes Additional smoking assessment comments: CURRENTLY VAPES Alcohol intake: never Substance use: never Substance use type: other Other substance usage details: THC gummies Do You Feel Safe in your Home?: Yes Lack of Transportation: No Lack of Food: Never True Current Housing: I Have Housing Concerned About Future Housing: No Difficulty Paying Gas/Electric Bills: No Difficulty Paying for Meds: No Currently Unemployed: No Education: High School Diploma/GED Difficulty w/ Childcare or Family Care: No Living arrangements: with family Spiritual care concerns: No Meds Home Medications and Allergies Home Medications ?Medication ?Instructions ?Recorded ?Confirmed ?Type Calcium 600 + D(3) 1 caplet PO BID 10/03/23 05/15/25 History ergocalciferol (vitamin D2) 1,250 50,000 unit PO WEEKLY 10/03/23 05/15/25 History mcg (50,000 unit) capsule furosemide 40 mg tablet 40 mg PO DAILY 10/03/23 05/15/25 History magnesium oxide 500 mg PO HS 10/03/23 05/15/25 History metolazone 5 mg tablet 5 mg PO DAILY 10/03/23 05/15/25 History potassium chloride 20 mEq 20 meq PO TID 10/03/23 05/15/25 History tablet,extended release rivaroxaban 20 mg tablet (Xarelto) 20 mg PO DAILY 10/03/23 05/15/25 History venlafaxine 37.5 mg 37.5 mg PO DAILY 10/03/23 05/15/25 History capsule,extended release 24 hr acetaminophen 325 mg tablet 650 mg PO Q4H PRN Pain 10/11/23 05/15/25 History metoprolol succinate 25 mg 25 mg PO HS 10/29/24 05/15/25 History tablet,extended release 24 hr Allergies Allergy/AdvReac Type Severity Reaction Status Date / Time No Known Allergies Allergy Verified 05/15/25 18:19 Vital Signs Vital Signs - 24 hr 05/15/25 14:05 05/15/25 15:01 05/15/25 16:15 Temperature 36.6 C Pulse Rate 119 H 100 100 Respiratory Rate 20 16 16 Blood Pressure 123/73 136/69 136/92 H Pulse Oximetry 92 94 95 Oxygen Delivery Fraction of Inspired Oxygen 05/15/25 16:34 05/15/25 16:49 05/15/25 17:45 Temperature Pulse Rate 98 90 92 Respiratory Rate 24 H 19 20 Blood Pressure 130/90 Pulse Oximetry 94 96 95 Oxygen Delivery Fraction of Inspired Oxygen 05/15/25 19:25 05/15/25 20:00 05/15/25 20:36 Temperature 36.9 C Pulse Rate 91 96 94 Respiratory Rate 24 H 20 Blood Pressure 141/65 H Pulse Oximetry 91 94 Oxygen Delivery Room Air Fraction of Inspired Oxygen 21 05/15/25 22:05 05/16/25 00:00 05/16/25 00:00 Temperature 36.6 C Pulse Rate 94 90 99 Respiratory Rate 24 H Blood Pressure 126/63 Pulse Oximetry 93 Oxygen Delivery Fraction of Inspired Oxygen 05/16/25 04:00 05/16/25 04:48 05/16/25 08:00 Temperature 36.7 C Pulse Rate 99 81 85 Respiratory Rate 20 Blood Pressure 114/58 L Pulse Oximetry 93 Oxygen Delivery Fraction of Inspired Oxygen Exam Const: General: comfortable and no acute distress Other: Able to lie flat HENMT: Face/Nose/Sinus: Normal nares present and no epistaxis Mouth: Yes moist mucous membranes Eyes: Sclera: sclerae normal Pupils: Equal, round and reactive pupils present Neck: Neck: supple and no JVD Carotids: no bruits Resp: Auscultation: clear to auscultation bilaterally and lung sounds not diminished Other: No chest wall tenderness Cardio: Rate: regular rate Rhythm: regular rhythm Heart sounds: no gallops, no murmurs and no rubs GI: GI Palp: Yes Soft to palpation and No Tenderness to palpation present (GI) Auscultation: normal bowel sounds Skin: General skin exam: normal color, rashes and/or lesions noted and no erythema Other: Warm Neuro: Cranial nerves: Yes Equal, round and reactive pupils present Speech: normal speech Other: No obvious focal deficit or facial asymmetry Extrem: General: no edema Other: Normal capillary refills Intact distal pulses. Results Labs and Meds 05/16/25 06:47 05/16/25 06:47 Lab results: Cardiac Enzymes 05/15/25 05/16/25 Range/Units 16:23 06:47 AST 28 27 (14-36) U/L Coagulation 05/15/25 05/15/25 05/16/25 Range/Units 16:23 23:03 06:47 PT 22.3 H (11.1-14.7) Seconds APTT 40.2 H 134.0 H 59.2 H (22.3-36.8) Seconds CBC 05/15/25 05/16/25 Range/Units 16:23 06:47 WBC 8.6 5.5 (4.5-10.0) K/mm3 RBC 4.72 4.71 (4.2-5.4) M/mm3 Hgb 14.0 14.0 (12.0-15.0) g/dL Hct 44.2 44.5 (37.0-47.0) % Plt Count 221 218 (150-375) k/mm3 Lymph # (Auto) 1.33 1.35 (0.9-3.2) K/mm3 [place] # (Auto) 0.9 H 0.6 (0.1-0.6) K/mm3 Eos # (Auto) 0.1 0.1 (0-0.3) K/mm3 Baso # (Auto) 0.0 0.0 (0.0-0.1) K/mm3 Comprehensive Metabolic Panel 05/15/25 05/16/25 Range/Units 16:23 06:47 Sodium 139 138 (137-145) mmol/L Potassium 3.8 4.2 (3.4-5.0) mmol/L Chloride 103 104 (98-107) mmol/L Carbon Dioxide 29 26 (22-30) mmol/L BUN 12 7 D (7-17) mg/dL Creatinine 0.80 0.71 (0.7-1.0) mg/dL Glucose 99 106 (65-110) mg/dL Calcium 9.5 9.5 (8.4-10.2) mg/dL AST 28 27 (14-36) U/L ALT 20 19 (6-35) U/L Alkaline Phosphatase 103 97 (38-126) U/L Total Protein 7.5 7.1 (6.3-8.2) g/dL Albumin 4.2 4.0 (3.5-5.1) g/dL Intake and Output 05/15/25 05/16/25 05/16/25 23:59 07:59 15:59 Intake Total 100.2 486.5 480 Balance 100.2 486.5 480 Intake: IV 100.2 96.5 Heparin Sod/D5w 100 Units/ml 25 100.2 96.5 ,000 units In 250 ml @ 1,200 UNITS/HR 12 mls/hr IV CONT . [id number] [facility] Rx#:[id number] Oral 390 480 Other: # Unmeasured Voids 1 2
[2025-05-16] MEDS: POTASSIUM CHLORIDE 20 MEQ ER TABLET PO (13:17)
[2025-05-16 13:31] LABS: Partial Thromboplastin Time 54.0 Seconds (22.3-36.8)
[2025-05-16 19:58] LABS: Partial Thromboplastin Time 120.0 Seconds (22.3-36.8)
[2025-05-16] MEDS: METOPROLOL SUCCINATE EXT REL 25 MG TABCR PO (20:36)
[2025-05-16] MEDS: MAGNESIUM OXIDE 400 MG TABLET PO (20:36)
[2025-05-16] MEDS: HEPARIN SOD/D5W 100 UNITS/ML 25,000 UNITS/250 ML BAG 15 UNITS IV CONT (20:37)
[2025-05-17] VITALS (10 sets, daily range): BP systolic 103–126; BP diastolic 55–62; PULSE 77–101; RESP 16–20; TEMP 36.5–36.8; O2SAT 92–93
[2025-05-17 02:37] LABS: Hematocrit 45.0 % (37.0-47.0); Hemoglobin 14.5 g/dL (12.0-15.0); Mean Corpuscular HGB Conc 32.2 g/dl (32-36); Mean Corpuscular Hemoglobin 29.7 pg (26-34); Mean Corpuscular Volume 92.2 fl (80-100); Platelet Count Result 227 k/mm3 (150-375); Red Blood Count 4.88 M/mm3 (4.2-5.4); White Blood Count 5.9 K/mm3 (4.5-10.0)
[2025-05-17 02:46] LABS: Anion Gap 8 mmol/L (4-12); Blood Urea Nitrogen 11 mg/dL (7-17); Calcium 9.9 mg/dL (8.4-10.2); Carbon Dioxide 28 mmol/L (22-30); Chloride 100 mmol/L (98-107); Estimated CRCL calculation 85 ml/min; Estimated Glomerular Filt Rate > 60; Glucose 121 mg/dL (65-110); Potassium 3.6 mmol/L (3.4-5.0); Sodium 136 mmol/L (137-145)
[2025-05-17 02:53] LABS: Partial Thromboplastin Time 87.1 Seconds (22.3-36.8)
[2025-05-17] MEDS: HEPARIN SOD/D5W 100 UNITS/ML 25,000 UNITS/250 ML BAG 15 UNITS IV CONT (06:04)
[2025-05-17] MEDS: VENLAFAXINE HCL XR 37.5 MG CAP PO (08:30)
[2025-05-17] MEDS: CALCIUM/VITAMIN D 500 MG/5 MCG (200 I.U.) TABLET PO ×2 (08:30→16:27)
[2025-05-17] MEDS: FUROSEMIDE 40 MG TABLET PO (08:30)
[2025-05-17] MEDS: POTASSIUM CHLORIDE 20 MEQ ER TABLET 40 MEQ PO ×2 (08:31→16:27)
[2025-05-17 08:47] LABS: Partial Thromboplastin Time 62.9 Seconds (22.3-36.8)
--- NOTE | 2025-05-17 11:29 | P.PNIM_ITS ---
Progress Note: A&P Assessment and Plan (1) Acute deep vein thrombosis (DVT) of right lower extremity: Code(s): I82.401 - Acute embolism and thrombosis of unspecified deep veins of right lower extremity Status: Acute Assessment and Plan: * Continue heparin drip and protocol * P.r.n. analgesia with morphine 4 mg q.4 hours p.r.n. IV push for severe pain, Council 5/325 p.o. q.4 hours p.r.n. moderate pain and Tylenol 1000 mg q.6 hours p.r.n. mild pain * Continue on bedrest and IV heparin through 7/7 AM, then discharge to resume home Xarelto 6 hours after stopping IV heparin (2) Pulmonary embolism: Code(s): I26.99 - Other pulmonary embolism without acute cor pulmonale Status: Acute Assessment and Plan: * Continue heparin drip * Supportive care with oxygen * If any EKG changes more acute dyspnea, low threshold for transfer for thrombectomy. * Cardiology consulted. * Telemetry (3) Anxiety: Code(s): F41.9 - Anxiety disorder, unspecified Status: Acute Assessment and Plan: * Acute on chronic as patient is currently very anxious regarding current health status given her new VTE diagnoses. * Ativan 0.5 mg p.o. t.i.d. p.r.n. ordered for situational anxiety. * Continue home dose of Venlafaxine. (4) Status post hernia repair: Code(s): Z98.890 - Other specified postprocedural states; Z87.19 - Personal history of other diseases of the digestive system Status: Acute Assessment and Plan: * Surgeon is Dr. Esposito at [facility]. * No s/s of acute infection or dehiscence of surgical wound. * Abdominal binder in place per surgeons orders. Subjective Date/time seen: 05/17/25 11:29 Interval history: Still with RLE pain, tenderness, redness. No CP or sob Review of Systems Review of Systems: All systems reviewed & are unremarkable except as noted in HPI and below Exam Narrative: HEENT: PERRL, sclerae nonicteric, pharyngeal mucosa pink and intact NECK: No JVD CHEST: Clear to auscultation. Normal effort. HEART: NL S1/S2, regular, no murmur ABDOMEN: BS+, soft, nontender, no mass, no bruits EXTREMITIES: No edema, erythema and nodularity and tenderness posteromedial right leg NEUROLOGIC: CN intact and symmetric to inspection MUSCULOSKELETAL: Tone and strength symmetric PSYCH: Alert. Oriented to person, place, and time Objective Data Vital Signs Vital Signs: Vital Signs - 24 hr 05/16/25 12:02 05/16/25 14:00 05/16/25 16:03 Temperature 97.6 F Pulse Rate 82 85 81 Respiratory Rate 20 Blood Pressure 117/59 L Pulse Oximetry 96 05/16/25 20:00 05/16/25 20:21 05/16/25 20:36 Temperature 97.7 F Pulse Rate 89 80 80 Respiratory Rate 20 Blood Pressure 118/60 Pulse Oximetry 93 05/17/25 00:00 05/17/25 00:00 05/17/25 04:00 Temperature 97.7 F Pulse Rate 79 77 77 Respiratory Rate 20 Blood Pressure 108/55 L Pulse Oximetry 93 05/17/25 04:41 05/17/25 08:00 Temperature 97.9 F Pulse Rate 79 77 Respiratory Rate 20 Blood Pressure 103/59 L Pulse Oximetry 93 Intake/Output Intake/Output: Intake & Output 05/14/25 05/15/25 05/16/25 05/17/25 23:59 23:59 23:59 23:59 Intake Total 100.2 2651.3 818.3 Balance 100.2 2651.3 818.3 Meds/Results Medications: Active Medications Generic Name Dose Route Start Last Admin Trade Name Freq PRN Reason Stop Dose Admin Acetaminophen 1,000 mg 05/15/25 19:57 05/16/25 20:44 Acetaminophen 500 Mg Tablet PO 1,000 mg Q6H PRN Administration Mild Pain (1-3) or Fever Hydrocodone Bitart/Acetaminophen 1 tab 05/15/25 19:57 05/16/25 00:11 Hydrocodone/Acetaminophen (*Crx) 5-325 Mg Tablet PO 1 tab Q4H PRN Administration Pain Rated 4-6 Calcium Carbonate 500 mg 05/16/25 09:00 05/17/25 08:30 Calcium/Vitamin D 500 Mg/5 Mcg (200 I.U.) Tablet PO 500 mg BID JAY Administration Cyclobenzaprine HCl 10 mg 05/15/25 20:27 05/15/25 22:05 Cyclobenzaprine Hcl 10 Mg Tablet PO 10 mg TID PRN Administration Muscle Spasm Furosemide 40 mg 05/16/25 09:00 05/17/25 08:30 Furosemide 40 Mg Tablet PO 40 mg DAILY JAY Administration Heparin Sodium (Porcine) 7,000 units 05/15/25 16:26 05/16/25 13:41 Heparin Sodium 5,000 Units/Ml Vial IV PUSH 7,000 units PRN PRN Administration aPTT less than 55 seconds Heparin Sodium (Porcine) 3,500 units 05/15/25 16:26 05/17/25 09:09 Heparin Sodium 5,000 Units/Ml Vial IV PUSH 3,500 units PRN PRN Administration aPTT 55 - 70 seconds Heparin Sodium/Dextrose 25,000 units in 250 mls @ 17 mls/hr 05/15/25 16:30 05/17/25 09:10 Heparin Sodium/D5w 100 Units/Ml IV CONT 1,700 units/hr .[id number] JAY 17 mls/hr Titration Protocol 1,700 UNITS/HR Lorazepam 0.5 mg 05/15/25 19:58 Lorazepam (*Crx) 0.5 Mg Tablet PO TID PRN Anxiety Magnesium Oxide 400 mg 05/15/25 21:00 05/16/25 20:36 Magnesium Oxide 400 Mg Tablet PO 400 mg HS JAY Administration Metolazone 5 mg 05/16/25 09:00 05/17/25 08:30 Metolazone 5 Mg Tablet PO 5 mg DAILY JAY Administration Metoprolol Succinate 25 mg 05/15/25 21:00 05/16/25 20:36 Metoprolol Succinate Ext Rel 25 Mg Tabcr PO 25 mg HS JAY Administration Morphine Sulfate 4 mg 05/15/25 19:57 Morphine Sulfate (*Crx) 4 Mg/Ml Inj IV PUSH Q4H PRN Pain Rated 7-10 Potassium Chloride 40 meq 05/16/25 09:00 05/17/25 08:31 Potassium Chloride 20 Meq Er Tablet PO 40 meq BID JAY Administration Potassium Chloride 20 meq 05/16/25 12:00 05/16/25 13:17 Potassium Chloride 20 Meq Er Tablet PO 20 meq 1200 JAY Administration Venlafaxine HCl 37.5 mg 05/16/25 09:00 05/17/25 08:30 Venlafaxine Hcl Xr 37.5 Mg Cap PO 37.5 mg DAILY JAY Administration Radiology Results: ITS Impressions Chest CTA 07/03/25 17:45 IMPRESSION: 1. Pulmonary embolism involving both main arteries, segmental and subsegmental branches. Right ventricular strain is noted. 2. Aberrant right subclavian artery. 3. No acute lung lesion seen. Dr. Ford was notified with the result of the patient's 5:55 PM on May 15, 2025. Labs Labs: Laboratory Results - last 24 hr 05/16/25 05/16/25 05/17/25 13:12 19:38 02:31 WBC 5.9 RBC 4.88 Hgb 14.5 Hct 45.0 MCV 92.2 MCH 29.7 MCHC 32.2 RDW 14.2 Plt Count 227 MPV 9.9 APTT 54.0 H 120.0 H 87.1 H Sodium 136 L Potassium 3.6 Chloride 100 Carbon Dioxide 28 Anion Gap 8 BUN 11 Creatinine 0.81 Estim Creat Clear Calc 85 Estimated GFR > 60 Glucose 121 H Calcium 9.9 05/17/25 08:23 WBC RBC Hgb Hct MCV MCH MCHC RDW Plt Count MPV APTT 62.9 H Sodium Potassium Chloride Carbon Dioxide Anion Gap BUN Creatinine Estim Creat Clear Calc Estimated GFR Glucose Calcium
--- NOTE | 2025-05-17 11:37 | P.PNCA_ITS ---
Progress Note: A&P Assessment and Plan (1) Acute deep vein thrombosis (DVT) of right lower extremity: Code(s): I82.401 - Acute embolism and thrombosis of unspecified deep veins of right lower extremity Status: Acute Plan Right lower extremity DVT Pulmonary embolism without significant hemodynamic changes Change heparin to Xarelto 20 mg daily Transthoracic Subjective Date/time seen: 05/17/25 11:37 Interval history: No acute events Sinus rhythm Review of Systems Review of Systems: All systems reviewed & are unremarkable except as noted in HPI and below Exam Narrative: GENERAL APPEARANCE: WELL-DEVELOPED, WELL-NOURISHED SKIN: NORMAL COLOR HEAD: NORMOCEPHALIC, NONTRAUMATIC EYES: CLEAR CONJUNCTIVA ENT: OROPHARYNX NORMAL, EARS NORMAL, NOSE NORMAL NECK: SUPPLE, NONTENDER CHEST AND RESPIRATORY: AIRWAY PATENT, NO RESPIRATORY DISTRESS, NO ACCESSORY MUSCLE USE HEART: REGULAR RATE/RHYTHM ABDOMEN: SOFT, NONTENDER, NO ORGANOMEGALY, QUIET BOWEL SOUNDS VASCULAR: NORMAL PERIPHERAL PULSES, NORMAL CAPILLARY REFILL. MUSCULOSKELETAL: RIGHT LOWER EXTREMITY SHOWED DIFFUSE SWELLING, DIFFUSE TENDERNESS UP TO THE GROIN AREA NEUROLOGIC: ALERT AND ORIENTED ?3, MEDICAL DOCTOR IS NORMAL TESTED, NO GROSS MOTOR DEFICIT Objective Data Vital Signs Vital Signs: Vital Signs - 24 hr 05/16/25 12:02 05/16/25 14:00 05/16/25 16:03 Temperature 36.4 C Pulse Rate 82 85 81 Respiratory Rate 20 Blood Pressure 117/59 L Pulse Oximetry 96 05/16/25 20:00 05/16/25 20:21 05/16/25 20:36 Temperature 36.5 C Pulse Rate 89 80 80 Respiratory Rate 20 Blood Pressure 118/60 Pulse Oximetry 93 05/17/25 00:00 05/17/25 00:00 05/17/25 04:00 Temperature 36.5 C Pulse Rate 79 77 77 Respiratory Rate 20 Blood Pressure 108/55 L Pulse Oximetry 93 05/17/25 04:41 05/17/25 08:00 Temperature 36.6 C Pulse Rate 79 77 Respiratory Rate 20 Blood Pressure 103/59 L Pulse Oximetry 93 Intake/Output Intake/Output: Intake & Output 05/14/25 05/15/25 05/16/25 05/17/25 23:59 23:59 23:59 23:59 Intake Total 100.2 2651.3 818.3 Balance 100.2 2651.3 818.3 Meds/Results Medications: Active Medications Generic Name Dose Route Start Last Admin Trade Name Sebastianq PRN Reason Stop Dose Admin Acetaminophen 1,000 mg 05/15/25 19:57 05/16/25 20:44 Acetaminophen 500 Mg Tablet PO 1,000 mg Q6H PRN Administration Mild Pain (1-3) or Fever Hydrocodone Bitart/Acetaminophen 1 tab 05/15/25 19:57 05/16/25 00:11 Hydrocodone/Acetaminophen (*Crx) 5-325 Mg Tablet PO 1 tab Q4H PRN Administration Pain Rated 4-6 Calcium Carbonate 500 mg 05/16/25 09:00 05/17/25 08:30 Calcium/Vitamin D 500 Mg/5 Mcg (200 I.U.) Tablet PO 500 mg BID JAY Administration Cyclobenzaprine HCl 10 mg 05/15/25 20:27 05/15/25 22:05 Cyclobenzaprine Hcl 10 Mg Tablet PO 10 mg TID PRN Administration Muscle Spasm Furosemide 40 mg 05/16/25 09:00 05/17/25 08:30 Furosemide 40 Mg Tablet PO 40 mg DAILY JAY Administration Heparin Sodium (Porcine) 7,000 units 05/15/25 16:26 05/16/25 13:41 Heparin Sodium 5,000 Units/Ml Vial IV PUSH 7,000 units PRN PRN Administration aPTT less than 55 seconds Heparin Sodium (Porcine) 3,500 units 05/15/25 16:26 05/17/25 09:09 Heparin Sodium 5,000 Units/Ml Vial IV PUSH 3,500 units PRN PRN Administration aPTT 55 - 70 seconds Heparin Sodium/Dextrose 25,000 units in 250 mls @ 17 mls/hr 05/15/25 16:30 05/17/25 09:10 Heparin Sodium/D5w 100 Units/Ml IV CONT 1,700 units/hr .[id number] JAY 17 mls/hr Titration Protocol 1,700 UNITS/HR Lorazepam 0.5 mg 05/15/25 19:58 Lorazepam (*Crx) 0.5 Mg Tablet PO TID PRN Anxiety Magnesium Oxide 400 mg 05/15/25 21:00 05/16/25 20:36 Magnesium Oxide 400 Mg Tablet PO 400 mg HS JAY Administration Metolazone 5 mg 05/16/25 09:00 05/17/25 08:30 Metolazone 5 Mg Tablet PO 5 mg DAILY JAY Administration Metoprolol Succinate 25 mg 05/15/25 21:00 05/16/25 20:36 Metoprolol Succinate Ext Rel 25 Mg Tabcr PO 25 mg HS JAY Administration Morphine Sulfate 4 mg 05/15/25 19:57 Morphine Sulfate (*Crx) 4 Mg/Ml Inj IV PUSH Q4H PRN Pain Rated 7-10 Potassium Chloride 40 meq 05/16/25 09:00 05/17/25 08:31 Potassium Chloride 20 Meq Er Tablet PO 40 meq BID JAY Administration Potassium Chloride 20 meq 05/16/25 12:00 05/16/25 13:17 Potassium Chloride 20 Meq Er Tablet PO 20 meq 1200 JAY Administration Venlafaxine HCl 37.5 mg 05/16/25 09:00 05/17/25 08:30 Venlafaxine Hcl Xr 37.5 Mg Cap PO 37.5 mg DAILY JAY Administration Radiology Results: ITS Impressions Chest CTA 05/15/25 17:45 IMPRESSION: 1. Pulmonary embolism involving both main arteries, segmental and subsegmental branches. Right ventricular strain is noted. 2. Aberrant right subclavian artery. 3. No acute lung lesion seen. Dr. Ford was notified with the result of the patient's 5:55 PM on May 15, 2025. Labs Labs: Laboratory Results - last 24 hr 05/16/25 05/16/25 05/17/25 13:12 19:38 02:31 WBC 5.9 RBC 4.88 Hgb 14.5 Hct 45.0 MCV 92.2 MCH 29.7 MCHC 32.2 RDW 14.2 Plt Count 227 MPV 9.9 APTT 54.0 H 120.0 H 87.1 H Sodium 136 L Potassium 3.6 Chloride 100 Carbon Dioxide 28 Anion Gap 8 BUN 11 Creatinine 0.81 Estim Creat Clear Calc 85 Estimated GFR > 60 Glucose 121 H Calcium 9.9 05/17/25 08:23 WBC RBC Hgb Hct MCV MCH MCHC RDW Plt Count MPV APTT 62.9 H Sodium Potassium Chloride Carbon Dioxide Anion Gap BUN Creatinine Estim Creat Clear Calc Estimated GFR Glucose Calcium
[2025-05-17] MEDS: POTASSIUM CHLORIDE 20 MEQ ER TABLET PO (11:39)
[2025-05-17 12:25] LABS: Troponin I < 0.012 ng/mL (0.000-0.034)
[2025-05-17 15:30] LABS: Partial Thromboplastin Time 85.4 Seconds (22.3-36.8)
[2025-05-17] MEDS: MAGNESIUM OXIDE 400 MG TABLET PO (20:44)
[2025-05-17] MEDS: METOPROLOL SUCCINATE EXT REL 25 MG TABCR PO (20:44)
[2025-05-17] MEDS: ACETAMINOPHEN 500 MG TABLET 1000 MG PO (20:54)
[2025-05-17 23:06] LABS: Partial Thromboplastin Time 82.8 Seconds (22.3-36.8)
[2025-05-17] MEDS: HEPARIN SOD/D5W 100 UNITS/ML 25,000 UNITS/250 ML BAG 17 UNITS IV CONT ×2 (23:12→23:14)
[2025-05-18] VITALS (10 sets, daily range): BP systolic 105–139; BP diastolic 55–79; PULSE 76–99; RESP 16–18; TEMP 36.5–36.7; O2SAT 90–94
[2025-05-18 05:18] LABS: Hematocrit 46.0 % (37.0-47.0); Hemoglobin 14.8 g/dL (12.0-15.0); Mean Corpuscular HGB Conc 32.2 g/dl (32-36); Mean Corpuscular Hemoglobin 29.7 pg (26-34); Mean Corpuscular Volume 92.4 fl (80-100); Platelet Count Result 257 k/mm3 (150-375); Red Blood Count 4.98 M/mm3 (4.2-5.4); White Blood Count 6.9 K/mm3 (4.5-10.0)
[2025-05-18 05:33] LABS: Partial Thromboplastin Time 82.0 Seconds (22.3-36.8)
[2025-05-18 05:37] LABS: Anion Gap 10 mmol/L (4-12); Blood Urea Nitrogen 14 mg/dL (7-17); Calcium 9.5 mg/dL (8.4-10.2); Carbon Dioxide 25 mmol/L (22-30); Chloride 100 mmol/L (98-107); Estimated CRCL calculation 88 ml/min; Estimated Glomerular Filt Rate > 60; Glucose 116 mg/dL (65-110); Potassium 3.5 mmol/L (3.4-5.0); Sodium 135 mmol/L (137-145)
--- NOTE | 2025-05-18 06:55 | P.PNIM_ITS ---
Progress Note: A&P Assessment and Plan (1) Acute deep vein thrombosis (DVT) of right lower extremity: Code(s): I82.401 - Acute embolism and thrombosis of unspecified deep veins of right lower extremity Status: Acute Assessment and Plan: * Continue heparin drip and protocol * P.r.n. analgesia with morphine 4 mg q.4 hours p.r.n. IV push for severe pain, [place] 5/325 p.o. q.4 hours p.r.n. moderate pain and Tylenol 1000 mg q.6 hours p.r.n. mild pain * Continue on bedrest and IV heparin through 7 AM, then discharge to resume home Xarelto 6 hours after stopping IV heparin * 05/18: Pt reports erythema and pain in R lower ext has improved, but still present (2) Pulmonary embolism: Code(s): I26.99 - Other pulmonary embolism without acute cor pulmonale Status: Acute Assessment and Plan: * Continue heparin drip * Supportive care with oxygen * If any EKG changes more acute dyspnea, low threshold for transfer for thrombectomy. * Cardiology consulted. * Telemetry (3) Anxiety: Code(s): F41.9 - Anxiety disorder, unspecified Status: Acute Assessment and Plan: * Acute on chronic as patient is currently very anxious regarding current health status given her new VTE diagnoses. * Ativan 0.5 mg p.o. t.i.d. p.r.n. ordered for situational anxiety. * Continue home dose of Venlafaxine. (4) Status post hernia repair: Code(s): Z98.890 - Other specified postprocedural states; Z87.19 - Personal history of other diseases of the digestive system Status: Acute Assessment and Plan: * Surgeon is Dr. Esposito at [facility]. * No s/s of acute infection or dehiscence of surgical wound. * Abdominal binder in place per surgeons orders. Subjective Date/time seen: 05/18/25 06:55 Interval history: 64-year-old patient with history colon cancer anxiety and he recently had hernia repair surgery in May [address] Esposito at [facility] comes to the emergency room after being notified she had a large DVT. 05/18/2025 Patient sitting comfortably at bedside at time of examination. Denies any chest pain, n/v, sob, or abd pain today. Still has some right lower extremity swelling, but she states it feels improved today, as well as the erythema. Plan to continue Heparin drip until tomorrow morning, then we will make transition to Xarelto with plans for hopeful discharge tomorrow afternoon. She is amenable to this plan and has no other concerns. Review of Systems Review of Systems: All systems reviewed & are unremarkable except as noted in HPI and below Exam Narrative: HEENT: PERRL, sclerae nonicteric, pharyngeal mucosa pink and intact NECK: No JVD CHEST: Clear to auscultation. Normal effort. HEART: NL S1/S2, regular, no murmur ABDOMEN: BS+, soft, nontender, no mass, no bruits EXTREMITIES: No edema, erythema and nodularity and tenderness posteromedial right leg NEUROLOGIC: CN intact and symmetric to inspection MUSCULOSKELETAL: Tone and strength symmetric PSYCH: Alert. Oriented to person, place, and time Const: General: no acute distress and uncomfortable Other: Morbidly obese female patient sitting up in bed at this time in no acute distress. She does appear uncomfortable as she reports pain in the right lower extremity. She does not report any dyspnea. HENMT: Face/Nose/Sinus: Normal nares present Eyes: General: appearance normal, both eyes and all related structures Sclera: sclerae normal Pupils: Equal, round and reactive pupils present EOM: EOMs intact bilaterally Neck: Neck: supple and no JVD Lymphatic: lymphadenopathy not noted Chest: Other: Nontender to palpation Resp: Effort & Inspection: normal respiratory effort Auscultation: diminished lung sounds (Throughout) Cardio: Rate: tachycardic Rhythm: regular rhythm Heart sounds: no gallops, no murmurs and no rubs GI: Inspection: non-distended Auscultation: normal bowel sounds Other: Abdominal binder in place. Midline abdominal incision superior of the umbilicus region well approximated, no redness, no swelling, no dehiscence or drainage. Skin: General skin exam: No lesion and No rashes Lesions: no lesions noted Rashes: no rashes noted Wounds: no wounds Other: Right lower extremity posteriorly warm to the touch, red and edematous. Distal neurovascular status is intact. Neuro: General: gait normal Cranial nerves: Yes Equal, round and reactive pupils present Speech: normal speech Motor exam (neuro): 5/5 motor strength present throughout and Normal motor muscle tone present throughout Sensory Exam: normal sensation Extrem: General: normal exam except as noted, edema and pedal edema Other: Right lower extremity greater than left Psych: Mental Status: mental status grossly normal Affect: Anxious affect present Objective Data Vital Signs Vital Signs: Vital Signs - 24 hr 05/17/25 08:00 05/17/25 12:00 05/17/25 14:00 Temperature 98.2 F Pulse Rate 77 93 86 Respiratory Rate 16 Blood Pressure 114/62 Pulse Oximetry 93 05/17/25 16:00 05/17/25 20:00 05/17/25 20:44 Temperature Pulse Rate 93 94 96 Respiratory Rate Blood Pressure Pulse Oximetry 05/17/25 22:00 05/18/25 00:00 05/18/25 06:00 Temperature 98.2 F 97.7 F 98.1 F Pulse Rate 101 H 85 79 Respiratory Rate 18 18 18 Blood Pressure 126/59 L 113/63 108/55 L Pulse Oximetry 92 93 90 Intake/Output Intake/Output: Intake & Output 05/15/25 05/16/25 05/17/25 05/18/25 23:59 23:59 23:59 23:59 Intake Total 100.2 2651.3 1502.4 Balance 100.2 2651.3 1502.4 Meds/Results Medications: Active Medications Generic Name Dose Route Start Last Admin Trade Name Freq PRN Reason Stop Dose Admin Acetaminophen 1,000 mg 05/15/25 19:57 05/17/25 20:54 Acetaminophen 500 Mg Tablet PO 1,000 mg Q6H PRN Administration Mild Pain (1-3) or Fever Hydrocodone Bitart/Acetaminophen 1 tab 05/15/25 19:57 05/16/25 00:11 Hydrocodone/Acetaminophen (*Crx) 5-325 Mg Tablet PO 1 tab Q4H PRN Administration Pain Rated 4-6 Calcium Carbonate 500 mg 05/16/25 09:00 05/17/25 16:27 Calcium/Vitamin D 500 Mg/5 Mcg (200 I.U.) Tablet PO 500 mg BID JAY Administration Cyclobenzaprine HCl 10 mg 05/15/25 20:27 05/15/25 22:05 Cyclobenzaprine Hcl 10 Mg Tablet PO 10 mg TID PRN Administration Muscle Spasm Furosemide 40 mg 05/16/25 09:00 05/17/25 08:30 Furosemide 40 Mg Tablet PO 40 mg DAILY JAY Administration Heparin Sodium (Porcine) 7,000 units 05/15/25 16:26 05/16/25 13:41 Heparin Sodium 5,000 Units/Ml Vial IV PUSH 7,000 units PRN PRN Administration aPTT less than 55 seconds Heparin Sodium (Porcine) 3,500 units 05/15/25 16:26 05/17/25 09:09 Heparin Sodium 5,000 Units/Ml Vial IV PUSH 3,500 units PRN PRN Administration aPTT 55 - 70 seconds Heparin Sodium/Dextrose 25,000 units in 250 mls @ 17 mls/hr 05/15/25 16:30 05/17/25 23:14 Heparin Sodium/D5w 100 Units/Ml IV CONT 1,700 units/hr .[id number] JAY 17 mls/hr Titration Protocol 1,700 UNITS/HR Lorazepam 0.5 mg 05/15/25 19:58 Lorazepam (*Crx) 0.5 Mg Tablet PO TID PRN Anxiety Magnesium Oxide 400 mg 05/15/25 21:00 05/17/25 20:44 Magnesium Oxide 400 Mg Tablet PO 400 mg HS JAY Administration Metolazone 5 mg 05/16/25 09:00 05/17/25 08:30 Metolazone 5 Mg Tablet PO 5 mg DAILY JAY Administration Metoprolol Succinate 25 mg 05/15/25 21:00 05/17/25 20:44 Metoprolol Succinate Ext Rel 25 Mg Tabcr PO 25 mg HS JAY Administration Morphine Sulfate 4 mg 05/15/25 19:57 Morphine Sulfate (*Crx) 4 Mg/Ml Inj IV PUSH Q4H PRN Pain Rated 7-10 Perflutren Lipid Microsphere 0 ml 05/17/25 11:40 Perflutren Lipid Microspheres 1.5 Ml Vial Diluted To 10 Ml Total Volume IV PUSH 05/20/25 11:40 ONCE PRN adequate visualization Protocol Potassium Chloride 40 meq 05/16/25 09:00 05/17/25 16:27 Potassium Chloride 20 Meq Er Tablet PO 40 meq BID JAY Administration Potassium Chloride 20 meq 05/16/25 12:00 05/17/25 11:39 Potassium Chloride 20 Meq Er Tablet PO 20 meq 1200 JAY Administration Venlafaxine HCl 37.5 mg 05/16/25 09:00 05/17/25 08:30 Venlafaxine Hcl Xr 37.5 Mg Cap PO 37.5 mg DAILY JAY Administration Radiology Results: ITS Impressions Chest CTA 05/15/25 17:45 IMPRESSION: 1. Pulmonary embolism involving both main arteries, segmental and subsegmental branches. Right ventricular strain is noted. 2. Aberrant right subclavian artery. 3. No acute lung lesion seen. Dr. Ford was notified with the result of the patient's 5:55 PM on May 15, 2025. Labs Labs: Laboratory Results - last 24 hr 05/17/25 05/17/25 05/17/25 08:23 11:56 15:09 WBC RBC Hgb Hct MCV MCH MCHC RDW Plt Count MPV APTT 62.9 H 85.4 H Sodium Potassium Chloride Carbon Dioxide Anion Gap BUN Creatinine Estim Creat Clear Calc Estimated GFR Glucose Calcium Troponin I < 0.012 05/17/25 05/18/25 20:52 04:45 WBC 6.9 RBC 4.98 Hgb 14.8 Hct 46.0 MCV 92.4 MCH 29.7 MCHC 32.2 RDW 14.2 Plt Count 257 MPV 10.2 APTT 82.8 H 82.0 H Sodium 135 L Potassium 3.5 Chloride 100 Carbon Dioxide 25 Anion Gap 10 BUN 14 Creatinine 0.78 Estim Creat Clear Calc 88 Estimated GFR > 60 Glucose 116 H Calcium 9.5 Troponin I Quality VTE Prophylaxis VTE prophylaxis: pharmacologic ordered
[2025-05-18] MEDS: CALCIUM/VITAMIN D 500 MG/5 MCG (200 I.U.) TABLET PO ×2 (08:13→17:38)
[2025-05-18] MEDS: VENLAFAXINE HCL XR 37.5 MG CAP PO (08:14)
[2025-05-18] MEDS: POTASSIUM CHLORIDE 20 MEQ ER TABLET 40 MEQ PO ×2 (08:14→17:39)
[2025-05-18] MEDS: FUROSEMIDE 40 MG TABLET PO (08:14)
[2025-05-18] MEDS: POTASSIUM CHLORIDE 20 MEQ ER TABLET PO (12:26)
--- NOTE | 2025-05-18 12:38 | PM.PNCARD ---
Progress Note: A&P Assessment and Plan (1) Acute deep vein thrombosis (DVT) of right lower extremity: Code(s): I82.401 - Acute embolism and thrombosis of unspecified deep veins of right lower extremity Status: Acute Plan Right lower extremity DVT Pulmonary embolism without significant hemodynamic changes and negative troponin Change heparin to Xarelto 50 mg b.i.d. for 3 weeks then 20 mg daily Transthoracic thoracic echocardiogram Subjective Date/time seen: 05/18/25 12:38 Interval history: No acute events Tele Sinus rhythm Review of Systems Review of Systems: All systems reviewed & are unremarkable except as noted in HPI and below Exam Narrative: GENERAL APPEARANCE: WELL-DEVELOPED, WELL-NOURISHED SKIN: NORMAL COLOR HEAD: NORMOCEPHALIC, NONTRAUMATIC EYES: CLEAR CONJUNCTIVA ENT: OROPHARYNX NORMAL, EARS NORMAL, NOSE NORMAL NECK: SUPPLE, NONTENDER CHEST AND RESPIRATORY: AIRWAY PATENT, NO RESPIRATORY DISTRESS, NO ACCESSORY MUSCLE USE HEART: REGULAR RATE/RHYTHM ABDOMEN: SOFT, NONTENDER, NO ORGANOMEGALY, QUIET BOWEL SOUNDS VASCULAR: NORMAL PERIPHERAL PULSES, NORMAL CAPILLARY REFILL. MUSCULOSKELETAL: RIGHT LOWER EXTREMITY SHOWED DIFFUSE SWELLING, DIFFUSE TENDERNESS UP TO THE GROIN AREA NEUROLOGIC: ALERT AND ORIENTED ?3, PHARMACY TECHNOLOGIST IS NORMAL TESTED, NO GROSS MOTOR DEFICIT Objective Data Vital Signs Vital Signs: Vital Signs - 24 hr 05/17/25 14:00 05/17/25 16:00 05/17/25 20:00 Temperature 36.8 C Pulse Rate 86 93 94 Respiratory Rate 16 Blood Pressure 114/62 Pulse Oximetry 93 Oxygen Delivery 05/17/25 20:44 05/17/25 22:00 05/18/25 00:00 Temperature 36.8 C 36.5 C Pulse Rate 96 101 H 85 Respiratory Rate 18 18 Blood Pressure 126/59 L 113/63 Pulse Oximetry 92 93 Oxygen Delivery 05/18/25 00:00 05/18/25 04:00 05/18/25 06:00 Temperature 36.7 C Pulse Rate 90 80 79 Respiratory Rate 18 Blood Pressure 108/55 L Pulse Oximetry 90 Oxygen Delivery 05/18/25 08:10 Temperature Pulse Rate Respiratory Rate Blood Pressure Pulse Oximetry Oxygen Delivery Room Air Intake/Output Intake/Output: Intake & Output 05/15/25 05/16/25 05/17/25 05/18/25 23:59 23:59 23:59 23:59 Intake Total 100.2 2651.3 1502.4 Balance 100.2 2651.3 1502.4 Meds/Results Medications: Active Medications Generic Name Dose Route Start Last Admin Trade Name Alex PRN Reason Stop Dose Admin Acetaminophen 1,000 mg 05/15/25 19:57 05/17/25 20:54 Acetaminophen 500 Mg Tablet PO 1,000 mg Q6H PRN Administration Mild Pain (1-3) or Fever Hydrocodone Bitart/Acetaminophen 1 tab 05/15/25 19:57 05/16/25 00:11 Hydrocodone/Acetaminophen (*Crx) 5-325 Mg Tablet PO 1 tab Q4H PRN Administration Pain Rated 4-6 Calcium Carbonate 500 mg 05/16/25 09:00 05/18/25 08:13 Calcium/Vitamin D 500 Mg/5 Mcg (200 I.U.) Tablet PO 500 mg BID JAY Administration Cyclobenzaprine HCl 10 mg 05/15/25 20:27 05/15/25 22:05 Cyclobenzaprine Hcl 10 Mg Tablet PO 10 mg TID PRN Administration Muscle Spasm Furosemide 40 mg 05/16/25 09:00 05/18/25 08:14 Furosemide 40 Mg Tablet PO 40 mg DAILY JAY Administration Heparin Sodium (Porcine) 7,000 units 05/15/25 16:26 05/16/25 13:41 Heparin Sodium 5,000 Units/Ml Vial IV PUSH 7,000 units PRN PRN Administration aPTT less than 55 seconds Heparin Sodium (Porcine) 3,500 units 05/15/25 16:26 05/17/25 09:09 Heparin Sodium 5,000 Units/Ml Vial IV PUSH 3,500 units PRN PRN Administration aPTT 55 - 70 seconds Heparin Sodium/Dextrose 25,000 units in 250 mls @ 17 mls/hr 05/15/25 16:30 05/17/25 23:14 Heparin Sodium/D5w 100 Units/Ml IV CONT 1,700 units/hr .[id number] JAY 17 mls/hr Administration Protocol 1,700 UNITS/HR Lorazepam 0.5 mg 05/15/25 19:58 Lorazepam (*Crx) 0.5 Mg Tablet PO TID PRN Anxiety Magnesium Oxide 400 mg 05/15/25 21:00 05/17/25 20:44 Magnesium Oxide 400 Mg Tablet PO 400 mg HS JAY Administration Metolazone 5 mg 05/16/25 09:00 05/18/25 08:13 Metolazone 5 Mg Tablet PO 5 mg DAILY JAY Administration Metoprolol Succinate 25 mg 05/15/25 21:00 05/17/25 20:44 Metoprolol Succinate Ext Rel 25 Mg Tabcr PO 25 mg HS JAY Administration Morphine Sulfate 4 mg 05/15/25 19:57 Morphine Sulfate (*Crx) 4 Mg/Ml Inj IV PUSH Q4H PRN Pain Rated 7-10 Perflutren Lipid Microsphere 0 ml 05/17/25 11:40 Perflutren Lipid Microspheres 1.5 Ml Vial Diluted To 10 Ml Total Volume IV PUSH 05/20/25 11:40 ONCE PRN adequate visualization Protocol Potassium Chloride 40 meq 05/16/25 09:00 05/18/25 08:14 Potassium Chloride 20 Meq Er Tablet PO 40 meq BID JAY Administration Potassium Chloride 20 meq 05/16/25 12:00 05/18/25 12:26 Potassium Chloride 20 Meq Er Tablet PO 20 meq 1200 JAY Administration Venlafaxine HCl 37.5 mg 05/16/25 09:00 05/18/25 08:14 Venlafaxine Hcl Xr 37.5 Mg Cap PO 37.5 mg DAILY JAY Administration Radiology Results: ITS Impressions Chest CTA 05/15/25 17:45 IMPRESSION: 1. Pulmonary embolism involving both main arteries, segmental and subsegmental branches. Right ventricular strain is noted. 2. Aberrant right subclavian artery. 3. No acute lung lesion seen. Dr. Ford was notified with the result of the patient's 5:55 PM on May 15, 2025. Labs Labs: Laboratory Results - last 24 hr 05/17/25 05/17/25 05/18/25 15:09 20:52 04:45 WBC 6.9 RBC 4.98 Hgb 14.8 Hct 46.0 MCV 92.4 MCH 29.7 MCHC 32.2 RDW 14.2 Plt Count 257 MPV 10.2 APTT 85.4 H 82.8 H 82.0 H Sodium 135 L Potassium 3.5 Chloride 100 Carbon Dioxide 25 Anion Gap 10 BUN 14 Creatinine 0.78 Estim Creat Clear Calc 88 Estimated GFR > 60 Glucose 116 H Calcium 9.5
[2025-05-18] MEDS: RIVAROXABAN 15 MG TABLET PO ×2 (13:00→20:09)
[2025-05-18] MEDS: METOPROLOL SUCCINATE EXT REL 25 MG TABCR PO (20:08)
[2025-05-18] MEDS: MAGNESIUM OXIDE 400 MG TABLET PO (20:08)
[2025-05-19] VITALS: PULSE 95
--- NOTE | 2025-05-19 | ECHO_ITS ---
Patient Info Name: Ivett Hemphill Age: 64 years : 1960 Gender: Female Ht: 66 in Wt: 277 lbs BSA: 2.49 m2 HR: 89 bpm BP: 105 / 79 mmHg Heart Rhythm: Sinus Rhythm Technical Quality: Good Exam Date: 05/19/2025 12:20 PM Patient Status: I Admit Date: 05/17/2025 Exam Type: CA echo dop color flow w con Complete two-dimensional, color flow and Doppler transthoracic echocardiogram is performed with contrast to opacify the left ventricle and to improve the deliniation of the left ventricle endocardial borders. Staff Referring Physician: Rosa Isela Ford MD Apartment Property Manager: Iris Galloway Attending Provider: Phani Smith MD Contrast/Agitated Saline Contrast/Ag. Saline: Definity Amount: 2.00 ml Administered By: Iris Galloway Existing IV Access: Yes IV Access Condition: patent with no signs of infiltration Summary 1. Left ventricular systolic function is normal, estimated at 60-65. 2. The left ventricular diastolic function is grade I diastolic dysfunction. 3. There is mild tricuspid valve regurgitation. 4. No pulmonary hypertension, estimated pulmonary arterial systolic pressure is 30 mmHg. Left Ventricle Left ventricular chamber dimension is normal. Left ventricular systolic function is normal, estimated at 60-65. There is no increased left ventricular wall thickness. Left ventricular septal wall motion is normal. The left ventricular diastolic function is grade I diastolic dysfunction. Right Ventricle Right ventricular chamber dimension is normal. Right ventricular systolic function is normal. Left Atria Left atrial chamber dimension is normal. Right Atria Right atrial chamber dimension is normal. Aortic Valve The aortic valve is trileaflet. There is no aortic valve sclerosis. There is no aortic valve stenosis. There is no aortic valve regurgitation. Pulmonic Valve The pulmonic valve is normal. There is no pulmonic valve stenosis. There is no pulmonic regurgitation. Mitral Valve The mitral valve has normal leaflets. There is no mitral valve stenosis. There is no mitral valve regurgitation. There is mild mitral valve calcification. Tricuspid Valve The tricuspid valve leaflets are normal. There is no significant tricuspid valve stenosis. There is mild tricuspid valve regurgitation. No pulmonary hypertension, estimated pulmonary arterial systolic pressure is 30 mmHg. Pericardium/Pleural The pericardium appears normal. There is no pericardial effusion. Inferior Vena Cava Normal inferior vena cava with >50% collapse upon inspiration consistent with normal right atrial pressure, 5 mmHg. Aorta The aortic root size at the sinus of Valsalva is normal. The prox ascending aorta size is normal. Left Ventricular Outflow Tract Name Value Normal LVOT 2D LVOT Diameter 2.0 cm LVOT Doppler LVOT Peak Velocity 129 cm/s LVOT Peak Gradient 7 mmHg LVOT Mean Gradient 3 mmHg LVOT VTI 19 cm LVOT VTI/AV VTI Ratio 0.9 LVOT Stroke Volume 59 ml LVOT CO 4.9 l/min LVOT CI 2.0 l/min/m2 Pulmonic Valve Name Value Normal RVOT Doppler RVOT Peak Velocity 54 cm/s RVOT Peak Gradient 1 mmHg PV Doppler PV Peak Velocity 91 cm/s PV Peak Gradient 3 mmHg Mitral Valve Name Value Normal MV Diastolic Function MV E Peak Velocity 48 cm/s MV A Peak Velocity 74 cm/s MV E/A 0.6 MV Decel Time (PW) 185 ms MV Annular TDI MV E/e' (Septal) 8.7 MV E/e' (Lateral) 5.6 MV E/e' (Average) 7.2 Tricuspid Valve Name Value Normal TV Regurgitation Doppler TR Peak Velocity 250 cm/s TR Peak Gradient 25 mmHg Estimated PAP/RSVP RA Pressure 5 mmHg <=5 PA Systolic Pressure 30 mmHg <36 RV Systolic Pressure 30 mmHg <36 TV Annular TDI TV Lateral Isabell s' Velocity 15.2 cm/s >=9.5 Aortic Valve Name Value Normal AV Doppler AV Peak Velocity 127 cm/s AV Peak Gradient 6 mmHg AV Mean Gradient 3 mmHg AV VTI 21 cm AV Area (Cont Eq VTI) 2.8 cm2 >=3.0 AV Area (Cont Eq Anil) 3.1 cm2 AV DI (Anil) 1.02 AV Regurgitation 2D LVOT Area 3.1 cm2 Ventricles Name Value Normal LV Dimensions 2D/MM IVS Diastolic Thickness (2D) 1.0 cm 0.6-1.0 LVID Diastole (2D) 4.8 cm 3.8-5.2 LVIW Diastolic Thickness (2D) 0.9 cm 0.6-0.9 LVID Systole (2D) 2.9 cm 2.2-3.5 LVOT Diameter 2.0 cm LV Mass (2D Cubed) 157.11 g 67.00-162.00 LV Mass Index (2D Cubed) 63 g/m2 43-95 Relative Wall Thickness (2D) 0.38 <=0.42 LV Fractional Shortening/Ejection Fraction 2D/MM LV Fractional Shortening (2D) 40 % 27-45 LV EF (2D Teichholz) 70 % LV Diastolic Volume (4C MOD) 54 ml LV EF (4C MOD) 67 % LV Diastolic Volume (2C MOD) 47 ml LV EF (2C MOD) 61 % LV Diastolic Volume (BP MOD) 51 ml 46-106 LV Diastolic Volume Index (BP MOD) 21 ml/m2 29-61 LV Systolic Volume (BP MOD) 18 ml 14-42 LV Systolic Volume Index (BP MOD) 7 ml/m2 8-24 LV EF (BP MOD) 65 % 54-74 LV Diastolic Length (4C) 8.4 cm LV Systolic Length (4C) 6.5 cm LV Stroke Volume (4C MOD) 36 ml Atria Name Value Normal LA Dimensions LA Volume (4C A-L) 51 ml LA Volume (BP A-L) 57 ml RA Dimensions RA Area (4C) 16.2 cm2 <=18.0 Report Signatures
[2025-05-19 04:00] VITALS: PULSE 89
[2025-05-19 04:57] LABS: Hematocrit 48.0 % (37.0-47.0); Hemoglobin 15.2 g/dL (12.0-15.0); Mean Corpuscular HGB Conc 31.7 g/dl (32-36); Mean Corpuscular Hemoglobin 29.3 pg (26-34); Mean Corpuscular Volume 92.7 fl (80-100); Platelet Count Result 295 k/mm3 (150-375); Red Blood Count 5.18 M/mm3 (4.2-5.4); White Blood Count 6.8 K/mm3 (4.5-10.0)
[2025-05-19 05:13] LABS: Anion Gap 11 mmol/L (4-12); Blood Urea Nitrogen 18 mg/dL (7-17); Calcium 9.7 mg/dL (8.4-10.2); Carbon Dioxide 27 mmol/L (22-30); Chloride 97 mmol/L (98-107); Estimated CRCL calculation 86 ml/min; Estimated Glomerular Filt Rate > 60; Glucose 113 mg/dL (65-110); Potassium 3.3 mmol/L (3.4-5.0); Sodium 135 mmol/L (137-145)
[2025-05-19 06:00] VITALS: BP 123/66; PULSE 83; RESP 18; TEMP 36.5; O2SAT 94
[2025-05-19 08:00] VITALS: PULSE 109
[2025-05-19] MEDS: CALCIUM/VITAMIN D 500 MG/5 MCG (200 I.U.) TABLET PO (08:16)
[2025-05-19] MEDS: RIVAROXABAN 15 MG TABLET PO (08:16)
[2025-05-19] MEDS: FUROSEMIDE 40 MG TABLET PO (08:16)
[2025-05-19] MEDS: POTASSIUM CHLORIDE 20 MEQ ER TABLET 40 MEQ PO (08:17)
[2025-05-19] MEDS: VENLAFAXINE HCL XR 37.5 MG CAP PO (08:17)
[2025-05-19 12:00] VITALS: PULSE 98
[2025-05-19] MEDS: POTASSIUM CHLORIDE 20 MEQ ER TABLET PO (12:12)
[2025-05-19] MEDS: PERFLUTREN LIPID MICROSPHERES 1.5 ML VIAL DILUTED TO 10 ML TOTAL VOLUME IV PUSH (12:52)
--- NOTE | 2025-05-19 13:16 | IVDEFINITY ---
Prior to administration of IV Definity the patient was educated on the risks and benefits of the imaging enhancing agent including potential adverse side effects. The patient verbalized understanding. Allergies were verified. No exclusion criteria were identified and at least one of the following inclusion criteria were met: 1) physician request, 2) patient technically difficult to image (per the [place] [employer] guidelines of two or more segments not discernable within the apical view), or 3) questionable left ventricular function. ?
[2025-05-19 14:20] VITALS: BP 117/78; PULSE 82; RESP 18; TEMP 36.3; O2SAT 94
--- NOTE | 2025-05-19 14:37 | PM.PNCARD ---
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 Patient is on lifelong anticoagulation for history of extensive DVT TTE today Continue Lasix and metolazone Continue metoprolol Subjective Date/time seen: 05/19/25 14:37 Interval history: Reason for encounter: DVT, PE Interval history: No chest pain, shortness of breath, dizziness, palpitations, fever, chills. Telemetry shows sinus rhythm. Review of Systems Cardiovascular: Comments: As mentioned in the HPI Respiratory: Comments: As mentioned in the HPI Exam Narrative: General: Alert oriented x3, no acute distress Neck: Supple, no JVD Chest: Bilaterally clear to auscultation, no rales or rhonchi Cardiac: S1, S2 +, regular rate, regular rhythm, no murmurs or rubs Extremities: Bilateral lower extremity edema 1+, no skin rash Neurologic: Alert and oriented x3, no focal neurological deficits Objective Data Vital Signs Vital Signs: Vital Signs - 24 hr 05/18/25 16:00 05/18/25 20:00 05/18/25 20:00 Temperature Pulse Rate 96 89 Respiratory Rate Blood Pressure Pulse Oximetry Oxygen Delivery Room Air Fraction of Inspired Oxygen 05/18/25 20:23 05/18/25 22:00 05/19/25 00:00 Temperature 36.7 C Pulse Rate 87 95 Respiratory Rate 18 Blood Pressure 105/79 Pulse Oximetry 94 91 Oxygen Delivery Room Air Fraction of Inspired Oxygen 21 05/19/25 04:00 05/19/25 06:00 05/19/25 08:00 Temperature 36.5 C Pulse Rate 89 83 109 H Respiratory Rate 18 Blood Pressure 123/66 Pulse Oximetry 94 Oxygen Delivery Fraction of Inspired Oxygen 05/19/25 08:15 05/19/25 12:00 05/19/25 14:20 Temperature 36.3 C L Pulse Rate 98 82 Respiratory Rate 18 Blood Pressure 117/78 Pulse Oximetry 94 Oxygen Delivery Room Air Fraction of Inspired Oxygen Intake/Output Intake/Output: Intake & Output 05/16/25 05/17/25 05/18/25 05/19/25 23:59 23:59 23:59 23:59 Intake Total 2651.3 1502.4 720 480 Balance 2651.3 1502.4 720 480 Meds/Results Medications: Active Medications Generic Name Dose Route Start Last Admin Trade Name Freq PRN Reason Stop Dose Admin Acetaminophen 1,000 mg 05/15/25 19:57 05/17/25 20:54 Acetaminophen 500 Mg Tablet PO 1,000 mg Q6H PRN Administration Mild Pain (1-3) or Fever Hydrocodone Bitart/Acetaminophen 1 tab 05/15/25 19:57 05/16/25 00:11 Hydrocodone/Acetaminophen (*Crx) 5-325 Mg Tablet PO 1 tab Q4H PRN Administration Pain Rated 4-6 Calcium Carbonate 500 mg 05/16/25 09:00 05/19/25 08:16 Calcium/Vitamin D 500 Mg/5 Mcg (200 I.U.) Tablet PO 500 mg BID JAY Administration Cyclobenzaprine HCl 10 mg 05/15/25 20:27 05/15/25 22:05 Cyclobenzaprine Hcl 10 Mg Tablet PO 10 mg TID PRN Administration Muscle Spasm Furosemide 40 mg 05/16/25 09:00 05/19/25 08:16 Furosemide 40 Mg Tablet PO 40 mg DAILY JAY Administration Lorazepam 0.5 mg 05/15/25 19:58 Lorazepam (*Crx) 0.5 Mg Tablet PO TID PRN Anxiety Magnesium Oxide 400 mg 05/15/25 21:00 05/18/25 20:08 Magnesium Oxide 400 Mg Tablet PO 400 mg HS JAY Administration Metolazone 5 mg 05/16/25 09:00 05/19/25 10:47 Metolazone 5 Mg Tablet PO Not Given DAILY JAY Metoprolol Succinate 25 mg 05/15/25 21:00 05/18/25 20:08 Metoprolol Succinate Ext Rel 25 Mg Tabcr PO 25 mg HS JAY Administration Morphine Sulfate 4 mg 05/15/25 19:57 Morphine Sulfate (*Crx) 4 Mg/Ml Inj IV PUSH Q4H PRN Pain Rated 7-10 Potassium Chloride 40 meq 05/16/25 09:00 05/19/25 08:17 Potassium Chloride 20 Meq Er Tablet PO 40 meq BID JAY Administration Potassium Chloride 20 meq 05/16/25 12:00 05/19/25 12:12 Potassium Chloride 20 Meq Er Tablet PO 20 meq 1200 JAY Administration Rivaroxaban 15 mg 05/18/25 13:00 05/19/25 08:16 Rivaroxaban 15 Mg Tablet PO 06/07/25 17:01 15 mg BIDWM JAY Administration Rivaroxaban 20 mg 06/08/25 09:00 Rivaroxaban 20 Mg Tablet PO DAILY JAY Venlafaxine HCl 37.5 mg 05/16/25 09:00 05/19/25 08:17 Venlafaxine Hcl Xr 37.5 Mg Cap PO 37.5 mg DAILY JAY Administration Radiology Results: ITS Impressions Chest CTA 05/15/25 17:45 IMPRESSION: 1. Pulmonary embolism involving both main arteries, segmental and subsegmental branches. Right ventricular strain is noted. 2. Aberrant right subclavian artery. 3. No acute lung lesion seen. Dr. Ford was notified with the result of the patient's 5:55 PM on May 15, 2025. Labs Labs: Laboratory Results - last 24 hr 05/19/25 04:15 WBC 6.8 RBC 5.18 Hgb 15.2 H Hct 48.0 H MCV 92.7 MCH 29.3 MCHC 31.7 L RDW 14.0 Plt Count 295 MPV 10.3 Sodium 135 L Potassium 3.3 L Chloride 97 L Carbon Dioxide 27 Anion Gap 11 BUN 18 H Creatinine 0.80 Estim Creat Clear Calc 86 Estimated GFR > 60 Glucose 113 H Calcium 9.7
--- NOTE | 2025-05-19 15:35 | P.DS_ITS ---
DS: Admitting Diagnosis Discharge Date 05/19/2025 Admitting Diagnosis Acute deep vein thrombosis (DVT) of right lower extremity DS: Discharge Diagnosis Discharge Diagnosis (1) Acute deep vein thrombosis (DVT) of right lower extremity: Code(s): I82.401 - Acute embolism and thrombosis of unspecified deep veins of right lower extremity Status: Acute (2) Pulmonary embolism: Code(s): I26.99 - Other pulmonary embolism without acute cor pulmonale Status: Acute (3) Anxiety: Code(s): F41.9 - Anxiety disorder, unspecified Status: Acute (4) Status post hernia repair: Code(s): Z98.890 - Other specified postprocedural states; Z87.19 - Personal history of other diseases of the digestive system Status: Acute DS: Summary Hospital Course Reason for hospitalization: DVT Hospital Course: This is a very pleasant 8-year-old patient with history colon cancer anxiety and he recently had hernia repair surgery in May [address] Esposito at [facility] comes to the emergency room after being notified she had a large DVT. Patient had been advised to hold her Xarelto which she takes for history of previous DVTs and had held it for 10 days. She just restarted it today. Due to swelling, warmth, redness and pain in the right lower extremity outpatient Dopplers were ordered that returned with findings of extensive right femoral, right popliteal, right peroneal and right posterior tibial DVT. Patient came to the emergency room and there further workup was performed. She denies any chest pain, dyspnea but is anxious. In the emergency room CBC and metabolic panel are unremarkable, coags are normal, EKG showing normal sinus rhythm with some ST depression present in V4 and V5. Vital signs significant for a pulse of 100. CTA of the chest was per formed as patient does have extensive DVT with findings of pulmonary emboli in the bilateral main arteries with segmental and subsegmental emboli as well. There was evidence of right heart strain. The ER physician discussed with Cardiology and Cardiology was comfortable with keeping the patient here as she does not currently have an oxygen requirement and is asymptomatic. She was initiated on a heparin drip and is being admitted in the current situation. Patient seen by Cardiology for acute DVT of right lower extremity. Etiology likely due to temporary discontinuation of anticoagulation for hernia repair. Patient was subsequently put on heparin transfusion and serial troponins ordered to assess for any cardiac ischemia. Transthoracic echocardiogram was ordered which showed EF of 60-65%, grade 1 diastolic dysfunction, mild TVR and no pulmonary hypertension. Cardiology cleared patient for discharge with continuation of Xarelto 50 mg b.i.d. for 3 weeks with continuation of her normal 20 mg daily regimen after that. Recommended also continuing Lasix, metolazone, metoprolol. Patient has remained hemodynamically stable throughout hospitalization. Blood work and vital signs have been reassuring. 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 Status at Discharge Functional status at discharge: independent ambulation Overall status at discharge: patient is back to baseline Time Spent with Patient Time attestation: Total time spent providing and/or coordinating discharge s 41ervices: Exam Narrative: HEENT: PERRL, sclerae nonicteric, pharyngeal mucosa pink and intact NECK: No JVD CHEST: Clear to auscultation. Normal effort. HEART: NL S1/S2, regular, no murmur ABDOMEN: BS+, soft, nontender, no mass, no bruits EXTREMITIES: Bilateral lower extremity edema 1+, erythema and nodularity and tenderness posteromedial right leg NEUROLOGIC: CN intact and symmetric to inspection MUSCULOSKELETAL: Tone and strength symmetric PSYCH: Alert. Oriented to person, place, and time Const: General: no acute distress and uncomfortable Other: Morbidly obese female patient sitting up in bed at this time in no acute distress. She does appear uncomfortable as she reports pain in the right lower extremity. She does not report any dyspnea. HENMT: Face/Nose/Sinus: Normal nares present Eyes: General: appearance normal, both eyes and all related structures Sclera: sclerae normal Pupils: Equal, round and reactive pupils present EOM: EOMs intact bilaterally Neck: Neck: supple and no JVD Lymphatic: lymphadenopathy not noted Chest: Other: Nontender to palpation Resp: Effort & Inspection: normal respiratory effort Auscultation: diminished lung sounds (Throughout) Cardio: Rate: tachycardic Rhythm: regular rhythm Heart sounds: no gallops, no murmurs and no rubs GI: Inspection: non-distended Auscultation: normal bowel sounds Other: Abdominal binder in place. Midline abdominal incision superior of the umbilicus region well approximated, no redness, no swelling, no dehiscence or drainage. Skin: General skin exam: No lesion and No rashes Lesions: no lesions noted Rashes: no rashes noted Wounds: no wounds Other: Right lower extremity posteriorly warm to the touch, red and edematous. Distal neurovascular status is intact. Neuro: General: gait normal Cranial nerves: Yes Equal, round and reactive pupils present Speech: normal speech Motor exam (neuro): 5/5 motor strength present throughout and Normal motor muscle tone present throughout Sensory Exam: normal sensation Extrem: General: normal exam except as noted, edema and pedal edema Other: Right lower extremity greater than left Psych: Mental Status: mental status grossly normal Affect: Anxious affect present DS: Data Data Completed and Pending Labs on day of discharge: Labs from last 24 hours 05/19/25 04:15 WBC 6.8 RBC 5.18 Hgb 15.2 H Hct 48.0 H MCV 92.7 MCH 29.3 MCHC 31.7 L RDW 14.0 Plt Count 295 MPV 10.3 Sodium 135 L Potassium 3.3 L Chloride 97 L Carbon Dioxide 27 Anion Gap 11 BUN 18 H Creatinine 0.80 Estim Creat Clear Calc 86 Estimated GFR > 60 Glucose 113 H Calcium 9.7 Discharge Plan Discharge Attending physician on discharge: Phani Smith Consulting providers: Miah Kim; Pedro Philip Discharging Clinician: Pedro Philip Anticipated Discharge Date/Time: 05/19/25 15:31 Patient Disposition: Home Activity: as tolerated Diet: as tolerated Discharge Instructions: Discharge disposition: Home, stable Take medications as prescribed. You will be prescribed Xarelto 50 mg to be taken twice daily for 3 total weeks. After that, resume taking your Xarelto 20 mg daily. Continue taking your Lasix, metolazone and metoprolol. Monitor blood pressures Take caution while standing, rising, or moving Change positions slowly taking a break between each position change If you standing feel dizzy sit back down and take a break Encouraged to continue with yearly vaccinations Return to the emergency department if he developed sudden shortness of breath, chest pain, nausea, vomiting, upset stomach or intractable diarrhea Return to the emergency department if you develop fever greater than 101.5 Follow-up with the primary care physician within 1-2 weeks Thank you for choosing [facility] for your healthcare needs Patient Instructions: Antibiotic Form, Rivaroxaban (By mouth) Patient Language: Afghan Stand Alone Forms: General Discharge Information Follow-up/Referrals: Miah Kim MD [Physician] - Kennedy,Tristen Rosales MD [Primary Care Provider] - Discharge Medications: New Xarelto 10 mg tablet 50 mg PO BID 21 Days Qty: 210 0RF Rx Instructions: for 35 days Continued furosemide 40 mg tablet 40 mg PO DAILY venlafaxine 37.5 mg capsule,extended release 24hr 37.5 mg PO DAILY metolazone 5 mg tablet 5 mg PO DAILY magnesium oxide 500 mg Tablet 500 mg PO HS ergocalciferol (vitamin D2) 1,250 mcg (50,000 unit) capsule 50,000 unit PO WEEKLY Patient Comments: only takes when needed Xarelto 20 mg tablet 20 mg PO DAILY potassium chloride 20 mEq tablet extended release 20 meq PO TID Patient Comments: PATIENT TAKES 40 IN AM, 20 AT NOON, AND 40 IN EVENING Calcium 600 + D(3) 1 caplet PO BID acetaminophen 325 mg Tablet 650 mg PO Q4H PRN (Reason: Pain) metoprolol succinate 25 mg tablet extended release 24 hr 25 mg PO HS Date of admission: 05/17/25 17:54 Primary Care Provider: KennedyTristen Admitting Provider: Phani Smith Attending physician on admission: Phani Smith Condition: Stable Quality VTE Prophylaxis VTE prophylaxis: pharmacologic ordered
== END 2025-05-19 16:10 | disposition home or self-care (01) | DRG 299 ==
LOC: ANHED 17:05 → ANH2MED 17:25
PROVIDERS: Internal Medicine; Internal Medicine Interventional Cardiology; Nurse Practitioner Adult Health; Admitting Provider Family Medicine; Emergency Provider Emergency Medicine; PCP Internal Medicine; Visit Provider Physician Assistant
DX: I82.411 Acute embolism and thrombosis of right femoral vein (principal); I26.93 Single subsegmental thrombotic pulmonary embolism without acute cor pulmonale; I26.99 Other pulmonary embolism without acute cor pulmonale; Z68.41 Body mass index [BMI] 40.0-44.9, adult; I82.431 Acute embolism and thrombosis of right popliteal vein; I82.451 Acute embolism and thrombosis of right peroneal vein; I82.441 Acute embolism and thrombosis of right tibial vein; F41.9 Anxiety disorder, unspecified; E66.01 Morbid (severe) obesity due to excess calories; Z98.890 Other specified postprocedural states; Z87.19 Personal history of other diseases of the digestive system; Z85.038 Personal history of other malignant neoplasm of large intestine; Z87.891 Personal history of nicotine dependence
CPT/HCPCS: 36415; 71275; 80048; 80053; 83735; 84484; 85025; 85027; 85610; 85730; 93005; 96365; 96366; 96375; 99291; A9270; C8929; G0378; J1644; J2060; Q9957; Q9967

== ENCOUNTER 2025-06-03 13:11 | Outpatient (CLI) | payer OTHER, SELFPAY ==
--- NOTE | ~2025-06-03 | MM_ITS ---
EXAMINATION: MM screening kely BI w saad HISTORY: Screening TECHNIQUE: Craniocaudal and mediolateral oblique 3-D tomosynthesis images were obtained and synthetic 2-D images were generated. CAD analysis was submitted and interpreted. COMPARISON: Comparison to multiple prior studies sequentially, with oldest reviewed study dated 10/20. BREAST PARENCHYMAL COMPOSITION: The breasts are heterogeneously dense, which may obscure small masses . FINDINGS: There is no evidence of suspicious mass, calcification, or architectural distortion to sug gest malignancy in either breast. IMPRESSION: 1. No mammographic evidence of malignancy. 2. Recommend routine screening mammography in one year. BI-RADS Category 1: Negative Reviewed, dictated and finalized at location B.
== END 2025-06-03 13:12 | disposition home or self-care (01) ==
LOC: MICIMG 13:12
PROVIDERS: PCP Internal Medicine; Visit Provider Internal Medicine
DX: Z12.31 Encounter for screening mammogram for malignant neoplasm of breast (principal)
CPT/HCPCS: 77063; 77067

== ENCOUNTER 2025-06-26 10:09 | Outpatient (CLI) | payer OTHER, SELFPAY ==
--- NOTE | ~2025-06-26 | US_ITS ---
EXAMINATION:US venous doppler LE RT INDICATION:Pulmonary embolism. History of venous thrombosis. TECHNIQUE: Multiple grayscale, color flow and Doppler images of the right lower extremity deep venous systems were obtained and reviewed. COMPARISON:Ultrasound dated 05/15/2025 FINDINGS: There is persistent deep venous thrombosis in the right femoral and popliteal veins. Color flow is also seen within the posterior tibial, peroneal, greater saphenous and profunda veins. IMPRESSION: 1: Persistent deep venous thrombosis of the right femoral and popliteal veins. Reviewed, dictated and finalized at location A.
--- OUTSIDE RECORDS SUMMARY | 2025-06-26 10:27 | XMS_ITS | Clinical Summary ---
Author Organization [facility] Address [address] [place] [address] Care Team Providers Care Base Wad Operator Adjuster Name Role Phone Tristen Benavides MD Primary Care Provider Philip Torres MD Unavailable [phone] Tru Sanchez MD Unavailable [phone] Luba Rodgers [facility] Unavailable [phone] Allergies No known active allergies Medications furosemide (LASIX) 40 mg tabletIndicati ons:Edema Take 1 tablet (40 mg total) by mouth early childhood specialist before breakfast Active potassium chloride ER 20 mEq CR tabletIndicati ons:supplement Take 1 tablet (20 mEq total) by mouth 3 (three) times a day 3 Active Xarelto 20 mg tabletIndicati ons:Venous Thrombosis Take 1 tablet (20 mg total) by mouth early childhood specialist before breakfast Active venlafaxine XR (EFFEXOR-XR) 37.5 mg 24 hr capsuleIndicat ions:Anxiety with Depression Take 1 capsule (37.5 mg total) by mouth early childhood specialist before breakfast 3 Active calcium carbonate (CALCIUM [...] Use first for management of pain 5 06/02/20 Discontinu ed(Therapy completed) cyclobenzaprin e (FLEXERIL) 10 mg tablet Take 1 tablet (10 mg total) by mouth every 8 (eight) hours for 12 doses 12 tablet 5 06/02/20 Discontinu ed(Therapy completed) docusate sodium (COLACE) 100 mg capsuleIndicat ions:constipat ion Take 1 capsule (100 mg total) by mouth 2 (two) times a day 30 capsule 5 06/02/20 Discontinu ed(Therapy completed) oxyCODONE (ROXICODONE) 5 mg immediate release tabletIndicati ons:Pain Take 1 tablet (5 mg total) by mouth every 4 (four) hours as needed for pain 10 tablet 5 06/02/20 Discontinu ed(Therapy completed) Active Problems Problem Noted Date Diagnosed Date History of DVT (deep vein thrombosis) 06/06/2025 History of incisional hernia repair 06/02/2025 Incarcerated incisional hernia 03/25/2025 Ventral incisional hernia 09/13/2024 Morbid obesity 09/13/2024 History of colectomy 12/10/2023 History of colon cancer 12/07/2023 Colonic mass 11/08/2023 Acute postoperative abdominal pain 11/08/2023 Malignant neoplasm of ascending colon 10/26/2023 Colon cancer, ascending 10/26/2023 Encounters Date Type Department Care Team Description 06/06/2025 8:15 AM CDT Office Visit [facility]) - [facility] Minimally Invasive Surgery [address] 12th Floor, [place] [address] Mazin Esposito MD History of incisional hernia repair (Primary Dx); Incarcerated incisional hernia; History of DVT (deep vein thrombosis) 05/20/2025 Orders Only [facility] Cardiology [address] [place] [address] Miah Kim MD 05/08/2025 7:30 AM CDT - 05/08/2025 11:40 AM CDT Surgery [facility] Operating Room 1 [place] [address] Mazin Esposito MD XI REPAIR INCISIONAL HERNIA - LAPAROSCOPIC ROBOTIC ASSISTED RETRO-RECTUS APPROACH 05/08/2025 7:27 AM CDT Anesthesia Event [facility] Operating Room [address] [place] [address] Luca Mohr MD Petranek, Jennifer T., EMT 05/08/2025 5:17 AM CDT - 05/09/2025 3:34 PM CDT Hospital Encounter [address] [address] Mazin Esposito MD Incarcerated incisional hernia (Primary Dx) Discharge Disposition: Discharge to home or self care 05/05/2025 Telephone [facility] Oncology [address] [facility] [address] [place] [id number] Marivel Cifuentes CMA Xarelto/Form 04/29/2025 9:00 AM CDT Office Visit [facility] Oncology [facility] Floor 5 [place] [address] Luba Rodgers MD Colon cancer, ascending (HCC) (Primary Dx); Malignant neoplasm of ascending colon (HCC) 04/29/2025 8:30 AM CDT Lab [facility] - Lab Collection [facility] Floor 5 [place] [address] Colon cancer, ascending (HCC) 04/29/2025 8:15 AM CDT Lab [facility] Oncology Lab [address] [place] [address] Floor 5 [place] [address] Malignant neoplasm of ascending colon (HCC) 04/29/2025 Orders Only [facility] Scanning, Provider 04/29/2025 Telephone [facility] Specialty Services [address] [place] [address] Nilda Posada RN GI Preprocedure 04/15/2025 10:16 AM CDT - 04/15/2025 11:59 PM CDT Hospital Encounter [facility] [place] [address] [facility] Floor 8 [place] [address] Malignant neoplasm of ascending colon (HCC) Discharge Disposition: Discharge to home or self care 04/15/2025 8:30 AM CDT Pre-Admission Testing [facility] for Preoperative Assessment and Planning [facility] ([facility]) [address] [place] [address] Preoperative testing (Primary Dx) 03/27/2025 Telephone [facility] Oncology [address] [facility] Floor 6 [place] [address] Sofía Glez, KELLY 03/27/2025 Telephone [facility] Oncology [address] [facility] [address] [place] [address] Sofía Glez, KELLY from Last 3 Months [...] Sign Reading Time Taken Comments Blood Pressure 112/76 06/06/2025 7:50 AM CDT Pulse 76 06/06/2025 7:50 AM CDT Temperature 36.8 C (98.2 F) 06/06/2025 7:50 AM CDT Respiratory Rate 15 05/09/2025 3:00 PM CDT Oxygen Saturation 93% 05/09/2025 3:00 PM CDT Inhaled Oxygen Concentration - - Weight 118.8 kg (262 lb) 06/06/2025 7:50 AM CDT Height 167.6 cm (5' 6) 06/06/2025 7:50 AM CDT Body Mass Index 42.29 06/06/2025 7:50 AM CDT Plan of Treatment Scheduled Procedures Name [...] this topic Medical Devices Implanted Type Area Race Car Driver Device Identifier Shelf Expiration Date Model / Serial / Lot [employer]/C R Bard Mesh Surgical Hernia Synthetic Patch [id number] Polypropylene [id number] - Sn/A - [id number] Implanted:Qty: 1 on 05/08/2025 by Mazin Esposito MD at [facility] Mesh N/A: Abdomen [employer] Bard [id number] 02/07/2029 [id number] / N/A / [id number] Procedures Procedure Name Priority Date/Time Associated Diagnosis Comments CARDIOLOGY DOCUMENT SCAN Routine 05/19/2025 12:48 PM CDT CARDIOLOGY DOCUMENT SCAN Routine 05/18/2025 12:43 PM CDT CARDIOLOGY DOCUMENT SCAN Routine 05/18/2025 11:55 AM CDT CARDIOLOGY DOCUMENT SCAN Routine 05/17/2025 11:52 AM CDT CARDIOLOGY DOCUMENT SCAN Routine 05/16/2025 11:40 AM CDT EGFR Timed 05/09/2025 1:08 PM CDT BASIC [...] Routine 04/15/2025 9:58 AM CDT Preoperative testing from Last 3 Months Results * Cardiology Document Scan (05/19/2025 12:48 PM CDT) Anatomical Region Laterality Modality Other Barbara Curry MD CV CARDIAC SERVICES PROCEDU RES Final Result * Cardiology Document Scan (05/18/2025 12:43 PM CDT) Anatomical Region Laterality Modality Other Miah Kim MD CV CARDIAC SERVICES PROCEDU RES Final Result * Cardiology Document Scan (05/18/2025 11:55 AM CDT) Anatomical Region Laterality Modality Other Miah Kim MD CV CARDIAC SERVICES PROCEDU RES Final Result * Cardiology Document Scan (05/17/2025 11:52 AM CDT) Anatomical Region Laterality Modality Other Miah Kim MD CV CARDIAC SERVICES PROCEDU RES Final Result * Cardiology Document Scan (05/16/2025 11:40 AM CDT) Anatomical Region Laterality Modality Other Miah Kim MD CV CARDIAC SERVICES PROCEDU RES Final Result * eGFR (05/09/2025 1:08 PM CDT) eGFR [...] NP LAB BLOOD ORDERABLES Fin al Result [facility] Department [place] [address] * Basic metabolic panel (05/09/2025 1:08 PM CDT) Pathologist [facility] Sodium 140 135 - 145 mmol/L Potassium, pl 3.4 3.3 - 4.9 mmol/L [facility] Chloride 99 97 - 110 mmol/L [facility] CO2 32 22 - 32 mmol/L [facility] Anion gap 9 2 - 15 mmol/L [facility] BUN 15 6 - 25 mg/dL [facility] Creatinine 0.75 0.60 - 1.10 mg/dL [facility] Glucose 153 70 - 199 mg/dL [facility] Comment: Interpretive Data Fasting glucose >/= 126 [...] 2022. Calcium 8.6 8.5 - 10.3 mg/dL [facility] Blood 05/09/2025 1:08 PM CDT 05/09/2025 2:01 PM CDT Therese Oconnor NP LAB BLOOD ORDERABLES Fin al Result [facility] Department [place] [address] * eGFR (05/08/2025 9:38 PM CDT) [facility] eGFR >90 >=60 mL/min/1. 73 m2 [...] MD LAB BLOOD ORDERABLES Fin al Result [facility] Department [place] [address] * CBC without differential (05/08/2025 9:38 PM CDT) WBC 8.86 3.80 - 9.90 K/cumm Hgb 14.4 11.9 - 15.5 g/dL [facility] Hct 42.9 35.6 - 45.5 % [facility] Plt 254 150 - 400 K/cumm [facility] MPV 11.0 9.1 - 12.3 fL [facility] RBC 4.82 3.90 - 5.20 M/cumm [facility] MCV 89.0 81.3 - 96.4 fL [facility] MCH 29.9 27.1 - 33.3 pg [facility] MCHC 33.6 32.3 - 35.7 g/dL [facility] RDW CV 13.9 11.1 - 14.9 % [facility] RDW SD 45.4 35.7 - 48.1 fL [facility] NRBC abs 0.00 0.00 - 0.01 K/cumm [facility] Blood 05/08/2025 9:38 PM CDT 05/08/2025 10:47 PM CDT Karlo Akins MD LAB BLOOD ORDERABLES Fin al Result Performing Organization Address [facility] de Phone Number [facility] [place] [address] * Phosphorus (05/08/2025 9:38 PM CDT) Pathologist [facility] Phosphorus, pl 3.3 2.3 - 4.5 mg/dL Blood 05/08/2025 9:38 PM CDT 05/08/2025 10:49 PM CDT Therese Oconnor NP LAB BLOOD ORDERABLES Fin al Result Performing Organization Address [facility] de Phone Number [facility] [place] [address] * Magnesium (05/08/2025 9:38 PM CDT) [facility] Magnesium 2.4 1.4 - 2.5 mg/dL Blood 05/08/2025 9:38 PM CDT 05/08/2025 10:49 PM CDT Karlo Akins MD LAB BLOOD ORDERABLES Fin al Result Performing Organization Address [facility] [place] [address] * (ABNORMAL) Basic metabolic panel (05/08/2025 9:38 PM CDT) [facility] Sodium 141 135 - 145 mmol/L Potassium, pl 2.7(L) 3.3 - 4.9 mmol/L [facility] Chloride 99 97 - 110 mmol/L [facility] CO2 33(H) 22 - 32 mmol/L [facility] Anion gap 9 2 - 15 mmol/L [facility] BUN 12 6 - 25 mg/dL [facility] Creatinine 0.72 0.60 - 1.10 mg/dL [facility] Glucose 103 70 - 199 mg/dL [facility] Comment: Interpretive Data Fasting glucose >/= 126 [...] 2022. Calcium 8.6 8.5 - 10.3 mg/dL [facility] Comment:Repeated and Verifie d Blood 05/08/2025 9:38 PM CDT 05/08/2025 10:49 PM CDT Karlo Akins MD LAB BLOOD ORDERABLES Fin al Result [facility] Department [place] [address] * Airway (05/08/2025 7:57 AM CDT) Narrative [...] ORDERABLES Margaret l Result [facility] Department of Laboratories [place], [place] [id number] * Differential, auto (04/29/2025 8:20 AM CDT) Neutrophil abs 6.22 1.50 - 6.50 K/cumm Comment:Testing performed by : [facility], [address] [place] [phone] Lymphocyte abs 1.15 0.80 - 3.30 K/cumm [facility] Comment:Testing performed by : [facility], [address] [place] [phone] Monocyte abs 0.72 0.20 - 0.80 K/cumm [facility] Comment:Testing performed by : [facility], [address] [place], [place] [id number] Eosinophil abs 0.11 0.00 - 0.50 K/cumm [facility] Comment:Testing performed by : [facility], [address] [place], [place] [id number] Basophil abs 0.06 0.00 - 0.10 K/cumm [facility] Comment:Testing performed by : [facility], [address] [place], [place] [id number] Neutrophil pct 75.3 % [facility] Comment: Interpretive Data Percent cell count reference ranges are not reported, since discordance with absolute values may lead to misinterpretation of CBC data. Current Interpretive Data was last revised on 2018. Testing performed by: [facility], [address] [place] [phone] Lymphocyte pct 13.9 % [facility] Comment: Interpretive Data Percent cell count reference ranges are not reported, since discordance with absolute values may lead to misinterpretation of CBC data. Current Interpretive Data was last revised on 2018. Testing performed by: [facility], [address] [place] [address] Monocyte pct 8.7 % [facility] Comment: Interpretive Data Percent cell count reference ranges are not reported, since discordance with absolute values may lead to misinterpretation of CBC data. Current Interpretive Data was last revised on 2018. Testing performed by: [facility], [address] [place] [phone] Eosinophil pct 1.3 % [facility] Comment: Interpretive Data Percent cell count reference ranges are not reported, since discordance with absolute values may lead to misinterpretation of CBC data. Current Interpretive Data was last revised on 2018. Testing performed by: [facility], [address] [place] [address] Basophil pct 0.8 % [facility] Comment: Interpretive Data Percent cell count reference ranges are not reported, since discordance with absolute values may lead to misinterpretation of CBC data. Current Interpretive Data was last revised on 2018. Testing performed by: [facility], [address] [place] [address] Blood 04/29/2025 8:20 AM CDT 04/29/2025 8:28 AM CDT [facility] MD LAB BLOOD ORDERABLES Margaret gil Result [facility] Department [place] [address] * (ABNORMAL) CBC with auto differential (04/29/2025 8:20 AM CDT) WBC 8.26 3.80 - 9.90 K/cumm Comment:Testing performed by : [facility], [address] [place] [address] Hgb 16.6(H) 11.9 - 15.5 g/dL [facility] Comment:Testing performed by : [facility], [address] [place] [address] Hct 48.6(H) 35.6 - 45.5 % [facility] Comment:Testing performed by : [facility], [address] [place] [address] Plt 343 150 - 400 K/cumm [facility] Comment:Testing performed by : [facility], [address] [place] [address] MPV 8.5 6.8 - 10.4 fL [facility] Comment:Testing performed by : [facility], [address] [place] [address] RBC 5.49(H) 3.90 - 5.20 M/cumm [facility] Comment:Testing performed by : [facility], [address] [place] [address] MCV 88.5 81.3 - 96.4 fL [facility] Comment:Testing performed by : [facility], [address] [place] [address] MCH 30.2 27.1 - 33.3 pg [facility] Comment:Testing performed by : [facility], [address] [place] [address] MCHC 34.1 32.3 - 35.7 g/dL [facility] Comment:Testing performed by : [facility], [address] [place] [address] RDW CV 14.9 11.1 - 14.9 % [facility] Comment:Testing performed by : [facility], [address] [place] [address] NRBC abs 0.00 0.00 - 0.01 K/cumm [facility] Comment:Testing performed by : [facility], [address] [place] [address] Blood 04/29/2025 8:20 AM CDT 04/29/2025 8:28 AM CDT Moh'Harry Rodgers MD LAB BLOOD ORDERABLES Margaret l Result [facility] Department [place] [address] * CEA (04/29/2025 8:20 AM CDT) CEA [...] 8:20 AM CDT 04/29/2025 9:28 AM CDT MohFarrah Rodgers MD LAB BLOOD ORDERABLES Margaret gil Result [facility] Department [place] [address] * (ABNORMAL) Comprehensive metabolic panel (04/29/2025 8:20 AM CDT) Sodium 140 135 - 145 mmol/L Potassium, pl 3.4 3.3 - 4.9 mmol/L [facility] Chloride 97 97 - 110 mmol/L [facility] CO2 27 22 - 32 mmol/L [facility] Anion gap 16(H) 2 - 15 mmol/L [facility] BUN 16 6 - 25 mg/dL [facility] Creatinine 0.90 0.60 - 1.10 mg/dL [facility] Glucose 122 70 - 199 mg/dL [facility] Comment: Interpretive Data Fasting glucose >/= 126 [...] 2022. Calcium 10.3 8.5 - 10.3 mg/dL [facility] Bilirubin, total 0.4 0.1 - 1.2 mg/dL [facility] Protein, pl 8.2 6.5 - 8.5 g/dL [facility] Albumin 4.7 3.5 - 5.0 g/dL [facility] Alk phos 120 40 - 130 Units/L [facility] ALT 15 7 - 45 Units/L [facility] AST 22 10 - 45 Units/L [facility] Blood 04/29/2025 8:20 AM CDT 04/29/2025 8:25 AM CDT [facility] MD LAB BLOOD ORDERABLES Margaret l Result [facility] Department [place] [address] * Signatera Only Initial Draw (04/29/2025 7:56 [...] with pembrolizumab. Nature Cancer. 2020;1(9):873-881. 2 Anastasia TV, Renetta Moreno, et al., Circulating Tumor DNA in Stage III Colorectal Cancer, beyond Minimal Residual Disease Detection, toward Assessment of Adjuvant Therapy Efficacy and Clinical Behavior of Recurrences. Clin Cancer Res. 202; 28(3):507-517. Methodology FFPE samples are reviewed by a pathologist to assess tumor content and percent tumor nuclei. Tumor DNA is extracted using [employer] Mag-Bind FFPE DNA/RNA kit. Whole genomic DNA is isolated from peripheral blood using QIAamp DNA Blood MiniKit to provide DNA for germline sequencing. Circulating tumor DNA (ctDNA) is extracted from plasma derived from whole blood samples collected in cell-free DNA blood tubes (LearnUp) using the QIAsymphony automated or manual extraction method (Qiagen). Whole-exome sequencing is performed on tumor and peripheral blood DNA using the SDI whole-exome sequencing assay. Using a proprietary algorithm, [...] and whole exome sequencing is performed at [facility] (CLIA ID# [id number]), [address] [place] [address]. [address] Disclaimer The extraction, library preparation, and sequencing for this test were performed by [employer] [id number] [place] [address] A [facility] [address], [place] [address] (CLIA ID [id number]). The data analysis and reporting for this test were performed by [facility] [address], [place] [address] (CLIA ID [id number]). This test was developed and its performance characteristics determined by [facility]. The test has not been cleared or approved by the U.S. Food and Drug Administration (FDA). CAP accredited, ISO 88553 certified, and CLIA certified. Pathology services and whole exome sequencing for this test were performed by [facility] [address], [place] [address] (CLIA ID [id number]). 2020 [employer]. All Rights Reserved. Blood specimen (specimen) Venous blood specimen / Unknown 04/29/2025 7:56 AM CDT 05/07/2025 9:54 AM CDT Luba Rodgers MD LAB GENETIC TESTING Final Result Performing Organization Address City/State/[facility] de Phone Number [facility] [address] * SCAN - PATHOLOGY (04/29/2025) Provider Scanning [...] nodes. No aggressive bone lesion. Procedure Note William, Edgar Carter MD - 04/15/2025 EXAMINATION: Computed [...] 04/15/2025 10:18 AM CDT us Claire Kaye [employer]CH[employer]ISING [employer] LAB BLOOD ORDERABLES Fi nal Result [facility] Department [place] [address] * (ABNORMAL) Differential, auto (04/15/2025 9:58 AM CDT) Neutrophil abs 5.71 1.50 - 6.50 K/cumm Imm gran abs 0.03 0.00 - 0.10 K/cumm [facility] Lymphocyte abs 1.58 0.80 - 3.30 K/cumm [facility] Monocyte abs 0.95(H) 0.20 - 0.80 K/cumm [facility] Eosinophil abs 0.12 0.00 - 0.50 K/cumm [facility] Basophil abs 0.07 0.00 - 0.10 K/cumm [facility] Neutrophil pct 67.5 % [facility] Comment: Interpretive Data Percent cell count reference ranges are not reported, since discordance with absolute values may lead to misinterpretation of CBC data. Current Interpretive Data was last revised on 2018. Imm gran pct 0.4 % [facility] Comment: Interpretive Data Percent cell count reference ranges are not reported, since discordance with absolute values may lead to misinterpretation of CBC data. Current Interpretive Data was last revised on 2018. Lymphocyte pct 18.7 % [facility] Comment: Interpretive Data Percent cell count reference ranges are not reported, since discordance with absolute values may lead to misinterpretation of CBC data. Current Interpretive Data was last revised on 2018. Monocyte pct 11.2 % [facility] Comment: Interpretive Data Percent cell count reference ranges are not reported, since discordance with absolute values may lead to misinterpretation of CBC data. Current Interpretive Data was last revised on 2018. Eosinophil pct 1.4 % [facility] Comment: Interpretive Data Percent cell count reference ranges are not reported, since discordance with absolute values may lead to misinterpretation of CBC data. Current Interpretive Data was last revised on 2018. Basophil pct 0.8 % [facility] Comment: Interpretive Data Percent cell count reference ranges are not reported, since discordance with absolute values may lead to misinterpretation of CBC data. Current Interpretive Data was last revised on 2018. Blood 04/15/2025 9:58 AM CDT 04/15/2025 10:18 AM CDT Claire Kaye NP LAB BLOOD ORDERABLES Fi nal Result Performing Organization Address [facility] de Phone Number [facility] Department [place] [address] * (ABNORMAL) CBC with auto differential (04/15/2025 9:58 AM CDT) [facility] WBC 8.46 3.80 - 9.90 K/cumm Hgb 16.7(H) 11.9 - 15.5 g/dL [facility] Hct 50.1(H) 35.6 - 45.5 % [facility] Plt 333 150 - 400 K/cumm [facility] MPV 10.6 9.1 - 12.3 fL [facility] RBC 5.67(H) 3.90 - 5.20 M/cumm [facility] MCV 88.4 81.3 - 96.4 fL [facility] MCH 29.5 27.1 - 33.3 pg [facility] MCHC 33.3 32.3 - 35.7 g/dL [facility] RDW CV 14.4 11.1 - 14.9 % [facility] RDW SD 46.2 35.7 - 48.1 fL [facility] NRBC abs 0.00 0.00 - 0.01 K/cumm [facility] Blood 04/15/2025 9:58 AM CDT 04/15/2025 10:18 AM CDT Claire Kaye MERCHANDISING INTERN LAB BLOOD ORDERABLES Fi nal Result Performing Organization Address [facility] [employer] de Phone Number [facility] Department [place] [address] * (ABNORMAL) Comprehensive metabolic panel (04/15/2025 9:58 AM CDT) [facility] Sodium 135 135 - 145 mmol/L Potassium, pl 4.2 3.3 - 4.9 mmol/L [facility] Comment:Hemolyzed; Potassium value may be falsely elevated by as much as 0.6-1.0 mmol/L. Suggest redraw and reanalysis. Chloride 94(L) 97 - 110 mmol/L [facility] CO2 30 22 - 32 mmol/L [facility] Anion gap 11 2 - 15 mmol/L [facility] BUN 21 6 - 25 mg/dL [facility] Creatinine 1.04 0.60 - 1.10 mg/dL [facility] Glucose 113 70 - 199 mg/dL [facility] Comment: Interpretive Data Fasting glucose >/= 126 [...] 2022. Calcium 10.8(H) 8.5 - 10.3 mg/dL [facility] Bilirubin, total 0.5 0.1 - 1.2 mg/dL [facility] Protein, pl 8.0 6.5 - 8.5 g/dL [facility] Albumin 4.3 3.5 - 5.0 g/dL [facility] Alk phos 121 40 - 130 Units/L [facility] ALT 18 7 - 45 Units/L [facility] AST 36 10 - 45 Units/L [facility] Comment:Hemolyzed; result ma y be falsely elevated Blood 04/15/2025 9:58 AM CDT 04/15/2025 10:18 AM CDT us Claire Kaye MERCHANDISING INTERN LAB BLOOD ORDERABLES Fi nal Result [facility] Department [place] [address] from Last 3 Months Insurance [employer] Advance Directives For more information, please contact: [phone] Documents on File Type Date Recorded Patient Uncrater Expl anation ADVANCE DIRECTIVE 11/07/2023 2:36 PM Renita r of Information Receptionist-Medical * Full Code (Latest Code Status on File) Date Activated Date Inactivated Comments 05/08/2025 1:46 PM 05/09/2025 7:34 PM * Full Code Date Activated Date Inactivated Comments 12/10/2023 4:16 PM 12/12/2023 8:51 PM * Full Code Date Activated Date Inactivated Comments 11/08/2023 6:26 PM 11/15/2023 10:11 PM Care Teams Base Wad Operator Adjuster Relationship Specialty Start Date End Date Tristen Benavides MD PCP - General 02/14/17 Philip Torres MD [address] [facility] [address] [place] [address] Golf Club Head Inspector Gastroenterology 10/24/23 Tru Sanchez MD [address] [phone] [place] [address] Surgeon Colon and Rectal Surgery 10/26/23 Luba Rodgers MD [address] [facility][1] MEDICAL ONCOLOGY, [facility] [address]A, [address]B, [address] [place] [address] Consulting Physician Medical Oncology 03/27/25
--- OUTSIDE RECORDS SUMMARY | 2025-06-26 10:27 | XMS_ITS | Encounter Summary ---
Author Organization [facility] Address [address] [place] [address] Phone Care Team Providers Care Internal Medicine Specialist Name Role Phone Tristen Benavides MD Primary Care Provider Philip Torres MD Unavailable [phone] Tru Sanchez MD Unavailable [phone] Nolan Ch MD PhD Unavailable [phone] Luba Rodgers MD Unavailable [phone] Encounter Details Date Type Department Care Team [...] Comments VASCULAR LABORATORY REPORT 09/29/2017 1:01 PM PROVIDER RELATIONS SPECIALIST documented in this encounter Results * VASCULAR LABORATORY REPORT (09/29/2017 1:01 PM PROVIDER RELATIONS SPECIALIST) Anatomical Region Laterality Modality Ultrasound us Provider Scanning CV VASCULAR PROCEDURES Final R esult documented in this encounter Visit Diagnoses Not on filedocumented in this encounter Care Teams Internal Medicine Specialist Relationship Specialty Start Date End Date Tristen Benavides MD PCP - General 02/14/17 Philip Torres MD [address] [place] [address] Rn Medication Gastroenterology 10/24/23 Tru Sanchez MD [address] [facility] [phone] [place] [address] Surgeon Colon and Rectal Surgery 10/26/23 Nolan Ch MD PhD [address] [place] [address] Medical Oncologist Medical Oncology 12/27/23 03/26/25 Luba Rodgers MD [address] [facility] [place] [place] [facility], [facility] [address]A, 7B, [address] [place] [address] Consulting Physician Medical Oncology 03/27/25 documented as of this encounter
--- OUTSIDE RECORDS SUMMARY | 2025-06-26 10:27 | XMS_ITS ---
Author Organization [facility] Address [address] [place] [address] Care Team Providers Care Check Clerk Name Role Phone Tristen Benavides MD Primary Care Provider Philip Torres MD Unavailable [phone] Tru Sanchez MD Unavailable [phone] Luba Rodgers Unavailable [phone] Active Problems Problem Noted Date Diagnosed Date [...]
--- OUTSIDE RECORDS SUMMARY | 2025-06-26 10:27 | XMS_ITS | Encounter Summary ---
Author Organization [facility] Address [address] [place] [address] Phone Care Team Providers Care Cream Hauler Name Role Phone Tristen Benavides MD Primary Care Provider Philip Torres MD Unavailable [phone] Tru Sanchez MD Unavailable [phone] Nolan Ch MD PhD Unavailable [phone] Luba Rodgers MD Unavailable [phone] Encounter Details Date Type Department Care Team [...] on filedocumented in this encounter Care Teams Cream Hauler Relationship Specialty Start Date End Date Tristen Benavides MD PCP - General 02/14/17 Philip Torres MD [address] [place] [address] Major Gifts Officer Gastroenterology 10/24/23 Tru Sanchez MD [address] [facility] [phone] [place] [address] Surgeon Colon and Rectal Surgery 10/26/23 Nolan Ch MD PhD [address] [place] [address] Medical Oncologist Medical Oncology 12/27/23 03/26/25 Luba Rodgers MD [address] [facility] MEDICAL ONCOLOGY, [facility] [address]A, 7B, [address] [place] [address] Consulting Physician Medical Oncology 03/27/25 documented as of this encounter
--- OUTSIDE RECORDS SUMMARY | 2025-06-26 10:27 | XMS_ITS | Encounter Summary ---
Author Organization [facility] Address [address] [place] [address] Phone Care Team Providers Care Outside Plant Technician Name Role Phone Tristen Benavides MD Primary Care Provider Philip Torres MD Unavailable [phone] Tru Sanchez MD Unavailable Nolan Ch MD PhD Unavailable [phone] Luba Rodgers MD Unavailable [phone] Encounter Details Date Type Department Care Team [...] on filedocumented in this encounter Care Teams Outside Plant Technician Relationship Specialty Start Date End Date Tristen Benavides MD PCP - General 02/14/17 Philip Torres MD [address] [place] [address] Bleach Plant Operator Gastroenterology 10/24/23 Tru Sanchez MD [address] [facility] [phone] [place] [address] Surgeon Colon and Rectal Surgery 10/26/23 Nolan Ch MD PhD [address] [place] [address] Medical Oncologist Medical Oncology 12/27/23 03/26/25 Luba Rodgers MD [address] [facility] DIV IM MEDICAL ONCOLOGY, [facility] 7A, 7B, [address] [place] [address] Consulting Physician Medical Oncology 03/27/25 documented as of this encounter
--- OUTSIDE RECORDS SUMMARY | 2025-06-26 10:27 | XMS_ITS | Clinical Summary ---
Author Organization [facility] Address [address] [place] [address] Care Team Providers Care Bone Density Technician Name Role Phone Tristen Benavides MD Primary Care Provider [phone] Source Comments [facility],non-owned Affiliates and Associated Physician Practices is amultiple site organization consisting of ambulatory clinics and hospital sitesin [place], [place], [place] and [place]. This disclosure is being madepursuant to the Care Everywhere program and may not contain all information available regarding this patient. Last updated 18.[facility] Allergies No known active allergies Medications * Be aware that medications may not be up to date on this document. Alwaysverify current medications with the patient. rivaroxaban (XARELTO) 20 MG tablet Take 20 mg by mouth daily with food Active vitamin D, ergocalciferol, (DRISDOL) 22541 UNITS capsule Take 50,000 Units by mouth [...] season) 2024 DEPRESSION SCREENING 11/13/2024 INFLUENZA VACCINE (#1) 2025 Respiratory Syncytial Virus (RSV) Vaccine Pt: [...] patient's age to complete this topic Insurance [facility] SELF PAY NO INSURANCE Member Subscriber Plan / Payer (Ef fective for All Dates) Name:Ivett Del Rosario Member ID:Not on file Relation to Subscriber:Not on file Name:IVETT DEL ROSARIO Subscriber ID:Not on file (Home) Address: [address] [place] [address] Payer ID:Not on file Group ID:Not on file Type:Self Pay Address: [place], [place] SELF PAY NO INSURANCE Member Subscriber Plan / Payer (Ef fective for All Dates) Name:Ivett Del Rosario Member ID:Not on file Relation to Subscriber:Not on file Name:IVETT DEL ROSARIO Subscriber ID:Not on file (Home) Address: [address] [address] Payer ID:Not on file Group ID:Not on file Type:Self Pay Address: [place], [place] * Guarantor: CARINIVETT Account Type Relation to Patient Date of Phone Billing Address Personal/Family Spouse Advance Directives Documents on File Type Date Recorded Patient Community Service Aide Expl anation Adv Directive/Living Will/POA 02/14/2017 * Full Code (Latest Code Status on File) Date Activated Date Inactivated Comments 02/21/2017 5:31 PM 02/22/2017 1:39 PM Care Teams Bone Density Technician Relationship Specialty Start Date End Date Tristen Benavides MD [address] [place] [address] PCP - General Internal Medicine 02/21/17
--- OUTSIDE RECORDS SUMMARY | 2025-06-26 10:27 | XMS_ITS | Encounter Summary ---
Author Organization [facility] Address [address] [place] [address] Phone Care Team Providers Care Dress Operator Name Role Phone Tristen Benavides MD Primary Care Provider Philip Torres MD Unavailable [phone] Tru Sanchez MD Unavailable [phone] Nolan hC MD PhD Unavailable [phone] Luba Rodgers MD Unavailable [phone] Encounter Details Date Type Department Care Team [...] on filedocumented in this encounter Care Teams Dress Operator Relationship Specialty Start Date End Date Tristen Benavides MD PCP - General 02/14/17 Philip Torres MD [address] [place] [address] Furnace Fitter Gastroenterology 10/24/23 Tru Sanchez MD [address] [facility] [phone] [place] [address] Surgeon Colon and Rectal Surgery 10/26/23 Nolan Ch MD PhD [address] [place] [address] Medical Oncologist Medical Oncology 12/27/23 03/26/25 Luba Rodgers MD [address] [facility] MEDICAL ONCOLOGY, [facility] [address]A, [address]B, [address] [place] [address] Consulting Physician Medical Oncology 03/27/25 documented as of this encounter
== END 2025-06-26 10:10 | disposition home or self-care (01) ==
PROVIDERS: PCP Internal Medicine; Visit Provider Internal Medicine
DX: I26.94 Multiple subsegmental thrombotic pulmonary emboli without acute cor pulmonale (principal); I82.411 Acute embolism and thrombosis of right femoral vein; I82.431 Acute embolism and thrombosis of right popliteal vein
CPT/HCPCS: 93971

== ENCOUNTER 2025-08-05 10:01 | Outpatient (CLI) | payer OTHER, SELFPAY ==
--- NOTE | ~2025-08-05 | US_ITS ---
EXAMINATION:US venous doppler LE INDICATION:Acute DVT TECHNIQUE: Multiple grayscale, color flow and Doppler images of the right and left lower extremity deep venous systems were obtained and reviewed. COMPARISON:Ultrasound dated 06/26/2025 and 05/15/2025 FINDINGS: The left common femoral, superficial femoral and popliteal veins demonstrate normal respiratory variation, augmentation and compressibility. Color flow is also seen within the posterior tibial, peroneal, greater saphenous and profunda veins. There is deep venous thrombosis of the right femoral, popliteal, peroneal and gastrocnemius veins. IMPRESSION: 1: Persistent deep venous thrombosis of the right lower extremity veins. Reviewed, dictated and finalized at location O.
== END 2025-08-05 10:02 | disposition home or self-care (01) ==
LOC: MICIMG 10:02
PROVIDERS: PCP Internal Medicine; Visit Provider Internal Medicine
DX: I82.401 Acute embolism and thrombosis of unspecified deep veins of right lower extremity (principal)
CPT/HCPCS: 93970